=== PATIENT | male | born 1940 | race Caucasian/White ===

== ENCOUNTER 2024-07-07 23:46 | Observation (INO) ==
--- OUTSIDE RECORDS SUMMARY | 2024-07-07 23:51 | External Medical Summary | Summary of Care ---
Author Name Unknown Organization [facility] Address [address] [place] [address] Phone [phone] Care Team Providers Care Heavy Equipment Rental Manager Name Role Phone Chiki Syed MD Primary Care Provider + Reason for Visit * Reason Onset Date Comments Med Request 06/18/2024 Encounter Details Date Type Department Care Team (Late st Contact Info) Description 06/18/2024 Telephone Podiatry, [facility] [address] [place] [address] Fidelina Mckinley DPM [address] [place] [address] Med Request Allergies Active Allergy Reactions Criticality Noted Date Comments Atorvastatin 10/15/2013 Joint pain Fenofibrate 10/15/2013 Joint pain Gemfibrozil Diarrhea 10/15/2013 Lisinopril Cough 01/25/2017 Niacin Nausea/vomiting 10/15/2013 documented as of this encounter (statuses as of 06/18/2024) Medications Medication Sig Dispensed Refills Start Date End Date Status METAMUCIL 0.52 G PO CAPS one to two daily 10/15/2013 Active [facility] FISH OIL + D3 7024-9399 MG-UNIT PO CAPS Take by mouth once . Takes this once daily 10/15/2013 Active rosuvastatin (CRESTOR) 5 MG Tablet Take 2.5 Tablets by mouth every other day. Active CYANOCOBALAMIN (VITAMIN B-12) 100 MCG Tablet Take 5 Tablets by mouth in the morning. Active Tylenol PM Extra Strength 500-25 MG Oral Tablet (diphenhydrAMINE-AP AP (sleep)) Take 1 Tablet by mouth 3 times a day as needed for Itching. Active Pantoprazole Sodium 20 MG Oral Tablet Delayed Release (Protonix) TAKE 1 TABLET BY MOUTH IN THE MORNING 90 Tablet 09/06/2023 Active Ciclopirox 8 % External Solution Apply over nail and surrounding skin. Apply daily over previous coat. After seven (7) days, may remove with alcohol and continue cycle. 6.6 mL 3 09/26/2023 Active Additional Information Patient not taking.Reported on 01/20/2024 predniSONE 10 MG Oral Tablet (Deltasone)Indicati ons:Acute right-sided low back pain without sciatica 1 tab every morning for 5 days or up to 15 days 20 Tablet 01/01/2024 Active Warfarin Sodium 4 MG Oral Tablet (Coumadin)Indicatio ns:Chronic atrial fibrillation (HCC) TAKE 1 TO 2 TABLETS BY MOUTH DAILY PER ANTI-COAGULATION CLINIC 180 Tablet 3 01/11/2024 Active Lidocaine 5 % External Patch (Lidoderm)Indicatio ns:HZV (herpes zoster virus) post herpetic neuralgia Place 2 Patches topically on the skin in the morning. 60 Patch 5 01/20/2024 Active Furosemide 20 MG Oral Tablet (Lasix)Indications: Lower extremity edema,Chronic atrial fibrillation (HCC),HTN, goal below 130/80,Valvular heart disease Take 1 Tablet by mouth daily as needed (fluid accumulation or weight gain). 30 Tablet 11 03/02/2024 Active Gabapentin 100 MG Oral Capsule (Neurontin)Indicati ons:HZV (herpes zoster virus) post herpetic neuralgia Take 1 Capsule by mouth in the morning and 1 Capsule at noon and 1 Capsule before bedtime. 90 Capsule 5 03/23/2024 Active Losartan Potassium 100 MG Oral Tablet (Cozaar)Indications :HTN, goal below 140/90 TAKE 1 TABLET BY MOUTH IN THE MORNING 90 Tablet 04/04/2024 Active hydroCHLOROthiazide 12.5 MG Oral CapsuleIndications: HTN, goal below 140/90 TAKE 1 CAPSULE BY MOUTH IN THE MORNING 90 Capsule 04/04/2024 Active Metoprolol Succinate ER 50 MG Oral Tablet Extended Release 24 Hour (toPROL XL)Indications:Atri al fibrillation, chronic (HCC),HTN, goal below 130/80 TAKE 1 TABLET BY MOUTH IN THE MORNING 90 Tablet 1 05/28/2024 Active documented as of this encounter (statuses as of 06/18/2024) Active Problems Problem Noted Date Diagnosed Date Aneurysm of ascending aorta without rupture 03/05 Severe obesity with body mas s index (BMI) of 35.0 to 39.9 with serious comorbidity 01/10/2023 History of 2019 novel coronavirus disease (COVID -19) 03/09/2022 Overview: 03/26 Aortic ectasia, thoracic 07/28/2021 Overview: 07/26 4.3 cm Atrial fibrillation, chronic 10/19/2018 Complex tear of lateral meni scus of right knee as current injury 04/05/2017 History of renal cell cancer 01/25/2017 Overview: left kidney dx [facility] Prediabetes 10/05/2016 Prostate cancer 10/05/2016 Overview: S/p surgery, XRT. 07/[address] Holm 08/21 PSA 0.[address] [place] [address] Romero--s/p surg, XRT 5 years later. Well adult exam 10/05/2016 Overview: 08/26 EGD biopsy +Leiomyoma. Precious 1y 06/26 EGD--abnormal. F/u sched Aug. 07/26 lung nodules, ectasia, precious stable 05/27, precious 1 more time 1y ordered 04/[address] Holm, uro. Dr Mccloud-Cardiology in past now Dr Patten Goes yearly to [facility] 06/21 normal stress test w/Dr Mccloud 2009 colonoscopy WNL -consider in 2019. A-fib 01/09/2016 Overview: 06/21 Lexiscan Tc99 Stress echo WNL. Normal EF. Dr Mccloud, [place] in past now Dr Patten. HTN, goal below 130/80 GERD (gastroesophageal reflux disease) documented as of this encounter (statuses as of 06/18/2024) Resolved Problems Problem Noted Date Diagnosed Date Resolved Date Low vitamin D level 01/09/2016 04/05/20 17 Kidney disease, chronic, sta ge III (GFR 30-59 ml/min) 04/07/2015 10/19/2018 Overview: Per CKD protocol #1 Renal cancer 11/01/2014 01/25/2017 Rt groin pain 10/07/2014 11/01/2014 Hyperlipidemia with target LDL less than 100 01/09/2016 Overview: ICD-10 update of inactive term Prostate cancer 01/09/2016 Atrial fibrillation 05/02/20 15 Overview: Dr Gilliam HTN, goal below 140/90 05/02 Hyperlipidemia with target LDL less than 100 11/01/2014 Overview: ICD-10 update of inactive term documented as of this encounter (statuses as of 06/18/2024) Immunizations Name Administration Dates Next Due COVID-19 mRNA, LNP-s, No Pre serve, 2-Dose Series (Moderna) 10/13/2020,09/15/2020 COVID-19, mRNA, LNP-s, PF, B ooster, 100mcg/0.5mg (Moderna) 12/14/2021,07/01/2021 Covid-19, Mrna, Lnp-s, Pf, B ivalent, 30 Mcg, IM, 12 yrs and above (Pfizer) 01/13/2023,07/05/2022 Pneumococcal Conjugate Vacc, 13 Valent (Prevnar) 10/05/2016 Pneumococcal Polysaccharide PPV23 (Pneumovax) 06/05/2008 RSV Vac., Bivalent, Perfusio n F, Pf,0.5 Ml (Abrysvo) 01/20/2024 Season Influenza, Quad, PF, Adjuvanted, 65+ Yrs, IM (FLUAD) 05/14/2020 Seasonal Influenza Vac., MDV , IM, 0.5 mL (Fluzone) 06/11/2014,06/20/2013 Seasonal Influenza Virus Vac cine, Unspecified Formulation 06/14/2017,06/08/2016,06/05/2014,06/20,09/05/2011,06/05/2011,06/29/2010 ,07/06/2009,06/24/2008,06/28/2007,09/2005,07/13/2005,07/06/2004, 3,06/05/2002,07/06/2001 Seasonal Influenza, High Dos e, Trivalent, PF, IM (Fluzone HD) 06/16/2024 Seasonal Influenza, PF, 6 M & above, IM , (FluLaval or Fluzone) 05/15/2019,06/12/2018,06/14/2017 Seasonal Influenza, Quadriva lent Hd (Fluzone Hd) 06/11/2023,05/22/2022,05/23/2021 Seasonal Influenza, Quadriva lent, No Preserve, IM 06/08/2016,06/18/2015 TDAP (age 10 and older)(Boostrix) 01/31/2017 Varicella Zoster Vaccine (Adult) 04/05/2010 Zoster Vaccine Recombinant (Shingrix) 01/22/2020 ,10/24/2019 documented as of this encounter Social History Tobacco Use Types Packs/Day Years Used Date Smoking Tobacco: Former Cigarettes 1.5 20 0 10/15/1961 - 10/15/1981 Smokeless Tobacco: Former Quit: 10/19/1991 Comments:20 yrs 1- ppd Alcohol Use Standard Drinks/Week Comments Yes 0 (1 standard drink = 0.6 oz pur e alcohol) wine at holidays PHQ-2 Answer Date Recorded PHQ Adult Total Score 0 01/20/2024 Hunger Vital Sign Answer Date Recorded Within the past 12 months, y ou worried that your food would run out before you got the money to buy more. Never true 01/11/20 23 Within the past 12 months, t he food you bought just didn't last and you didn't have money to get more. Never true 01/10/2023 Utilities Answer Date Recorded Do you have trouble paying y our heating, water, or electric bill? (Adult - for ages 18 years and over) Not on file 02/21/2024 Is your family able to pay t he heat, water, or electric bill? (Household - for ages 0-17 years) Not on file 02/21/2024 Does your family have access to good internet? (Household - for ages 0-17 years) Not on file 02/21/2024 Social Connections Answer Date Recorded How often do you feel lonely or isolated from those around you? (Adult - for ages 18 years and over) Not on file 02/21/2024 Sex and Gender Information Value Date Recorded Sex Assigned at Male 09/30/2021 10:18 AM EST Gender Identity Male 09/30/2021 10:18 AM EST Sexual Orientation Straight 09/30/2021 10 :18 AM EST Job Start Date Occupation Industry Not on file Not on file Not on file documented as of this encounter Miscellaneous Notes * Addendum Note - Tonja Anthony PHARM Tech - 06/18/2024 10:19 AM EDT Addended by: TONJA ANTHONY on: 06/18/2024 10:19 AM Modules accepted: Orders * Telephone Encounter - Tonja Anthony tobacco roller - 06/18/2024 10:18 AM EDT Patient is up to date for office visits. Pending Prescriptions: Disp Refills Ciclopirox 8 % External Solution 6.6 mL 3 Sig: Apply over nail and surrounding skin. Apply daily over previous coat. After seven (7) days, may remove with alcohol and continue cycle. Last Visit: Visit date not found (in office), Visit date not found (telemedicine) Next Visit: Visit date not found If no future appointments scheduled, and last appointment is greater than a year ago, please schedule patient for a follow-up appointment Last date the medication was ordered: 09/26/23 Pharmacy: [facility] Is this request for a controlled substance?No it is not controlled. Urine Drug Screen:No results found for this or any previous visit. Patient Phone Numbers Labs: Lab Results Component Value Date/Time CREAT 1.2 02/07/2024 12:00 AM CREAT 1.3 (H) 10/17/2019 07:03 AM POTASSIUM 4.9 02/07/2024 12:00 AM POTASSIUM 4.9 10/17/2019 07:03 AM TSH 2.53 02/07/2024 12:00 AM TSH 3.66 11/01/2017 07:12 AM LDL 90 10/31/2020 11:26 AM LDL 63 04/16/2018 11:18 AM LDL NOT APPLICABLE 04/16/2018 11:18 AM LDLCALC 72 02/07/2024 12:00 AM ALT 25 11/01/2017 07:12 AM HGBA1C 6.5 (A) 02/07/2024 12:00 AM HGBA1C 6.2 (H) 10/17/2019 07:03 AM * Telephone Encounter - Karlee Singh PHARM Tech - 06/18/2024 10:14 AM EDT Pt calling for a refill on Ciclopirox. This was last prescribed by Podiatry. Transfer to specialty refill line. Thank you, Karlee Singh, Construction [employer] [facility] ([facility]) 06/18/2024,10:16 AM documented in this encounter Plan of Treatment Upcoming Encounters Date Type Department Care Team (Late st Contact Info) Description 06/22/2024 10:00 AM EDT 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 Pharmacy, [facility] [address] [address] [address] [facility] [address] [address] 09/26/2024 10:30 AM EST Office Visit Cardiology, [facility] [address] [address] Fredrick Jaime DO [address] [address] [address] 01/23/2025 9:20 AM EDT Office Visit Family Practice [facility] [address] [address] Chiki Syed MD [address] [place] [address] Scheduled Procedures Name Priority Associated Diagnoses Date/Ti me ESOPHAGOGASTRODUODENOSCOPY ( EGD), FLEXIBLE, TRANSORAL, ENDOSCOPIC ULTRASOUND Recall Esophageal polyp Gastric mass Health Maintenance Due Date Last Done Comments COVID-19 Vaccine ( season) 2024 01/13/2023, 07/05/2022, 12/14/2021, Additional history exists Adult Wellness Visit 07/26/2024 07/26/2023, 09/30/19 22 Depression Screening 01/19/2025 01/20/2024 GFR 02/06/2025 02/07/2024, 12/05, 07/13/2023, Additional history exists HbA1c 02/06/2025 02/07/2024, 04/2023, 02/08/2023, Additional history exists DTap/Tdap Vaccines (2 - Td or Tdap) 01/31/2027 01/31/2017 Albumin/Creatinine Ratio 02/06/2027 024, 01/10/2023, 04/05/2017 Pneumococcal Vaccine: 65+ Years Completed 10/05/2016, 06/05/2008 Zoster Vaccines Completed 01/22/2020, 10/06, 04/05/2010 Influenza Vaccine (FLU shot) Completed 08/2024, 06/11/2023, 05/22/2022, Additional history exists HPV (Gardasil) Vaccine Aged Out No lo nger eligible based on patient's age to complete this topic Hepatitis B Vaccine Aged Out No longe r eligible based on patient's age to complete this topic MENINGOCOCCAL (MENACTRA/MENVEO) Aged Out No longer eligible based on patient's age to complete this topic documented as of this encounter Medical Devices Implanted Type Area Yard Associate Device Identifier Shelf Expiration Date Model / Serial / Lot Lens Intraoc 21.5 - [id number] - [id number] Implanted:Qty: 1 on 06/20/2018 by Bogdan Lindsay MD at OR [facility] Left: Eye [employer]OM[employer] 01/02/2023 [id number] / [id number] / [id number] Lens Intraoc 21.5 - [id number] - [id number] Implanted:Qty: 1 on 06/29/2018 by Bogdan Lindsay MD at OR [facility] Right: Eye BAUSCH [employer] LOMB 02/02/2023 [id number] / [id number] / [id number] documented as of this encounter Advance Directives * Full Code (Latest Code Status on File) Date Activated Date Inactivated Comments 06/29/2018 8:41 AM 06/29/2018 3:29 PM This order reflects the patients wishes and were consensually agreed upon. * Full Code Date Activated Date Inactivated Comments 06/20/2018 9:51 AM 06/20/2018 3:45 PM This order reflects the patients wishes and were consensually agreed upon. Care Teams Heavy Equipment Rental Manager Relationship Specialty Start Date End Date Chiki Syed MD [address] [place] [id number] PCP - General Family Medicine 10/20/18 documented as of this encounter
--- OUTSIDE RECORDS SUMMARY | 2024-07-07 23:51 | External Medical Summary | Summary of Care ---
Author Name Unknown Organization [facility] Address [address] [place] [address] Phone [phone] Care Team Providers Care General Claims Agent Name Role Phone Chiki Syed MD Primary Care Provider + Reason for Visit * Reason Onset Date Comments Med Request 06/18/2024 Encounter Details Date Type Department Care Team (Late st Contact Info) Description 06/18/2024 Telephone Podiatry, [facility] [address] [place] [address] Fidelina Mckinley DPM [address] [place] [address] Med Request Allergies Active Allergy [...] 10/15/2013 Active [facility] FISH OIL + D3 6913-2985 MG-UNIT PO CAPS Take by mouth once [...] cell cancer 01/25/2017 Overview: left kidney dx [facility] Prediabetes 10/05/2016 Prostate cancer 10/05/2016 Overview: S/p surgery, XRT. 07/[address] Holm 08/21 PSA 0.[address] [place] [address] Romero--s/p surg, XRT 5 years later. Well adult exam 10/05/2016 Overview: 08/26 EGD biopsy +Leiomyoma. Precious 1y 06/26 EGD--abnormal. F/u sched Aug. 07/26 lung nodules, ectasia, precious stable 05/27, precious 1 more time 1y ordered 04/[address] Holm, uro. Dr Mccloud-Cardiology in past now Dr Patten Goes yearly to [facility]. 06/21 normal stress test w/Dr Mccloud 2009 colonoscopy WNL -consider in 2019. A-fib 01/09/2016 Overview: 06/21 Lexiscan Tc99 Stress echo WNL. Normal EF. Dr Mccloud, [place] in past now Dr Patten. HTN, goal [...] Orders * Telephone Encounter - Tonja Anthony concrete rubber - 06/18/2024 10:18 AM EDT Patient is [...] date the medication was ordered: 09/26/23 Pharmacy: [facility] Is this request for a controlled [...] specialty refill line. Thank you, Karlee Singh, Sensory Scientist Sensory Scientist [facility] 06/18/2024,10:16 AM documented in this encounter Plan of Treatment Upcoming Encounters Date Type Department Care Team (Late st Contact Info) Description 06/22/2024 10:00 AM EDT 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 Pharmacy, [facility] [address] [address] [facility] [address] [address] 09/26/2024 10:30 AM EST Office Visit Cardiology, [facility] [address] [address] Fredrick Jaime DO [address] [address] 01/23/2025 9:20 AM EDT Office Visit Family Practice [facility] [address] [address] Chiki Syed MD [address] [place] [id number] Scheduled Procedures Name Priority Associated Diagnoses Date/Ti [...] this encounter Medical Devices Implanted Type Area Scrap Stripper Hand Device Identifier Shelf Expiration Date Model / Serial / Lot Lens Intraoc 21.5 - [id number] - [id number] Implanted:Qty: 1 on 06/20/2018 by Bogdan Lindsay MD at OR [facility] Left: Eye BA[employer]CH [employer] LOMB 01/02/2023 [id number] / [id number] / [id number] Lens Intraoc 21.5 - [id number] - [id number] Implanted:Qty: 1 on 06/29/2018 by Bogdan Lindsay MD at OR [facility] Right: Eye BAUSCH & LOMB 02/02/2023 [id number] / [id number] / [id number] documented as of this encounter Advance Directives [...] and were consensually agreed upon. Care Teams General Claims Agent Relationship Specialty Start Date End Date Chiki Syed MD [address] [place] [id number] PCP - General Family Medicine 10/20/18 documented as of this encounter
--- OUTSIDE RECORDS SUMMARY | 2024-07-07 23:51 | External Medical Summary | Summary of Care ---
Author Name Unknown Organization [facility] Address [address] [facility] [address] Phone [phone] Care Team Providers Care Receiving Supervisor Name Role Phone Chiki Syed MD Primary Care Provider + Reason for Visit * Reason Comments Dosage Adjustment In Person (Anticoag Cl inic) Encounter Details Date Type Department Care Team (Latest Contact Info) Description 06/22/2024 10:00 AM EDT 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 Pharmacy, [facility] [address] [facility] [place] [address] [facility] [address] [facility] [place] [address] 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 management encounter*; Longstanding persistent atrial fibrillation (HCC); [facility] current use of anticoagulant therapy Allergies Active Allergy Reactions Criticality Noted Date Comments Atorvastatin 10/15/2013 Joint pain Fenofibrate 10/15/2013 Joint pain Gemfibrozil Diarrhea 10/15/2013 Lisinopril Cough 01/25/2017 Niacin Nausea/vomiting 10/15/2013 documented as of this encounter (statuses as of 06/22/2024) Medications Medication Sig Dispensed Refills Start Date End Date Status METAMUCIL 0.52 G PO CAPS one to two daily 10/15/2013 Active [facility]IL + D3 8685-8839 MG-UNIT PO CAPS Take by mouth once [...] IN THE MORNING 90 Tablet 09/06/2023 Active predniSONE 10 MG Oral Tablet (Deltasone)Indicati ons:Acute [...] and 1 Capsule before bedtime. 90 Capsule 03/23/2024 Active Losartan Potassium 100 MG Oral Tablet (Cozaar)Indications :HTN, goal below 140/90 TAKE 1 TABLET BY MOUTH IN THE MORNING 90 Tablet 1 04/04/2024 Active hydroCHLOROthiazide 12.5 MG Oral CapsuleIndications: HTN, goal below 140/90 TAKE 1 CAPSULE BY MOUTH IN THE MORNING 90 Capsule 04/04/2024 Active Metoprolol Succinate ER 50 MG Oral Tablet Extended Release 24 Hour (toPROL XL)Indications:Atri al fibrillation, chronic (HCC),HTN, goal below 130/80 TAKE 1 TABLET BY MOUTH IN THE MORNING 90 Tablet 1 05/28/2024 Active Ciclopirox 8 % External Solution Apply over nail and surrounding skin. Apply daily over previous coat. After seven (7) days, may remove with alcohol and continue cycle. 6.6 mL 3 06/19/2024 Active documented as of this encounter (statuses as of 06/22/2024) Active Problems Problem Noted Date Diagnosed Date [...] cell cancer 01/25/2017 Overview: left kidney dx [facility] Prediabetes 10/05/2016 Prostate cancer 10/05/2016 Overview: S/p surgery, XRT. 07/[address] Holm 08/21 PSA [address] [place] [address] Romero--s/p surg, XRT 5 years later. Well adult exam 10/05/2016 Overview: 08/26 EGD biopsy +Leiomyoma. Precious 1y 06/26 EGD--abnormal. F/u sched Aug. 07/26 lung nodules, ectasia, precious stable 05/27, precious 1 more time 1y ordered 04/[address] Holm, uro. Dr Mccloud-Cardiology in past now Dr Patten Goes yearly to [facility]. 06/21 normal stress test w/Dr Mccloud 2009 colonoscopy WNL -consider in 2019. A-fib 01/09/2016 Overview: 06/21 Lexiscan Tc99 Stress echo WNL. Normal EF. Dr Mccloud, [place] in past now Dr Patten. HTN, goal below 130/80 GERD (gastroesophageal reflux disease) documented as of this encounter (statuses as of 06/22/2024) Resolved Problems Problem Noted Date Diagnosed Date [...] as of this encounter (statuses as of 06/22/2024) Immunizations Name Administration Dates Next Due COVID-19 [...] on file documented as of this encounter Progress Notes * Socorro Pappas RPh - 06/22/2024 11:33 AM EDT Medication Therapy Disease Management - 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 Patient: Sushant La | : 1940 Subjective Contacts Contact Date/Time Type Contact Phone/Fax 06/15/2024 05:11 AM EDT Vendor (Outgoing) Sushant La [phone] 06/19/2024 05:14 AM EDT Vendor (Outgoing) Sushant La [phone] 06/21/2024 05:11 AM EDT Vendor (Outgoing) Sushant La [phone] Patient-Reported Symptoms: Patient Findings Negatives: Signs/symptoms of thrombosis, Signs/symptoms of bleeding, Change in health, Change in alcohol use, Change in activity, Upcoming invasive procedure, Missed doses, Extra doses, Change in medications, Change in diet/appetite, Bruising Objective Current Warfarin Dose As of 06/22/2024 Warfarin maintenance plan: 8 mg (4 mg x 2) every Tue, Sat; 4 mg (4 mg x 1) all other days INR Result As of 06/22/2024 INR goal: 2.0-3.0 INR used for dosing: Assessment & Plan Warfarin Plan As of 06/22/2024 Full warfarin instructions: 8 mg every Tue, Sat; 4 mg all other days No change documented: Socorro Pappas jenise Next INR check: 08/03/2024 Repeat PT/INR in 6 week(s) Weekly dose: not changed Additional Dosing Information: I spent a total of 10-19 minutes (exact time 10 mins) on the date of service in preparation, delivery, and documentation of the care provided to Sushant La excluding any time spent in the performance of separately billed services or time spent by another provider/QHP. Socorro Pappas [facility] Clinical Pharmacist 06/22/2024, 11:36 AM documented in this encounter Plan of Treatment Upcoming Encounters Date Type Department Care Team (Late st Contact Info) Description 08/03/2024 10:00 AM EST 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 Pharmacy, [facility] [address] [place] [address] [facility] [address] [place] [address] 09/26/2024 10:30 AM EST Office Visit Cardiology, [facility] [address] [place] [address] Fredrick Jaime DO [address] [place] [address] 01/23/2025 9:20 AM EDT Office Visit Family Practice [facility] [address] [place] [address] Chiki Syed MD [address] [place] [address] Scheduled Procedures Name Priority Associated Diagnoses Date/Ti [...] this encounter Medical Devices Implanted Type Area Copyright Clerk Device Identifier Shelf Expiration Date Model / Serial / Lot Lens Intraoc 21.5 - [id number] - [id number] Implanted:Qty: 1 on 06/20/2018 by Bogdan Lindsay MD at OR [facility] Left: Eye [employer] 01/02/2023 [id number] / [id number] / [id number] Lens Intraoc 21.5 - [id number] - [id number] Implanted:Qty: 1 on 06/29/2018 by Bogdan Lindsay MD at OR [facility] Right: Eye [employer]OM[employer] 02/02/2023 [id number] / [id number] / [id number] documented as of this encounter Procedures Procedure Name Priority Date/Time Associated Diagnosis Comments INR FINGERSTICK, POINT OF CARE STAT 06/22/2024 9:54 AM EDT Longstanding persistent atrial fibrillation (HCC) 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 management encounter [facility] current use of anticoagulant therapy documented in this encounter Results * INR FINGERSTICK, POINT OF CARE (06/22/2024 9:54 AM EDT) Fingerstick INR 2.3 INR 10:08 AM EDT [facility]10 Blood 06/22/2024 9:54 AM EDT 06/22/2024 10:08 AM EDT Narrative [facility]10 - 06/22/2024 10:08 AM EDT Therapeutic ranges for non-operative patients: Prophylaxsis/treatment of DVT: (Range:2.0-3.0) Treatment of pulmonary embolism:(Range:2.0-3.0) Prevention of systemic embolism from: -tissue heart valves -acute myocardial infarction -valvular heart disease -atrial fibrillation (Range: 2.0-3.0) Mechanical prosthetic valves: (Range: 2.5-3.5) Socorro Pappas [facility] LAB POINT OF C ARE TEST DOCKED DEVICE UNSOLICITED RESULTS [facility] [place] [address] documented in this encounter Visit Diagnoses Diagnosis 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 management encounter- Primary Encounter for therapeutic drug monitoring Longstanding persistent atrial fibrillation (HCC) [facility] current use of anticoagulant therapy documented in this encounter Advance Directives * Full Code (Latest Code Status on File) Date Activated Date Inactivated Comments 06/29/2018 8:41 AM 06/29/2018 3:29 PM This order reflects the patients wishes and were consensually agreed upon. * Full Code Date Activated Date Inactivated Comments 06/20/2018 9:51 AM 06/20/2018 3:45 PM This order reflects the patients wishes and were consensually agreed upon. Care Teams Receiving Supervisor Relationship Specialty Start Date End Date Chiki Syed MD [address] [place] [address] PCP - General Family Medicine 10/20/18 documented as of this encounter"
--- OUTSIDE RECORDS SUMMARY | 2024-07-07 23:51 | External Medical Summary | Summary of Care ---
Author Name Unknown Organization [facility] Address [address] [place] [address] Phone [phone] Care Team Providers Care Shipping Order Clerk Name Role Phone Chiki Syed MD Primary Care Provider + Reason for Visit * Reason Onset Date Comments Med Request 06/18/2024 Encounter Details Date Type Department Care Team (Late st Contact Info) Description 06/18/2024 Telephone Podiatry, [facility] [address] [place] [address] Dewey Pack DPM [address] [place] [address] Med Request Allergies Active Allergy Reactions Criticality Noted Date Comments Atorvastatin 10/15/2013 Joint pain Fenofibrate 10/15/2013 Joint pain Gemfibrozil Diarrhea 10/15/2013 Lisinopril Cough 01/25/2017 Niacin Nausea/vomiting 10/15/2013 documented as of this encounter (statuses as of 06/19/2024) Medications Medication Sig Dispensed Refills Start Date End Date Status METAMUCIL 0.52 G PO CAPS one to two daily 10/15/2013 Active [facility] OIL + D3 3192-4873 MG-UNIT PO CAPS Take by mouth once . Takes this once daily 10/15/2013 Active rosuvastatin (CRESTOR) 5 MG Tablet Take 2.5 Tablets by mouth every other day. Active CYANOCOBALAMIN (VITAMIN B-12) 100 MCG Tablet Take 5 Tablets by mouth in the morning. Active Tylenol PM Extra Strength 500-25 MG Oral Tablet (diphenhydrAMINE- APAP (sleep)) Take 1 Tablet by mouth 3 times a day as needed for Itching. Active Pantoprazole Sodium 20 MG Oral Tablet Delayed Release (Protonix) TAKE 1 TABLET BY MOUTH IN THE MORNING 90 Tablet 09/06/2023 Active predniSONE 10 MG Oral Tablet (Deltasone)Indica tions:Acute right-sided low back pain without sciatica 1 tab every morning for 5 days or up to 15 days 20 Tablet 01/01/2024 Active Warfarin Sodium 4 MG Oral Tablet (Coumadin)Indicat ions:Chronic atrial fibrillation (HCC) TAKE 1 TO 2 TABLETS BY MOUTH DAILY PER ANTI-COAGULATION CLINIC 180 Tablet 3 01/11/2024 Active Lidocaine 5 % External Patch (Lidoderm)Indicat ions:HZV (herpes zoster virus) post herpetic neuralgia Place 2 Patches topically on the skin in the morning. 60 Patch 5 01/20/2024 Active Furosemide 20 MG Oral Tablet (Lasix)Indication s:Lower extremity edema,Chronic atrial fibrillation (HCC),HTN, goal below 130/80,Valvular heart disease Take 1 Tablet by mouth daily as needed (fluid accumulation or weight gain). 30 Tablet 11 03/02/2024 Active Gabapentin 100 MG Oral Capsule (Neurontin)Indica tions:HZV (herpes zoster virus) post herpetic neuralgia Take 1 Capsule by mouth in the morning and 1 Capsule at noon and 1 Capsule before bedtime. 90 Capsule 5 03/23/2024 Active Losartan Potassium 100 MG Oral Tablet (Cozaar)Indicatio ns:HTN, goal below 140/90 TAKE 1 TABLET BY MOUTH IN THE MORNING 90 Tablet 1 04/04/2024 Active hydroCHLOROthiazi de 12.5 MG Oral CapsuleIndication s:HTN, goal below 140/90 TAKE 1 CAPSULE BY MOUTH IN THE MORNING 90 Capsule 1 04/04/2024 Active Metoprolol Succinate ER 50 MG Oral Tablet Extended Release 24 Hour (toPROL XL)Indications:At rial fibrillation, chronic (HCC),HTN, goal below 130/80 TAKE 1 TABLET BY MOUTH IN THE MORNING 90 Tablet 1 05/28/2024 Active Ciclopirox 8 % External Solution Apply over nail and surrounding skin. Apply daily over previous coat. After seven (7) days, may remove with alcohol and continue cycle. 6.6 mL 3 06/19/2024 Active Ciclopirox 8 % External Solution Apply over nail and surrounding skin. Apply daily over previous coat. After seven (7) days, may remove with alcohol and continue cycle. 6.6 mL 3 09/26/2023 4 Discontinue d(Refill) documented as of this encounter (statuses as of 06/19/2024) Active Problems Problem Noted Date Diagnosed Date [...] cell cancer 01/25/2017 Overview: left kidney dx [facility] Prediabetes 10/05/2016 Prostate cancer 10/05/2016 Overview: S/p surgery, XRT. 07/[address] Holm 08/21 PSA 0.[address] [place] [address] Romero--s/p surg, XRT 5 years later. Well adult exam 10/05/2016 Overview: 08/26 EGD biopsy +Leiomyoma. Precious 1y 06/26 EGD--abnormal. F/u sched Dec. 07/26 lung nodules, ectasia, precious stable 05/27, precious 1 more time 1y ordered 04/[address] Holm, uro. Dr Mccloud-Cardiology in past now Dr Patten Goes yearly to [facility]. 06/21 normal stress test w/Dr Mccloud 2009 colonoscopy WNL -consider in 2019. A-fib 01/09/2016 Overview: 06/21 Lexiscan Tc99 Stress echo WNL. Normal EF. See [place] in past now Dr Patten. HTN, goal below 130/80 GERD (gastroesophageal reflux disease) documented as of this encounter (statuses as of 06/19/2024) Resolved Problems Problem Noted Date Diagnosed Date [...] as of this encounter (statuses as of 06/19/2024) Immunizations Name Administration Dates Next Due COVID-19 [...] encounter Miscellaneous Notes * Addendum Note - Dewey Pack DPM - 06/19/2024 7:15 AM EDTAddended by: DEWEY PACK on: 06/19/2024 07:15 AM Modules accepted: Orders * Addendum Note - Tonja Anthony dining car waiter/waitress - 06/18/2024 10:19 AM EDT Addended by: TONJA ANTHONY on: 06/18/2024 10:19 AM Modules accepted: Orders * Telephone Encounter - Tonja Anthony dining car waiter/waitress - 06/18/2024 10:18 AM EDT Patient is [...] date the medication was ordered: 09/26/23 Pharmacy: [facility] Is this request for a controlled [...] specialty refill line. Thank you, Karlee Singh, Rag Washer Rag Washer [facility] 06/18/2024,10:16 AM documented in this encounter Plan of Treatment Upcoming Encounters Date Type Department Care Team (Late st Contact Info) Description 06/22/2024 10:00 AM EDT 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 Pharmacy, [facility] [address] [facility] [place] [address] [facility] 132 [facility] [place] [address] 09/26/2024 10:30 AM EST Office Visit Cardiology, [facility] [address] [place] [address] Fredrick Jaime DO [address] [place] [address] 01/23/2025 9:20 AM EDT Office Visit Family Practice [facility] [address] [place] [address] Chiki Syed MD [address] [place] [address] Scheduled Procedures Name Priority Associated Diagnoses Date/Ti me ESOPHAGOGASTRODUODENOSCOPY ( EGD), FLEXIBLE, TRANSORAL, ENDOSCOPIC ULTRASOUND Recall Esophageal polyp Gastric mass Health Maintenance Due Date Last Done Comments COVID-19 Vaccine ( season) 2024 01/13/2023, 07/05/2022, 12/14/2021, Additional history exists Adult Wellness Visit 07/26/2024 07/26/2023, 09/30/19 22 Depression Screening 01/19/2025 01/20/2024 GFR 02/06/2025 02/07/2024, 12/05, 07/13/2023, Additional history exists HbA1c 02/06/2025 02/07/2024, 11/0 04/2023, 02/08/2023, Additional history exists DTap/Tdap Vaccines [...] this encounter Medical Devices Implanted Type Area Golf Club Assembler Device Identifier Shelf Expiration Date Model / Serial / Lot Lens Intraoc 21.5 - [id number] - [id number] Implanted:Qty: 1 on 06/20/2018 by Bogdan Lindsay MD at OR [facility] Left: Eye [employer] 01/02/2023 [id number] / [id number] / [id number] Lens Intraoc 21.5 - [id number] - [id number] Implanted:Qty: 1 on 06/29/2018 by Bogdan Lindsay MD at OR [facility] Right: Eye [employer]OM[employer] 02/02/2023 [id number] / [id number] / [id number] documented as of this encounter Advance Directives [...] and were consensually agreed upon. Care Teams Shipping Order Clerk Relationship Specialty Start Date End Date Chiki Syed MD [address] [facility] [place] [address] PCP - General Family Medicine 10/20/18 documented as of this encounter
--- OUTSIDE RECORDS SUMMARY | 2024-07-07 23:51 | External Medical Summary ---
Author Name Unknown Address Unknown Organization K0G:[facility] [id number] [place] [address] Laboratory Report Ordering Provider Test Date Status AJIT VALDIVIA 06/22/2024 09:54:30 Final Therapeutic ranges for non-o perative patients:
Prophylaxsis/treatment of DVT: (Range:2.0-3.0)
Treatment of pulmonary embolism:(Range:2.0-3.0)
Prevention of systemic embolism from:
-tissue heart valves
-acute myocardial infarction
-valvular heart disease
-atrial fibrillation
(Range: 2.0-3.0)
Mechanical prosthetic valves: (Range: 2.5-3.5) Observation Date Value Abnormality Reference (Units ) Status INR in Capillary blood by Coagulation assay 06/22/2024 09:54:30 2.3 (INR) Final Performing Location [facility] [address] [place] [address]
--- OUTSIDE RECORDS SUMMARY | 2024-07-07 23:52 | External Medical Summary | Summary of Care ---
Author Name Unknown Organization [facility] Address [address] [place] [address] Phone [phone] Care Team Providers Care Sales Demonstrator Name Role Phone Chiki Syed MD Primary Care Provider + Reason for Visit * Reason Comments Outpatient Testing Encounter Details Date Type Department Care Team (Late st Contact Info) Description 04/23/2024 11:20 AM EDT Laboratory Laboratory, [facility] [address] [facility] [place] [phone] [facility] [id number] BPH with obstruction/lower urinary tract symptoms* Allergies Active Allergy Reactions Criticality Noted Date Comments Atorvastatin 10/15/2013 Joint pain Fenofibrate 10/15/2013 Joint pain Gemfibrozil Diarrhea 10/15/2013 Lisinopril Cough 01/25/2017 Niacin Nausea/vomiting 10/15/2013 documented as of this encounter (statuses as of 04/23/2024) Medications Medication Sig Dispensed Refills Start Date End Date Status METAMUCIL 0.52 G PO CAPS one to two daily 10/15/2013 Active [facility] OIL + D3 9369-0472 MG-UNIT PO CAPS Take by mouth once [...] a day as needed for Itching. Active Metoprolol Succinate ER 50 MG Oral Tablet Extended Release 24 Hour (toPROL XL)Indications:Atri al fibrillation, chronic (HCC),HTN, goal below 130/80 Take 1 Tablet by mouth in the morning. 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 07/[address] Holm 08/21 PSA [address] [place] [address] Romero--s/p surg, XRT 5 years later. Well adult exam 10/05/2016 Overview: 08/26 EGD biopsy +Leiomyoma. Precious 1y 06/26 EGD--abnormal. F/u sched Aug. 07/26 lung nodules, ectasia, precious stable 05/27, precious 1 more time 1y ordered 04/[address] Holm, uro. Dr Mccloud-Cardiology in past now Dr Patten Goes yearly to [facility]. 06/21 normal stress test w/Dr Mccloud 2009 colonoscopy WNL -consider in 2019. A-fib 01/09/2016 Overview: 06/21 Lexiscan Tc99 Stress echo WNL. Normal EF. Dr Mccloud, [place] in past now Dr Patten. HTN, goal below 130/80 GERD (gastroesophageal reflux disease) documented as of this encounter (statuses as of 04/23/2024) Resolved Problems Problem Noted Date Diagnosed Date [...] as of this encounter (statuses as of 04/23/2024) Immunizations Name Administration Dates Next Due COVID-19 [...] 65+ Yrs, IM (FLUAD) 05/14/2020 Seasonal Influenza Virus Vac cine, Unspecified Formulation 06/14/2017,06/08/2016,06/05/2014,06/20,09/05/2011,06/05/2011,06/29/2010 ,07/06/2009,06/24/2008,06/28/2007,100 09/2005,07/13/2005,07/06/2004, 3,06/05/2002,07/06/2001 Seasonal Influenza, PF, 6 M & above, IM , (FluLaval or Fluzone) 05/15/2019,06/12/2018,06/14/2017 Seasonal Influenza, Quadriva lent Hd (Fluzone Hd) 06/11/2023,05/22/2022,05/23/2021 Seasonal Influenza, Quadriva lent, No Preserve, IM 06/08/2016,06/18/2015 Seasonal Influenza, Split, I IV3, With Preserve, Inj 06/11/2014,06/20/2013 TDAP (age 10 and older)(Boostrix) 01/31/2017 Varicella [...] on file documented as of this encounter Plan of Treatment Upcoming Encounters Date Type Department Care Team (Late st Contact Info) Description 05/15/2024 11:10 AM EDT 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 Pharmacy, [facility] [address] [place] [address] [facility] [address] [place] [address] 09/26/2024 10:30 AM EST Office Visit Cardiology, [facility] [address] [place] [address] Fredrick Jaime DO [address] [place] [address] 01/23/2025 9:20 AM EDT Office Visit Family Practice [facility] [address] [place] [address] Chiki Syed MD [address] [place] [address] Pending Results Name Type Priority Associated Diagnoses Date /Time PSA Lab Routine BPH with obstruction/lower urinary tract symptoms 04/23/2024 11:13 AM EDT Scheduled Orders Name Type Priority Associated Diagnoses Orde r Schedule PSA Lab Routine BPH with obstruction/lower urinary tract symptoms Expected: 04/23/2024, Expires: 04/23/2025 Scheduled Procedures Name Priority Associated Diagnoses Date/Ti me ESOPHAGOGASTRODUODENOSCOPY ( EGD), FLEXIBLE, TRANSORAL, ENDOSCOPIC ULTRASOUND Recall Esophageal polyp Gastric mass Health Maintenance Due Date Last Done Comments COVID-19 Vaccine ( season) 2023 01/13/2023, 07/05/2022, 12/14/2021, Additional history exists Influenza Vaccine (FLU shot) (#1) 2024 06/11/2023, 05/22/2022, 05/23/2021, Additional history exists Adult Wellness Visit 07/26/2024 07/26/2023, 09/30/19 22 Depression Screening 01/19/2025 01/20/2024 GFR 02/06/2025 02/07/2024, 042 01/2024, 07/13/2023, Additional history exists HbA1c 02/06/2025 02/07/2024, 04/2023, 02/08/2023, Additional history exists DTaP,Tdap,and Td Vaccines (2 - Td or Tdap) 01/31/2027 01/31/2017 Albumin/Creatinine Ratio 02/06/2027 024, 01/10/2023, 04/05/2017 Pneumococcal Vaccine: 65+ Years Completed 10/05/2016, 06/05/2008 Zoster Vaccines Completed 01/22/2020, 10/06, 04/05/2010 HPV (Gardasil) Vaccine Aged Out No lo nger eligible based on patient's age to complete this topic Hepatitis B Vaccine Aged Out No longe r eligible based on patient's age to complete this topic MENINGOCOCCAL (MENACTRA/MENVEO) Aged Out No longer eligible based on patient's age to complete this topic documented as of this encounter Medical Devices Implanted Type Area Mushroom Laborer Device Identifier Shelf Expiration Date Model / Serial / Lot Lens Intraoc 21.5 - [id number] - [id number] Implanted:Qty: 1 on 06/20/2018 by Bogdan Lindsay MD at OR [facility] Left: Eye [employer]OM[employer] 01/02/2023 [id number] / [id number] / [id number] Lens Intraoc 21.5 - [id number] - [id number] Implanted:Qty: 1 on 06/29/2018 by Bogdan Lindsay MD at OR [facility] Right: Eye [employer] LOMB 02/02/2023 [id number] / [id number] / [id number] documented as of this encounter Visit Diagnoses Diagnosis BPH with obstruction/lower urinary tract symptoms- Primary Hypertrophy of prostate with urinary obstruction and other lower urinary tract symptoms (LUTS) documented in this encounter Advance Directives * Full Code (Latest Code Status on File) Date Activated Date Inactivated Comments 06/29/2018 8:41 AM 06/29/2018 3:29 PM This order reflects the patients wishes and were consensually agreed upon. * Full Code Date Activated Date Inactivated Comments 06/20/2018 9:51 AM 06/20/2018 3:45 PM This order reflects the patients wishes and were consensually agreed upon. Care Teams Sales Demonstrator Relationship Specialty Start Date End Date Chiki Syed MD [address] [facility] [place] [address] PCP - General Family Medicine 10/20/18 documented as of this encounter
--- OUTSIDE RECORDS SUMMARY | 2024-07-07 23:52 | External Medical Summary | Summary of Care ---
Author Name Unknown Organization [facility] Address [address] [place] [address] Phone [phone] Care Team Providers Care Torts Law Professor Name Role Phone Chiki Syed MD Primary Care Provider + Reason for Visit * Reason Onset Date Comments Health Maintenance 02/23/2024 Encounter Details Date Type Department Care Team (Late st Contact Info) Description 02/23/2024 Telephone Family Practice [facility] [address] [place] [address] Chiki Syed MD [address] [place] [phone] Health Maintenance Allergies Active Allergy Reactions Criticality Noted Date Comments Atorvastatin 10/15/2013 Joint pain Fenofibrate 10/15/2013 Joint pain Gemfibrozil Diarrhea 10/15/2013 Lisinopril Cough 01/25/2017 Niacin Nausea/vomiting 10/15/2013 documented as of this encounter (statuses as of 02/23/2024) Medications Medication Sig Dispensed Refills Start Date End Date Status METAMUCIL 0.52 G PO CAPS one to two daily 10/15/2013 Active [facility]IL + D3 8289-3810 MG-UNIT PO CAPS Take by mouth once . Takes this once daily 10/15/2013 Active rosuvastatin (CRESTOR) 5 MG Tablet Take 2.5 Tablets by mouth every other day. Active CYANOCOBALAMIN (VITAMIN B-12) 100 MCG Tablet Take 5 Tablets by mouth in the morning. Active Furosemide 20 MG Oral Tablet (Lasix)Indications: Lower extremity edema Take by mouth 1 Tablet daily as needed (lower extremity edema). for fluid accumulation or weight gain 30 Tablet 11 05/20/2022 Active Tylenol PM Extra Strength 500-25 MG [...] Additional Information Patient not taking.Reported on 01/20/2024 Losartan Potassium 100 MG Oral Tablet (Cozaar)Indications :HTN, goal below 140/90 TAKE 1 TABLET BY MOUTH IN THE MORNING 90 Tablet 1 11/09/2023 Active hydroCHLOROthiazide 12.5 MG Oral CapsuleIndications: HTN, goal below 140/90 TAKE 1 CAPSULE BY MOUTH IN THE MORNING 90 Capsule 1 11/09/2023 Active predniSONE 10 MG Oral Tablet (Deltasone)Indicati [...] the morning. 60 Patch 5 01/20/2024 Active Gabapentin 100 MG Oral Capsule (Neurontin)Indicati ons:HZV (herpes zoster virus) post herpetic neuralgia Take 1 Capsule by mouth in the morning and 1 Capsule at noon and 1 Capsule before bedtime. 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 07/[address] Holm 08/21 PSA 0.[address] [place] [address] Romero--s/p surg, XRT 5 years later. Well adult exam 10/05/2016 Overview: 08/26 EGD biopsy +Leiomyoma. Precious 1y 06/26 EGD--abnormal. F/u sched lung nodules, ectasia, precious stable 05/27, precious 1 more time 1y ordered 04/[address] Holm, uro. Dr Mccloud-Cardiology in past now Dr Patten Goes yearly to [facility]. 06/21 normal stress test w/Dr Mccloud 2009 colonoscopy WNL -consider in 2019. A-fib 01/09/2016 Overview: 06/21 Lexiscan Tc99 Stress echo WNL. Normal EF. Dr Mccloud [place] in past now Dr Patten. HTN, goal below 130/80 GERD (gastroesophageal reflux disease) documented as of this encounter (statuses as of 02/23/2024) Resolved Problems Problem Noted Date Diagnosed Date [...] as of this encounter (statuses as of 02/23/2024) Immunizations Name Administration Dates Next Due COVID-19 [...] Unspecified Formulation 06/14/2017,06/08/2016,06/05/2014,06/20,09/05/2011,06/05/2011,06/29/2010 ,07/06/2009,06/24/2008,06/28/2007,09/2005,07/13/2005,07/06/2004, 3,06/05/2002,07/06/2001 Seasonal Influenza, PF, 6 M & [...] as of this encounter Miscellaneous Notes * Telephone Encounter - Katelin Montano LPN - 02/23/2024 2:13 PM EDT Care Gaps Comprehensive Care Outreach Last Office/Telemedicine Visit: 01/20/2024 (in office), Visit date not found (telemedicine) Next Office Visit: 01/23/2025 Hemoglobin AIC Results: Lab Results Component Value Date/Time HEMOGLOBIN A1C - [facility] 6.3 (H) 07/13/2023 07:37 AM HEMOGLOBIN A1C - [facility] 6.2 (H) 05/14/2022 03:35 PM HEMOGLOBIN A1C - [facility] 6.2 (H) 10/31/2020 11:26 AM HEMOGLOBIN A1C - [facility] 6.2 (H) 10/17/2019 07:03 AM HEMOGLOBIN A1C - [facility] 6.1 (H) 10/20/2018 07:35 AM HEMOGLOBIN A1C - [facility] 5.9 11/01/2017 07:12 AM BP Readings from Last 1 Encounters: 01/20/24 120/80 Reviewed Health Maintenance below: Health Maintenance Topic Date Due COVID-19 Vaccine ( season) 2023 Depression Screening 01/19/2025 HbA1c 02/06/2025 GFR 02/06/2025 DTaP,Tdap,and Td Vaccines (2 - Td or Tdap) 01/31/2027 Ov scheduled Care Gap Outreach Action Taken: Spoke to patient documented in this encounter Plan of Treatment Upcoming Encounters Date Type Department Care Team (Late st Contact Info) Description 04/02/2024 10:10 AM EDT 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 Pharmacy, [facility] [address] [place] [address] [place] [address] [place] [address] 01/23/2025 9:20 AM EDT Office Visit [facility] [address] [place] [address] Chiki Syed MD [address] [place] [address] Scheduled Procedures Name Priority Associated Diagnoses Date/Ti me ESOPHAGOGASTRODUODENOSCOPY ( EGD), FLEXIBLE, TRANSORAL, ENDOSCOPIC ULTRASOUND Recall Esophageal polyp Gastric mass Health Maintenance Due Date Last Done Comments COVID-19 Vaccine ( season) 2023 01/13/2023, 07/05/2022, 12/14/2021, Additional history exists Depression Screening 01/19/2025 01/20/2024 GFR 02/06/2025 02/07/2024, 12/05, 07/13/2023, Additional history exists HbA1c 02/06/2025 02/07/2024, 04/2023, 02/08/2023, Additional history exists DTaP,Tdap,and Td Vaccines (2 - Td or Tdap) 01/31/2027 01/31/2017 Albumin/Creatinine Ratio 02/06/2027 024, 01/10/2023, 04/05/2017 Pneumococcal Vaccine: 65+ Years Completed 10/05/2016, 06/05/2008 Zoster Vaccines Completed 01/22/2020, 10/06, 04/05/2010 Influenza Vaccine (FLU shot) Completed 03/2023, 05/22/2022, 05/23/2021, Additional history exists GARDASIL-HPV IMMUNIZATION SERIES Aged Out No longer eligible based on patient's age to complete this topic Hepatitis B Aged Out No longer eligi ble based on patient's age to complete this topic MENINGOCOCCAL (MENACTRA/MENVEO) Aged Out No longer eligible based on patient's age to complete this topic documented as of this encounter Medical Devices Implanted Type Area Community Recreation Coordinator Device Identifier Shelf Expiration Date Model / Serial / Lot Lens Intraoc 21.5 - [id number] - [id number] Implanted:Qty: 1 on 06/20/2018 by Bogdan Lindsay MD at OR [facility] Left: Eye [employer]OM[employer] 01/02/2023 [id number] / [id number] / [id number] Lens Intraoc 21.5 - [id number] - [id number] Implanted:Qty: 1 on 06/29/2018 by Bogdan Lindsay MD at OR [facility] Right: Eye BA[employer] LOMB 02/02/2023 [id number] / [id number] / [id number] documented as of this encounter Advance Directives [...] and were consensually agreed upon. Care Teams Torts Law Professor Relationship Specialty Start Date End Date Chiki Syed MD [address] [address] PCP - General Family Medicine 10/20/18 documented as of this encounter
--- OUTSIDE RECORDS SUMMARY | 2024-07-07 23:52 | External Medical Summary | Summary of Care ---
Author Name Unknown Organization [facility] Address [address] [facility] [address] Phone [phone] Care Team Providers Care Doctor Of Dental Medicine Name Role Phone Chiki Syed MD Primary Care Provider + Reason for Visit * Reason Comments Dosage Adjustment In Person (Anticoag Cl inic) Encounter Details Date Type Department Care Team (Latest Contact Info) Description 03/29/2024 11:10 AM EDT 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 Pharmacy, [facility] [address] [facility] [place] [address] [facility] [address] [facility] [place] [address] 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 management encounter*; Longstanding persistent atrial fibrillation (HCC) Allergies Active Allergy Reactions Criticality Noted Date Comments Atorvastatin 10/15/2013 Joint pain Fenofibrate 10/15/2013 Joint pain Gemfibrozil Diarrhea 10/15/2013 Lisinopril Cough 01/25/2017 Niacin Nausea/vomiting 10/15/2013 documented as of this encounter (statuses as of 03/29/2024) Medications Medication Sig Dispensed Refills Start Date End Date Status METAMUCIL 0.52 G PO CAPS one to two daily 10/15/2013 Active [facility] OIL + D3 9083-7019 MG-UNIT PO CAPS Take by mouth once [...] before bedtime. 90 Capsule 5 03/23/2024 Active documented as of this encounter (statuses as of 03/29/2024) Active Problems Problem Noted Date Diagnosed Date [...] cell cancer 01/25/2017 Overview: left kidney dx [facility] Prediabetes 10/05/2016 Prostate cancer 10/05/2016 Overview: S/p surgery, XRT. 07/[address] Holm 08/21 PSA [address] [place] [address] Romero--s/p surg, XRT 5 years later. Well adult exam 10/05/2016 Overview: 08/26 EGD biopsy +Leiomyoma. Precious 1y 06/26 EGD--abnormal. F/u sched Aug. 07/26 lung nodules, ectasia, precious stable 05/27, precious 1 more time 1y ordered 04/[address] Holm, uro. Dr Mccloud-Cardiology in past now Dr Patten Goes yearly to [facility]. 06/21 normal stress test w/Dr Mccloud 2009 colonoscopy WNL -consider in 2019. A-fib 01/09/2016 Overview: 06/21 Lexiscan Tc99 Stress echo WNL. Normal EF. Dr Mccloud, [place] in past now Dr Patten. HTN, goal below 130/80 GERD (gastroesophageal reflux disease) documented as of this encounter (statuses as of 03/29/2024) Resolved Problems Problem Noted Date Diagnosed Date [...] as of this encounter (statuses as of 03/29/2024) Immunizations Name Administration Dates Next Due COVID-19 [...] as of this encounter Progress Notes * Asmita Way, Pharmacy Tool Room Machinist - 03/29/2024 11:00 AM EDT Medication Therapy Disease Management - 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 Patient: Sushant La | : 1940 Subjective Patient-Reported Symptoms: Patient Findings Negatives: Signs/symptoms of thrombosis, Signs/symptoms of bleeding, Change in health, Change in alcohol use, Change in activity, Upcoming invasive procedure, Missed doses, Extra doses, Change in medications, Change in diet/appetite, Bruising Objective Current Warfarin Dose As of 03/29/2024 Warfarin maintenance plan: 8 mg (4 mg x 2) every Tue, Sat; 4 mg (4 mg x 1) all other days INR Result As of 03/29/2024 INR goal: 2.0-3.0 INR used for dosin.8 (03/29/2024) Assessment & Plan Warfarin Plan As of 03/29/2024 Full warfarin instructions: 8 mg every Tue, Sat; 4 mg all other days Next INR check: 05/15/2024 Repeat PT/INR in 6 week(s) Weekly dose: not changed Additional Dosing Information: Asmita Way, Pharmacy Tool Room Machinist Clinical Pharmacist 03/29/2024, 11:00 AM documented in this encounter Plan of Treatment Upcoming Encounters Date Type Department Care Team (Late st Contact Info) Description 05/15/2024 11:10 AM EDT 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 Pharmacy, [facility] [address] [facility] [place] [address] [facility] [address] [facility] [place] [address] 09/26/2024 10:30 AM EST Office Visit Cardiology, [facility] [address] [facility] [place] [address] Fredrick Jaime DO [address] [place] [address] 01/23/2025 9:20 AM EDT Office Visit Family Practice [facility] [address] [place] [address] Chiki Syed MD [address] [place] [address] Scheduled Procedures Name Priority Associated Diagnoses Date/Ti me ESOPHAGOGASTRODUODENOSCOPY ( EGD), FLEXIBLE, TRANSORAL, ENDOSCOPIC ULTRASOUND Recall Esophageal polyp Gastric mass Health Maintenance Due Date Last Done Comments COVID-19 Vaccine ( season) 2023 01/13/2023, 07/05/2022, 12/14/2021, Additional history exists Influenza Vaccine (FLU shot) (#1) 2024 06/11/2023, 05/22/2022, 05/23/2021, Additional history exists Depression Screening 01/19/2025 01/20/2024 GFR 02/06/2025 02/07/2024, 042 01/2024, 07/13/2023, Additional history exists HbA1c 02/06/2025 02/07/2024, 11/0 04/2023, 02/08/2023, Additional history exists DTaP,Tdap,and Td [...] this encounter Medical Devices Implanted Type Area Oncologist Device Identifier Shelf Expiration Date Model / Serial / Lot Lens Intraoc 21.5 - [id number] - [id number] Implanted:Qty: 1 on 06/20/2018 by Bogdan Lindsay MD at OR [facility] Left: Eye [employer]OM[employer] 01/02/2023 [id number] / [id number] / [id number] Lens Intraoc 21.5 - [id number] - [id number] Implanted:Qty: 1 on 06/29/2018 by Bogdan Lindsay MD at OR [facility] Right: Eye BAUSCH [employer] LOMB 02/02/2023 [id number] / [id number] / [id number] documented as of this encounter Procedures Procedure Name Priority Date/Time Associated Diagnosis Comments INR FINGERSTICK, POINT OF CARE [place] 03/29/2024 10:59 AM EDT documented in this encounter Results * INR FINGERSTICK, POINT OF CARE (03/29/2024 10:59 AM EDT) Fingerstick INR 2.8 INR 11:01 AM EDT LAB[facility] 57-10 Blood 03/29/2024 10:5 9 AM EDT 03/29/2024 11:01 AM EDT Narrative [facility] 57-10 - 03/29/2024 11:01 AM EDT Therapeutic ranges for non-operative patients: Prophylaxsis/treatment of DVT: (Range:2.0-3.0) Treatment of pulmonary embolism:(Range:2.0-3.0) Prevention of systemic embolism from: -tissue heart valves -acute myocardial infarction -valvular heart disease -atrial fibrillation (Range: 2.0-3.0) Mechanical prosthetic valves: (Range: 2.5-3.5) [facility] [place] [facility] POINT OF CARE TEST DOCKED DEVICE UNSOLICITED RESULTS LABORATORY RE[facility] 57-10 [address] [place] [address] documented in this encounter Visit Diagnoses Diagnosis 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 management encounter- Primary Encounter for therapeutic drug monitoring Longstanding persistent atrial fibrillation (HCC) documented in this encounter Advance Directives * Full Code (Latest Code Status on File) Date Activated Date Inactivated Comments 06/29/2018 8:41 AM 06/29/2018 3:29 PM This order reflects the patients wishes and were consensually agreed upon. * Full Code Date Activated Date Inactivated Comments 06/20/2018 9:51 AM 06/20/2018 3:45 PM This order reflects the patients wishes and were consensually agreed upon. Care Teams Doctor Of Dental Medicine Relationship Specialty Start Date End Date Chiki Syed MD [address] [place] [address] PCP - General Family Medicine 10/20/18 documented as of this encounter"
--- OUTSIDE RECORDS SUMMARY | 2024-07-07 23:52 | External Medical Summary | Summary of Care ---
Author Name Unknown Organization [facility] Address [address] [facility] [address] Phone [phone] Care Team Providers Care Blackjack Supervisor Name Role Phone Chiki Syed MD Primary Care Provider + Reason for Visit * Reason Comments eRx-Medication Refill Encounter Details Date Type Department Care Team (Late st Contact Info) Description 05/24/2024 Refill Cardiology, [facility] [address] [place] [address] Magda Riley, CH[place] [address] [place] [address] Atrial fibrillation, chronic (HCC); HTN, goal below 130/80 Allergies Active Allergy Reactions Criticality Noted Date Comments Atorvastatin 10/15/2013 Joint pain Fenofibrate 10/15/2013 Joint pain Gemfibrozil Diarrhea 10/15/2013 Lisinopril Cough 01/25/2017 Niacin Nausea/vomiting 10/15/2013 documented as of this encounter (statuses as of 05/28/2024) Medications Medication Sig Dispensed Refills Start Date End Date Status METAMUCIL 0.52 G PO CAPS one to two daily 4 Active [facility] OIL + D3 0687-2078 MG-UNIT PO CAPS Take by mouth once . Takes this once daily 4 Active rosuvastatin (CRESTOR) 5 MG Tablet Take [...] BY MOUTH IN THE MORNING 90 Tablet 4 Active Ciclopirox 8 % External Solution Apply over nail and surrounding skin. Apply daily over previous coat. After seven (7) days, may remove with alcohol and continue cycle. 6.6 mL 3 4 Active Additional Information Patient not taking.Reported on 01/20/2024 predniSONE 10 MG Oral Tablet (Deltasone)Indica tions:Acute right-sided low back pain without sciatica 1 tab every morning for 5 days or up to 15 days 20 Tablet 4 Active Warfarin Sodium 4 MG Oral Tablet (Coumadin)Indicat ions:Chronic atrial fibrillation (HCC) TAKE 1 TO 2 TABLETS BY MOUTH DAILY PER ANTI-COAGULATION CLINIC 180 Tablet 3 4 Active Lidocaine 5 % External Patch (Lidoderm)Indicat ions:HZV (herpes zoster virus) post herpetic neuralgia Place 2 Patches topically on the skin in the morning. 60 Patch 5 4 Active Furosemide 20 MG Oral Tablet (Lasix)Indication s:Lower extremity edema,Chronic atrial fibrillation (HCC),HTN, goal below 130/80,Valvular heart disease Take 1 Tablet by mouth daily as needed (fluid accumulation or weight gain). 30 Tablet 11 4 Active Gabapentin 100 MG Oral Capsule (Neurontin)Indica tions:HZV (herpes zoster virus) post herpetic neuralgia Take 1 Capsule by mouth in the morning and 1 Capsule at noon and 1 Capsule before bedtime. 90 Capsule 5 4 Active Losartan Potassium 100 MG Oral Tablet (Cozaar)Indicatio ns:HTN, goal below 140/90 TAKE 1 TABLET BY MOUTH IN THE MORNING 90 Tablet 1 4 Active hydroCHLOROthiazi de 12.5 MG Oral CapsuleIndication s:HTN, goal below 140/90 TAKE 1 CAPSULE BY MOUTH IN THE MORNING 90 Capsule 1 4 Active Metoprolol Succinate ER 50 MG Oral Tablet Extended Release 24 Hour (toPROL XL)Indications:At rial fibrillation, chronic (HCC),HTN, goal below 130/80 TAKE 1 TABLET BY MOUTH IN THE MORNING 90 Tablet 1 4 Active Metoprolol Succinate ER 50 MG Oral Tablet Extended Release 24 Hour (toPROL XL)Indications:At rial fibrillation, chronic (HCC),HTN, goal below 130/80 Take 1 Tablet by mouth in the morning. 90 Tablet 3 3 05/28/20 24 Discontinued documented as of this encounter (statuses as of 05/28/2024) Active Problems Problem Noted Date Diagnosed Date [...] renal cell cancer 01/25/2017 Overview: left kidney [facility] Prediabetes 10/05/2016 Prostate cancer 10/05/2016 Overview: S/p surgery, XRT. 07/[address] Holm 08/21 PSA 0.[address] [place] [address] Romero--s/p surg, XRT 5 years later. Well adult exam 10/05/2016 Overview: 08/26 EGD biopsy +Leiomyoma. Precious 1y 06/26 EGD--abnormal. F/u sched Dec. 07/26 lung nodules, ectasia, precious stable 05/27, precious 1 more time 1y ordered 04/[address] Holm, uro. Dr Mccloud-Cardiology in past now Dr Patten Goes yearly to [facility]. 06/21 normal stress test w/Dr Mccloud 2009 colonoscopy WNL -consider in 2019. A-fib 01/09/2016 Overview: 06/21 Lexiscan Tc99 Stress echo WNL. Normal EF. See [place] in past now Dr Patten. HTN, goal below 130/80 GERD (gastroesophageal reflux disease) documented as of this encounter (statuses as of 05/28/2024) Resolved Problems Problem Noted Date Diagnosed Date [...] as of this encounter (statuses as of 05/28/2024) Immunizations Name Administration Dates Next Due COVID-19 [...] lent, No Preserve, IM 06/08/2016,06/18/2015 Seasonal Influenza, Trivalen t, (IIV3), with Preserv, (Fluzone) 06/11/2014,06/20/2013 TDAP (age 10 and older)(Boostrix) 01/31/2017 [...] encounter Miscellaneous Notes * Telephone Encounter - Nette Marie RPh - 05/28/2024 8:46 AM EDTSigned Prescriptions: Disp Refills Metoprolol Succinate ER 50 MG Oral Tablet *90 Tab*1 Sig: TAKE 1 TABLET BY MOUTH IN THE MORNINGAuthorizing Provider: MAGDA RILEY User: NETTE MARIE NN documented in this encounter Plan of Treatment Upcoming Encounters Date Type Department Care Team (Late st Contact Info) Description 06/22/2024 10:00 AM EDT 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 [address] [place] [address] [place] [facility] [place] [address] 09/26/2024 10:30 AM EST Office Visit [facility]iology, [facility] [place] [address] Fredrick Jaime DO [address] [place] [address] 01/23/2025 9:20 AM EDT Office Visit Family [facility] [address] [place] [address] Chiki Syed MD [address] [place] [address] Scheduled Procedures Name Priority Associated Diagnoses Date/Ti me ESOPHAGOGASTRODUODENOSCOPY ( EGD), FLEXIBLE, TRANSORAL, ENDOSCOPIC ULTRASOUND Recall Esophageal polyp Gastric mass Health Maintenance Due Date Last Done Comments COVID-19 Vaccine ( season) 2024 01/13/2023, 07/05/2022, 12/14/2021, Additional history exists Influenza [...] this encounter Medical Devices Implanted Type Area Route Sales Driver Device Identifier Shelf Expiration Date Model / Serial / Lot Lens Intraoc 21.5 - [id number] - [id number] Implanted:Qty: 1 on 06/20/2018 by Bogdan Lindsay MD at OR [facility] Left: Eye [employer]OM[employer] 01/02/2023 [id number] / [id number] / [id number] Lens Intraoc 21.5 - [id number] - [id number] Implanted:Qty: 1 on 06/29/2018 by Bogdan Lindsay MD at OR [facility] Right: Eye BA[employer]CH [employer] LOMB 02/02/2023 [id number] / [id number] / [id number] documented as of this encounter Visit Diagnoses Diagnosis Atrial fibrillation, chronic (HCC) Atrial fibrillation HTN, goal below 130/80 Unspecified essential hypertension documented in this encounter Advance Directives * Full Code (Latest Code Status on File) Date Activated Date Inactivated Comments 06/29/2018 8:41 AM 06/29/2018 3:29 PM This order reflects the patients wishes and were consensually agreed upon. * Full Code Date Activated Date Inactivated Comments 06/20/2018 9:51 AM 06/20/2018 3:45 PM This order reflects the patients wishes and were consensually agreed upon. Care Teams Blackjack Supervisor Relationship Specialty Start Date End Date Chiki Syed MD [address] [facility] [place] [address] PCP - General Family Medicine 10/20/18 documented as of this encounter
--- OUTSIDE RECORDS SUMMARY | 2024-07-07 23:52 | External Medical Summary | Summary of Care ---
Author Name Unknown Organization [facility] Address [address] [facility] [address] Phone [phone] Care Team Providers Care Piccolo Mechanic Name Role Phone Chiki Syed MD Primary Care Provider + Reason for Visit * Reason Onset Date Comments Medication Refill 03/02/2024 Encounter Details Date Type Department Care Team (Late st Contact Info) Description 03/02/2024 Refill Cardiology, [facility] [address] [place] [address] Lor Schmidt CRNP [address] [facility] [place] [address] Lower extremity edema*; Chronic atrial fibrillation (HCC); HTN, goal below 130/80; Valvular heart disease Allergies Active Allergy Reactions Criticality Noted Date Comments Atorvastatin 10/15/2013 Joint pain Fenofibrate 10/15/2013 Joint pain Gemfibrozil Diarrhea 10/15/2013 Lisinopril Cough 01/25/2017 Niacin Nausea/vomiting 10/15/2013 documented as of this encounter (statuses as of 03/02/2024) Medications Medication Sig Dispensed Refills Start Date End Date Status METAMUCIL 0.52 G PO CAPS one to two daily 10/15/2013 [facility] + D3 4016-9725 MG-UNIT PO CAPS Take by mouth once [...] 01/20/2024 Losartan Potassium 100 MG Oral Tablet (Cozaar)Indicatio ns:HTN, goal below 140/90 TAKE 1 TABLET BY MOUTH IN THE MORNING 90 Tablet 1 11/09/2023 Active hydroCHLOROthiazi de 12.5 MG Oral CapsuleIndication s:HTN, goal below 140/90 TAKE 1 CAPSULE BY MOUTH IN THE MORNING 90 Capsule 1 11/09/2023 Active predniSONE 10 MG Oral Tablet (Deltasone)Indica [...] 01/20/2024 Active Gabapentin 100 MG Oral Capsule (Neurontin)Indica tions:HZV (herpes zoster virus) post herpetic neuralgia Take 1 Capsule by mouth in the morning and 1 Capsule at noon and 1 Capsule before bedtime. 90 Capsule 1 01/20/2024 Active Furosemide 20 MG Oral Tablet (Lasix)Indication s:Lower extremity edema,Chronic atrial fibrillation (HCC),HTN, goal below 130/80,Valvular heart disease Take 1 Tablet by mouth daily as needed (fluid accumulation or weight gain). 30 Tablet 11 03/02/2024 Active Furosemide 20 MG Oral Tablet (Lasix)Indication s:Lower extremity edema Take by mouth 1 Tablet daily as needed (lower extremity edema). for fluid accumulation or weight gain 30 Tablet 11 05/20/2022 Discontinue d(Refill) documented as of this encounter (statuses as of 03/02/2024) Active Problems Problem Noted Date Diagnosed Date [...] renal cell cancer 01/25/2017 Overview: left kidney [facility] Prediabetes 10/05/2016 Prostate cancer 10/05/2016 Overview: S/p surgery, XRT. 07/[address] Holm 08/21 PSA 0.[address] [place] [address] Romero--s/p surg, XRT 5 years later. Well adult exam 10/05/2016 Overview: 08/26 EGD biopsy +Leiomyoma. Precious 1y 06/26 EGD--abnormal. F/u sched lung nodules, ectasia, precious stable 05/27, precious 1 more time 1y ordered 04/[address] Holm, uro. Dr Mccloud-Cardiology in past now Dr Patten Goes yearly to [facility]. 06/21 normal stress test w/Dr Mccloud 2009 colonoscopy WNL -consider in 2019. A-fib 01/09/2016 Overview: 06/21 Lexiscan Tc99 Stress echo WNL. Normal EF. See [place] in past now Dr Patten. HTN, goal below 130/80 GERD (gastroesophageal reflux disease) documented as of this encounter (statuses as of 03/02/2024) Resolved Problems Problem Noted Date Diagnosed Date [...] as of this encounter (statuses as of 03/02/2024) Immunizations Name Administration Dates Next Due COVID-19 [...] encounter Miscellaneous Notes * Telephone Encounter - Riley Griffin OSA - 03/02/2024 9:59 AM EDTSigned Prescriptions: Disp Refills Furosemide 20 MG Oral Tablet (Lasix) 30 Tab*11 Sig: Take 1 Tablet by mouth daily as needed (fluid accumulation or weight gain).Authorizing Provider: LOR SCHMIDT * Telephone Encounter - Gracy Parada CMA - 03/02/2024 9:50 AM EDTPending Prescriptions: Disp Refills Furosemide 20 MG Oral Tablet (Lasix) 30 Tab*11 Sig: Take 1 Tablet by mouth daily as needed (fluid accumulation or weight gain). * Telephone Encounter - Gracy Parada CMA - 03/02/2024 9:45 AM EDT Scheduling - please assist with overdue f/u. Former [place] patient last seen by Emelia Hager March 2023. Did you pend patient's preferred pharmacy and medication before forwarding?yes Pharmacy: [facility] [address] [place] [address] Pending Prescriptions: Disp Refills Furosemide 20 MG Oral Tablet (Lasix) 30 Tab*11 Sig: Take 1 Tablet by mouth daily as needed (fluid accumulation or weight gain). Last Visit: 03/22/2023 (in office), 12/21/2019 (telemedicine) Next Visit: Visit date not found If no future appointments scheduled, and last appointment is greater than a year ago, please schedule patient for a follow-up appointment Last date the medication was ordered: 05/20/22 Is this request for a controlled substance?No Urine Drug Screen:No results found for this or any previous visit. Patient Phone Numbers Labs: Lab Results Component Value Date/Time CREAT 1.2 02/07/2024 12:00 AM CREAT 1.3 (H) 10/17/2019 07:03 AM POTASSIUM 4.9 02/07/2024 12:00 AM POTASSIUM 4.9 10/17/2019 07:03 AM TSH 2.53 02/07/2024 12:00 AM TSH 3.66 11/01/2017 07:12 AM LDLCALC 72 02/07/2024 12:00 AM LDLCALC 63 04/16/2018 11:18 AM LDLDIRECT 90 10/31/2020 11:26 AM LDLDIRECT NOT APPLICABLE 04/16/2018 11:18 AM LDLDIRECT 93 11/01/2017 07:12 AM ALT 25 11/01/2017 07:12 AM HGBA1C 6.5 (A) 02/07/2024 12:00 AM HGBA1C 6.2 (H) 10/17/2019 07:03 AM documented in this encounter Plan of Treatment Upcoming Encounters Date Type Department Care Team (Late st Contact Info) Description 04/02/2024 10:10 AM EDT 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 Pharmacy, [facility] [address] [place] [address] [place] [facility] [address] [place] [address] 09/26/2024 10:30 AM EST Office Visit Cardiology, [facility] [address] [place] [address] Fredrick Jaime DO [address] [place] [address] 01/23/2025 9:20 AM EDT Office Visit Family Practice [facility] [address] [place] [address] Chiki Syed MD [address] [place] [address] Scheduled Procedures Name Priority Associated Diagnoses Date/Ti me ESOPHAGOGASTRODUODENOSCOPY ( EGD), FLEXIBLE, TRANSORAL, ENDOSCOPIC ULTRASOUND Recall Esophageal polyp Gastric mass Health Maintenance Due Date Last Done Comments COVID-19 Vaccine ( season) 2023 01/13/2023, 07/05/2022, 12/14/2021, Additional history exists Depression Screening 01/19/2025 01/20/2024 GFR 02/06/2025 02/07/2024, 12/05, 07/13/2023, Additional history exists HbA1c 02/06/2025 02/07/2024, 1104/2023, 02/08/2023, Additional history exists DTaP,Tdap,and Td Vaccines [...] this encounter Medical Devices Implanted Type Area Wet Wash Assembler Device Identifier Shelf Expiration Date Model / Serial / Lot Lens Intraoc 21.5 - [id number] - [id number] Implanted:Qty: 1 on 06/20/2018 by Bogdan Lindsay MD at OR [facility] Left: Eye [employer] 01/02/2023 [id number] / [id number] / [id number] Lens Intraoc 21.5 - [id number] - [id number] Implanted:Qty: 1 on 06/29/2018 by Bogdan Lindsay MD at OR [facility] Right: Eye [employer]CH [employer] LOMB 02/02/2023 [id number] / [id number] / [id number] documented as of this encounter Visit Diagnoses Diagnosis Lower extremity edema- Primary Edema Chronic atrial fibrillation (HCC) Atrial fibrillation HTN, goal below 130/80 Unspecified essential hypertension Valvular heart disease Endocarditis, valve unspecified, unspecified cause documented in this encounter Advance Directives * Full Code (Latest Code Status on File) Date Activated Date Inactivated Comments 06/29/2018 8:41 AM 06/29/2018 3:29 PM This order reflects the patients wishes and were consensually agreed upon. * Full Code Date Activated Date Inactivated Comments 06/20/2018 9:51 AM 06/20/2018 3:45 PM This order reflects the patients wishes and were consensually agreed upon. Care Teams Piccolo Mechanic Relationship Specialty Start Date End Date Chiki Syed MD [address] [place] [address] PCP - General Family Medicine 10/20/18 documented as of this encounter
--- OUTSIDE RECORDS SUMMARY | 2024-07-07 23:52 | External Medical Summary | Summary of Care ---
Author Name Unknown Organization [facility] Address [address] [place] [address] Phone [phone] Care Team Providers Care Sales Representative Church Furniture Name Role Phone Chiki Syed MD Primary Care Provider + Encounter Details Date Type Department Care Team (Late st Contact Info) Description 06/16/2024 9:15 AM EDT Immunization Ancillary [facility] [address] [facility] [place] [address] [facility] Flu Shot [facility] Prac [address] [facility] [place] [address] Arrived Allergies Active Allergy Reactions Criticality Noted Date Comments Atorvastatin 10/15/2013 Joint pain Fenofibrate 10/15/2013 Joint pain Gemfibrozil Diarrhea 10/15/2013 Lisinopril Cough 01/25/2017 Niacin Nausea/vomiting 10/15/2013 documented as of this encounter (statuses as of 06/16/2024) Medications Medication Sig Dispensed Refills Start Date End Date Status METAMUCIL 0.52 G PO CAPS one to two daily 10/15/2013 Active [facility]IL + D3 5355-9406 MG-UNIT PO CAPS Take by mouth once [...] as of this encounter (statuses as of 06/16/2024) Active Problems Problem Noted Date Diagnosed Date [...] Sees Dr Holm 08/21 PSA 0.[address] [place] [address] Romero--s/p surg, XRT 5 years later. [...] Stress echo WNL. Normal EF. Dr Mccloud [place] in past now Dr Patten. HTN, goal below 130/80 GERD (gastroesophageal reflux disease) documented as of this encounter (statuses as of 06/16/2024) Resolved Problems Problem Noted Date Diagnosed Date [...] as of this encounter (statuses as of 06/16/2024) Immunizations Name Administration Dates Next Due COVID-19 [...] Description 06/22/2024 10:00 AM EDT 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 Pharmacy, [facility] [address] [place] [address] [place] [facility] [address] [place] [address] 09/26/2024 10:30 AM EST Office Visit Cardiology, [facility] [address] [place] [address] Fredrick Jaime DO [address] [place] [address] 01/23/2025 9:20 AM EDT Office Visit Family Practice [facility] [address] [place] [address] Chiki Syed MD [address] [place] [address] Scheduled Procedures Name Priority Associated Diagnoses Date/Ti me ESOPHAGOGASTRODUODENOSCOPY ( EGD), FLEXIBLE, TRANSORAL, ENDOSCOPIC ULTRASOUND Recall Esophageal polyp Gastric mass Health Maintenance Due Date Last Done Comments COVID-19 Vaccine ( season) 2024 01/13/2023, 07/05/2022, 12/14/2021, Additional history exists Influenza Vaccine (FLU shot) (#1) 2024 06/16/2024, 06/11/2023, 05/22/2022, Additional history exists Adult Wellness Visit 07/26/2024 07/26/2023, 09/30/19 22 Depression Screening 01/19/2025 01/20/2024 GFR 02/06/2025 02/07/2024, 04/2 01/2024, 07/13/2023, Additional history exists HbA1c 02/06/2025 [...] this encounter Medical Devices Implanted Type Area Pouncer Device Identifier Shelf Expiration Date Model / Serial / Lot Lens Intraoc 21.5 - [id number] - [id number] Implanted:Qty: 1 on 06/20/2018 by Bogdan Lindsay MD at OR [facility] Left: Eye [employer] 01/02/2023 [id number] / [id number] / [id number] Lens Intraoc 21.5 - [id number] - [id number] Implanted:Qty: 1 on 06/29/2018 by Bogdan Lindsay MD at OR [facility] Right: Eye [employer]OM[employer] 02/02/2023 [id number] / [id number] / [id number] documented as of this encounter Advance Directives [...] were consensually agreed upon. Care Teams Sales Representative [employer] Furn[employer] Relationship Specialty Start Date End Date Chiki Syed MD [address] [place] [address] PCP - General Family Medicine 10/20/18 documented as of this encounter
--- OUTSIDE RECORDS SUMMARY | 2024-07-07 23:52 | External Medical Summary | Summary of Care ---
Author Name Unknown Organization [facility] Address [address] [place] [address] Phone [phone] Care Team Providers Care Farm Equipment Operator Name Role Phone Chiki Syed MD Primary Care Provider + Reason for Visit * Reason Comments Outpatient Testing Encounter Details Date Type Department Care Team (Late st Contact Info) Description 04/23/2024 11:20 AM EDT Laboratory Laboratory, [facility] 132 [facility] [place] [phone] [facility] [address] [facility] [phone] BPH with obstruction/lower urinary tract symptoms* Allergies [...] 10/15/2013 Active [facility] OIL + D3 1345-7173 MG-UNIT PO CAPS Take by mouth once [...] cell cancer 01/25/2017 Overview: left kidney dx [facility] Prediabetes 10/05/2016 Prostate cancer 10/05/2016 Overview: S/p surgery, XRT. 07/[address] Holm 08/21 PSA 0.[address] [place] [address] Romero--s/p surg, XRT 5 years later. Well adult exam 10/05/2016 Overview: 08/26 EGD biopsy +Leiomyoma. Precious 1y 06/26 EGD--abnormal. F/u sched Aug. 07/26 lung nodules, ectasia, precious stable 05/27, precious 1 more time 1y ordered 04/[address] Holm, uro. Dr Mccloud-Cardiology in past now Dr Patten Goes yearly to [facility]. 06/21 normal stress test w/Dr Mccloud 2009 colonoscopy WNL -consider in 2019. A-fib 01/09/2016 Overview: 06/21 Lexiscan Tc99 Stress echo WNL. Normal EF. Dr Mccloud, [place] in past now Dr Patten. HTN, goal [...] Description 05/15/2024 11:10 AM EDT 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 Pharmacy, [facility] [address] [place] [address] [facility] [address] [place] [address] 09/26/2024 10:30 AM EST Office Visit Cardiology, [facility] [address] [place] [address] Fredrick Jaime DO [address] [place] [address] 01/23/2025 9:20 AM EDT Office Visit Family Practice [facility] [address] [place] [address] Chiki Syed MD [address] [place] [address] Pending Results Name Type Priority Associated Diagnoses [...] this encounter Medical Devices Implanted Type Area Assembler Truck Trailer Device Identifier Shelf Expiration Date Model / Serial / Lot Lens Intraoc 21.5 - [id number] - [id number] Implanted:Qty: 1 on 06/20/2018 by Bogdan Lindsay MD at OR [facility] Left: Eye [employer]OM[employer] 01/02/2023 [id number] / [id number] / [id number] Lens Intraoc 21.5 - [id number] - [id number] Implanted:Qty: 1 on 06/29/2018 by Bogdan Lindsay MD at OR [facility] Right: Eye [employer]CH [employer] LOM[employer] 02/02/2023 [id number] / [id number] / [id number] documented as of this encounter Visit Diagnoses [...] and were consensually agreed upon. Care Teams Farm Equipment Operator Relationship Specialty Start Date End Date Chiki Syed MD 132 [facility] [place] [address] PCP - General Family Medicine 10/20/18 documented as of this encounter
--- OUTSIDE RECORDS SUMMARY | 2024-07-07 23:52 | External Medical Summary | Summary of Care ---
Author Name Unknown Organization [facility] Address [address] [place] [facility] [place] [address] Phone [phone] Care Team Providers Care Power Plant Supervisor Name Role Phone Chiki Blount MD Primary Care Provider + Reason for Visit * Reason Comments eRx-Medication Refill Encounter Details Date Type Department Care Team (Late st Contact Info) Description 04/04/2024 Refill Family Practice [facility] [address] [place] [address] Chiki Blount MD [address] [place] [phone] HTN, goal below 140/90 Allergies Active Allergy Reactions Criticality Noted Date Comments Atorvastatin 10/15/2013 Joint pain Fenofibrate 10/15/2013 Joint pain Gemfibrozil Diarrhea 10/15/2013 Lisinopril Cough 01/25/2017 Niacin Nausea/vomiting 10/15/2013 documented as of this encounter (statuses as of 04/04/2024) Medications Medication Sig Dispensed Refills Start Date End Date Status METAMUCIL 0.52 G PO CAPS one to two daily 4 Active [facility] OIL + D3 5062-7251 MG-UNIT PO CAPS Take by mouth once [...] in the morning. 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 07/[address] Holm 08/21 PSA [address] [place] [address] Romero--s/p surg, XRT 5 years later. Well adult exam 10/05/2016 Overview: 08/26 EGD biopsy +Leiomyoma. Precious 1y 06/26 EGD--abnormal. F/u sched Dec. 07/26 lung nodules, ectasia, precious stable 05/27, precious 1 more time 1y ordered 04/[address] Holm, uro. Dr Mccloud-Cardiology in past now Dr Patten Goes yearly to [facility]. 06/21 normal stress test w/Dr Mccloud 2009 colonoscopy WNL -consider in 2020. A-fib 01/09/2016 Overview: 06/21 Lexiscan Tc99 Stress echo WNL. Normal EF. Dr Mccloud, [place] in past now Dr Patten. HTN, goal below 130/80 GERD (gastroesophageal reflux disease) documented as of this encounter (statuses as of 04/04/2024) Resolved Problems Problem Noted Date Diagnosed Date [...] as of this encounter (statuses as of 04/04/2024) Immunizations Name Administration Dates Next Due COVID-19 [...] encounter Miscellaneous Notes * Telephone Encounter - Lorenza Pfeiffer RPh - 04/04/2024 2:03 PM EDTSigned Prescriptions: Disp Refills Losartan Potassium 100 MG Oral Tablet (Coz*90 Tab*1 Sig: TAKE 1 TABLET BY MOUTH IN THE MORNINGAuthorizing Provider: CHIKI BLOUNT User: LORENZA PFEIFFERhydroCHLOROthiazide 12.5 MG Oral Capsule 90 Cap*1 Sig: TAKE 1 CAPSULE BY MOUTH IN THE MORNINGAuthorizing Provider: CHIKI BLOUNT User: LORENZA PFEIFFER documented in this encounter Plan of Treatment Upcoming Encounters Date Type Department Care Team (Late st Contact Info) Description 05/15/2024 11:10 AM EDT 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 [address] [place] [address] [place], [facility] [address] [place] [address] 09/26/2024 10:30 AM EST Office Visit Cardiology, [facility] [address] [place] [address] Fredrick Jaime DO [address] [place] [address] 01/23/2025 9:20 AM EDT Office Visit Family Practice [facility] [address] [place] [address] Chiki Blount MD [address] [place] [address] Scheduled Procedures Name Priority Associated Diagnoses Date/Ti me ESOPHAGOGASTRODUODENOSCOPY ( EGD), FLEXIBLE, TRANSORAL, ENDOSCOPIC ULTRASOUND Recall Esophageal polyp Gastric mass Health Maintenance Due Date Last Done Comments COVID-19 Vaccine (2022- season) 2023 01/13/2023, 07/05/2022, 12/14/2021, Additional history [...] this encounter Medical Devices Implanted Type Area Service Assistant Device Identifier Shelf Expiration Date Model / Serial / Lot Lens Intraoc 21.5 - [id number] - [id number] Implanted:Qty: 1 on 06/20/2018 by Bogdan Lindsay MD at OR [facility] Left: Eye BAUSCH [employer] LOMB 01/02/2023 [id number] / [id number] / [id number] Lens Intraoc 21.5 - [id number] - [id number] Implanted:Qty: 1 on 06/29/2018 by Bogdan Lindsay MD at OR [facility] Right: Eye BAUSCH [employer] LOMB 02/02/2023 [id number] / [id number] / [id number] documented as of this encounter Visit Diagnoses Diagnosis HTN, goal below 140/90 Unspecified essential hypertension documented in this encounter [...] and were consensually agreed upon. Care Teams Power Plant Supervisor Relationship Specialty Start Date End Date Chiki Blount MD [address] [place] [address] PCP - General Family Medicine 10/20/18 documented as of this encounter
--- OUTSIDE RECORDS SUMMARY | 2024-07-07 23:52 | External Medical Summary ---
Author Name Unknown Address Unknown Organization K0G[facility] [address] [place] [address] Laboratory Report Ordering Provider Test Date Status AJIT VALDIVIA 05/15/2024 10:40:54 Final Therapeutic ranges for non-o perative patients:
Prophylaxsis/treatment of DVT: (Range:2.0-3.0)
Treatment of pulmonary embolism:(Range:2.0-3.0)
Prevention of systemic embolism from:
-tissue heart valves
-acute myocardial infarction
-valvular heart disease
-atrial fibrillation
(Range: 2.0-3.0)
Mechanical prosthetic valves: (Range: 2.5-3.5) Observation Date Value Abnormality Reference (Units ) Status INR in Capillary blood by Coagulation assay 05/15/2024 10:40:54 2.6 (INR) Final Performing Location [facility] [address] [place] [address]
--- OUTSIDE RECORDS SUMMARY | 2024-07-07 23:52 | External Medical Summary | Summary of Care ---
Author Name Unknown Organization [facility] [address] [address] Phone [phone] Care Team Providers Care Seasonal Customer Service Associate Name Role Phone Chiki Syed MD Primary Care Provider + Reason for Visit * Reason Comments Dosage Adjustment In Person (Anticoag Cl inic) Encounter Details Date Type Department Care Team (Latest Contact Info) Description 05/15/2024 11:10 AM EDT 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 Pharmacy, [facility] [address] [facility] [place] [address] [facility] [address] [facility] [address] [place] [address] 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 management encounter*; Longstanding persistent atrial fibrillation (HCC); skilled nursing current use of anticoagulant therapy Allergies Active Allergy Reactions Criticality Noted Date Comments Atorvastatin 10/15/2013 Joint pain Fenofibrate 10/15/2013 Joint pain Gemfibrozil Diarrhea 10/15/2013 Lisinopril Cough 01/25/2017 Niacin Nausea/vomiting 10/15/2013 documented as of this encounter (statuses as of 05/15/2024) Medications Medication Sig Dispensed Refills Start Date End Date Status METAMUCIL 0.52 G PO CAPS one to two daily 10/15/2013 Active [facility] + D3 7057-8299 MG-UNIT PO CAPS Take by mouth once [...] as of this encounter (statuses as of 05/15/2024) Active Problems Problem Noted Date Diagnosed Date [...] renal cell cancer 01/25/2017 Overview: left kidney [facility] Prediabetes 10/05/2016 Prostate cancer 10/05/2016 Overview: S/p surgery, XRT. 07/[address] Holm 08/21 PSA 0.[address] [place] [address] Romero--s/p surg, XRT 5 years later. Well adult exam 10/05/2016 Overview: 08/26 EGD biopsy +Leiomyoma. Precious 1y 06/26 EGD--abnormal. F/u sched lung nodules, ectasia, precious stable 05/27, precious 1 more time 1y ordered 04/[address] Holm, uro. Dr Mccloud-Cardiology in past now Dr Patten Goes yearly to [facility]. 06/21 normal stress test w/Dr Mccloud 2009 colonoscopy WNL -consider in 2019. A-fib 01/09/2016 Overview: 06/21 Lexiscan Tc99 Stress echo WNL. Normal EF. Dr Mccloud [place] in past now Dr Patten. HTN, goal below 130/80 GERD (gastroesophageal reflux disease) documented as of this encounter (statuses as of 05/15/2024) Resolved Problems Problem Noted Date Diagnosed Date [...] as of this encounter (statuses as of 05/15/2024) Immunizations Name Administration Dates Next Due COVID-19 [...] Progress Notes * Socorro Pappas RPh - 05/15/2024 10:37 AM EDT Medication Therapy Disease Management - 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 Patient: Sushant Vyas La | : 1940 Subjective Contacts Contact Date/Time Type Contact Phone/Fax 05/08/2024 05:14 AM EDT Vendor (Outgoing) Sushant La [phone] 05/12/2024 05:08 AM EDT Vendor (Outgoing) Sushant La [phone] 05/14/2024 05:14 AM EDT Vendor (Outgoing) Suhsant La [phone] Patient-Reported Symptoms: Patient Findings Negatives: Signs/symptoms of thrombosis, Signs/symptoms of bleeding, Change in health, Change in alcohol use, Change in activity, Upcoming invasive procedure, Missed doses, Extra doses, Change in medications, Change in diet/appetite, Bruising Objective Current Warfarin Dose As of 05/15/2024 Warfarin maintenance plan: 8 mg (4 mg x 2) every Tue, Sat; 4 mg (4 mg x 1) all other days INR Result As of 05/15/2024 INR goal: 2.0-3.0 INR used for dosin.6 (05/15/2024) Assessment & Plan Warfarin Plan As of 05/15/2024 Full warfarin instructions: 8 mg every Tue, Sat; 4 mg all other days No change documented: Socorro aPppas [facility] Next INR check: 06/22/2024 Repeat PT/INR in 6 week(s) Weekly dose: not changed Additional Dosing Information: I spent a total of 10-19 minutes (exact time 10 mins) on the date of service in preparation, delivery, and documentation of the care provided to Sushant La excluding any time spent in the performance of separately billed services or time spent by another provider/QHP. Socorro Pappas [facility] Clinical Pharmacist 05/15/2024, 10:55 AM documented in this encounter Plan of Treatment Upcoming Encounters Date Type Department Care Team (Late st Contact Info) Description 06/22/2024 10:00 AM EDT 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 Pharmacy, [facility] [address] [place] [address] [facility] [address] [place] [address] 09/26/2024 10:30 AM EST Office Visit Cardiology, [facility] [address] [place] [address] Fredrick Jaime DO [address] [place] [address] 01/23/2025 9:20 AM EDT Office Visit Family Practice [facility] [address] [place] [address] Chiki Syed MD [address] [place] [address] Scheduled Procedures Name Priority Associated Diagnoses Date/Ti me ESOPHAGOGASTRODUODENOSCOPY ( EGD), FLEXIBLE, TRANSORAL, ENDOSCOPIC ULTRASOUND Recall Esophageal polyp Gastric mass Health Maintenance Due Date Last Done Comments COVID-19 Vaccine (2022- season) 2024 01/13/2023, 07/05/2022, 12/14/2021, Additional history [...] this encounter Medical Devices Implanted Type Area Weight And Test Bar Clerk Device Identifier Shelf Expiration Date Model / Serial / Lot Lens Intraoc 21.5 - [id number] - [id number] Implanted:Qty: 1 on 06/20/2018 by Bogdan Lindsay MD at OR [facility] Left: Eye [employer] 01/02/2023 [id number] / [id number] / [id number] Lens Intraoc 21.5 - [id number] - [id number] Implanted:Qty: 1 on 06/29/2018 by Bogdan Lindsay MD at OR [facility] Right: Eye [employer] 02/02/2023 [id number] / [id number] / [id number] documented as of this encounter Procedures Procedure Name Priority Date/Time Associated Diagnosis Comments INR FINGERSTICK, POINT OF CARE STAT 05/15/2024 10:40 AM EDT Longstanding persistent atrial fibrillation (HCC) 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 management encounter skilled nursing current use of anticoagulant therapy documented in this encounter Results * INR FINGERSTICK, POINT OF CARE (05/15/2024 10:40 AM EDT) Fingerstick INR 2.6 INR 10:43 AM EDT [facility] Blood 05/15/2024 10:4 0 AM EDT 05/15/2024 10:43 AM EDT Narrative [facility] - 05/15/2024 10:43 AM EDT Therapeutic ranges for non-operative patients: Prophylaxsis/treatment of DVT: (Range:2.0-3.0) Treatment of pulmonary embolism:(Range:2.0-3.0) Prevention of systemic embolism from: -tissue heart valves -acute myocardial infarction -valvular heart disease -atrial fibrillation (Range: 2.0-3.0) Mechanical prosthetic valves: (Range: 2.5-3.5) Socorro Pappas [facility] LAB POINT OF C ARE TEST DOCKED DEVICE UNSOLICITED RESULTS [facility] [place] [address] documented in this encounter Visit Diagnoses Diagnosis 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 management encounter- Primary Encounter for therapeutic drug monitoring Longstanding persistent atrial fibrillation (HCC) skilled nursing current use of anticoagulant therapy documented in [...] and were consensually agreed upon. Care Teams Seasonal Customer Service Associate Relationship Specialty Start Date End Date Chiki Syed MD [address] [place] [address] PCP - General Family Medicine 10/20/18 documented as of this encounter"
--- OUTSIDE RECORDS SUMMARY | 2024-07-07 23:52 | External Medical Summary ---
Author Name Unknown Address Unknown Organization [id number]:[facility]ATORY [facility] [address] [place] [address] Laboratory Report Ordering Provider Test Date Status ILDA CASTILLO 03/29/2024 10:59:21 Final Therapeutic ranges for non-o perative patients:
Prophylaxsis/treatment of DVT: (Range:2.0-3.0)
Treatment of pulmonary embolism:(Range:2.0-3.0)
Prevention of systemic embolism from:
-tissue heart valves
-acute myocardial infarction
-valvular heart disease
-atrial fibrillation
(Range: 2.0-3.0)
Mechanical prosthetic valves: (Range: 2.5-3.5) Observation Date Value Abnormality Reference (Units ) Status INR in Capillary blood by Coagulation assay 03/29/2024 10:59:21 2.8 (INR) Final Performing Location [facility] 0 [address] [place] [address]
--- OUTSIDE RECORDS SUMMARY | 2024-07-07 23:52 | External Medical Summary | Summary of Care ---
Author Name Unknown Organization [facility] Address [address] [facility] [address] Phone [phone] Care Team Providers Care Resident Care Aide Name Role Phone Chiki Blount MD Primary Care Provider + Reason for Visit * Reason Onset Date Comments Medication Refill 03/21/2024 Encounter Details Date Type Department Care Team (Late st Contact Info) Description 03/21/2024 Refill Family [facility] [address] [place] [address] Chiki Blount MD [address] [place] [phone] HZV (herpes zoster virus) post herpetic neuralgia Allergies Active Allergy Reactions Criticality Noted Date Comments Atorvastatin 10/15/2013 Joint pain Fenofibrate 10/15/2013 Joint pain Gemfibrozil Diarrhea 10/15/2013 Lisinopril Cough 01/25/2017 Niacin Nausea/vomiting 10/15/2013 documented as of this encounter (statuses as of 03/23/2024) Medications Medication Sig Dispensed Refills Start Date End Date Status METAMUCIL 0.52 G PO CAPS one to two daily 10/15/2013 Active [facility]IL + D3 2116-6778 MG-UNIT PO CAPS Take by mouth once [...] before bedtime. 90 Capsule 5 03/23/2024 Active Gabapentin 100 MG Oral Capsule (Neurontin)Indica tions:HZV (herpes zoster virus) post herpetic neuralgia Take 1 Capsule by mouth in the morning and 1 Capsule at noon and 1 Capsule before bedtime. 90 Capsule 1 01/20/2024 4 Discontinue d(Refill) documented as of this encounter (statuses as of 03/23/2024) Active Problems Problem Noted Date Diagnosed Date [...] renal cell cancer 01/25/2017 Overview: left kidney [facility] Prediabetes 10/05/2016 Prostate cancer 10/05/2016 Overview: S/p surgery, XRT. 07/[address] Holm 08/21 PSA 0.[address] [place] [address] Romero--s/p surg, XRT 5 years later. [...] as of this encounter (statuses as of 03/23/2024) Resolved Problems Problem Noted Date Diagnosed Date [...] as of this encounter (statuses as of 03/23/2024) Immunizations Name Administration Dates Next Due COVID-19 [...] encounter Miscellaneous Notes * Telephone Encounter - Chiki Blount MD - 03/23/2024 11:34 AM EDT Signed Prescriptions: Disp Refills Gabapentin 100 MG Oral Capsule (Neurontin) 90 Cap*5 Sig: Take 1 Capsule by mouth in the morning and 1 Capsule at noon and 1 Capsule before bedtime. Authorizing Provider: CHIKI BLOUNT * Telephone Encounter - Yadira Valderrama [facility] - 03/22/2024 8:28 AM EDTPending Prescriptions: Disp Refills Gabapentin 100 MG Oral Capsule (Neurontin) 90 Cap*1 Sig: Take 1 Capsule by mouth in the morning and 1 Capsule at noon and 1 Capsule before bedtime. * Telephone Encounter - Yadira Valderrama RPh - 03/22/2024 8:28 AM EDT [facility] is currently not authorized to approve refills for the pended medication(s) per refill protocol. Please approve if appropriate. Did you pend patient's preferred pharmacy and medication before forwarding?yes Pharmacy: [facility] [address] [place] [address] Pending Prescriptions: Disp Refills Gabapentin 100 MG Oral Capsule (Neurontin) 90 Cap*1 Sig: Take 1 Capsule by mouth in the morning and 1 Capsule at noon and 1 Capsule before bedtime. Last Visit: 01/20/2024 (in office), Visit date not found (telemedicine) Next Visit: 01/23/2025 If no future appointments scheduled, and last appointment is greater than a year ago, please schedule patient for a follow-up appointment Last date the medication was ordered: 01/20/24 Is this request for a controlled substance?No [...] AM HGBA1C 6.2 (H) 10/17/2019 07:03 AM Thank You, Yadira Valderrama [facility] Pharmacist Telepharmacy [phone] 03/22/2024, 8:28 AM documented in this encounter Plan of Treatment Upcoming Encounters Date Type Department Care Team (Late st Contact Info) Description 03/29/2024 11:10 AM EDT 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 Pharmacy, [facility] [address] [place] [address] [facility] [address] [place] [address] 09/26/2024 10:30 AM EST Office Visit Cardiology, [facility] [address] [place] [address] Fredrick Jaime DO [address] [place] [address] 01/23/2025 9:20 AM EDT Office Visit Family Practice [facility] [address] [place] [address] Chiki Blount MD [address] [place] [address] Scheduled Procedures Name Priority Associated Diagnoses Date/Ti [...] this encounter Medical Devices Implanted Type Area Health Safety And Environment Manager Device Identifier Shelf Expiration Date Model / Serial / Lot Lens Intraoc 21.5 - [id number] - [id number] Implanted:Qty: 1 on 06/20/2018 by Bogdan Lindsay MD at OR [facility] Left: Eye [employer] 01/02/2023 [id number] / [id number] / [id number] Lens Intraoc 21.5 - [id number] - [id number] Implanted:Qty: 1 on 06/29/2018 by Bogdan Lindsay MD at OR [facility] Right: Eye [employer]OM[employer] 02/02/2023 [id number] / [id number] / [id number] documented as of this encounter Visit Diagnoses Diagnosis HZV (herpes zoster virus) post herpetic neuralgia documented in this encounter Advance Directives * Full Code (Latest Code Status on File) Date Activated Date Inactivated Comments 06/29/2018 8:41 AM 06/29/2018 3:29 PM This order reflects the patients wishes and were consensually agreed upon. * Full Code Date Activated Date Inactivated Comments 06/20/2018 9:51 AM 06/20/2018 3:45 PM This order reflects the patients wishes and were consensually agreed upon. Care Teams Resident Care Aide Relationship Specialty Start Date End Date Chiki Blount MD [address] [place] [address] PCP - General Family Medicine 10/20/18 documented as of this encounter
--- OUTSIDE RECORDS SUMMARY | 2024-07-07 23:52 | External Medical Summary ---
Author Name Unknown Address Unknown Organization K01:LABORATORY [facility] - [address] [place] [address] Laboratory Report Ordering Provider Test Date Status DEBBI BRADFORD 04/23/2024 11:13:57 Final Observation Date Value Abnormality Reference (Units ) Status PSA 04/23/2024 11:13:57 2.09 <4.10 (ng/ mL) Final Performing Location LAB[facility]ATORY [facility] - [address] [place] [address]
--- NOTE | 2024-07-08 00:11 | Emergency Department Note ---
Impression & Plan Acute appendicitis, Abdominal pain, Atrial fibrillation, On warfarin therapy ED Provider Note NAME: LAURA UMAÑA AGE: 83 SEX: M : 1940 ARRIVES VIA: Walk-In INFORMANT: Patient ED PROVIDER(S): Avinash Noriega MD CHIEF COMPLAINT: Abdominal pain PLAN: Disposition: Admit MEDICAL DECISION MAKING: The patient is a pleasant 83-year-old gentleman with a past medical history of hypertension, hyperlipidemia, atrial fibrillation on warfarin, prior prostate cancer who presents to Emergency Department via walk-in accompanied by family for right lower abdominal pain which she reports began tonight after eating dinner. He denies any change to bowel movements and had 2 normal bowel movements today. He has any blood in his urine or brings urination. Denies fevers, chest pain, shortness of breath. He denies nausea, vomiting. He feels his pain is tolerable at this time and and declines pain medication. On evaluation the patient is in no acute distress, afebrile with Blood pressure 160s/100s and otherwise stable vital signs. He has mild right lower abdominal discomfort without discrete tenderness. There is no rebound or guarding. EKG without overt acute ischemia. CXR negative for acute cardiopulmonary process per my personal preliminary review/interpretation. WBC, 12.2 K with neutrophilia no left shift, nonspecific. Hemoglobin and platelets within limits. Chemistry without metabolic acidosis. LFTs unremarkable. Lipase normal. INR is 1.9, mildly subtherapeutic. CT of the abdomen pelvis was performed and demonstrates enlarged retrocecal appendix with small calcific fecalith near its tip and associated smudging of the surrounding fat planes with mild fluid collection suggesting appendicitis. IV Zosyn initiated. Findings reviewed with the patient and family and agree with plan for admission for further management. CT was reviewed with general surgery, Dr. Fox who agrees with admission to medicine service for IV antibiotics and plan for the OR in the morning. Case was discussed with Dr. Easley, [facility] hospitalist who will evaluate the patient for admission. Further management per admitting team. Triage Nursing notes reviewed and agree them. Prior/external medical records reviewed Vital Signs: reviewed Differential diagnosis: Gastroenteritis, food borne illness, infections, appendicitis, diverticulitis, inflammatory bowel disease, obstruction, GI bleed, biliary pathology, volvulus, as well as other pathologies. ER treatment provided: See below. Diagnostics interpreted by me: ECG: Atrial fibrillation, 82 bpm, no ectopy, no overt ST elevation or depression, QTc 406, QRS 90. Cardiac Monitoring: An order for continuous cardiac monitoring was placed and demonstrated Atrial fibrillation, 82 bpm, no ectopy. Laboratory studies: See below Imaging studies: See below Consultation(s): Dr. Fox, general surgery Dr. Easley, [facility] hospitalist. HPI: The patient is a pleasant 83-year-old gentleman with a past medical history of hypertension, hyperlipidemia, atrial fibrillation on warfarin, prior prostate cancer who presents to Emergency Department via walk-in accompanied by family for right lower abdominal pain which she reports began tonight after eating dinner. He denies any change to bowel movements and had 2 normal bowel movements today. He has any blood in his urine or brings urination. Denies fevers, chest pain, shortness of breath. He denies nausea, vomiting. He feels his pain is tolerable at this time and and declines pain medication. ROS: See above HPI for pertinent positives & negatives. A total of 10 systems reviewed and were otherwise negative. VITALS:See Below PHYSICAL EXAMINATION: GENERAL: Awake, alert, well-appearing, in no distress HENT: Normocephalic, atraumatic. Oropharynx unremarkable. EYES: Normal conjunctiva. Sclera non-icteric. NECK: Supple. No nuchal rigidity. FROM. No JVD. RESPIRATORY: Clear to auscultation. CARDIAC: Regular rate, irregular rhythm. Extremities warm and well perfused. Pulses equal. ABDOMEN: Soft, non-distended. Mild right lower abdominal discomfort without discrete tenderness to palpation. No rebound or guarding. MUSCULOSKELETAL: Chest examination reveals no tenderness. The back is symmetrical on inspection without obvious abnormality. There is no CVA tenderness to palpation. No joint edema. LOWER EXTREMITIES: Calves are equal size bilaterally and non-tender. No edema. No discoloration. NEURO: Normal sensorium. No sensory or motor deficits noted. SKIN: No rash or jaundice noted. Avinash Noriega MD Past Med/Surg History Problem List (Updated 07/08/24 @ 20:53 by Avinash Noriega MD) On warfarin therapy (Acute) Atrial fibrillation (Acute) Asymptomatic hypertensive urgency Acute appendicitis (Acute) Abdominal pain (Acute) Heart trouble (Acute) Hemorrhoids (Acute) Hypercholesterolemia (Acute) Hypertension (Acute) Impotence, organic (Acute) Renal neoplasm (Acute) Prostate cancer Surgical History H/O radical prostatectomy History of kidney surgery H/O hernia repair History of cholecystectomy Family History Mother Cardiac disorder Diabetes Hypertension Father Cardiac disorder Hypertension Uncle Prostate cancer Social History Smoking Status: Former smoker Smoking End Date: 1989; Hx Alcohol Use: No Hx Substance Use: No Preferred Language: Danish Communication Ability: Effective Sales Account 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 Required: No Beliefs That Will Affect Care: None marital status: Current Living Situation: Spouse current occupational status: retired Other Information That Helps Us Care for You: No Feels Safe at Home: Yes Safety Concerns: Feels Safe At This Time Assistive Devices: Denture - Upper, Glasses and Hearing Aid - Bilateral Allergies Allergies Allergy/AdvReac Type Severity Reaction Status Date / Time atorvastatin [From Lipitor] Allergy Unknown Verified 07/08/24 04:04 fenofibrate [From Tricor] Allergy Unknown Verified 07/08/24 04:04 gemfibrozil [From Lopid] Allergy Unknown Verified 07/08/24 04:04 lisinopril Allergy Unknown Verified 07/08/24 04:04 niacin Allergy Unknown Verified 07/08/24 04:04 Home Meds Home Medications Medication Instructions Recorded Confirmed acetaminophen 500 mg tablet (Pain 500 mg PO PRN Pain 03/26/20 04/30/24 Relief (acetaminophen)) cholecalciferol (vitamin D3) 25 25 mcg PO DAILY 03/26/20 07/08/24 mcg (1,000 unit) tablet (Vitamin D3) cyanocobalamin (vitamin B-12) 500 500 mcg PO DAILY 03/26/20 07/08/24 mcg tablet (Vitamin B-12) hydrochlorothiazide 12.5 mg tablet 12.5 mg PO DAILY 03/26/20 07/08/24 losartan 100 mg tablet (Cozaar) 100 mg PO DAILY 03/26/20 07/08/24 omega-3 fatty acids [Fish Oil PO 03/26/20 04/30/24 Concentrate] psyllium [Metamucil] PO 03/26/20 04/30/24 rosuvastatin 5 mg tablet 5 mg PO Q OTHER DAY 03/26/20 07/08/24 warfarin 4 mg tablet 4 mg PO DAILY 03/26/20 07/08/24 furosemide 20 mg tablet 20 mg PO DAILY PRN edema 10/13/22 07/08/24 metoprolol succinate 50 mg 50 mg PO DAILY 07/08/24 07/08/24 tablet,extended release 24 hr Results & Data (ED) Vital Signs Vital Signs - 24 hr 07/07/24 23:53 07/08/24 00:09 07/08/24 00:09 Temperature 36.5 C Temperature Source Temporal Artery Scan Pulse Rate 73 78 Pulse Rate [Apical] 78 Pulse Rate from SpO2 Sensor Pulse Rhythm Regular Pulse Rhythm [Apical] Regular Pulse Strength [Apical] Normal Respiratory Rate 16 18 18 Respiratory Effort / Characteristics Non-Labored Spontaneous Non-Labored Spontaneous Respiratory Depth Normal Normal Respiratory Pattern Regular Regular Blood Pressure 185/90 H Blood Pressure [Right Arm] 172/99 H Blood Pressure Mean 121 Blood Pressure Mean [Right Arm] 123 Blood Pressure Position Sitting Pulse Oximetry 99 99 97 Oxygen Delivery Method Room Air Room Air Room Air Sepsis Recent Fever Within 48 Hours No Sepsis New/Unexplained Change in Mental Status N/A Sepsis Action Taken by Nursing No Action Required 07/08/24 00:14 07/08/24 00:30 07/08/24 01:00 EST Temperature Temperature Source Pulse Rate 71 82 75 Pulse Rate [Apical] Pulse Rate from SpO2 Sensor 83 77 Pulse Rhythm Pulse Rhythm [Apical] Pulse Strength [Apical] Respiratory Rate 19 Respiratory Effort / Characteristics Respiratory Depth Respiratory Pattern Blood Pressure 169/105 H Blood Pressure [Right Arm] Blood Pressure Mean 126 Blood Pressure Mean [Right Arm] Blood Pressure Position Pulse Oximetry 97 98 Oxygen Delivery Method Room Air Room Air Sepsis Recent Fever Within 48 Hours Sepsis New/Unexplained Change in Mental Status Sepsis Action Taken by Nursing 07/08/24 01:33 EST 07/08/24 03:06 07/08/24 04:00 Temperature Temperature Source Pulse Rate 81 82 81 Pulse Rate [Apical] Pulse Rate from SpO2 Sensor 76 82 81 Pulse Rhythm Pulse Rhythm [Apical] Pulse Strength [Apical] Respiratory Rate 17 20 Respiratory Effort / Characteristics Respiratory Depth Respiratory Pattern Blood Pressure 157/109 H 168/138 H 165/109 H Blood Pressure [Right Arm] Blood Pressure Mean 125 148 127 Blood Pressure Mean [Right Arm] Blood Pressure Position Pulse Oximetry 100 96 97 Oxygen Delivery Method Room Air Room Air Room Air Sepsis Recent Fever Within 48 Hours Sepsis New/Unexplained Change in Mental Status Sepsis Action Taken by Nursing Laboratory Data Attestation: I reviewed the patient's lab results. 07/08/24 00:06 07/08/24 00:06 Lab Results 07/08/24 07/08/24 Range/Units 00:06 03:10 WBC 12.22 H (4.8-10.8) K/ul RBC 4.45 L (4.70-6.10) M/uL Hgb 14.0 (14.0-18.0) g/dl Hct 41.8 L (42.0-52.0) % MCV 93.9 (80.0-100.0) fL MCH 31.5 (25.0-34.0) pg MCHC 33.5 (32.0-36.0) g/dL RDW Std Deviation 43.6 (36.4-46.3) fL RDW Coeff of Mary 12.6 (11.5-14.5) % Plt Count 169 (130-400) K/uL MPV 9.7 (9.4-12.4) fL Immature Gran % (Auto) 0.3 % Neut % (Auto) 85.4 % Lymph % (Auto) 3.8 % [place] % (Auto) 9.3 % Eos % (Auto) 0.8 % Baso % (Auto) 0.4 % Neut # (Auto) 10.43 H (1.40-6.50) K/uL Lymph # (Auto) 0.46 L (1.20-3.40) K/uL [place] # (Auto) 1.14 H (0.11-0.59) K/uL Eos # (Auto) 0.10 (0.00-0.50) K/uL Baso # (Auto) 0.05 (0.00-0.20) K/uL Immature Gran # (Auto) 0.04 (0.01-0.20) K/uL PT 19.4 H (9.0-12.0) Seconds INR 1.9 H (0.9-1.1) Sodium 134 L (136-145) mmol/L Potassium 4.4 (3.5-5.1) mmol/L Chloride 100 (98-107) mmol/L Carbon Dioxide 30 (21-32) mmol/L Anion Gap 4 (3-11) BUN 17 (6-23) mg/dl Creatinine 1.17 (0.6-1.4) mg/dl Est Cr Clr Drug Dosing 65.8 ml/min eGFR 61.85 BUN/Creatinine Ratio 14.5 (10-20) Glucose 125 H (70-99(Fasting)) mg/dl Calcium 9.2 (8.6-10.3) mg/dl Total Bilirubin 0.7 (0.2-1.0) mg/dl Direct Bilirubin 0.1 (0-0.2) mg/dl AST 16 (13-39) U/L ALT 14 (7-52) U/L Alkaline Phosphatase 73 (34-104) U/L Total Protein 7.1 (6.0-8.3) gm/dl Albumin 4.4 (3.4-5.0) gm/dl Globulin 2.7 (2.5-4.0) gm/dl Albumin/Globulin Ratio 1.6 (0.9-2) Lipase 27 (11-82) U/L Urine Color Yellow Urine Appearance Clear (Clear) Urine pH 5.5 (4.5-7.5) Ur Specific [place] > 1.045 H (1.000-1.030) Urine Protein Negative (Negative) Urine Glucose (UA) Negative (Negative) Urine Ketones Negative (Negative) Urine Blood Negative (Negative) Urine Nitrite Negative (Negative) Urine Bilirubin Negative (Negative) Urine Urobilinogen Negative (Negative) Ur Leukocyte Esterase Negative (Negative) Administered Medications Cyanocobalamin (Cyanocobalamin (B-12) 500 Mcg Tablet) 500 mcg PO DAILY [facility] Stop: 08/07/24 08:59 Last Admin: 07/08/24 08:29 Dose: 500 mcg Documented By: TOBY Piperacillin Sod/Tazobactam Sod (Zosyn) 4.5 gm in 100 mls @ 25 mls/hr IV Q8H RANDI; Protocol Stop: 07/12/24 10:59 Last Admin: 07/08/24 17:57 Dose: 25 mls/hr Documented By: Infusion: 07/08/24 15:23 Dose: Infused Documented By: Admin: 07/08/24 11:20 Dose: 25 mls/hr Documented By: TOBY Sodium Chloride (Nss) 1,000 mls @ 50 mls/hr IV .Q20H ONE Stop: 07/09/24 00:55 Last Infusion: 07/08/24 11:00 Dose: 50 mls/hr Documented By: Infusion: 07/08/24 10:00 Dose: 0 mls/hr Documented By: Admin: 07/08/24 05:21 Dose: 50 mls/hr Documented By: FLORA Losartan Potassium (Losartan Potassium 50 Mg Tab) 100 mg PO DAILY RANDI Stop: 08/07/24 08:59 Last Admin: 07/08/24 08:29 Dose: 100 mg Documented By: TOBY Metoprolol Succinate (Metoprolol Succ 50mg Ext Rel Tab) 50 mg PO QAM RANDI Stop: 08/07/24 07:19 Last Admin: 07/08/24 08:29 Dose: 50 mg Documented By: TOBY Polyethylene Glycol (Polyethylene (Miralax) 17 Gm Pack) 17 gm PO DAILY RANDI Stop: 08/07/24 17:29 Last Admin: 07/08/24 17:56 Dose: 17 gm Documented By: TOBY Discontinued Medications Bupivacaine HCl/Epinephrine Bitart (Bupivacaine/Epinephrine 0.5% Mpf 1:200,000 30 Ml Vial) Confirm Administered Dose 30 ml .ROUTE .STK-MED ONE Stop: 07/08/24 07:16 Last Admin: 07/08/24 10:03 Dose: 20 ml Documented By: SAM Sodium Chloride (Nss) 500 mls @ 999 mls/hr IV .Q31M ONE Stop: 07/08/24 00:37 Last Admin: 07/08/24 01:06 EDT Dose: Not Given Documented By: FLORA Sodium Chloride (Nss) 250 mls @ 999 mls/hr IV .Q16M ONE Stop: 07/08/24 01:01 EST Last Infusion: 07/08/24 01:22 EST Dose: Infused Documented By: Admin: 07/08/24 01:17 EDT Dose: 999 mls/hr Documented By: FLROA Piperacillin Sod/Tazobactam Sod (Zosyn) 4.5 gm in 100 mls @ 200 mls/hr IV NOW ONE; Protocol Stop: 07/08/24 04:19 Last Infusion: 07/08/24 06:33 Dose: Infused Documented By: Admin: 07/08/24 05:12 Dose: 200 mls/hr Documented By: FLORA Phytonadione 2.5 mg/ Dextrose 50.25 mls @ 100.5 mls/hr IV ONE ONE Stop: 07/08/24 04:29 Last Infusion: 07/08/24 05:17 Dose: Infused Documented By: Admin: 07/08/24 04:44 Dose: 100.5 mls/hr Documented By: FLORA Ioversol (Optiray 320 100ml) 94 ml IV ONCE ONE Stop: 07/08/24 01:13 EST Last Admin: 07/08/24 01:13 EDT Dose: 94 ml Documented By: DENTON Metoprolol Tartrate (Metoprolol Tartrate 1 Mg/Ml Vial) 2.5 mg IV NOW STA Stop: 07/08/24 04:02 Last Admin: 07/08/24 05:17 Dose: 2.5 mg Documented By: FLORA Imaging Data Radiologist's Impression: Abdomen/Pelvis CT 07/08/24 00:46 EXAM: CT abd pelvis IV con only CLINICAL HISTORY: rlq abd pain injected with 94 cc''s optiray 320 kf TECHNIQUE: CT of the abdomen and pelvis was performed, with the following protocol: axial images with, and reconstructed coronal and sagittal images. 94ml of opitray-320mg/ml Intravenous contrast was administered. One of the following dose reduction techniques was utilized for this exam: Automated exposure control, adjustment of the mA and/or kV according to patient size, and use of iterative reconstruction. COMPARISON: PET/CT dated 02/23/2024. FINDINGS: Scanned lung bases show few basal thick atelectatic bands and small hiatus hernia. Abdomen: Liver: Normal in size, shape, and density. No focal lesions, cysts, or masses were identified. Hepatic vasculature and biliary ducts are unremarkable. Gallbladder and Biliary System: Surgical clips of previous cholecystectomy. The common bile duct is normal in caliber without dilation. Pancreas: Pancreatic head, body, and tail are visualized and appear normal in size and density. No pancreatic masses or calcifications were noted. The pancreatic duct is not dilated. Spleen: Normal in size, shape, and density. No splenic lesions or masses were identified. Kidneys and Adrenal Glands: Both kidneys are normal in size, shape, and position. Left renal cortical small calcified focus, likely sequel of old inflammatory process, stable. No renal calculi or hydronephrosis. Adrenal glands are unremarkable with no evidence of masses or hyperplasia. Pelvis: Urinary Bladder: Normal in contour and wall thickness. No intraluminal lesions are identified. Prostate: Multiple surgical clips are seen at the prostatic bed. Seminal Vesicles: Normal in size and appearance. No abnormalities are noted. Rectum and Sigmoid Colon: Normal wall thickness and no evidence of mass. Peritoneal and Retroperitoneal Structures: No free fluid or abnormal fluid collections were identified within the abdomen or pelvis. No lymphadenopathy was noted. Bowel: Enlarged retro cecal appendix with small calcific fecalith near its tip, associated smudging of the surrounding fat planes with mild fluid collection is noted, suggesting appendicitis. Left-sided para-aortic small bowel loops fat-like density lipoma measuring 23 mm, stable since the last study. The visualized bowel loops are normal in caliber and appearance. No evidence of bowel obstruction or wall thickening. Mild ectatic dilation of the aorta measuring 44 mm, showing circumferential hypodense thrombus causing mild luminal narrowing. Stable Left sided lower anterior abdominal wall heterogenous fat-like density, likely sequel of old operative interference. Stable Bones and Soft Tissues: Pelvic bones and soft tissues are unremarkable. Lumbar spondylotic changes. IMPRESSION: Enlarged retro cecal appendix with small calcific fecalith near its tip, associated smudging of the surrounding fat planes with mild fluid collection is noted, suggesting appendicitis. 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 Electronically signed by Estella Serrano 07-08-2024 02:39 AM Discharge Plan Visit Data Chief Complaint: Abdominal Pain Stated Complaint: LOWER ABD PAIN, ED Provider: Avinash Noriega Discharge Problem: Acute appendicitis, Abdominal pain, Atrial fibrillation, On warfarin therapy Patient Disposition: Admitted As Inpatient Discharge Instructions Interventions: ED Discharge Assessment Last Done: 07/08/24 05:09 Discharge Problem: Acute appendicitis Qualifiers: Acute appendicitis type: unspecified acute appendicitis type Qualified Code(s): K35.80 - Unspecified acute appendicitis Abdominal pain Qualifiers: Abdominal location: right lower quadrant Qualified Code(s): R10.31 - Right lower quadrant pain Atrial fibrillation Qualifiers: Atrial fibrillation type: unspecified Qualified Code(s): I48.91 - Unspecified atrial fibrillation
[2024-07-08 00:29] LABS: Basophils # (auto) 0.05 K/uL (0.00-0.20); Basophils % (auto) 0.4 %; Eosinophils % (auto) 0.8 %; Hematocrit (blood only) 41.8 % (42.0-52.0); Immature Granulocytes # (auto) 0.04 K/uL (0.01-0.20); Immature Granulocytes % (auto) 0.3 %; Lymphocytes # (auto) 0.46 K/uL (1.20-3.40); Lymphocytes % (auto) 3.8 %; Mean Corpuscular Hemoglobin 31.5 pg (25.0-34.0); Mean Corpuscular Hgb Conc 33.5 g/dL (32.0-36.0); Mean Corpuscular Volume 93.9 fL (80.0-100.0); Mean Platelet Volume 9.7 fL (9.4-12.4); Monocytes # (auto) 1.14 K/uL (0.11-0.59); Monocytes % (auto) 9.3 %; Neutrophils # (auto) 10.43 K/uL (1.40-6.50); Neutrophils % (auto) 85.4 %; Platelet Count 169 K/uL (130-400); RDW Coefficient of Variation 12.6 % (11.5-14.5); RDW Standard Deviation 43.6 fL (36.4-46.3); Red Blood Count 4.45 M/uL (4.70-6.10); White Blood Count 12.22 K/ul (4.8-10.8)
[2024-07-08 00:39] LABS: Albumin Globulin Ratio 1.6 (0.9-2); Albumin Level 4.4 gm/dl (3.4-5.0); BUN Creatinine Ratio 14.5 (10-20); Bilirubin Direct 0.1 mg/dl (0-0.2); Bilirubin,Total 0.7 mg/dl (0.2-1.0); Calcium 9.2 mg/dl (8.6-10.3); Creatinine Clr Calc Pharmacy 65.8 ml/min; Globulin 2.7 gm/dl (2.5-4.0); Potassium 4.4 mmol/L (3.5-5.1); Total Protein 7.1 gm/dl (6.0-8.3)
[2024-07-08 00:57] LABS: INR 1.9 (0.9-1.1); Prothrombin Time 19.4 Seconds (9.0-12.0)
[2024-07-08] MEDS: SODIUM CHLORIDE 0.9% 500 ML IV ONE (01:06)
[2024-07-08] MEDS: OPTIRAY 320 100ml IV ONE (01:13)
[2024-07-08] MEDS: SODIUM CHLORIDE 0.9% 250 ML IV ONE (01:17)
--- NOTE | 2024-07-08 02:40 | CT Scan Report ---
EXAM: CT abd pelvis IV con only CLINICAL HISTORY: rlq abd pain injected with 94 cc''s optiray 320 kf TECHNIQUE: CT of the abdomen and pelvis was performed, with the following protocol: axial images with, and reconstructed coronal and sagittal images. 94ml of opitray-320mg/ml Intravenous contrast was administered. One of the following dose reduction techniques was utilized for this exam: Automated exposure control, adjustment of the mA and/or kV according to patient size, and use of iterative reconstruction. COMPARISON: PET/CT dated 02/23/2024. FINDINGS: Scanned lung bases show few basal thick atelectatic bands and small hiatus hernia. Abdomen: Liver: Normal in size, shape, and density. No focal lesions, cysts, or masses were identified. Hepatic vasculature and biliary ducts are unremarkable. Gallbladder and Biliary System: Surgical clips of previous cholecystectomy. The common bile duct is normal in caliber without dilation. Pancreas: Pancreatic head, body, and tail are visualized and appear normal in size and density. No pancreatic masses or calcifications were noted. The pancreatic duct is not dilated. Spleen: Normal in size, shape, and density. No splenic lesions or masses were identified. Kidneys and Adrenal Glands: Both kidneys are normal in size, shape, and position. Left renal cortical small calcified focus, likely sequel of old inflammatory process, stable. No renal calculi or hydronephrosis. Adrenal glands are unremarkable with no evidence of masses or hyperplasia. Pelvis: Urinary Bladder: Normal in contour and wall thickness. No intraluminal lesions are identified. Prostate: Multiple surgical clips are seen at the prostatic bed. Seminal Vesicles: Normal in size and appearance. No abnormalities are noted. Rectum and Sigmoid Colon: Normal wall thickness and no evidence of mass. Peritoneal and Retroperitoneal Structures: No free fluid or abnormal fluid collections were identified within the abdomen or pelvis. No lymphadenopathy was noted. Bowel: Enlarged retro cecal appendix with small calcific fecalith near its tip, associated smudging of the surrounding fat planes with mild fluid collection is noted, suggesting appendicitis. Left-sided para-aortic small bowel loops fat-like density lipoma measuring 23 mm, stable since the last study. The visualized bowel loops are normal in caliber and appearance. No evidence of bowel obstruction or wall thickening. Mild ectatic dilation of the aorta measuring 44 mm, showing circumferential hypodense thrombus causing mild luminal narrowing. Stable Left sided lower anterior abdominal wall heterogenous fat-like density, likely sequel of old operative interference. Stable Bones and Soft Tissues: Pelvic bones and soft tissues are unremarkable. Lumbar spondylotic changes. IMPRESSION: Enlarged retro cecal appendix with small calcific fecalith near its tip, associated smudging of the surrounding fat planes with mild fluid collection is noted, suggesting appendicitis. 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 Electronically signed by Estella Serrano 07-08-2024 02:39 AM
[2024-07-08 03:22] LABS: Appearance Urine Clear (Clear); Bilirubin Urine Negative (Negative); Blood Urine Negative (Negative); Color Urine Yellow; Glucose Urine UA Negative (Negative); Ketones Urine Negative (Negative); Leukocyte Esterase Urine Negative (Negative); Nitrite Urine Negative (Negative); Protein Urine Negative (Negative); Specific Gravity Urine > 1.045 (1.000-1.030); Urobilinogen Urine Negative (Negative); pH Urine 5.5 (4.5-7.5)
--- NOTE | 2024-07-08 04:09 | History & Physical Report ---
Date of Service July 08, 2024 Assessment & Plan (1) Asymptomatic hypertensive urgency: Plan: Secondary to appendicitis A-fib on Coumadin, rate controlled, INR slightly subtherapeutic hx PVD hyperlipidemia, on statin Rx prostate cancer status post surgery/radiation, patient follows with [facility] [place]rologist renal oncocytoma status post surgery prediabetes, hemoglobin A1c of 6.08 July 2023 OBS Medical telemetry given elevated BP IV Lopressor 1 dose now Titrate home BP meds Zosyn for appendicitis General Surgery consult Re: Appendicitis (ED provider already in touch with Dr. Fox who recommends possible surgery today.) Hold patient Coumadin in anticipation of procedure; Vitamin K to bring down INR in preparation of surgery, recheck INR 8 hours after administration DVT prophylaxis. SCDs re: possible surgery Full code Patient requesting updates providers. Mrs. Echo La, contact #[phone]. Text document was generated using [employer] voice recognition software. It may contain grammatical or spelling errors. Kindly contact undersigned for clarification of any documentation item in question. History of Present Illness Chief Complaint: RLQ pain Primary Care Provider: Chiki Syed MD History obtained from patient, family, and records. 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 Patient experienced achy RLQ pain yesterday afternoon. No fever, no chills, no chest pain, no SOB. No headache symptoms. 2 nonbloody bowel movements yesterday. SBP 180s upon arrival at the ER. IV Zosyn given at the ER for appendicitis. Medical History as above Surgical History : Cholecystectomy, prostate surgery, cataract surgeries, hernia repair, kidney surgery Family History : Prostate cancer, heart disease, breast cancer Personal/Social history : Past tobacco abuse, occasional EtOH intake, retired from [employer] employment Allergies Allergy/AdvReac Type Severity Reaction Status Date / Time atorvastatin [From Lipitor] Allergy Unknown Verified 07/08/24 04:04 fenofibrate [From Tricor] Allergy Unknown Verified 07/08/24 04:04 gemfibrozil [From Lopid] Allergy Unknown Verified 07/08/24 04:04 lisinopril Allergy Unknown Verified 07/08/24 04:04 niacin Allergy Unknown Verified 07/08/24 04:04 Home Medications Medication Instructions Recorded Confirmed Type acetaminophen 500 mg tablet (Pain 500 mg PO PRN Pain 03/26/20 04/30/24 History Relief (acetaminophen)) cholecalciferol (vitamin D3) 25 25 mcg PO DAILY 03/26/20 07/08/24 History mcg (1,000 unit) tablet (Vitamin D3) cyanocobalamin (vitamin B-12) 500 500 mcg PO DAILY 03/26/20 07/08/24 History mcg tablet (Vitamin B-12) hydrochlorothiazide 12.5 mg tablet 12.5 mg PO DAILY 03/26/20 07/08/24 History losartan 100 mg tablet (Cozaar) 100 mg PO DAILY 03/26/20 07/08/24 History omega-3 fatty acids [Fish Oil PO 03/26/20 04/30/24 History Concentrate] psyllium [Metamucil] PO 03/26/20 04/30/24 History rosuvastatin 5 mg tablet 5 mg PO Q OTHER DAY 03/26/20 07/08/24 History warfarin 4 mg tablet 4 mg PO DAILY 03/26/20 07/08/24 History furosemide 20 mg tablet 20 mg PO DAILY PRN edema 10/13/22 07/08/24 History metoprolol succinate 50 mg 50 mg PO DAILY 07/08/24 07/08/24 History tablet,extended release 24 hr Past Med/Surg History Problem List (Updated 07/08/24 @ 07:24 by Neo Easley MD) Asymptomatic hypertensive urgency Acute appendicitis (Acute) Abdominal pain (Acute) Heart trouble (Acute) Hemorrhoids (Acute) Hypercholesterolemia (Acute) Hypertension (Acute) Impotence, organic (Acute) Renal neoplasm (Acute) Prostate cancer Surgical History H/O radical prostatectomy History of kidney surgery H/O hernia repair History of cholecystectomy Family History Mother Cardiac disorder Diabetes Hypertension Father Cardiac disorder Hypertension Uncle Prostate cancer Social History Smoking Status: Never smoker Hx Alcohol Use: No Hx Substance Use: No Preferred Language: Chinese Communication Ability: Effective Packer And Carry Out Required: No Beliefs That Will Affect Care: None marital status: Current Living Situation: Spouse current occupational status: retired Other Information That Helps Us Care for You: No Feels Safe at Home: Yes Safety Concerns: Feels Safe At This Time Assistive Devices: Denture - Upper, Glasses and Hearing Aid - Bilateral Review of Systems Review of Systems: As per HPI, all other systems reviewed and negative Physical Exam Physical Exam: GENERAL: Comfortable, pleasant, obese, no respiratory distress SKIN: Normal color, warm HEENT: Alopecia, [place] palpebral conjunctivae, no ptosis, dry buccal mucosa NECK : Supple, short neck, no tenderness CHEST : CTA, no tenderness HEART : Irregular, systolic murmur ABDOMEN: Some distention, RLQ tenderness EXTREMITIES : Minimal LE swelling, no LE tenderness, no other conspicuous deformities noted NEUROLOGIC : Coherent, no facial asymmetry, intention tremors, gait and stance not assessed Results & Data Results & Data Vital Signs (Past 12 Hours) Vital Signs Temp Pulse Pulse Resp BP BP Pulse Ox 07/08/24 03:06 82 168/138 H 96 07/08/24 01:33 EST 81 17 157/109 H 100 07/08/24 01:00 EST 75 19 98 07/08/24 00:30 82 169/105 H 97 07/08/24 00:14 71 07/08/24 00:09 78 18 97 07/08/24 00:09 78 18 172/99 H 99 07/07/24 23:53 36.5 C 73 16 185/90 H 99 O2 Del Method 07/08/24 03:06 Room Air 07/08/24 01:33 EST Room Air 07/08/24 01:00 EST Room Air 07/08/24 00:30 Room Air 07/08/24 00:14 07/08/24 00:09 Room Air 07/08/24 00:09 Room Air 07/07/24 23:53 Room Air Laboratory Results Laboratory Results WBC 12.22 K/ul (4.8-10.8) H 07/08/24 00:06 RBC 4.45 M/uL (4.70-6.10) L 07/08/24 00:06 Hgb 14.0 g/dl (14.0-18.0) 07/08/24 00:06 Hct 41.8 % (42.0-52.0) L 07/08/24 00:06 MCV 93.9 fL (80.0-100.0) 07/08/24 00:06 MCH 31.5 pg (25.0-34.0) 07/08/24 00:06 MCHC 33.5 g/dL (32.0-36.0) 07/08/24 00:06 RDW Std Deviation 43.6 fL (36.4-46.3) 07/08/24 00:06 RDW Coeff of Mary 12.6 % (11.5-14.5) 07/08/24 00:06 Plt Count 169 K/uL (130-400) 07/08/24 00:06 MPV 9.7 fL (9.4-12.4) 07/08/24 00:06 Immature Gran % (Auto) 0.3 % 07/08/24 00:06 Neut % (Auto) 85.4 % 07/08/24 00:06 Lymph % (Auto) 3.8 % 07/08/24 00:06 [place] % (Auto) 9.3 % 07/08/24 00:06 Eos % (Auto) 0.8 % 07/08/24 00:06 Baso % (Auto) 0.4 % 07/08/24 00:06 Neut # (Auto) 10.43 K/uL (1.40-6.50) H 07/08/24 00:06 Lymph # (Auto) 0.46 K/uL (1.20-3.40) L 07/08/24 00:06 [place] # (Auto) 1.14 K/uL (0.11-0.59) H 07/08/24 00:06 Eos # (Auto) 0.10 K/uL (0.00-0.50) 07/08/24 00:06 Baso # (Auto) 0.05 K/uL (0.00-0.20) 07/08/24 00:06 Immature Gran # (Auto) 0.04 K/uL (0.01-0.20) 07/08/24 00:06 PT 19.4 Seconds (9.0-12.0) H 07/08/24 00:06 INR 1.9 (0.9-1.1) H 07/08/24 00:06 Sodium 134 mmol/L (136-145) L 07/08/24 00:06 Potassium 4.4 mmol/L (3.5-5.1) 07/08/24 00:06 Chloride 100 mmol/L (98-107) 07/08/24 00:06 Carbon Dioxide 30 mmol/L (21-32) 07/08/24 00:06 Anion Gap 4 (3-11) 07/08/24 00:06 BUN 17 mg/dl (6-23) 07/08/24 00:06 Creatinine 1.17 mg/dl (0.6-1.4) 07/08/24 00:06 Est Cr Clr Drug Dosing 65.8 ml/min 07/08/24 00:06 eGFR 61.85 07/08/24 00:06 BUN/Creatinine Ratio 14.5 (10-20) 07/08/24 00:06 Glucose 125 mg/dl (70-99(Fasting)) H 07/08/24 00:06 Calcium 9.2 mg/dl (8.6-10.3) 07/08/24 00:06 Total Bilirubin 0.7 mg/dl (0.2-1.0) 07/08/24 00:06 Direct Bilirubin 0.1 mg/dl (0-0.2) 07/08/24 00:06 AST 16 U/L (13-39) 07/08/24 00:06 ALT 14 U/L (7-52) 07/08/24 00:06 Alkaline Phosphatase 73 U/L (34-104) 07/08/24 00:06 Total Protein 7.1 gm/dl (6.0-8.3) 07/08/24 00:06 Albumin 4.4 gm/dl (3.4-5.0) 07/08/24 00:06 Globulin 2.7 gm/dl (2.5-4.0) 07/08/24 00:06 Albumin/Globulin Ratio 1.6 (0.9-2) 07/08/24 00:06 Lipase 27 U/L (11-82) 07/08/24 00:06 Urine Color Yellow 07/08/24 03:10 Urine Appearance Clear (Clear) 07/08/24 03:10 Urine pH 5.5 (4.5-7.5) 07/08/24 03:10 Ur Specific [place] > 1.045 (1.000-1.030) H 07/08/24 03:10 Urine Protein Negative (Negative) 07/08/24 03:10 Urine Glucose (UA) Negative (Negative) 07/08/24 03:10 Urine Ketones Negative (Negative) 07/08/24 03:10 Urine Blood Negative (Negative) 07/08/24 03:10 Urine Nitrite Negative (Negative) 07/08/24 03:10 Urine Bilirubin Negative (Negative) 07/08/24 03:10 Urine Urobilinogen Negative (Negative) 07/08/24 03:10 Ur Leukocyte Esterase Negative (Negative) 07/08/24 03:10 Impressions Abdomen/Pelvis CT 07/08/24 00:46 EXAM: CT abd pelvis IV con only CLINICAL HISTORY: rlq abd pain injected with 94 cc''s optiray 320 kf TECHNIQUE: CT of the abdomen and pelvis was performed, with the following protocol: axial images with, and reconstructed coronal and sagittal images. 94ml of opitray-320mg/ml Intravenous contrast was administered. One of the following dose reduction techniques was utilized for this exam: Automated exposure control, adjustment of the mA and/or kV according to patient size, and use of iterative reconstruction. COMPARISON: PET/CT dated 02/23/2024. FINDINGS: Scanned lung bases show few basal thick atelectatic bands and small hiatus hernia. Abdomen: Liver: Normal in size, shape, and density. No focal lesions, cysts, or masses were identified. Hepatic vasculature and biliary ducts are unremarkable. Gallbladder and Biliary System: Surgical clips of previous cholecystectomy. The common bile duct is normal in caliber without dilation. Pancreas: Pancreatic head, body, and tail are visualized and appear normal in size and density. No pancreatic masses or calcifications were noted. The pancreatic duct is not dilated. Spleen: Normal in size, shape, and density. No splenic lesions or masses were identified. Kidneys and Adrenal Glands: Both kidneys are normal in size, shape, and position. Left renal cortical small calcified focus, likely sequel of old inflammatory process, stable. No renal calculi or hydronephrosis. Adrenal glands are unremarkable with no evidence of masses or hyperplasia. Pelvis: Urinary Bladder: Normal in contour and wall thickness. No intraluminal lesions are identified. Prostate: Multiple surgical clips are seen at the prostatic bed. Seminal Vesicles: Normal in size and appearance. No abnormalities are noted. Rectum and Sigmoid Colon: Normal wall thickness and no evidence of mass. Peritoneal and Retroperitoneal Structures: No free fluid or abnormal fluid collections were identified within the abdomen or pelvis. No lymphadenopathy was noted. Bowel: Enlarged retro cecal appendix with small calcific fecalith near its tip, associated smudging of the surrounding fat planes with mild fluid collection is noted, suggesting appendicitis. Left-sided para-aortic small bowel loops fat-like density lipoma measuring 23 mm, stable since the last study. The visualized bowel loops are normal in caliber and appearance. No evidence of bowel obstruction or wall thickening. Mild ectatic dilation of the aorta measuring 44 mm, showing circumferential hypodense thrombus causing mild luminal narrowing. Stable Left sided lower anterior abdominal wall heterogenous fat-like density, likely sequel of old operative interference. Stable Bones and Soft Tissues: Pelvic bones and soft tissues are unremarkable. Lumbar spondylotic changes. IMPRESSION: Enlarged retro cecal appendix with small calcific fecalith near its tip, associated smudging of the surrounding fat planes with mild fluid collection is noted, suggesting appendicitis. [facility] was called at [phone] at 1:36AM CHIEF CONTRACT OFFICER on 07/08/2024 and results were verbally communicated to Avinash Hinkle. Electronically signed by Estella Serrano 07-08-2024 02:39 AM Diagnostic Findings Chest x-ray as per my interpretation cardiomegaly, atelectasis EKG as per my interpretation : Rate 80, NSR, normal axis, no ischemia
[2024-07-08] MEDS ORDERED: MoRPHine SULFATE 2 MG/ML CARP IV PRN ×2 (04:11→11:13)
[2024-07-08] MEDS ORDERED: oxyCODONE HCL IR 5 MG TAB (IMMEDIATE RELEASE) PO PRN (04:11)
[2024-07-08] MEDS ORDERED: ACETAMINOPHEN 325 MG TAB PO PRN (04:11)
[2024-07-08] MEDS ORDERED: PROMETHAZINE 6.25 MG/50.25 ML BAG IV PRN (04:11)
[2024-07-08] MEDS: PHYTONADIONE 2.5 MG in DEXTROSE 5% 50 ML IV ONE (04:44)
[2024-07-08] MEDS ORDERED: MELATONIN 3 MG TAB PO PRN (04:53)
[2024-07-08] MEDS: PIPERACILLIN/TAZOBACTAM 4.5 GM/100 ML BAG IV ONE (05:12)
[2024-07-08] MEDS: METOPROLOL TARTRATE 1 MG/ML VIAL IV STA (05:17)
[2024-07-08] MEDS: SODIUM CHLORIDE 0.9% 1,000 ML IV ONE (05:21)
--- NOTE | 2024-07-08 06:05 | XRay Report ---
EXAM: XR chest 1V portable CLINICAL HISTORY: PRE OP DENIES CHEST COMPLAINTS [facility] TECHNIQUE: X-ray images of the chest were obtained in the frontal projection. COMPARISON: No prior studies are available for comparison. FINDINGS: Pulmonary Parenchyma: Bilateral coarsening of the pulmonary interstitium; likely senile changes. Blunting of the right costophrenic angle possible mild pleural thickening Faint haziness was noted in the left lower lung lobe with a suspected left lower atelectatic band No evidence of consolidation, collapse, or focal opacities. No pulmonary nodules were identified. No evidence of left pleural effusion or pleural thickening. Heart and Mediastinum: Borderline cardiac size. Prominent bilateral hilar vascular markings. Bony Thorax: The bony thorax appears intact without fractures or deformities. IMPRESSION: 1. No acute cardiopulmonary abnormalities were identified. 2. Bilateral coarsening of the pulmonary interstitium; likely senile changes. 3. Suspected left lower atelectatic band. 4. Blunting of the right costophrenic angle possible mild pleural thickening. 5. Borderline cardiac size. Electronically signed by Estella Serrano 07-08-2024 06:05 AM
--- NOTE | 2024-07-08 08:19 | Anesthesiology Consultation ---
Date of Service July 08, 2024 Assessment & Plan Chart Review Chart Review: Acceptable Risk for Surgery and Patient NOT seen in Pre Admission Testing Consults Requested none ASA [id number] Proposed Anesthesia Anesthesia Type: General History Surgery Operation Date: 07/08/24 09:15 Proposed Procedures p Laparoscopic Appendectomy - Moshe Fox MD Height/Weight Height: 6 ft 1 in Weight: 121 kg Allergies Allergy/AdvReac Type Severity Reaction Status Date / Time atorvastatin [From Lipitor] Allergy Unknown Verified 07/08/24 04:04 fenofibrate [From Tricor] Allergy Unknown Verified 07/08/24 04:04 gemfibrozil [From Lopid] Allergy Unknown Verified 07/08/24 04:04 lisinopril Allergy Unknown Verified 07/08/24 04:04 niacin Allergy Unknown Verified 07/08/24 04:04 Medications Home Medications Medication Instructions Recorded Confirmed Last Taken acetaminophen 500 mg tablet (Pain 500 mg PO PRN Pain 03/26/20 04/30/24 Unknown Relief (acetaminophen)) cholecalciferol (vitamin D3) 25 25 mcg PO DAILY 03/26/20 07/08/24 07/07/24 mcg (1,000 unit) tablet (Vitamin D3) cyanocobalamin (vitamin B-12) 500 500 mcg PO DAILY 03/26/20 07/08/24 07/07/24 mcg tablet (Vitamin B-12) hydrochlorothiazide 12.5 mg tablet 12.5 mg PO DAILY 03/26/20 07/08/24 07/07/24 losartan 100 mg tablet (Cozaar) 100 mg PO DAILY 03/26/20 07/08/24 07/07/24 omega-3 fatty acids [Fish Oil PO 03/26/20 04/30/24 07/07/24 Concentrate] psyllium [Metamucil] PO 03/26/20 04/30/24 07/07/24 rosuvastatin 5 mg tablet 5 mg PO Q OTHER DAY 03/26/20 07/08/24 Unknown warfarin 4 mg tablet 4 mg PO DAILY 03/26/20 07/08/24 07/07/24 furosemide 20 mg tablet 20 mg PO DAILY PRN edema 10/13/22 07/08/24 07/07/24 metoprolol succinate 50 mg 50 mg PO DAILY 07/08/24 07/08/24 Unknown tablet,extended release 24 hr Active Medications Generic Name Dose Route Start Last Admin Trade Name Freq PRN Reason Stop Dose Admin Sodium Chloride 1,000 mls @ 50 mls/hr 07/08/24 04:56 07/08/24 05:21 Nss IV 07/09/24 00:55 50 mls/hr .Q20H ONE Administration Past Medical History HTN HLD ASCVD Ao PVD A Fib GERD Pre DM Hx/o prostate cancer s/p radical prostatectomy Exercise / Class Metabolic Activity II 4-5 Yardwork/Stairs/Walk up hill Past Family History Family History Mother Cardiac disorder Diabetes Hypertension Father Cardiac disorder Hypertension Uncle Prostate cancer Past Surgical History Surgical History H/O radical prostatectomy History of kidney surgery H/O hernia repair History of cholecystectomy Past Anesthesia History No Hx of Anesthesia Complications and No Family Hx of Anesthesia Complications History of PONV No Hx of PONV and No Hx of Motion Sickness Social History Smoking Status: Former smoker tobacco type: cigarettes Smoking End Date: 1989 Hx Alcohol Use: No Hx Substance Use: No Physical Exam Vital Signs Last Vital Signs Temp 36.5 C 07/08/24 06:16 Pulse 73 07/08/24 07:00 Resp 18 07/08/24 06:16 BP 169/98 H 07/08/24 06:33 Pulse Ox 99 07/08/24 06:16 O2 Del Method Room Air 07/08/24 06:16 Testing Laboratory Results 07/08/24 00:06 07/08/24 00:06 PT 19.4 Seconds (9.0-12.0) H 07/08/24 00:06 INR 1.9 (0.9-1.1) H 07/08/24 00:06 Urine Color Yellow 07/08/24 03:10 Urine Appearance Clear (Clear) 07/08/24 03:10 Urine pH 5.5 (4.5-7.5) 07/08/24 03:10 Ur Specific [place] > 1.045 (1.000-1.030) H 07/08/24 03:10 Urine Protein Negative (Negative) 07/08/24 03:10 Urine Glucose (UA) Negative (Negative) 07/08/24 03:10 Urine Ketones Negative (Negative) 07/08/24 03:10 Urine Nitrite Negative (Negative) 07/08/24 03:10 Ur Leukocyte Esterase Negative (Negative) 07/08/24 03:10 Electrocardiogram Date: 07/08/24 Findings: + AFIB @ (@ 82) Chest X-Ray Date: 07/08/24 Findings: + NAD
[2024-07-08] MEDS: CYANOCOBALAMIN (B-12) 500 MCG TABLET PO SCH (08:29)
[2024-07-08] MEDS: METOPROLOL SUCC 50MG EXT REL TAB PO SCH (08:29)
[2024-07-08] MEDS: LOSARTAN POTASSIUM 50 MG TAB PO SCH (08:29)
--- NOTE | 2024-07-08 09:04 | History & Physical Report ---
Date of Service July 08, 2024 Assessment & Plan (1) Acute appendicitis: Plan: IVF IV abx to OR for lap appy Acute appendicitis type: unspecified acute appendicitis type Qualified Code(s): K35.80 - Unspecified acute appendicitis Admission and Anticipated Discharge Date Admission Date: July 08, 2024 History of Present Illness Primary Care Provider: Chiki Syed MD This is a 83YO male with acute right lower abdominal pain beginning last night. He has had some nausea but no vomiting He denies fevers, chest pain, shortness of breath. A CT scan shows acute appendicitis with a fecalith. Allergies Allergy/AdvReac Type Severity Reaction Status Date / Time atorvastatin [From Lipitor] Allergy Unknown Verified 07/08/24 04:04 fenofibrate [From Tricor] Allergy Unknown Verified 07/08/24 04:04 gemfibrozil [From Lopid] Allergy Unknown Verified 07/08/24 04:04 lisinopril Allergy Unknown Verified 07/08/24 04:04 niacin Allergy Unknown Verified 07/08/24 04:04 Home Medications Medication Instructions Recorded Confirmed Type acetaminophen 500 mg tablet (Pain 500 mg PO PRN Pain 03/26/20 04/30/24 History Relief (acetaminophen)) cholecalciferol (vitamin D3) 25 25 mcg PO DAILY 03/26/20 07/08/24 History mcg (1,000 unit) tablet (Vitamin D3) cyanocobalamin (vitamin B-12) 500 500 mcg PO DAILY 03/26/20 07/08/24 History mcg tablet (Vitamin B-12) hydrochlorothiazide 12.5 mg tablet 12.5 mg PO DAILY 03/26/20 07/08/24 History losartan 100 mg tablet (Cozaar) 100 mg PO DAILY 03/26/20 07/08/24 History omega-3 fatty acids [Fish Oil PO 03/26/20 04/30/24 History Concentrate] psyllium [Metamucil] PO 03/26/20 04/30/24 History rosuvastatin 5 mg tablet 5 mg PO Q OTHER DAY 03/26/20 07/08/24 History warfarin 4 mg tablet 4 mg PO DAILY 03/26/20 07/08/24 History furosemide 20 mg tablet 20 mg PO DAILY PRN edema 10/13/22 07/08/24 History metoprolol succinate 50 mg 50 mg PO DAILY 07/08/24 07/08/24 History tablet,extended release 24 hr Past Med/Surg History Problem List Asymptomatic hypertensive urgency Acute appendicitis (Acute) Abdominal pain (Acute) Heart trouble (Acute) Hemorrhoids (Acute) Hypercholesterolemia (Acute) Hypertension (Acute) Impotence, organic (Acute) Renal neoplasm (Acute) Prostate cancer Surgical History H/O radical prostatectomy History of kidney surgery H/O hernia repair History of cholecystectomy Family History Mother Cardiac disorder Diabetes Hypertension Father Cardiac disorder Hypertension Uncle Prostate cancer Social History Smoking Status: Former smoker Smoking End Date: 1989; Hx Alcohol Use: No Hx Substance Use: No Preferred Language: Syriac Communication Ability: Effective System Support Administrator Required: No Beliefs That Will Affect Care: None marital status: Current Living Situation: Spouse current occupational status: retired Other Information That Helps Us Care for You: No Feels Safe at Home: Yes Safety Concerns: Feels Safe At This Time Assistive Devices: Denture - Upper, Glasses and Hearing Aid - Bilateral Review of Systems no fever and no chills no problem reported no problem reported no cough and no dyspnea no chest pain + abdominal pain; no nausea, no vomiting and no change in bowel habits + hematuria; no dysuria no problem reported no problem reported no localized weakness and no generalized weakness no behavioral changes no easy bleeding and no easy bruising Physical Exam Constitutional: WD/WN, vitals as above Eyes: PERRL, conjunctivae normal, anicteric sclerae Neck: trachea midline Respiratory: normal respiratory effort, lungs clear to auscultation Cardiovascular: RRR, no murmur, no edema Gastrointestinal (Abdomen): Inspection/Auscultation: abdomen normal to inspection, normal bowel sounds and + abdominal surgical scar; abdomen not distended Percussion/Palpation: + abdomen tender and abdomen soft; no guarding and abdomen not rigid Musculoskeletal: Head/Neck/Chest: normocephalic and head atraumatic Skin: no rashes, warm and dry Results & Data Vital Signs (Past 12 Hours) Vital Signs Temp Pulse Pulse Resp BP BP BP 07/08/24 08:00 36.5 C 82 16 179/112 H 07/08/24 07:00 73 07/08/24 06:33 90 169/98 H 07/08/24 06:16 07/08/24 06:16 36.5 C 90 18 169/98 H 07/08/24 05:17 83 171/120 H 07/08/24 05:09 36.6 C 07/08/24 04:22 74 07/08/24 04:00 81 20 165/109 H 07/08/24 03:06 82 168/138 H 07/08/24 01:33 EST 81 17 157/109 H 07/08/24 01:00 EST 75 19 07/08/24 00:30 82 169/105 H 07/08/24 00:14 71 07/08/24 00:09 78 18 07/08/24 00:09 78 18 172/99 H 07/07/24 23:53 36.5 C 73 16 185/90 H Pulse Ox O2 Del Method 07/08/24 08:00 98 Room Air 07/08/24 07:00 07/08/24 06:33 07/08/24 06:16 Room Air 07/08/24 06:16 99 Room Air 07/08/24 05:17 07/08/24 05:09 Room Air 07/08/24 04:22 07/08/24 04:00 97 Room Air 07/08/24 03:06 96 Room Air 07/08/24 01:33 EST 100 Room Air 07/08/24 01:00 EST 98 Room Air 07/08/24 00:30 97 Room Air 07/08/24 00:14 07/08/24 00:09 97 Room Air 07/08/24 00:09 99 Room Air 07/07/24 23:53 99 Room Air Diagnostic Findings CT abd pelvis IV con only CLINICAL HISTORY: rlq abd pain injected with 94 cc''s optiray 320 kf TECHNIQUE: CT of the abdomen and pelvis was performed, with the following protocol: axial images with, and reconstructed coronal and sagittal images. 94ml of opitray-320mg/ml Intravenous contrast was administered. One of the following dose reduction techniques was utilized for this exam: Automated exposure control, adjustment of the mA and/or kV according to patient size, and use of iterative reconstruction. COMPARISON: PET/CT dated 02/23/2024. FINDINGS: Scanned lung bases show few basal thick atelectatic bands and small hiatus hernia. Abdomen: Liver: Normal in size, shape, and density. No focal lesions, cysts, or masses were identified. Hepatic vasculature and biliary ducts are unremarkable. Gallbladder and Biliary System: Surgical clips of previous cholecystectomy. The common bile duct is normal in caliber without dilation. Pancreas: Pancreatic head, body, and tail are visualized and appear normal in size and density. No pancreatic masses or calcifications were noted. The pancreatic duct is not dilated. Spleen: Normal in size, shape, and density. No splenic lesions or masses were identified. Kidneys and Adrenal Glands: Both kidneys are normal in size, shape, and position. Left renal cortical small calcified focus, likely sequel of old inflammatory process, stable. No renal calculi or hydronephrosis. Adrenal glands are unremarkable with no evidence of masses or hyperplasia. Pelvis: Urinary Bladder: Normal in contour and wall thickness. No intraluminal lesions are identified. Prostate: Multiple surgical clips are seen at the prostatic bed. Seminal Vesicles: Normal in size and appearance. No abnormalities are noted. Rectum and Sigmoid Colon: Normal wall thickness and no evidence of mass. Peritoneal and Retroperitoneal Structures: No free fluid or abnormal fluid collections were identified within the abdomen or pelvis. No lymphadenopathy was noted. Bowel: Enlarged retro cecal appendix with small calcific fecalith near its tip, associated smudging of the surrounding fat planes with mild fluid collection is noted, suggesting appendicitis. Left-sided para-aortic small bowel loops fat-like density lipoma measuring 23 mm, stable since the last study. The visualized bowel loops are normal in caliber and appearance. No evidence of bowel obstruction or wall thickening. Mild ectatic dilation of the aorta measuring 44 mm, showing circumferential hypodense thrombus causing mild luminal narrowing. Stable Left sided lower anterior abdominal wall heterogenous fat-like density, likely sequel of old operative interference. Stable Bones and Soft Tissues: Pelvic bones and soft tissues are unremarkable. Lumbar spondylotic changes. IMPRESSION: Enlarged retro cecal appendix with small calcific fecalith near its tip, associated smudging of the surrounding fat planes with mild fluid collection is noted, suggesting appendicitis. Code Status & VTE Plan VTE Prophylaxis Plan VTE Prophylaxis will be ordered: Yes
[2024-07-08] MEDS ORDERED: fentaNYL citrate PF 100 MCG/2 ML VIAL ONE ×2 (09:08→09:38)
[2024-07-08] MEDS ORDERED: ONDANSETRON INJ 2 MG/ML 2 ML VIAL ONE (09:08)
[2024-07-08] MEDS ORDERED: MIDAZOLAM HCL 1 MG/ML 2ML VIAL ONE (09:08)
[2024-07-08] MEDS ORDERED: LIDOCAINE 2% 2 ML VIAL/AMP(20MG/ML) INFIL ONE (09:08)
[2024-07-08] MEDS ORDERED: PROPOFOL IV EMULSION 10 MG/ML 20 ML VIAL IV ONE (09:08)
[2024-07-08] MEDS ORDERED: DEXAMETHASONE SOD INJ 4 MG/ML VIAL ONE (09:08)
[2024-07-08] MEDS ORDERED: FLUMAZENIL 0.1 MG/1 ML 10 ML VIAL IV PRN (09:21)
[2024-07-08] MEDS ORDERED: ATROPINE SULFATE 0.1 MG/ML 10ML SYR IV PRN (09:21)
[2024-07-08] MEDS ORDERED: ePHEDrine sulfate 50 MG/ML AMP IV PRN (09:21)
[2024-07-08] MEDS ORDERED: LABETALOL HCL IV 5 MG/ML 20ML IV PRN (09:21)
[2024-07-08] MEDS ORDERED: PROMETHAZINE HCL 6.25 MG in SODIUM CHLORIDE 0.9% 50 ML IV PRN (09:21)
[2024-07-08] MEDS ORDERED: NALOXONE HCL 0.4 MG/1 ML VIAL/CARP IV PRN (09:21)
[2024-07-08] MEDS ORDERED: ONDANSETRON INJ 2 MG/ML 2 ML VIAL IV PRN ×2 (09:21→11:13)
[2024-07-08] MEDS ORDERED: fentaNYL citrate PF 100 MCG/2 ML VIAL IV PRN (09:21)
[2024-07-08] MEDS ORDERED: ESMOLOL HCL INJ 10 MG/ML 10ML VIAL IV ONE (09:31)
[2024-07-08] MEDS ORDERED: ROCURONIUM BROMIDE 10 MG/ML 5 ML VIAL IV ONE (09:58)
[2024-07-08] MEDS ORDERED: SUGAMMADEX SODIUM 200 MG/2 ML VIAL IV ONE ×2 (10:00→10:11)
[2024-07-08] MEDS: BUPIVACAINE/EPINEPHRINE 0.5% MPF 1:200,000 30 ML VIAL ONE (10:03)
--- NOTE | 2024-07-08 10:24 | Operative Report ---
Post Operative Report Pre & Post Diagnosis Operation Date: 07/08/24 09:15 Pre-Op Diagnosis: Acute appendicitis Post-Op Diagnosis: Acute appendicitis I identified the patient and participated in the time-out.: Yes Procedure Operation Date: 07/08/24 09:15 Actual Procedures p Laparoscopic Appendectomy(Not Applicable) - Moshe Fox MD Surgeon Moshe Fox MD Radio Division Captain None Estimated Blood Loss 12 Findings Consistent with Post-Op Diagnosis Specimens Appendix to pathology Drains None Anesthesia Type General Complications none Disposition Accompanied Patient To Recovery: No Disposition: Recovery Room Indications This is an 83-year-old male admitted to the ED last night with acute abdominal pain. CT scan showed acute appendicitis with fecalith. We discussed the situation in detail and recommended a laparoscopic appendectomy. All this and wished to proceed. Description of Procedure The patient was taken to the OR and underwent excellent general anesthesia. Their abdomen was prepped and draped in normal sterile fashion. A transverse supraumbilical incision was made, towel clamps were used to create tension on the abdominal wall as a Varess needle was inserted gently into the peritoneal cavity. Good pneumoperitoneum was achieved to about 15 mmHg pressure. Once this was done, a visualized 11 port was placed in the supraumbilical position. A 12 mm left lower quadrant port , a 5mm suprapubic port , and a 5mm right upper quadrant port were placed in normal fashion. Patient was then placed in head down and rolled to the left. A good diagnostic lap was performed. They had obvious acute appendicitis tethered to the right abdominal wall. The cecum was grasped with an atraumatic grasper. A grasper was then was then used to grasp the tip of the appendix. The mesoappendix was splayed open and a harmonic scalpel was used to take down the mesoappendix. The base of the appendix was identified and an Endo BUTCH stapler was used to transect the appendix at its base. A Endobag was then inserted through the left lower quadrant port and the appendix was placed into the bag, The bag was removed through the left lower quadrant port. The appendix was then sent for pathologic evaluation. Pneumoperitoneum was re-established and the 12 mm port was replaced. Saline was then used to irrigate the abdomen. There was a small mesentery bleeder controlled with another fire of the endo-BUTCH. There was no further active bleeding nor any other abnormalities noted in the abdomen. Patient was then placed back in neutral position, the ports were removed and the pneumoperitoneum decompressed. The 12mm port fascia was then closed using a 0 Vicryl. The skin was then anesthetized with 0.5% Marcaine with epinephrine local. Interrupted Vicryl is used to close the skin. Dermabond was used to reinforce the incisions. Sterile dressings were applied. The patient tolerated procedure without complications was sent to the postop recovery period of observation. They will be sent to the floor for the rest of their care. I attest to the content of the Intraoperative Record and any orders documented therein. Any exceptions are noted below.
--- NOTE | 2024-07-08 11:07 | Anesthesiology Progress Note ---
Date of Service July 08, 2024 Anesthesia Post Procedure Vital Signs Vital Signs: Temp Pulse Pulse Resp BP BP BP 07/08/24 10:45 36.5 C 81 15 141/93 H 07/08/24 10:35 89 17 149/90 H 07/08/24 10:25 90 18 141/88 H 07/08/24 10:17 36.9 C 74 15 149/90 H 07/08/24 08:00 36.5 C 82 16 179/112 H 07/08/24 07:00 73 07/08/24 06:33 90 169/98 H 07/08/24 06:16 07/08/24 06:16 36.5 C 90 18 169/98 H 07/08/24 05:17 83 171/120 H 07/08/24 05:09 36.6 C 07/08/24 04:22 74 07/08/24 04:00 81 20 165/109 H 07/08/24 03:06 82 168/138 H 07/08/24 01:33 EST 81 17 157/109 H 07/08/24 01:00 EST 75 19 07/08/24 00:30 82 169/105 H 07/08/24 00:14 71 07/08/24 00:09 78 18 07/08/24 00:09 78 18 172/99 H 07/07/24 23:53 36.5 C 73 16 185/90 H Pulse Ox O2 Del Method O2 Flow Rate 07/08/24 10:45 94 Room Air 07/08/24 10:35 96 Oxymask 4 07/08/24 10:25 96 Oxymask 4 07/08/24 10:17 96 Oxymask 4 07/08/24 08:00 98 Room Air 07/08/24 07:00 07/08/24 06:33 07/08/24 06:16 Room Air 07/08/24 06:16 99 Room Air 07/08/24 05:17 07/08/24 05:09 Room Air 07/08/24 04:22 07/08/24 04:00 97 Room Air 07/08/24 03:06 96 Room Air 07/08/24 01:33 EST 100 Room Air 07/08/24 01:00 EST 98 Room Air 07/08/24 00:30 97 Room Air 07/08/24 00:14 07/08/24 00:09 97 Room Air 07/08/24 00:09 99 Room Air 07/07/24 23:53 99 Room Air Pain Intensity Abdomen: Pain Intensity: 6 Transfer of Care Handoff Completed per policy Notes Mental Status: alert / awake / arousable Patient Amnestic to Procedure: Yes Nausea / Vomiting: adequately controlled Pain: adequately controlled Airway Patency, RR, SpO2: stable & adequate BP & HR: stable & adequate Hydration State: stable & adequate Anesthetic Complications: no major complications apparent
[2024-07-08] MEDS ORDERED: oxyCODONE/ACETAMINOPHEN 5mg/325mg TAB PO PRN ×2 (11:13)
[2024-07-08] MEDS ORDERED: MoRPHine SULFATE 4 MG/ML 1 ML CARP\\VIAL IV PRN (11:13)
[2024-07-08] MEDS ORDERED: PROMETHAZINE 25 MG/51 ML BAG IV PRN (11:13)
--- NOTE | 2024-07-08 11:15 | Hospitalist Progress Note ---
Date of Service July 08, 2024 Assessment & Plan (1) Asymptomatic hypertensive urgency: (2) Acute appendicitis: (3) Hypercholesterolemia: (4) Hypertension: (5) Prostate cancer: (6) H/O radical prostatectomy: (7) History of kidney surgery: (8) H/O hernia repair: Plan Assessment and plan: Patient presents to the ED on 07/08/2024 with complaints of right lower quadrant pain x 24 hours, found to have appendicitis Hypertensive urgency: Improving, continue home metoprolol/losartan Can add as needed hydralazine for SBP over 160 if needed Acute appendicitis s/p lap appendectomy 07/08 Monitor postoperatively, pain control, DVT prophylaxis Hx AF on Coumadin: Coumadin on hold with recent surgery, monitor INR and continue when okay with surg S/p vitamin K on 07/08/2024 in preparation for surgery Hx PVD/HLD: Continue statin Hx prostate Ca s/p surgery/radiation: Follows outpatient with urology Full code DVT prophylaxis: Coumadin on hold Patient requesting updates providers. Mrs. Echo La, contact #[phone]. A total of 45 minutes was spent on chart review/reviewing diagnostic data/discussion with consultants/facilitating plan of care Admission and Anticipated Discharge Date Admission Date: July 08, 2024 Supervising Physician Co-Signing Physician Notes 83-year-old male with PMH of A-fib on Coumadin, PVD, HTN, HLD, GERD, prostate cancer status post surgery/radiation, renal oncocytoma status post surgery, prediabetes, past tobacco abuse presented with right lower quadrant pain and noted to have appendicitis. Appendicitis: General Surgery on board, Status post lap appendectomy 07/08. Hypertensive urgency: Likely secondary to pain ISO acute appendicitis. Continue with home medications, as needed hydralazine for SBP greater than 160. A-fib on Coumadin: Resume home Coumadin as soon as bleeding risks deemed minimal per surgery team. On exam: RLQ tender, on room air, rest of the exam as above. Time spent: 20 minutes. I have seen and examined the patient and have discussed the case with the provider above. I agree with the assessment and plan as stated. Subjective Patient seen and examined. No apparent distress. Still reports some right lower quadrant abdominal pain. Denies any nausea/vomiting overnight. Denies any chest pain/shortness of breath. Review of Systems Review of Systems: All systems reviewed & are unremarkable except as noted in HPI & below Physical Exam Constitutional: WD/WN, vitals as above well developed and well nourished; no acute distress Eyes: PERRL, conjunctivae normal, anicteric sclerae ENMT: external ear and nose normal, oropharynx normal Neck: trachea midline, no thyromegaly Respiratory: normal respiratory effort, lungs clear to auscultation Cardiovascular: RRR, no murmur, no edema Gastrointestinal (Abdomen): normal bowel sounds, soft, nontender, no hepatosplenomegaly (Right lower quadrant tender with palpation, no guarding) Musculoskeletal: no cyanosis or clubbing, extremities motor strength 5/5 Skin: no rashes, warm and dry Neurologic: PERRL, EOMI, accommodation nl, no face palsy, no dysarthria Psychiatric: A+Ox3, euthymic affect Lymphatic: no cervical or axillary lymphadenopathy Results & Data Results & Data Vital Signs (Past 12 Hours) Vital Signs Temp Pulse Pulse Resp BP BP BP 07/08/24 10:45 36.5 C 81 15 141/93 H 07/08/24 10:35 89 17 149/90 H 07/08/24 10:25 90 18 141/88 H 07/08/24 10:17 36.9 C 74 15 149/90 H 07/08/24 08:00 36.5 C 82 16 179/112 H 07/08/24 07:00 73 07/08/24 06:33 90 169/98 H 07/08/24 06:16 07/08/24 06:16 36.5 C 90 18 169/98 H 07/08/24 05:17 83 171/120 H 07/08/24 05:09 36.6 C 07/08/24 04:22 74 07/08/24 04:00 81 20 165/109 H 07/08/24 03:06 82 168/138 H 07/08/24 01:33 EST 81 17 157/109 H 07/08/24 01:00 EST 75 19 07/08/24 00:30 82 169/105 H 07/08/24 00:14 71 07/08/24 00:09 78 18 07/08/24 00:09 78 18 172/99 H Pulse Ox O2 Del Method O2 Flow Rate 07/08/24 10:45 94 Room Air 07/08/24 10:35 96 Oxymask 4 07/08/24 10:25 96 Oxymask 4 07/08/24 10:17 96 Oxymask 4 07/08/24 08:00 98 Room Air 07/08/24 07:00 07/08/24 06:33 07/08/24 06:16 Room Air 07/08/24 06:16 99 Room Air 07/08/24 05:17 07/08/24 05:09 Room Air 07/08/24 04:22 07/08/24 04:00 97 Room Air 07/08/24 03:06 96 Room Air 07/08/24 01:33 EST 100 Room Air 07/08/24 01:00 EST 98 Room Air 07/08/24 00:30 97 Room Air 07/08/24 00:14 07/08/24 00:09 97 Room Air 07/08/24 00:09 99 Room Air Diagnostic Findings Laboratory Results WBC 12.22 K/ul (4.8-10.8) H 07/08/24 00:06 RBC 4.45 M/uL (4.70-6.10) L 07/08/24 00:06 Hgb 14.0 g/dl (14.0-18.0) 07/08/24 00:06 Hct 41.8 % (42.0-52.0) L 07/08/24 00:06 MCV 93.9 fL (80.0-100.0) 07/08/24 00:06 MCH 31.5 pg (25.0-34.0) 07/08/24 00:06 MCHC 33.5 g/dL (32.0-36.0) 07/08/24 00:06 RDW Std Deviation 43.6 fL (36.4-46.3) 07/08/24 00:06 RDW Coeff of Mary 12.6 % (11.5-14.5) 07/08/24 00:06 Plt Count 169 K/uL (130-400) 07/08/24 00:06 MPV 9.7 fL (9.4-12.4) 07/08/24 00:06 Immature Gran % (Auto) 0.3 % 07/08/24 00:06 Neut % (Auto) 85.4 % 07/08/24 00:06 Lymph % (Auto) 3.8 % 07/08/24 00:06 [place] % (Auto) 9.3 % 07/08/24 00:06 Eos % (Auto) 0.8 % 07/08/24 00:06 Baso % (Auto) 0.4 % 07/08/24 00:06 Neut # (Auto) 10.43 K/uL (1.40-6.50) H 07/08/24 00:06 Lymph # (Auto) 0.46 K/uL (1.20-3.40) L 07/08/24 00:06 [place] # (Auto) 1.14 K/uL (0.11-0.59) H 07/08/24 00:06 Eos # (Auto) 0.10 K/uL (0.00-0.50) 07/08/24 00:06 Baso # (Auto) 0.05 K/uL (0.00-0.20) 07/08/24 00:06 Immature Gran # (Auto) 0.04 K/uL (0.01-0.20) 07/08/24 00:06 PT 19.4 Seconds (9.0-12.0) H 07/08/24 00:06 INR 1.9 (0.9-1.1) H 07/08/24 00:06 Sodium 134 mmol/L (136-145) L 07/08/24 00:06 Potassium 4.4 mmol/L (3.5-5.1) 07/08/24 00:06 Chloride 100 mmol/L (98-107) 07/08/24 00:06 Carbon Dioxide 30 mmol/L (21-32) 07/08/24 00:06 Anion Gap 4 (3-11) 07/08/24 00:06 BUN 17 mg/dl (6-23) 07/08/24 00:06 Creatinine 1.17 mg/dl (0.6-1.4) 07/08/24 00:06 Est Cr Clr Drug Dosing 65.8 ml/min 07/08/24 00:06 eGFR 61.85 07/08/24 00:06 BUN/Creatinine Ratio 14.5 (10-20) 07/08/24 00:06 Glucose 125 mg/dl (70-99(Fasting)) H 07/08/24 00:06 Calcium 9.2 mg/dl (8.6-10.3) 07/08/24 00:06 Total Bilirubin 0.7 mg/dl (0.2-1.0) 07/08/24 00:06 Direct Bilirubin 0.1 mg/dl (0-0.2) 07/08/24 00:06 AST 16 U/L (13-39) 07/08/24 00:06 ALT 14 U/L (7-52) 07/08/24 00:06 Alkaline Phosphatase 73 U/L (34-104) 07/08/24 00:06 Total Protein 7.1 gm/dl (6.0-8.3) 07/08/24 00:06 Albumin 4.4 gm/dl (3.4-5.0) 07/08/24 00:06 Globulin 2.7 gm/dl (2.5-4.0) 07/08/24 00:06 Albumin/Globulin Ratio 1.6 (0.9-2) 07/08/24 00:06 Lipase 27 U/L (11-82) 07/08/24 00:06 Urine Color Yellow 07/08/24 03:10 Urine Appearance Clear (Clear) 07/08/24 03:10 Urine pH 5.5 (4.5-7.5) 07/08/24 03:10 Ur Specific [place] > 1.045 (1.000-1.030) H 07/08/24 03:10 Urine Protein Negative (Negative) 07/08/24 03:10 Urine Glucose (UA) Negative (Negative) 07/08/24 03:10 Urine Ketones Negative (Negative) 07/08/24 03:10 Urine Blood Negative (Negative) 07/08/24 03:10 Urine Nitrite Negative (Negative) 07/08/24 03:10 Urine Bilirubin Negative (Negative) 07/08/24 03:10 Urine Urobilinogen Negative (Negative) 07/08/24 03:10 Ur Leukocyte Esterase Negative (Negative) 07/08/24 03:10 Impressions Abdomen/Pelvis CT 07/08/24 00:46 EXAM: CT abd pelvis IV con only CLINICAL HISTORY: rlq abd pain injected with 94 cc''s optiray 320 kf TECHNIQUE: CT of the abdomen and pelvis was performed, with the following protocol: axial images with, and reconstructed coronal and sagittal images. 94ml of opitray-320mg/ml Intravenous contrast was administered. One of the following dose reduction techniques was utilized for this exam: Automated exposure control, adjustment of the mA and/or kV according to patient size, and use of iterative reconstruction. COMPARISON: PET/CT dated 02/23/2024. FINDINGS: Scanned lung bases show few basal thick atelectatic bands and small hiatus hernia. Abdomen: Liver: Normal in size, shape, and density. No focal lesions, cysts, or masses were identified. Hepatic vasculature and biliary ducts are unremarkable. Gallbladder and Biliary System: Surgical clips of previous cholecystectomy. The common bile duct is normal in caliber without dilation. Pancreas: Pancreatic head, body, and tail are visualized and appear normal in size and density. No pancreatic masses or calcifications were noted. The pancreatic duct is not dilated. Spleen: Normal in size, shape, and density. No splenic lesions or masses were identified. Kidneys and Adrenal Glands: Both kidneys are normal in size, shape, and position. Left renal cortical small calcified focus, likely sequel of old inflammatory process, stable. No renal calculi or hydronephrosis. Adrenal glands are unremarkable with no evidence of masses or hyperplasia. Pelvis: Urinary Bladder: Normal in contour and wall thickness. No intraluminal lesions are identified. Prostate: Multiple surgical clips are seen at the prostatic bed. Seminal Vesicles: Normal in size and appearance. No abnormalities are noted. Rectum and Sigmoid Colon: Normal wall thickness and no evidence of mass. Peritoneal and Retroperitoneal Structures: No free fluid or abnormal fluid collections were identified within the abdomen or pelvis. No lymphadenopathy was noted. Bowel: Enlarged retro cecal appendix with small calcific fecalith near its tip, associated smudging of the surrounding fat planes with mild fluid collection is noted, suggesting appendicitis. Left-sided para-aortic small bowel loops fat-like density lipoma measuring 23 mm, stable since the last study. The visualized bowel loops are normal in caliber and appearance. No evidence of bowel obstruction or wall thickening. Mild ectatic dilation of the aorta measuring 44 mm, showing circumferential hypodense thrombus causing mild luminal narrowing. Stable Left sided lower anterior abdominal wall heterogenous fat-like density, likely sequel of old operative interference. Stable Bones and Soft Tissues: Pelvic bones and soft tissues are unremarkable. Lumbar spondylotic changes. IMPRESSION: Enlarged retro cecal appendix with small calcific fecalith near its tip, associated smudging of the surrounding fat planes with mild fluid collection is noted, suggesting appendicitis. [facility] was called at [phone] at 1:36AM [employer] on 07/08/2024 and results were verbally communicated to Avinash Hinkle. Electronically signed by Estella Serrano 07-08-2024 02:39 AM Chest X-Ray 07/08/24 03:50 EXAM: XR chest 1V portable CLINICAL HISTORY: PRE OP DENIES CHEST COMPLAINTS [facility] TECHNIQUE: X-ray images of the chest were obtained in the frontal projection. COMPARISON: No prior studies are available for comparison. FINDINGS: Pulmonary Parenchyma: Bilateral coarsening of the pulmonary interstitium; likely senile changes. Blunting of the right costophrenic angle possible mild pleural thickening Faint haziness was noted in the left lower lung lobe with a suspected left lower atelectatic band No evidence of consolidation, collapse, or focal opacities. No pulmonary nodules were identified. No evidence of left pleural effusion or pleural thickening. Heart and Mediastinum: Borderline cardiac size. Prominent bilateral hilar vascular markings. Bony Thorax: The bony thorax appears intact without fractures or deformities. IMPRESSION: 1. No acute cardiopulmonary abnormalities were identified. 2. Bilateral coarsening of the pulmonary interstitium; likely senile changes. 3. Suspected left lower atelectatic band. 4. Blunting of the right costophrenic angle possible mild pleural thickening. 5. Borderline cardiac size. Electronically signed by Estella Serrano 07-08-2024 06:05 AM (2) Acute appendicitis Acute appendicitis type: unspecified acute appendicitis type Qualified Code(s): K35.80 - Unspecified acute appendicitis
[2024-07-08] MEDS: PIPERACILLIN/TAZOBACTAM 4.5 GM/100 ML BAG IV SCH (11:20)
[2024-07-08 12:57] LABS: INR 1.7 (0.9-1.1); Prothrombin Time 17.6 Seconds (9.0-12.0)
--- NOTE | 2024-07-08 17:36 | Electrocardiogram Report ---
Test Reason : Blood Pressure : */* mmHG Vent. Rate : 82 BPM Atrial Rate : * BPM P-R Int : * ms QRS Dur : 90 ms QT Int : 348 ms P-R-T Axes : * 8 21 degrees QTcB Int : 406 ms Atrial fibrillation Low voltage QRS Abnormal ECG No previous ECGs available Confirmed by Gabriela Grijalva (Patel) on 07/08/2024 5:36:24 PM Referred By: REFERRED SELF Confirmed By: Gabriela Grijalva
[2024-07-08] MEDS: POLYETHYLENE (MIRALAX) 17 GM PACK PO SCH (17:56)
[2024-07-09 06:28] LABS: Basophils # (auto) 0.01 K/uL (0.00-0.20); Basophils % (auto) 0.1 %; Eosinophils # (auto) 0.01 K/uL (0.00-0.50); Eosinophils % (auto) 0.1 %; Hematocrit (blood only) 34.7 % (42.0-52.0); Hemoglobin 11.6 g/dl (14.0-18.0); Immature Granulocytes # (auto) 0.05 K/uL (0.01-0.20); Immature Granulocytes % (auto) 0.4 %; Lymphocytes # (auto) 0.39 K/uL (1.20-3.40); Lymphocytes % (auto) 3.4 %; Mean Corpuscular Hemoglobin 31.1 pg (25.0-34.0); Mean Corpuscular Hgb Conc 33.4 g/dL (32.0-36.0); Mean Platelet Volume 9.9 fL (9.4-12.4); Monocytes # (auto) 0.86 K/uL (0.11-0.59); Monocytes % (auto) 7.5 %; Neutrophils # (auto) 10.18 K/uL (1.40-6.50); Neutrophils % (auto) 88.5 %; Platelet Count 131 K/uL (130-400); RDW Coefficient of Variation 12.7 % (11.5-14.5); RDW Standard Deviation 42.9 fL (36.4-46.3); Red Blood Count 3.73 M/uL (4.70-6.10)
[2024-07-09 06:54] LABS: INR 1.3 (0.9-1.1); Prothrombin Time 13.8 Seconds (9.0-12.0)
[2024-07-09 07:08] LABS: BUN Creatinine Ratio 15.2 (10-20); Calcium 8.4 mg/dl (8.6-10.3); Creatinine Clr Calc Pharmacy 72.6 ml/min; Phosphorus 3.1 mg/dl (2.5-4.9); Potassium 4.2 mmol/L (3.5-5.1)
[2024-07-09 07:57] VITALS: O2SAT 97
[2024-07-09] MEDS: ROSUVASTATIN CALCIUM 5 MG TAB PO SCH (08:13)
[2024-07-09] MEDS: FUROSEMIDE INJ 20 MG/2 ML VIAL IV ONE (12:13)
--- NOTE | 2024-07-09 13:43 | Surgery Progress Note ---
Date of Service July 09, 2024 Assessment & Plan (1) Acute appendicitis: Plan: POD # 1 s/p lap appy avss postop pain minimal, controlled tolerating diet Plan: Doing well from surgical standpoint for discharge today Discharge instructions reviewed okay to resume Coumadin F/u surgery office in 1-[address] Fox who agrees with above. Admission and Anticipated Discharge Date Admission Date: July 08, 2024 Subjective feeling good, minimal tenderness at incision sites preop pain resolved no n,v tolerating diet ambulating and urinating without difficulty no chest pain or shortness of breath no fevers, chills, sweats Physical Exam Constitutional: WD/WN, vitals as above + obese, cooperative and comfortable; no acute distress and not ill appearing Respiratory: normal respiratory effort, lungs clear to auscultation Cardiovascular: RRR, no murmur, no edema Gastrointestinal (Abdomen): Inspection/Auscultation: + abdominal surgical incision (c./d/i with dermabond) Percussion/Palpation: abdomen soft; abdomen nontender, no guarding and abdomen not rigid Skin: no rashes, warm and dry Psychiatric: A+Ox3, euthymic affect Results & Data Vital Signs (Past 12 Hours) Vital Signs Temp Pulse Pulse Resp BP Pulse Ox O2 Del Method 07/09/24 11:34 36.6 C 76 16 119/78 97 Room Air 07/09/24 09:39 Room Air 07/09/24 07:55 36.5 C 82 16 117/74 97 Room Air 07/09/24 07:48 66 07/09/24 03:26 36.6 C 82 16 126/74 98 Room Air Laboratory Results 07/09/24 Range/Units 05:49 WBC 11.50 H (4.8-10.8) K/ul RBC 3.73 L (4.70-6.10) M/uL Hgb 11.6 L (14.0-18.0) g/dl Hct 34.7 L (42.0-52.0) % MCV 93.0 (80.0-100.0) fL MCH 31.1 (25.0-34.0) pg MCHC 33.4 (32.0-36.0) g/dL RDW Std Deviation 42.9 (36.4-46.3) fL RDW Coeff of Mary 12.7 (11.5-14.5) % Plt Count 131 (130-400) K/uL MPV 9.9 (9.4-12.4) fL Immature Gran % (Auto) 0.4 % Neut % (Auto) 88.5 % Lymph % (Auto) 3.4 % [place] % (Auto) 7.5 % Eos % (Auto) 0.1 % Baso % (Auto) 0.1 % Neut # (Auto) 10.18 H (1.40-6.50) K/uL Lymph # (Auto) 0.39 L (1.20-3.40) K/uL [place] # (Auto) 0.86 H (0.11-0.59) K/uL Eos # (Auto) 0.01 (0.00-0.50) K/uL Baso # (Auto) 0.01 (0.00-0.20) K/uL Immature Gran # (Auto) 0.05 (0.01-0.20) K/uL PT 13.8 H (9.0-12.0) Seconds INR 1.3 H (0.9-1.1) Sodium 135 L (136-145) mmol/L Potassium 4.2 (3.5-5.1) mmol/L Chloride 104 (98-107) mmol/L Carbon Dioxide 26 (21-32) mmol/L Anion Gap 5 (3-11) BUN 16 (6-23) mg/dl Creatinine 1.05 (0.6-1.4) mg/dl Est Cr Clr Drug Dosing 72.6 ml/min eGFR 70.43 BUN/Creatinine Ratio 15.2 (10-20) Glucose 129 H (70-99(Fasting)) mg/dl Calcium 8.4 L (8.6-10.3) mg/dl Phosphorus 3.1 (2.5-4.9) mg/dl Magnesium 2.0 (1.7-2.4) mg/dl (1) Acute appendicitis Acute appendicitis type: unspecified acute appendicitis type Qualified Code(s): K35.80 - Unspecified acute appendicitis
--- NOTE | 2024-07-09 14:36 | Discharge Summary ---
Discharge Summary Date of Service July 09, 2024 The patient is a 83-year-old male with a past medical history of A-fibon Coumadin, valvular heart disease, PVD, HTN, HLD, GERD, prostate cancer s/p surgery/radiation, renal oncocytoma s/p surgery, prediabetes, past tobacco use who presented to the ED on 07/08/2024 with complaints of right lower quadrant pain x 1 day. Patient's SBP's were in the 180s on arrival to the ED and the patient was found to have appendicitis, the patient was given IV Zosyn and admitted to the floor for further management. The patient was taken to the OR on 07/08 for lap appendectomy which went well and the patient is doing well postoperatively. Please see below for management during hospitalization Hypertensive urgency: Improving, continue home metoprolol/losartan Can add as needed hydralazine for SBP over 160 if needed Acute appendicitis s/p lap appendectomy 07/08 Monitor postoperatively, pain control, DVT prophylaxis Hx AF on Coumadin: Coumadin on hold with recent surgery, monitor INR and continue when okay with surg S/p vitamin K on 07/08/2024 in preparation for surgery Hx PVD/HLD: Continue statin Hx prostate Ca s/p surgery/radiation: Follows outpatient with urology The patient received vitamin K on 07/08/2024 in preparation for surgery. His INR on discharge today is 1.3. He will be bridged on therapeutic Lovenox for 4 days after discharge. He will continue his home dose of Coumadin 4 mg daily. He was given a dose of 4 mg of Coumadin prior to discharge on 07/29. He was also given a dose of therapeutic Lovenox prior to discharge. He would need to follow with his PCP within 1 week of discharge. He will need to follow-up with surgery within 1 to 2 weeks of discharge. His labs/vitals are stable. He stable for discharge home today. Principal Dx & Hospital Course #1 = Principal Diagnosis (1) Asymptomatic hypertensive urgency: (2) Acute appendicitis: (3) Hypercholesterolemia: (4) Hypertension: (5) Prostate cancer: (6) H/O radical prostatectomy: (7) History of kidney surgery: (8) H/O hernia repair: Plan Assessment and plan: Patient presents to the ED on 07/08/2024 with complaints of right lower quadrant pain x 24 hours, found to have appendicitis Hypertensive urgency: Improving, continue home metoprolol/losartan Can add as needed hydralazine for SBP over 160 if needed Acute appendicitis s/p lap appendectomy 07/08 Monitor postoperatively, pain control, DVT prophylaxis Hx AF on Coumadin: Coumadin on hold with recent surgery, monitor INR and continue when okay with surg S/p vitamin K on 07/08/2024 in preparation for surgery Hx PVD/HLD: Continue statin Hx prostate Ca s/p surgery/radiation: Follows outpatient with urology Full code DVT prophylaxis: Coumadin on hold Patient requesting updates providers. Mrs. Echo La, contact #[phone]. A total of 45 minutes was spent on chart review/reviewing diagnostic data/discussion with consultants/facilitating plan of care Notes For Next Care Provider Medication Changes From Visit Lovenox bridge and Coumadin Admission HPI Per Admitting Provider This is a 83YO male with acute right lower abdominal pain beginning last night. He has had some nausea but no vomiting He denies fevers, chest pain, shortness of breath. A CT scan shows acute appendicitis with a fecalith. Updated Medication List Medication Instructions Recorded Confirmed Type acetaminophen 500 mg tablet (Pain 500 mg PO PRN Pain 03/26/20 04/30/24 History Relief (acetaminophen)) cholecalciferol (vitamin D3) 25 25 mcg PO DAILY 03/26/20 07/08/24 History mcg (1,000 unit) tablet (Vitamin D3) cyanocobalamin (vitamin B-12) 500 500 mcg PO DAILY 03/26/20 07/08/24 History mcg tablet (Vitamin B-12) hydrochlorothiazide 12.5 mg tablet 12.5 mg PO DAILY 03/26/20 07/08/24 History losartan 100 mg tablet (Cozaar) 100 mg PO DAILY 03/26/20 07/08/24 History omega-3 fatty acids [Fish Oil PO 03/26/20 04/30/24 History Concentrate] psyllium [Metamucil] PO 03/26/20 04/30/24 History rosuvastatin 5 mg tablet 5 mg PO Q OTHER DAY 03/26/20 07/08/24 History warfarin 4 mg tablet 4 mg PO DAILY 03/26/20 07/08/24 History furosemide 20 mg tablet 20 mg PO DAILY PRN edema 10/13/22 07/08/24 History metoprolol succinate 50 mg 50 mg PO DAILY 07/08/24 07/08/24 History tablet,extended release 24 hr enoxaparin 120 mg/0.8 mL 120 mg (0.8 mL) subcut Q12H 4 days 07/09/24 Rx subcutaneous syringe (Lovenox) #6.4 mL Hospital Stay Data Consultations 07/08/24 03:56 ED Decision to Admit Stat 07/08/24 04:54 Consult General Surgery Routine Procedures Performed Operation Date: 07/08/24 09:15 Actual Procedures p Laparoscopic Appendectomy(Not Applicable) - Moshe Fox MD Diagnostic Imagining Performed 07/08/24 00:46 CT abd pelvis IV con only Stat Pending Results Patient Have Any Pending Studies at Discharge: No (appendix pathology, will be reviewed at postop visit) Discharge Instructions Given to Patient (Per Discharging Provider) Please follow with the PCP within 1 week of discharge. Please follow-up with surgery within 1 to 2 weeks You may continue your Coumadin. You will be discharged on a Lovenox bridge for few days until your Coumadin is therapeutic. Report rec to the ED with worsening symptoms Total Time Total Time Spent Total Time Spent (In Minutes): 60 Total Time Includes: Examination of the Patient, Discharge Planning, Medication Reconciliation and Communication With Other Providers Supervising Physician Co-Signing Physician Notes 83-year-old male with PMH of A-fib on Coumadin, PVD, HTN, HLD, GERD, prostate cancer status post surgery/radiation, renal oncocytoma status post surgery, prediabetes, past tobacco abuse presented with right lower quadrant pain and noted to have appendicitis. Appendicitis: General Surgery on board, Status post lap appendectomy 07/08. Pt w/ no pain today. d/w gen sx, will dc antibiotic, ok to resume anticoagulation. Pt will be dc'd on lovenox bridge and pt has been advised to f/u w/ coumadin clinic in 2 days of discharge for pt/inr check to prevent over anticoagulation if pt/inr were to become therapeutic earlier. pt voiced understanding and understands the risk of overanticoagulation leading to increased bleeding risk given recent surgery. Hypertensive urgency: Likely secondary to pain ISO acute appendicitis. Continue with home medications, BP fairly better. A-fib on Coumadin: anticoagulation as per above. On exam: RLQ non tender, on room air, rest of the exam as above. Time spent: 20 minutes. I have seen and examined the patient and have discussed the case with the provider above. I agree with the assessment and plan as stated.
[2024-07-09 15:27] VITALS: RESP 20; TEMP 97.7
[2024-07-09] MEDS: ENOXAPARIN INJ 120 MG/0.8 ML SYR SQ ONE (16:26)
[2024-07-09] MEDS: WARFARIN SOD 4 MG TAB PO STA (16:27)
[2024-07-09 16:43] VITALS: BP 124/63; PULSE 73
== END 2024-07-09 17:09 | disposition home or self-care (01) ==
LOC: ED 23:46 → 2N 23:46 → SUATTDRO 07-08 04:10 → 2N 07-08 05:09
DX: Z88.8 Allergy status to other drugs, medicaments and biological substances; Z79.899 Other long term (current) drug therapy; I48.91 Unspecified atrial fibrillation; Z79.01 Long term (current) use of anticoagulants; K35.80 Unspecified acute appendicitis; Z87.891 Personal history of nicotine dependence

== ENCOUNTER 2024-11-11 10:26 | Inpatient (IN) ==
--- OUTSIDE RECORDS SUMMARY | 2024-11-11 10:33 | External Medical Summary | Summary of Care ---
Author Name Unknown Organization [facility] Address [address] [facility] [address] Phone [phone] Care Team Providers Care Apns Name Role Phone Chiki Syed MD Primary Care Provider + Reason for Visit * Reason Onset Date Comments Advice 10/29/2024 Encounter Details Date Type Department Care Team (Late st Contact Info) Description 10/29/2024 Telephone Gastroenterology, [facility] [address] [place] [address] Kerry Vaughan DO [address] [place] [address] Advice Allergies Active Allergy Reactions Criticality Noted Date Comments Atorvastatin 10/15/2013 Joint pain Fenofibrate 10/15/2013 Joint pain Gemfibrozil Diarrhea 10/15/2013 Lisinopril Cough 01/25/2017 Niacin Nausea/vomiting 10/15/2013 documented as of this encounter (statuses as of 10/29/2024) Medications [facility] + D3 4104-8019 MG-UNIT PO CAPS Take by mouth once . Takes this once daily 4 Active rosuvastatin (CRESTOR) 5 MG Tablet Take 1 Tablet by mouth every other day. Take 1/2 tab every other day Active Vitamin B-12 500 MCG Oral Lozenge Take 500 mcg by mouth in the morning. Active Tylenol PM Extra Strength 500-25 MG Oral Tablet (diphenhydrAMINE -APAP (sleep)) Take 1 Tablet by mouth 3 times a day as needed for Itching. Active Warfarin Sodium 4 MG Oral Tablet (Coumadin)Indica tions:Chronic atrial fibrillation (HCC) TAKE 1 TO 2 TABLETS BY MOUTH DAILY PER ANTI-COAGULATION CLINIC 180 Tablet 3 4 Active Furosemide 20 MG Oral Tablet (Lasix)Indicatio ns:Lower extremity edema,Chronic atrial fibrillation (HCC),HTN, goal below 130/80,Valvular heart disease Take 1 Tablet by mouth daily as needed (fluid accumulation or weight gain). 30 Tablet 11 4 Active Metoprolol Succinate ER 50 MG Oral Tablet Extended Release 24 Hour (toPROL XL)Indications:A trial fibrillation, chronic (HCC),HTN, goal below 130/80 TAKE 1 TABLET BY MOUTH IN THE MORNING 90 Tablet 1 4 Active Ciclopirox 8 % External Solution Apply over nail and surrounding skin. Apply daily over previous coat. After seven (7) days, may remove with alcohol and continue cycle. 6.6 mL 3 06/20/2024 10:57 AM EDT 4 Active Losartan Potassium 100 MG Oral Tablet (Cozaar)Indicati ons:HTN, goal below 140/90 TAKE 1 TABLET BY MOUTH IN THE MORNING 90 Tablet 1 4 Active hydroCHLOROthiaz beatrice 12.5 MG Oral CapsuleIndicatio ns:HTN, goal below 140/90 TAKE 1 CAPSULE BY MOUTH IN THE MORNING 90 Capsule 1 4 Active Pantoprazole Sodium 20 MG Oral Tablet Delayed Release (Protonix)Indica tions:Gastroesop hageal reflux disease, unspecified whether esophagitis present,Dysphagi a, unspecified type Take 1 Tablet by mouth in the morning. 30 Tablet 5 5 Active Polyethylene Glycol 1000 Powder DAILY 4 Active Ciprofloxacin HCl 500 MG Oral Tablet (Cipro) Take 1 Tablet by mouth in the morning and 1 Tablet before bedtime. 10 Tablet 10/25/2024 10:40 AM EST 5 Active Hospital, Clinic, or Other Facility Administered Medication Ordered Dose Route Frequency Start Date End Date Status Albuterol Sulfate (Proventil) (2.5 MG/3ML) 0.083% inhalation solution 2.[address] 2.5 mg NEBULIZER ONCE PRN 08/29/2024 08/29/2025 Active documented as of this encounter (statuses as of 10/29/2024) Active Problems Problem Noted Date Diagnosed Date CWP (coalworkers pneumoconiosis) 10/09/2024 Overview (10/09/2024): Simple coal worker's pneumoconiosis, scattered subcentimeter pulmonary nodules, stable on comparison between 2020 to 2023. Aneurysm of ascending aorta without rupture 03/05 Severe obesity with body mas s index (BMI) of 35.0 to 39.9 with serious comorbidity 01/10/2023 History of 2019 novel coronavirus disease (COVID -19) 03/09/2022 Overview (03/09/2022): 03/26 Aortic ectasia, thoracic 07/28/2021 Overview (09/29/2024): 08/28 CT 5.4 cm (Dr Bolton review 4.8cm). 09/[address] to [address] surg/ TTE 02/26 [facility] PET CT 4.5cm 07/26 4.3 cm Atrial fibrillation, chronic 10/19/2018 Complex tear of lateral meni scus of right knee as current injury 04/05/2017 History of renal cell cancer 01/25/2017 Overview (01/25/2017): left kidney [facility] Prediabetes 10/05/2016 Prostate cancer 10/05/2016 Overview (10/24/2019): S/p surgery, XRT. 07/[address] Holm 08/21 PSA 0.[address] [place] [address] Romero--s/p surg, XRT 5 years later. Well adult exam 10/05/2016 Overview (10/25/2024): 10/30 EGD/EUS--biopsies pancreas, lymph nodes, stomach mass. PATH PEND 09/29 PFT done WNL! 08/28 refer STAIR., + emphysema on CT, referred pulm, 09/[address] surg For aorta. 02/26 [facility] PET-10mm lymph inguinal node with mild inc uptake. Consider BX. No skeletal mets. Indeterm hilar tracer uptake. -Alta's plan to observe monitor PSA 08/26 EGD biopsy +Leiomyoma. Precious 1y 06/26 EGD--abnormal. F/u sched Dec. 07/26 lung nodules, ectasia, precious stable 05/27, precious 1 more time 1y ordered 04/[address] Holm, uro. Dr Mccloud-Cardiology in past now Dr Patten Goes yearly to [facility]. 06/21 normal stress test w/Dr Mccloud 2009 colonoscopy WNL -consider in 2019. A-fib 01/09/2016 Overview (07/16/2024): 06/21 Lexiscan Tc99 Stress echo WNL. Normal EF. Dr Mccloud [place] in past now Addison/Madan HTN, goal below 130/80 GERD (gastroesophageal reflux disease) documented as of this encounter (statuses as of 10/29/2024) Resolved Problems Problem Noted Date Diagnosed Date Resolved Date Low vitamin D level 01/09/2016 04/05/20 17 Kidney disease, chronic, sta ge III (GFR 30-59 ml/min) 04/07/2015 10/19/2018 Overview: Per CKD protocol #1 Renal cancer 11/01/2014 01/25/2017 Rt groin pain 10/07/2014 11/01/2014 Hyperlipidemia with target LDL less than 100 01/09/2016 Overview (01/05/2016): ICD-10 update of inactive term Prostate cancer 01/09/2016 Atrial fibrillation 05/02/20 15 Overview (10/15/2013): Dr Gilliam HTN, goal below 140/90 05/02 Hyperlipidemia with target LDL less than 100 11/01/2014 Overview (01/05/2016): ICD-10 update of inactive term documented as of this encounter (statuses as of 10/29/2024) Immunizations Name Administration Dates Next Due COVID-19 [...] Years Used Date Smoking Tobacco: Former Cigarettes 1 29.9 0 10/15/1961 - 1991 Smokeless Tobacco: Former Quit: 10/19/1991 Comments:30 yrs 1- ppd Alcohol Use Standard Drinks/Week [...] money to get more. 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 If the need discomfort persists can we help him make an appointment with his primary care provider to evaluate this new symptom. * Telephone Encounter - Sudha Winslow LPN - 10/29/2024 8:25 AM EST Pt reports that after 2 doses of Cipro, he was having trouble baring weight on his knees Tuesday andTuesday, but he continued taking his Cipro.This morning he read that you should not take Cipro if you have AAA, which he does. He has 2 doses left, that he is not going to take. documented in this encounter Plan of Treatment Upcoming Encounters Date Type Department Care Team (Late st Contact Info) Description 11/14/2024 11:10 AM EDT 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 Pharmacy, [facility] [address] [facility] [place] [address] [facility] 132 [facility] [place] [address] 01/02/2025 8:00 AM EDT Office Visit Cardiology, [facility] [address] [facility] [place] [address] Letty Romo CRNP [address] [facility] [place] [address] 01/23/2025 9:20 AM EDT Office Visit Family Practice [facility] [address] [facility] [place] [address] Chiki Syed MD 132 [facility] [place] [address] 01/24/2025 9:00 AM EDT Office Visit Gastroenterology, [facility] [address] [facility] [place] [address] Mariana Florez CRNP 132 [facility] [place] [address] 04/16/2025 11:00 AM EDT Appointment Radiology, [place] [address] [place] [address] 04/23/2025 10:45 AM EDT Office Visit Cardiothoracic Surg [facility], [place] [address] [place] [address] See Hirsch MD [facility] [address] [place], [place] [id number] Health Maintenance Due Date Last Done Comments COVID-19 Vaccine ( season) 2024 01/13/2023, 07/05/2022, 12/14/2021, Additional history exists Adult Wellness Visit 07/26/2024 07/26/2023, 09/30/19 22 Depression Screening 01/19/2025 01/20/2024 GFR 02/06/2025 02/07/2024, 12/05, 07/13/2023, Additional history exists HbA1c 02/06/2025 02/07/2024, 04/2023, 02/08/2023, Additional history exists DTap/Tdap Vaccines (2 - Td or Tdap) 01/31/2027 01/31/2017 Albumin/Creatinine Ratio 02/06/2027 024, 01/10/2023, 04/05/2017 Pneumococcal Vaccine: 50+ Years Completed 10/05/2016, 06/05/2008 Zoster Vaccines Completed [...] on patient's age to complete this topic Meningitis B Vaccine (Bexsero/Trumemba) Aged Out No longer eligible based on patient's age to complete this topic documented as of this encounter Medical Devices Implanted Type Area Pluck Separator Device Identifier Shelf Expiration Date Model / Serial / Lot Lens Intraoc 21.5 - [id number] - [id number] Implanted:Qty: 1 on 06/20/2018 by Bogdan Lindsay MD at [facility] Left: Eye [employer]OM[employer] 01/02/2023 [id number] / [id number] / [id number] Lens Intraoc 21.5 - [id number] - [id number] Implanted:Qty: 1 on 06/29/2018 by Bogdan Lindsay MD at OR [facility] Right: Eye BAUSCH [employer] LOMB 02/02/2023 [id number] / [id number] / [id number] documented as of this encounter Advance Directives [...] and were consensually agreed upon. Care Teams Apns Relationship Specialty Start Date End Date Chiki Syed MD [address] [place] [address] PCP - General Family Medicine 10/20/18 documented as of this encounter
--- OUTSIDE RECORDS SUMMARY | 2024-11-11 10:33 | External Medical Summary | Summary of Care ---
Author Name Unknown Organization [facility] Address [address] [place] [address] Phone [phone] Care Team Providers Care Floral Design Teacher Name Role Phone Chiki Syed MD Primary Care Provider + Reason for Visit * Reason Comments Outpatient Testing Encounter Details Date Type Department Care Team (Late st Contact Info) Description 11/05/2024 9:50 AM EST Laboratory Laboratory, [facility] 132 [facility] [place] [address] [facility] [address] BPH with obstruction/lower urinary tract symptoms* Allergies Active Allergy Reactions Criticality Noted Date Comments Atorvastatin 10/15/2013 Joint pain Fenofibrate 10/15/2013 Joint pain Gemfibrozil Diarrhea 10/15/2013 Lisinopril Cough 01/25/2017 Niacin Nausea/vomiting 10/15/2013 documented as of this encounter (statuses as of 11/05/2024) Medications [facility] FISH OIL + D3 5459-5805 MG-UNIT PO CAPS Take by mouth once [...] Tablet 10/25/2024 10:40 AM EST 5 Active predniSONE 10 MG Oral Tablet (Deltasone)Indic ations:Acute pain of left knee One tab a day, in the morning, with food x 7 days. 7 Tablet 5 Active Hospital, Clinic, or Other Facility Administered Medication Ordered Dose Route Frequency Start Date End Date Status Albuterol Sulfate (Proventil) (2.5 MG/3ML) 0.083% inhalation solution 2.[address] 2.5 mg NEBULIZER ONCE PRN 08/29/2024 08/29/2025 Active documented as of this encounter (statuses as of 11/05/2024) Active Problems Problem Noted Date Diagnosed Date [...] Jaime referred to CT surg/ TTE 02/26 [facility] PET CT 4.5cm 07/26 4.3 cm Atrial fibrillation, chronic 10/19/2018 Complex tear of lateral meni scus of right knee as current injury 04/05/2017 History of renal cell cancer 01/25/2017 Overview (01/25/2017): left kidney dx [facility] Prediabetes 10/05/2016 Prostate cancer 10/05/2016 Overview (10/24/2019): S/p surgery, XRT. 07/[address] Holm 08/21 PSA [address] [place] [address] Romero--s/p surg, XRT 5 years later. Well adult exam 10/05/2016 Overview (10/25/2024): 10/30 EGD/EUS--biopsies pancreas, lymph nodes, stomach mass. PATH PEND 09/29 PFT done WNL! 08/28 refer STAIR., + emphysema on CT, referred pulm, 09/[address] surg For aorta. 02/26 [facility] PET-10mm lymph inguinal node with mild inc uptake. Consider BX. No skeletal mets. Indeterm hilar tracer uptake. -Alta's plan to observe monitor PSA 08/26 EGD biopsy +Leiomyoma. Precious 1y 06/26 EGD--abnormal. F/u sched lung nodules, ectasia, precious stable 05/27, precious 1 more time 1y ordered 04/[address] Holm, uro. Dr Mccloud-Cardiology in past now Dr Patten Goes yearly to [facility]. 06/21 normal stress test w/Dr Mccloud 2009 colonoscopy WNL -consider in 2019. A-fib 01/09/2016 Overview (07/16/2024): 06/21 Lexiscan Tc99 Stress echo WNL. Normal EF. 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 [place] [address] [facility] [address] [place] [address] 01/02/2025 8:00 AM EDT Office Visit Cardiology, [facility] [address] [facility] [place] [address] Letty Romo CRNP [address] [place] [address] [place] [address] 01/23/2025 9:20 AM EDT Office Visit Family Practice [facility] 132 [facility] [place] [address] Chiki Syed MD 132 [place] [address] 01/24/2025 9:00 AM EDT Office Visit Gastroenterology, [facility] 132 [facility] [place] [address] Mariana Florez CRNP 132 [facility] [place] [address] 04/16/2025 11:00 AM EDT Appointment Radiology, [place] [address] [place] [id number] 04/23/2025 10:45 AM EDT Office Visit Cardiothoracic Surg [facility], [place] [address] [place] [address] See Hirsch MD [address] [place] [address] Pending Results Name Type Priority Associated Diagnoses Date /Time PSA Lab Routine BPH with obstruction/lower urinary tract symptoms 11/05/2024 9:34 AM EST Scheduled Orders Name Type Priority Associated Diagnoses Orde r Schedule PSA Lab Routine BPH with obstruction/lower urinary tract symptoms Expected: 11/05/2024, Expires: 11/05/2025 Health Maintenance Due Date Last Done Comments [...] this encounter Medical Devices Implanted Type Area Extrusion Press Adjuster Device Identifier Shelf Expiration Date Model / Serial / Lot Lens Intraoc 21.5 - [id number] - [id number] Implanted:Qty: 1 on 06/20/2018 by Bogdan Lindsay MD at [facility] Left: Eye [employer]OM[employer] 01/02/2023 [id number] / [id number] / [id number] Lens Intraoc 21.5 - [id number] - [id number] Implanted:Qty: 1 on 06/29/2018 by Bogdan Lindsay MD at [facility] Right: Eye BAUSCH & LOMB 02/02/2023 [id number] / [id number] / [id number] documented as of this encounter Visit Diagnoses [...] and were consensually agreed upon. Care Teams Floral Design Teacher Relationship Specialty Start Date End Date Chiki Syed MD 132 [facility] [place] [address] PCP - General Family Medicine 10/20/18 documented as of this encounter
--- OUTSIDE RECORDS SUMMARY | 2024-11-11 10:33 | External Medical Summary | Summary of Care ---
Author Name Unknown Organization [facility] Address [address] [facility] [address] Phone [phone] Care Team Providers Care Medical Laboratory Specialist Name Role Phone Chiki Syed MD Primary Care Provider + Reason for Visit * Reason Onset Date Comments Advice 07/23/2024 Encounter Details Date Type Department Care Team (Late st Contact Info) Description 07/23/2024 Telephone General Surgery, [facility] [address] [place] [address] Moshe Fox MD 132 [facility] [place] [address] Advice Allergies Active Allergy Reactions Criticality Noted Date Comments Atorvastatin 10/15/2013 Joint pain Fenofibrate 10/15/2013 Joint pain Gemfibrozil Diarrhea 10/15/2013 Lisinopril Cough 01/25/2017 Niacin Nausea/vomiting 10/15/2013 documented as of this encounter (statuses as of 10/23/2024) Medications [facility] FISH [facility]IL + D3 9662-3679 MG-UNIT PO CAPS Take by mouth once [...] 3 06/20/2024 10:57 AM EDT 4 Active documented as of this encounter (statuses as of 10/23/2024) Active Problems Problem Noted Date Diagnosed Date [...] Jaime referred to CT surg/ TTE 02/26 [facility] PET CT 4.5cm 07/26 4.3 cm Atrial fibrillation, chronic 10/19/2018 Complex tear of lateral meni scus of right knee as current injury 04/05/2017 History of renal cell cancer 01/25/2017 Overview (01/25/2017): left kidney dx [facility] Prediabetes 10/05/2016 Prostate cancer 10/05/2016 Overview (10/24/2019): S/p surgery, XRT. 07/[address] Holm 08/21 PSA [address] [place] [address] Romero--s/p surg, XRT 5 years later. Well adult exam 10/05/2016 Overview (10/06/2024): 09/29 PFT done WNL! 08/28 refer STAIR., + emphysema on CT, referred pulm, 09/[address] surg For aorta. 02/26 [facility] PET-10mm lymph inguinal node with [...] past now Dr Patten Goes yearly to [facility]. 06/21 normal stress test w/Dr Mccloud 2009 colonoscopy WNL -consider in 2019. A-fib 01/09/2016 Overview (07/16/2024): 06/21 Lexiscan Tc99 Stress echo WNL. Normal EF. See [place] in past now Addison/Madan HTN, goal below 130/80 GERD (gastroesophageal reflux disease) documented as of this encounter (statuses as of 10/23/2024) Resolved Problems Problem Noted Date Diagnosed Date [...] as of this encounter (statuses as of 10/23/2024) Immunizations Name Administration Dates Next Due COVID-19 [...] Influenza Virus Vac cine, Unspecified Formulation 06/14/2017,06/08/2016,06/05/2014,06/20,09/05/2011,06/05/2011,06/29/2010 ,07/06/2009,06/24/2008,06/28/2007,10/09/2005,07/13/2005,07/06/2004, 3,06/05/2002,07/06/2001 Seasonal Influenza, High Dos e, Trivalent, [...] encounter Miscellaneous Notes * Telephone Encounter - Homa Valenzuela OSA - 07/23/2024 9:56 AM EST Pt forgot to ask if he was allowed to eat nuts pior to surgery. Saw today. documented in this encounter Plan of Treatment Upcoming Encounters Date Type Department Care Team (Latest Contact Info) Description 5 11:30 AM EST Office Visit Cardiothoracic Surg [facility] [address] [place] [address] See Hirsch MD [address] [place] [address] 5 8:45 AM EST Hospital Encounter ENDO [facility], Endoscopy Room [facility] [address] [place] [phone] Kerry Vaughan, DO [address] [place] [address] 5 8:45 AM EST - 5 9:45 AM EST Surgery ENDO [facility], Endoscopy Room [facility] [address] [place] [address] Kerry Vaughan, DO [address] [place] [address] ESOPHAGOGASTRODUODENOSCOPY (EGD), FLEXIBLE, TRANSORAL, ENDOSCOPIC ULTRASOUND 5 11:10 AM EDT 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 Pharmacy, [facility] [address] [place] [address] [facility] [address] [place] [address] 5 8:00 AM EDT Office Visit Cardiology, [facility] [address] [place] [address] Letty Romo CRNP [address] [place] [address] 5 9:20 AM EDT Office Visit Family Practice [facility] 132 [facility] [place] [address] Chiki Syed MD [address] [place] [address] 5 9:00 AM EDT Office Visit Gastroenterolog y, [facility] [address] [place] [address] Mariana Florez CRNP [address] [place] [address] Scheduled Procedures Name Priority Associated Diagnoses Date/Ti me ESOPHAGOGASTRODUODENOSCOPY ( EGD), FLEXIBLE, TRANSORAL, ENDOSCOPIC ULTRASOUND Recall Esophageal polyp Gastric mass 10/25/2024 8:45 AM EST Health Maintenance Due Date Last Done Comments [...] this encounter Medical Devices Implanted Type Area Stove Tender Device Identifier Shelf Expiration Date Model / Serial / Lot Lens Intraoc 21.5 - [id number] - [id number] Implanted:Qty: 1 on 06/20/2018 by Bogdan Lindsay MD at OR [facility] Left: Eye [employer]CH [employer] LOMB 01/02/2023 [id number] / [id number] / [id number] Lens Intraoc 21.5 - [id number] - [id number] Implanted:Qty: 1 on 06/29/2018 by Bogdan Lindsay MD at OR [facility] Right: Eye BAUSCH & LOMB 02/02/2023 [id number] / [id number] / [id number] documented as of this encounter Advance Directives [...] and were consensually agreed upon. Care Teams Medical Laboratory Specialist Relationship Specialty Start Date End Date Chiki Syed MD [address] [place] [address] PCP - General Family Medicine 10/20/18 documented as of this encounter
--- OUTSIDE RECORDS SUMMARY | 2024-11-11 10:33 | External Medical Summary ---
Author Name Unknown Address Unknown Organization K01:[facility] - [address] [place] [address] Laboratory Report Ordering Provider Test Date Status DEBBI BRADFORD 11/05/2024 09:34:43 Final Observation Date Value Abnormality Reference (Units ) Status PSA 11/05/2024 09:34:43 2.47 <4.10 (ng/ mL) Final Performing Location [facility] - [address] [place] [address]
--- OUTSIDE RECORDS SUMMARY | 2024-11-11 10:33 | External Medical Summary | Summary of Care ---
Author Name Unknown Organization [facility] Address [address] [address] Phone [phone] Care Team Providers Care Registered Nurse Teacher Name Role Phone Chiki Syed MD Primary Care Provider + Reason for Visit * Auth/Cert Specialty Diagnoses / Procedures Referred By Contac t Referred To Contact Diagnoses Esophageal polyp Gastric mass Esophageal polyp [K22.81] Gastric mass [K31.89] Procedures EGD, W/ENDOSCOPIC US ESOPHAGOGASTRODUODENOSCOPY (EGD), FLEXIBLE, TRANSORAL, ENDOSCOPIC ULTRASOUND Kerry Vaughan DO [address] [place] [address] Phone: tel: fax: ENDO [facility], Endoscopy Room [facility] [address] [place] [address] Phone: tel: Referral ID Status Reason Start Date Expiration Date Visits Re quested Visits Authorized [id number] Encounter Details Date Type Department Care Team (Latest Contact Info) Description 10/25/2024 7:41 AM EST - 10/25/2024 10:48 AM EST Hospital Encounter ENDO [facility], Endoscopy Room [facility] [address] [place] [address] Kerry Vaughan DO [address] [place] [address] Various: UGI,UEUS Discharge Disposition: Home - Self Care Allergies Active Allergy Reactions Criticality Noted Date Comments Atorvastatin 10/15/2013 Joint pain Fenofibrate 10/15/2013 Joint pain Gemfibrozil Diarrhea 10/15/2013 Lisinopril Cough 01/25/2017 Niacin Nausea/vomiting 10/15/2013 documented as of this encounter (statuses as of 10/26/2024) Medications [facility] FISH OIL + D3 [id number] MG-UNIT PO CAPS Take by mouth once [...] the morning. 30 Tablet 5 5 Active Ciprofloxacin HCl 500 MG Oral Tablet (Cipro) Take 1 Tablet by mouth in the morning and 1 Tablet before bedtime. 10 Tablet 10/25/2024 10:40 AM EST 5 Active documented as of this encounter (statuses as of 10/26/2024) Active Problems Problem Noted Date Diagnosed Date [...] Jaime referred to CT surg/ TTE 02/[address] [facility] PET CT 4.5cm 07/26 4.3 cm Atrial fibrillation, chronic 10/19/2018 Complex tear of lateral meni scus of right knee as current injury 04/05/2017 History of renal cell cancer 01/25/2017 Overview (01/25/2017): left kidney dx [facility] Prediabetes 10/05/2016 Prostate cancer 10/05/2016 Overview (10/24/2019): S/p surgery, XRT. 07/[address] Holm 08/21 PSA 0.[address] [place] [address] Romero--s/p surg, XRT 5 years later. Well adult exam 10/05/2016 Overview (10/25/2024): 10/30 EGD/EUS--biopsies pancreas, lymph nodes, stomach mass. PATH PEND 09/29 PFT done WNL! 08/28 refer STAIR., + emphysema on CT, referred pulm, 09/[address] surg For aorta. 02/26 [facility] PET-10mm lymph inguinal node with mild [...] past now Dr Patten Goes yearly to [facility]. 06/21 normal stress test w/Dr Mccloud 2009 colonoscopy WNL -consider in 2019. A-fib 01/09/2016 Overview (07/16/2024): 06/21 Lexiscan Tc99 Stress echo WNL. Normal EF. 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 Not on file Not on file Not on file documented as of this encounter Last Filed Vital Signs Vital Sign Reading Time Taken Comments Blood Pressure 139/89 10/25/2024 10:35 AM EST Pulse 68 10/25/2024 10:35 AM EST Temperature 36.1 C (96.9 F) 10/25/2024 10:[address] Respiratory Rate 17 10/25/2024 10:35 AM EST Oxygen Saturation 100% 10/25/2024 10:35 AM EST Inhaled Oxygen Concentration - - Weight 119.3 kg (263 lb) 10/25/2024 8:12 AM EST Height 186.7 cm (6' 1.5") 10/25/2024 8:12 AM EST Body Mass Index 34.22 10/25/2024 8:12 AM EST documented in this encounter Progress Notes * Chiki Herrera [facility] - 10/25/2024 9:55 AM EST PHARMACY DISCHARGE MEDICATION RECONCILIATION REVIEW [facility] [address] [place] [address] Name: Sushant La Location: ENDO [facility]/Endo Date: 10/25/2024 Time: 9:55 AM This discharge medication reconciliation was reviewed by a pharmacist and no corrections or interventions were required. documented in this encounter H&P Notes * Kerry Vaughan DO - 10/25/2024 8:31 AM EST Endoscopy Pre-Procedure Assessment Name: Sushant La Date: 10/25/2024 Time: 8:31 AM Procedure(s): Upper GI Endoscopy; with Indication(s) of follow-up for a subepithelial gastric and esophageal mass Endoscopic Ultrasound; with Indication(s) of evaluation and management of pancreatic cysts and evaluation of abnormalities on radiologic study Endoscopy Pre-Procedure Assessment: Prior to the procedure, the patient is identified. The patient's history, medications and allergieshave been reviewed. The patient is competent. The risks and benefits of the proposed procedure andthe planned sedation have been discussed with the patient. All questions have been answered and informed consent for the procedure has been obtained. Prior to Admission medications Medication Sig Last Dose Discont. Pantoprazole Sodium 20 MG Oral Tablet Delayed Release (Protonix) Take 1 Tablet by mouth in the morning. 10/25/2024 Morning hydroCHLOROthiazide 12.5 MG Oral Capsule TAKE 1 CAPSULE BY MOUTH IN THE MORNING 10/24/2024 Losartan Potassium 100 MG Oral Tablet (Cozaar) TAKE 1 TABLET BY MOUTH IN THE MORNING 10/24/2024 Ciclopirox 8 % External Solution Apply over nail and surrounding skin. Apply daily over previous coat. After seven (7) days, may remove with alcohol and continue cycle. 10/21/2024 Metoprolol Succinate ER 50 MG Oral Tablet Extended Release 24 Hour (toPROL XL) TAKE 1 TABLET BY MOUTH IN THE MORNING 10/25/2024 Morning Furosemide 20 MG Oral Tablet (Lasix) Take 1 Tablet by mouth daily as needed (fluid accumulation or weight gain). 10/24/2024 Warfarin Sodium 4 MG Oral Tablet (Coumadin) TAKE 1 TO 2 TABLETS BY MOUTH DAILY PER ANTI-COAGULATION CLINIC 10/20/2024 Tylenol PM Extra Strength 500-25 MG Oral Tablet (diphenhydrAMINE-APAP (sleep)) Take 1 Tablet by mouth 3 times a day as needed for Itching. 10/24/2024 Vitamin B-12 500 MCG Oral Lozenge Take 500 mcg by mouth in the morning. 10/24/2024 rosuvastatin (CRESTOR) 5 MG Tablet Take 1 Tablet by mouth every other day. Take 1/2 tab every otherday 10/25/2024 Morning [facility] FISH OIL + D3 [id number] MG-UNIT PO CAPS Take by mouth once . Takes this once daily 10/21/2024 Polyethylene Glycol 1000 Powder DAILY Over 30 Days Review of patient's allergies indicates: Allergen Reactions Atorvastatin Joint pain Fenofibrate Joint pain Gemfibrozil Diarrhea Lisinopril Cough Niacin Nausea/vomiting BP 127/85 | Pulse 71 | Temp 35.9 C (96.6 F) (Tympanic) | Resp 18 | Ht 1.867 m (6' 1.5") | Wt 119.3 kg (263 lb) | SpO2 98% | BMI 34.22 kg/m | BSA 2.49 m Physical Exam: Mental Status Examination: alert and oriented. Airway Examination: normal oropharyngeal airway and neck mobility. Respiratory Examination: clear to auscultation. CV Examination: systolic murmur. ASA Grade: III - A patient with severe systemic disease. Abdomen: soft This patient has undergone a preprocedural evaluation. A determination has been made to proceed with the planned procedure under [facility] procedural guidelines and the [facility] Non-Emergent, Elective Medical Services and Treatment Recommendations (published on 12-11-19). The community and hospital prevalence of COVID-19 has been discussed as well as this patient's specific risks associated with SARS-CoV-19 infection. Based upon the clinical acuity and patient-specific care considerations, this procedure is deemed a Tier II - Intermediate acuity treatment or service with either progression or the threat of progressive disease related to the delay in treatment. Not providing the service has the potential for increasing morbidity or mortality. After reviewing the risks and benefits, the patient is deemed in satisfactory condition to undergo the procedure. The anesthesia plan is to use general anesthesia. We have discussed the risks and benefits of upper endoscopy to include bleeding, infection, perforation, discomfort, aspiration and need for follow-up studies. I have discussed the risks and benefits of EUS to include (not limited to) bleeding, infection, perforation, pain, aspiration, cardiac complications, pancreatitis and insufficient cellularity. 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 Estimated blood loss: Minimal. Procedure: Pre-Anesthesia Assessment: - Prior to the procedure, a History and Physical was performed, and patient medications, allergies and sensitivities were reviewed. The patient's tolerance of previous anesthesia was reviewed. - The risks and benefits of the procedure and the sedation options and risks were discussed with the patient. All questions were answered and informed consent was obtained. - Patient identification and proposed procedure were verified prior to the procedure by the physician, the nurse and the energy control officer. The procedure was verified in the procedure room. - Pre-procedure physical examination revealed no contraindications to sedation. - ASA Grade Assessment: III - A patient with severe systemic disease. - After reviewing the risks and benefits, the patient was deemed in satisfactory condition to undergo the procedure. - The anesthesia plan was to use general anesthesia. - Immediately prior to administration of medications, the patient was re- assessed for adequacy to receive sedatives. - The heart rate, respiratory rate, oxygen saturations, blood pressure, adequacy of pulmonary ventilation, and response to care were monitored throughout the procedure. - The physical status of the patient was re-assessed after the procedure. After obtaining informed consent, the endoscope was passed under direct vision. All instruments were visually inspected immediately before and after removal from the patient to ensure they are fully intact. Throughout the procedure, the patient's blood pressure, pulse, and oxygen saturations were monitored continuously. The upper GI endoscopy was accomplished without difficulty. The patient tolerated the procedure well. The [id number]-[id number] Endoscope ([id number]) was introduced through the mouth, and advanced to the third part of duodenum. Findings & Specimens: A single 10 mm submucosal nodule with a localized distribution was found in the upper third of the esophagus, 21 to 22 cm from the incisors (similar to a prior exam). The Z-line was regular and was found 41 cm from the incisors. A medium-sized, submucosal, non-circumferential mass with no bleeding and no stigmata of recent bleeding was found on the lesser curvature of the gastric antrum, this measured 12-14 mm (similar to prior exams). Biopsies were taken with a cold forceps for histology. The pathology specimen was placed into Bottle Number 1. Estimated blood loss was minimal. The cardia, gastric fundus, gastric body and incisura were normal. The examined duodenum was normal. Impression: - Submucosal nodule found in the esophagus. - Z-line regular, 41 cm from the incisors. 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 Biopsied. - Normal cardia, gastric fundus, gastric body and incisura. - Normal examined duodenum. Recommendation: - Perform an upper endoscopic ultrasound (UEUS) today. - Await pathology results. Kerry Vaughan DO 10/25/2024 9:02:49 AM This report has been signed electronically. * Chiki Syed MD - 10/25/2024 8:40 AM ESTAssociated Order(s): UPPER ENDOSCOPIC U/S [facility] Patient Name: Sushant La Procedure Date: 10/25/2024 8:40 AM Date of : 1940 Admit Type: Outpatient Note Status: Finalized Date of : 1940 Admit Type: Outpatient Age: 83 Room: Advanced Endo Gender: Male Note Status: Finalized Procedure: Upper EUS Indications: Intraductal papillary mucinous neoplasm (IPMN), Submucosal tumor versus extrinsic mass found on endoscopy Providers: Kerry Vaughan DO (Doctor) Referring MD: Chiki Syed MD (Referring MD), Mariana Florez (Referring MD) Medicines: General Anesthesia Complications: No immediate complications. Estimated blood loss: Minimal. Procedure: Pre-Anesthesia Assessment: - Prior to the procedure, a History and Physical was performed, and patient medications, allergies and sensitivities were reviewed. The patient's tolerance of previous anesthesia was reviewed. - The risks and benefits of the procedure and the sedation options and risks were discussed with the patient. All questions were answered and informed consent was obtained. - Patient identification and proposed procedure were verified prior to the procedure by the physician, the nurse and the energy control officer. The procedure was verified in the procedure room. - Pre-procedure physical examination revealed no contraindications to sedation. - ASA Grade Assessment: III - A patient with severe systemic disease. - After reviewing the risks and benefits, the patient was deemed in satisfactory condition to undergo the procedure. - The anesthesia plan was to use general anesthesia. - Immediately prior to administration of medications, the patient was re- assessed for adequacy to receive sedatives. - The heart rate, respiratory rate, oxygen saturations, blood pressure, adequacy of pulmonary ventilation, and response to care were monitored throughout the procedure. - The physical status of the patient was re-assessed after the procedure. After obtaining informed consent, the endoscope was passed under direct vision. All instruments were visually inspected immediately before and after removal from the patient to ensure they are fully intact. Throughout the procedure, the patient's blood pressure, pulse, and oxygen saturations were monitored continuously. The Endosonoscope was introduced through the mouth, and advanced to the second part of duodenum. The upper EUS was accomplished without difficulty. The patient tolerated the procedure well. The Endoscope was introduced through the mouth, and advanced to the second part of duodenum. Findings & Specimens: ENDOSONOGRAPHIC FINDING: : There was no sign of significant endosonographic abnormality in the ampulla. No masses were identified. There was dilation in the common bile duct which measured up to 7 mm. There was no sign of significant endosonographic abnormality in the visualized portion of the liver. Homogeneous parenchyma and no focal pathology were identified. There was no sign of significant endosonographic abnormality in the pancreatic head, pancreatic tail, pancreatic neck and main pancreatic duct. The pancreatic duct measured up to 2 mm in diameter. No masses, no cysts, no calcifications. A hypoechoic lesion suggestive of a cyst was identified in the pancreatic body. It is not in obvious communication with the pancreatic duct. The lesion measured 13 mm by 8 mm in maximal cross-sectional diameter. There were a few compartments thinly septated. The outer wall of the lesion was not seen. There was no associated mass. There was no internal debris within the fluid- filled cavity. Diagnostic needle aspiration for fluid was performed. Color Doppler imaging was utilized prior to needle puncture to confirm a lack of significant vascular structures within the needle path. One pass was made withthe 22 gauge needle using a transgastric approach. A stylet was used. The amount of fluid collected was1 mL. The fluid was clear, serous and slightly viscous. Sample(s) were sent for cytology. Estimated blood loss was minimal. No lymph nodes were seen during endosonographic examination in the gastrohepatic ligament (level 18), in the celiac region (level 20), in the perigastric region, in the peripancreatic region and in the sebastian hepatis region. An oval intramural (subepithelial) lesion was found in the antrum of the stomach. The lesion was hypoechoic. Sonographically, the lesion appeared to originate from the submucosa (Layer 3). The lesion measured 4 mm (in maximum thickness). The lesion also measured 10 mm in diameter. The outer endosonographic borders were smooth. An intact interface was seen between the mass and the adjacent structures suggesting a lack of invasion. An oval intramural (subepithelial) lesion was found in the upper third of the esophagus. It was encountered at 21 cm from the incisors. The lesion was hypoechoic. Sonographically, the origin appeared to be within the submucosa (Layer 3). The mass measured up to 6 mm in thickness. The endosonographic borders were smooth. Many enlarged lymph nodes were visualized in the subcarinal mediastinum (level 7). The largest measured 29 mm by 11 mm in maximal cross-sectional diameter. The nodes were oval, hypoechoic and had well defined margins. Fine needle aspiration for cytology was performed. Color Doppler imaging was utilized prior to needle puncture to confirm a lack of significant vascular structures within the needle path. Three passes were made with the 22 gauge needle using a transesophageal approach. A stylet was used. A preliminary cytologic examination was not performed. Final cytology results are pending. Estimated blood loss was minimal. Impression: - There was no sign of significant pathology in the ampulla. - There was dilation in the common bile duct which measured up to 7 mm. - There was no evidence of significant pathology in the visualized portion of the liver. - There was no sign of significant pathology in the pancreatic head, pancreatic tail, pancreatic neck and main pancreatic duct. - A cystic lesion was seen in the pancreatic body. Fine needle aspiration for fluid performed. - An intramural (subepithelial) lesion was found in the antrum of the stomach. The lesion appeared to originate from within the submucosa (Layer 3). Tissue has not been obtained. 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 - An intramural (subepithelial) lesion was found in the upper third of the esophagus. It appeared to originate from within the submucosa (Layer 3). Tissue has not been obtained. 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 - Many enlarged lymph nodes were visualized in the subcarinal mediastinum (level 7). Fine needle aspiration performed. Recommendation: - The patient will be observed post-procedure, until all discharge criteria are met. - Advance diet as tolerated today. - Await cytology results. - Cipro (ciprofloxacin) 500 mg PO BID for 5 days. - May resume coumadin in 3 days. Kerry Vaughan DO 10/25/2024 9:49:23 AM This report has been signed electronically. documented in this encounter Nursing Notes * Magi Mims RN - 10/25/2024 10:32 AM EST Patient is alert, pain free, passing flatus and tolerating po fluids prior to discharge. Patient has been visited by Dr. Kerry Vaughan. Patient has received and demonstrates understanding of discharge instructions. Patient is accompanied to private auto accompanied by endo staff. * Earl Meraz RN - 10/25/2024 9:33 AM EST FNA of pancreatic cyst and lymph node performed by Dr. Vaughan using [employer] Slimline 22 gauge needle. 1 pass made for aspiration of cyst with less than 1 ml thick clear fluid aspirated and placed in RPMI, 3 passes made for lymph node biopsy all placed in RPMI. Specimen(s) and location(s) verified with physician post procedure 9:36 AM Earl Meraz RN See anesthesia record for medication administered during procedure. Earl Meraz RN Pre cleaning of scope at the bedside started by sleep lab technologist. * Magi Mims RN - 10/25/2024 9:33 AM EST Patient transferred to post endo s/p EGD/EUS. Patient sedated and sleeping r/t anesthesia Respirations are even and unlabored on room air. Baseline rhythm on the monitor. Abdomen soft and non distended. Vital signs stable. * Nneka Harvey RN - 10/25/2024 8:14 AM EST The following pt discharge instructions reviewed with pt prior to prodedure: No driving today. No alcohol today. No signing of legal documents. Rest as much as possible today and can return to normal activities tomorrow. No operating any heavy equipment today. Diet as tolerated. Pt verbalized understanding. Patient prepped, call jessica within reach of patient. documented in this encounter Plan of Treatment Upcoming Encounters Date Type Department Care Team (Late st Contact Info) Description 11/14/2024 11:10 AM EDT 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 Pharmacy, [address] [place] [address] [facility] [address] [place] [address] 01/02/2025 8:00 AM EDT Office Visit Cardiology, [facility] [address] [place] [address] Letty Romo CRNP [address] [place] [address] 01/23/2025 9:20 AM EDT Office Visit Family Practice [facility] [address] [place] [address] Chiki Syed MD [address] [facility] [place] [address] 01/24/2025 9:00 AM EDT Office Visit Gastroenterology, [facility] [address] [place] [address] Mariana Florez CRNP [address] [place] [address] 04/16/2025 11:00 AM EDT Appointment Radiology, [address] [id number] 04/23/2025 10:45 AM EDT Office Visit Cardiothoracic Surg [facility], [address] [address] See Hirsch MD [address] [place] [address] Pending Results Name Type Priority Associated Diagnoses Date /Time CYTOLOGY Pathology Routine 10/25/2024 9:3 6 AM EST SURGICAL PATHOLOGY Pathology Routine Esophageal polyp Gastric mass 10/25/2024 9:33 AM EST MYGENVARCYTO PANCREATIC CYST AND BILE DUCT FLUID GENE PANEL, NEXT GENERATION SEQUENCING Lab STAT 10/25/2024 9:36 AM EST Scheduled Orders Name Type Priority Associated Diagnoses Orde r Schedule CYTOLOGY Pathology Routine One Time for 1 Occurrences starting 10/25/2024 until 10/25/2024, 1 completed SURGICAL PATHOLOGY Pathology Routine Esophageal polyp Gastric mass Release Upon Ordering for 1 Occurrences starting 10/25/2024, 1 completed MYGENVARCYTO PANCREATIC CYST AND BILE DUCT FLUID GENE PANEL, NEXT GENERATION SEQUENCING Lab STAT One Time f or 1 Occurrences starting 10/25/2024 until 10/25/2024, 1 completed Health Maintenance Due Date Last Done Comments [...] this encounter Medical Devices Implanted Type Area Search Advertising Strategist Device Identifier Shelf Expiration Date Model / Serial / Lot Lens Intraoc 21.5 - [id number] - [id number] Implanted:Qty: 1 on 06/20/2018 by Bogdan Lindsay MD at OR [facility] Left: Eye [employer] 01/02/2023 [id number] / [id number] / [id number] Lens Intraoc 21.5 - [id number] - [id number] Implanted:Qty: 1 on 06/29/2018 by Bogdan Lindsay MD at OR [facility] Right: Eye [employer] 02/02/2023 [id number] / [id number] / [id number] documented as of this encounter Procedures Procedure Name Priority Date/Time Associated Diagnosis Comments UPPER GI ENDOSCOPY 10/25/2024 8: 40 AM EST UPPER ENDOSCOPIC U/S 10/25/2024 8:40 AM EST documented in this encounter Results * UPPER GI ENDOSCOPY (10/25/2024 8:40 AM EST) 10/25/2024 8:40 AM EST Narrative Procedure Note Chiki Syed MD - 10/25/2024 8:40 AM EST [facility] Patient Name: Sushant La Procedure Date: 10/25/2024 8:40 AM Date of : 1940 Admit Type: Outpatient Note Status:Finalized Date of : 1940 Admit Type: Outpatient Age: 83 Room: [facility] Gender: Male Note Status: Finalized Procedure: Upper GI endoscopy Indications: 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 Estimated blood loss:Minimal. Procedure: Pre-Anesthesia Assessment: - Prior to the procedure, a History and Physicalwas performed, and patient medications, allergies and sensitivities werereviewed. The patient's tolerance of previous anesthesia was reviewed. - The risks and benefits of the procedure and thesedation options and risks were discussed with the patient. All questions wereanswered and informed consent was obtained. - Patient identification and proposed procedurewere verified prior to the procedure by the physician, the nurse and the energy control officer.The procedure was verified in the procedure room. - Pre-procedure physical examination revealed nocontraindications to sedation. - ASA Grade Assessment: III - A patient with severesystemic disease. - After reviewing the risks and benefits, thepatient was deemed in satisfactory condition to undergo the procedure. - The anesthesia plan was to use generalanesthesia. - Immediately prior to administration ofmedications, the patient was re-assessed for adequacy to receive sedatives. - The heart rate, respiratory rate, oxygensaturations, blood pressure, adequacy of pulmonary ventilation, and response to care weremonitored throughout the procedure. - The physical status of the patient wasre-assessed after the procedure. After obtaining informed consent, the endoscope waspassed under direct vision. All instruments were visually inspected immediatelybefore and after removal from the patient to ensure they are fully intact. Throughout the procedure, the patient's bloodpressure, pulse, and oxygen saturations were monitored continuously. The upper GI endoscopywas accomplished without difficulty. The patient tolerated the procedurewell. The GIF-H180 Endoscope ([id number]) was introduced through the mouth, andadvanced to the third part of duodenum. Findings & Specimens: A single 10 mm submucosal nodule with a localized distribution wasfound in the upper third of the esophagus, 21 to 22 cm from the incisors (similar to a prior exam). The Z-line was regular and was found 41 cm from the incisors. A medium-sized, submucosal, non-circumferential mass with no bleedingand no stigmata of recent bleeding was found on the lesser curvature of the gastric antrum,this measured 12-14 mm (similar to prior exams). Biopsies were taken with a cold forceps for histology.The pathology specimen was placed into Bottle Number 1. Estimated blood loss was minimal. The cardia, gastric fundus, gastric body and incisura were normal. The examined duodenum was normal. Impression: - Submucosal nodule found in the esophagus. - Z-line regular, 41 cm from the incisors. 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 Biopsied. - Normal cardia, gastric fundus, gastric body andincisura. - Normal examined duodenum. Recommendation: - Perform an upper endoscopic ultrasound (UEUS)today. - Await pathology results. Kerry Vaughan DO 10/25/2024 9:02:49 AM This report has been signed electronically. us Chiki Syed MD GASTRO UPPER Final Re sult * UPPER ENDOSCOPIC U/S (10/25/2024 8:40 AM EST) 10/25/2024 8:40 AM EST Narrative Procedure Note Chiki Syed MD - 10/25/2024 8:40 AM EST [facility] Patient Name: Sushant La Procedure Date: 10/25/2024 8:40 AM Date of : 1940 Admit Type: Outpatient Note Status:Finalized Date of : 1940 Admit Type: Outpatient Age: 83 Room: Advanced Endo Gender: Male Note Status: Finalized Procedure: Upper EUS Indications: Intraductal papillary mucinous neoplasm (IPMN),Submucosal tumor versus extrinsic mass found on endoscopy Providers: Kerry Vaughan DO (Doctor) Referring MD: Chiki Syed MD (Referring MD), Mariana Stevenson (Referring MD) Medicines: General Anesthesia Complications: No immediate complications. Estimated blood loss:Minimal. Procedure: Pre-Anesthesia Assessment: - Prior to the procedure, a History and Physicalwas performed, and patient medications, allergies and sensitivities werereviewed. The patient's tolerance of previous anesthesia was reviewed. - The risks and benefits of the procedure and thesedation options and risks were discussed with the patient. All questions wereanswered and informed consent was obtained. - Patient identification and proposed procedurewere verified prior to the procedure by the physician, the nurse and the energy control officer.The procedure was verified in the procedure room. - Pre-procedure physical examination revealed nocontraindications to sedation. - ASA Grade Assessment: III - A patient with severesystemic disease. - After reviewing the risks and benefits, thepatient was deemed in satisfactory condition to undergo the procedure. - The anesthesia plan was to use generalanesthesia. - Immediately prior to administration ofmedications, the patient was re-assessed for adequacy to receive sedatives. - The heart rate, respiratory rate, oxygensaturations, blood pressure, adequacy of pulmonary ventilation, and response to care weremonitored throughout the procedure. - The physical status of the patient wasre-assessed after the procedure. After obtaining informed consent, the endoscope waspassed under direct vision. All instruments were visually inspected immediatelybefore and after removal from the patient to ensure they are fully intact. Throughout the procedure, the patient's bloodpressure, pulse, and oxygen saturations were monitored continuously. The Endosonoscope wasintroduced through the mouth, and advanced to the second part of duodenum. The upperEUS was accomplished without difficulty. The patient tolerated the procedurewell. The Endoscope was introduced through the mouth, and advanced to the second partof duodenum. Findings & Specimens: ENDOSONOGRAPHIC FINDING: : There was no sign of significant endosonographic abnormality in theampulla. No masses were identified. There was dilation in the common bile duct which measured up to 7mm. There was no sign of significant endosonographic abnormality in thevisualized portion of the liver. Homogeneous parenchyma and no focal pathology were identified. There was no sign of significant endosonographic abnormality in thepancreatic head, pancreatic tail, pancreatic neck and main pancreatic duct. The pancreatic ductmeasured up to 2 mm in diameter. No masses, no cysts, no calcifications. A hypoechoic lesion suggestive of a cyst was identified in thepancreatic body. It is not in obvious communication with the pancreatic duct. The lesion measured 13 mm by8 mm in maximal cross-sectional diameter. There were a few compartments thinly septated. The outerwall of the lesion was not seen. There was no associated mass. There was no internal debris within thefluid- filled cavity. Diagnostic needle aspiration for fluid was performed. Color Doppler imaging wasutilized prior to needle puncture to confirm a lack of significant vascular structures within theneedle path. One pass was made with the 22 gauge needle using a transgastric approach. A stylet was used. Theamount of fluid collected was 1 mL. The fluid was clear, serous and slightly viscous. Sample(s) weresent for cytology. Estimated blood loss was minimal. No lymph nodes were seen during endosonographic examination in thegastrohepatic ligament (level 18), in the celiac region (level 20), in the perigastric region, in theperipancreatic region and in the sebastian hepatis region. An oval intramural (subepithelial) lesion was found in the antrum ofthe stomach. The lesion was hypoechoic. Sonographically, the lesion appeared to originate fromthe submucosa (Layer 3). The lesion measured 4 mm (in maximum thickness). The lesion also measured 10 mmin diameter. The outer endosonographic borders were smooth. An intact interface was seenbetween the mass and the adjacent structures suggesting a lack of invasion. An oval intramural (subepithelial) lesion was found in the upperthird of the esophagus. It was encountered at 21 cm from the incisors. The lesion was hypoechoic.Sonographically, the origin appeared to be within the submucosa (Layer 3). The mass measured up to 6 mm inthickness. The endosonographic borders were smooth. Many enlarged lymph nodes were visualized in the subcarinalmediastinum (level 7). The largest measured 29 mm by 11 mm in maximal cross-sectional diameter. The nodes wereoval, hypoechoic and had well defined margins. Fine needle aspiration for cytology was performed.Color Doppler imaging was utilized prior to needle puncture to confirm a lack of significant vascularstructures within the needle path. Three passes were made with the 22 gauge needle using atransesophageal approach. A stylet was used. A preliminary cytologic examination was not performed. Final cytologyresults are pending. Estimated blood loss was minimal. Impression: - There was no sign of significant pathology in theampulla. - There was dilation in the common bile duct whichmeasured up to 7 mm. - There was no evidence of significant pathology inthe visualized portion of the liver. - There was no sign of significant pathology in thepancreatic head, pancreatic tail, pancreatic neck and main pancreatic duct. - A cystic lesion was seen in the pancreatic body.Fine needle aspiration for fluid performed. - An intramural (subepithelial) lesion was found inthe antrum of the stomach. The lesion appeared to originate from within thesubmucosa (Layer 3). Tissue has not been obtained. 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 - An intramural (subepithelial) lesion was found inthe upper third of the esophagus. It appeared to originate from within the submucosa(Layer 3). Tissue has not been obtained. 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 - Many enlarged lymph nodes were visualized in thesubcarinal mediastinum (level 7). Fine needle aspiration performed. Recommendation: - The patient will be observed post-procedure,until all discharge criteria are met. - Advance diet as tolerated today. - Await cytology results. - Cipro (ciprofloxacin) 500 mg PO BID for 5 days. - May resume coumadin in 3 days. Kerry Vaughan DO 10/25/2024 9:49:23 AM This report has been signed electronically. Chiki Syed MD GASTRO UPPER Final Re sult documented in this encounter Visit Diagnoses Diagnosis Esophageal polyp Other specified disorder of the esophagus Gastric mass Unspecified disorder of stomach and duodenum documented in this encounter Administered Medications Inactive Administered Medications - up to 3 most recent administrations Medication Order MAR Action Action Date Dose Rate Site Acetaminophen (Tylenol) tab 650 mg 650 mg, Oral, PRN Pain, Mild, Starting on Nancy 10/25/24 at 0938, Until Nancy 10/25/24 at 1450, For 1 dose, Maximum of 4 grams (4000 mg) per day., Post-op Isolyte-S pH 7.4 infusion Intravenous, at 25 mL/hr, All Patients EXCEPT Dialysis patients Plasma-LYTE 148, isolyte-S, and isolyte-S pH 7.4 are considered equivalent - including for MAR barcode scanning., CONTINUOUS, Starting on Nancy 10/25/24 at 0830, Until Nancy 10/25/24 at 1450, Pre-Op Continue from Pre-Op 10/25/2024 8:48 AM EST 25 mL/hr New Bag 10/25/2024 8:13 AM EST 25 mL/hr 25 mL/hr documented in this encounter Active and Recently Administered Medications Times are shown in EST. Continuous Medication Order 10/23/2024 10/24/2024 10/25/2024 Isolyte-S pH 7.4 infusion Intravenous, at 25 mL/hr, All Patients EXCEPT Dialysis patients Plasma-LYTE 148, isolyte-S, and isolyte-S pH 7.4 are considered equivalent - including for MAR barcode scanning., CONTINUOUS, Starting on Nancy 10/25/24 at 0830, Until Nancy 10/25/24 at 1450, Pre-Op 0813 (New Bag - Prov ider: Nneka Harvey RN)0848 (Continue from Pre-Op - Provider: Li Baez CRNA)0929 (Anes Intra-Op Fluid - Provider: Cielo Scott CRNA) PRN Medication Order 10/23/2024 10/24/2024 10/25/2024 Acetaminophen (Tylenol) tab 650 mg 650 mg, Oral, PRN Pain, Mild, Starting on Nancy 10/25/24 at 0938, Until Nancy 10/25/24 at 1450, For 1 dose, Maximum of 4 grams (4000 mg) per day., Post-op documented in this encounter Advance Directives * Full Code (Latest Code Status on File) Date Activated Date Inactivated Comments 06/29/2018 8:41 AM 06/29/2018 3:29 PM This order reflects the patients wishes and were consensually agreed upon. * Full Code Date Activated Date Inactivated Comments 06/20/2018 9:51 AM 06/20/2018 3:45 PM This order reflects the patients wishes and were consensually agreed upon. Care Teams Registered Nurse Teacher Relationship Specialty Start Date End Date Chiki Syed MD [address] [place] [id number] PCP - General Family Medicine 10/20/18 documented as of this encounter
--- OUTSIDE RECORDS SUMMARY | 2024-11-11 10:33 | External Medical Summary | Summary of Care ---
Author Name Unknown Organization [facility] Address [address] [facility] [place] [address] Phone [phone] Care Team Providers Care Parts Counter Representative Name Role Phone Chiki Syed MD Primary Care Provider + Reason for Visit * Reason Comments Other Knee pain left post using cipro Encounter Details Date Type Department Care Team (Latest Contact Info) Description 10/30/2024 2:30 PM EST Convenient Care Visit [facility] [address] [place] [address] Eun Valle PA-C [address] [place] [address] Acute pain of left knee*; Acute pain of right knee Allergies Active Allergy Reactions Criticality Noted Date Comments Atorvastatin 10/15/2013 Joint pain Fenofibrate 10/15/2013 Joint pain Gemfibrozil Diarrhea 10/15/2013 Lisinopril Cough 01/25/2017 Niacin Nausea/vomiting 10/15/2013 documented as of this encounter (statuses as of 10/31/2024) Medications [facility] + D3 2331-9899 MG-UNIT PO CAPS Take by mouth once [...] with food x 7 days. 7 Tablet Active Hospital, Clinic, or Other Facility Administered Medication Ordered Dose Route Frequency Start Date End Date Status Albuterol Sulfate (Proventil) (2.5 MG/3ML) 0.083% inhalation solution 2.[address] 2.5 mg NEBULIZER ONCE PRN 08/29/2024 08/29/2025 Active documented as of this encounter (statuses as of 10/31/2024) Active Problems Problem Noted Date Diagnosed Date [...] Jaime referred to CT surg/ TTE 02/26 [facility] PET CT 4.5cm 07/26 4.3 cm Atrial fibrillation, chronic 10/19/2018 Complex tear of lateral meni scus of right knee as current injury 04/05/2017 History of renal cell cancer 01/25/2017 Overview (01/25/2017): left kidney dx [facility] Prediabetes 10/05/2016 Prostate cancer 10/05/2016 Overview (10/24/2019): S/p surgery, XRT. 07/[address] Holm 08/[address] Romero--s/p surg, XRT 5 years later. Well adult exam 10/05/2016 Overview (10/25/2024): 10/30 EGD/EUS--biopsies pancreas, lymph nodes, stomach mass. PATH PEND 09/29 PFT done WNL! 08/28 refer STAIR., + emphysema on CT, referred pulm, 09/[address] surg For aorta. 02/26 [facility] PET-10mm lymph inguinal node with mild [...] past now Dr Patten Goes yearly to [facility]. 06/21 normal stress test w/Dr Mccloud 2009 colonoscopy WNL -consider in 2019. A-fib 01/09/2016 Overview (07/16/2024): 06/21 Lexiscan Tc99 Stress echo WNL. Normal EF. 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 Not on file Not on file Not on file documented as of this encounter Last Filed Vital Signs Vital Sign Reading Time Taken Comments Blood Pressure 118/72 10/30/2024 2:34 PM EST Pulse 86 10/30/2024 2:34 PM EST Temperature 36.4 C (97.5 F) 10/30/2024 2:34 PM ES T Respiratory Rate 20 10/30/2024 2:34 PM EST Oxygen Saturation 96% 10/30/2024 2:34 PM EST Inhaled Oxygen Concentration - - Weight 120.7 kg (266 lb 3.2 oz) 10/30/2024 2:34 PM EST Height 186.7 cm (6' 1.5") 10/30/2024 2:34 PM EST Body Mass Index 34.64 10/30/2024 2:34 PM EST documented in this encounter Patient Instructions * Patient Instructions* Eun Valle PA-C - 10/30/2024 3:13 PM EST Prednisone as prescribed Acetaminophen (tylenol) pain Cold packs on the knees Walk in orthopedic clinic or severe go to ER documented in this encounter Progress Notes * Eun Valle PA-C - 10/30/2024 2:32 PM EST 3Subjective: Nursing Notes: Sepideh Escudero LPN 10/30/24 1436 Signed Pt presents to clinic with left knee pain after using cipro Sx are pain in left knee x 3 days, right one started today but not as bad as the left one. Started cipro 500 mg bid on 10/25/24 in the afternoon, then had ad 2 doses and the left knee had started to hurt. Was told to stop the cipro on 10/29 as he has no pain or other issues associated w the endoscopy no sick contacts at home. Sig med hx/risk factors: prediabetes, coalworkers' pneumoconiosis , GERD. BMI 34.22 had flu shot this year. Review of Systems Constitutional: Positive for activity change. Negative for fatigue and fever. Cardiovascular: Negative. Musculoskeletal: Positive for arthralgias (pain in both knees: L>R). Negative for joint swelling. Skin: Negative. Neurological: Positive for weakness (inc weakness due to pain in legs). Hematological: Negative for adenopathy. Messages w Dr. Vaughan: 10/29/24 We can have the patient has stopped the Cipro this point. If the need discomfort persists can we help him make an appointment with his primary care provider to evaluate this new symptom. PMH: Patient Active Problem List Diagnosis HTN, goal below 130/80 GERD (gastroesophageal reflux disease) A-fib (HCC) Prediabetes Prostate cancer (HCC) Well adult exam History of renal cell cancer Complex tear of lateral meniscus of right knee as current injury Atrial fibrillation, chronic (HCC) Aortic ectasia, thoracic (HCC) History of 2019 novel coronavirus disease (COVID-19) Severe obesity with body mass index (BMI) of 35.0 to 39.9 with serious comorbidity (HCC) Aneurysm of ascending aorta without rupture (HCC) CWP (coalworkers pneumoconiosis) (HCC) Current Outpatient Medications Medication Sig Dispense Refill [facility] FISH OIL + D3 8546-4517 MG-UNIT PO CAPS Take by mouth once . Takes this once daily rosuvastatin (CRESTOR) 5 MG Tablet Take 1 Tablet by mouth every other day. Take 1/2 tab every otherday Vitamin B-12 500 MCG Oral Lozenge Take 500 mcg by mouth in the morning. Warfarin Sodium 4 MG Oral Tablet (Coumadin) TAKE 1 TO 2 TABLETS BY MOUTH DAILY PER ANTI-COAGULATION CLINIC 180 Tablet 3 Furosemide 20 MG Oral Tablet (Lasix) Take 1 Tablet by mouth daily as needed (fluid accumulation or weight gain). 30 Tablet 11 Metoprolol Succinate ER 50 MG Oral Tablet Extended Release 24 Hour (toPROL XL) TAKE 1 TABLET BY MOUTH IN THE MORNING 90 Tablet 1 Losartan Potassium 100 MG Oral Tablet (Cozaar) TAKE 1 TABLET BY MOUTH IN THE MORNING 90 Tablet 1 hydroCHLOROthiazide 12.5 MG Oral Capsule TAKE 1 CAPSULE BY MOUTH IN THE MORNING 90 Capsule 1 Pantoprazole Sodium 20 MG Oral Tablet Delayed Release (Protonix) Take 1 Tablet by mouth in the morning. 30 Tablet 5 Polyethylene Glycol 1000 Powder DAILY Ciprofloxacin HCl 500 MG Oral Tablet (Cipro) Take 1 Tablet by mouth in the morning and 1 Tablet before bedtime. 10 Tablet 0 predniSONE 10 MG Oral Tablet (Deltasone) One tab a day, in the morning, with food x 7 days. 7 Tablet 0 Tylenol PM Extra Strength 500-25 MG Oral Tablet (diphenhydrAMINE-APAP (sleep)) Take 1 Tablet by mouth 3 times a day as needed for Itching. Ciclopirox 8 % External Solution Apply over nail and surrounding skin. Apply daily over previous coat. After seven (7) days, may remove with alcohol and continue cycle. 6.6 mL 3 Current Facility-Administered Medications Medication Dose Route Frequency Provider Last Rate Last Admin Albuterol Sulfate (Proventil) (2.5 MG/3ML) 0.083% inhalation solution 2.5 mg 2.5 mg Nebulizer Once PRN 2.5 mg at 09/12/24 1421 Past Medical History: Diagnosis Date A-fib (HCC) 01/09/201606/21 Lexiscan Tc99 Stress echo WNL. Normal EF. See Serna. Aortic ectasia, thoracic (HCC) 07/28/202107/26 4.3 cm Appendicitis 07/08/2024 [facility] Atrial fibrillation ([facility]) Dr Gilliam Colitis GERD (gastroesophageal reflux disease) History of 2019 novel coronavirus disease (COVID-19) 03/09/202203/26 HTN, goal below 140/90 Hyperlipidemia LDL goal < 100 Prediabetes 10/05/2016 Prostate cancer (HCC) 10/05/2016 S/p surgery, XRT. followed by urology [facility]. 08/21 PSA 0.5 slight up. Precious 6mo Prior in [place] Dr Romero--s/p surg, XRT 5 years later. Prostate cancer (HCC) Past Surgical History: Procedure Laterality Date EGD, FLEXIBLE, DIAGNOSTIC 06/22/2022 tortuous esophagus, submucosal lesion - non-diagnostic bx / ESOPHAGOGASTRODUODENOSCOPY (EGD), FLEXIBLE, TRANSORAL, DIAGNOSTIC performed by Chong Chin MD at ENDOSCOPY [facility] EGD, W/ENDOSCOPIC US 08/05/2022 stromal cell (smooth muscle) neoplasm, fatty liver, IPMN, esophageal polyp - leiomyoma, repeat EGD 1yr / ESOPHAGOGASTRODUODENOSCOPY (EGD), FLEXIBLE, TRANSORAL, ENDOSCOPIC ULTRASOUND performed by Kerry Vaughan DO at ENDOSCOPY [facility] EGD, W/ENDOSCOPIC US 10/25/2024 ESOPHAGOGASTRODUODENOSCOPY (EGD), FLEXIBLE, TRANSORAL, ENDOSCOPIC ULTRASOUND performed by Kerry Vaughan DO at ENDOSCOPY [facility] LAPAROSCOPY; CHOLECYSTECTOMY 09/05/2008 Cholecystectomy, Laproscopic LAPAROSCOPY;APPENDECTOMY 07/08/2024 Dr Moshe Fox [facility] MISCELLANEOUS ORDER ([facility] ONLY) 09/05/2001 prostate 2002 cancer MISCELLANEOUS ORDER ([facility] ONLY) 09/05/2005 left kidney cyst vs cancer REMOVAL OF PROSTATE, PERINEAL N/A 2000 REMOVE CATARACT, INSERT LENS PROSTH Left 06/20/2018 left EXTRACAPSULAR CATARACT REMOVAL WITH INTRAOCULAR LENS performed by Bogdan Lindsay MD at OR [facility] REMOVE CATARACT, INSERT LENS PROSTH Right 06/29/2018 right EXTRACAPSULAR CATARACT REMOVAL WITH INTRAOCULAR LENS performed by Bogdan Lindsay MD at OR [facility] UNLISTED LAPAROSCOPY;HERNIA 09/05/2008 Hernia Repair Laparoscopic- RIGHT UNLISTED LAPAROSCOPY;HERNIA 09/05/2010 Hernia Repair Laparoscopic- LEFT Review of patient's allergies indicates: Allergen Reactions Atorvastatin Joint pain Fenofibrate Joint pain Gemfibrozil Diarrhea Lisinopril Cough Niacin Nausea/vomiting Objective: BP 118/72 | Pulse 86 | Temp 36.4 C (97.5 F) (Tympanic) | Resp 20 | Ht 1.867 m (6' 1.5") | Wt 120.7 kg (266 lb 3.2 oz) | SpO2 96% | BMI 34.64 kg/m | BSA 2.5 m Physical Exam Constitutional: Appearance: He is obese. He is not ill-appearing (looks a little uncomfortable with he was walking). Cardiovascular: Rate and Rhythm: Normal rate and regular rhythm. Heart sounds: Normal heart sounds. Pulmonary: Effort: Pulmonary effort is normal. Breath sounds: Normal breath sounds. Musculoskeletal: General: Tenderness (mostly over the middle patella abd from the origin to the insert of the patellar ligament, bilaterally with more on palpation on the left, moderately tender) present. No swelling. Comments: Walking cautiously Negative draws, negative valgus and varus, neg Cyrus's Skin: Findings: No bruising, erythema, lesion or rash. Neurological: General: No focal deficit present. Mental Status: He is oriented to person, place, and time. Psychiatric: Mood and Affect: Mood normal. ASSESSMENT/PLAN: Acute pain of left knee (Primary) - predniSONE 10 MG Oral Tablet (Deltasone); One tab a day, in the morning, with food x 7 days. Acute pain of right knee Patient Instructions Prednisone as prescribed Acetaminophen (tylenol) pain Cold packs on the knees Walk in orthopedic clinic or severe go to ER Discussed that hard to tell when the pain will resolve, though sounds good that the left one is starting to improve. Return instruction reviewed with pt in detail. Reasons to report to the ED were also reviewed. Voiced understanding Advised to follow up if no improvement in 3-5days. Eun Valle PA-C documented in this encounter Nursing Notes * Sepideh Escudero LPN - 10/30/2024 2:34 PM EST Pt presents to clinic with left knee pain after using cipro documented in this encounter Plan of Treatment Upcoming Encounters Date Type Department Care Team (Late st Contact Info) Description 11/14/2024 11:10 AM EDT 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 Pharmacy, [facility] [address] [place] [address] [facility] [address] [facility] [place] [address] 01/02/2025 8:00 AM EDT Office Visit Cardiology, [facility] [address] [place] [address] Letty Romo CRNP [address] [place] [address] [place] [address] 01/23/2025 9:20 AM EDT Office Visit Family Practice [facility] [address] [place] [address] Chiki Syed MD [address] [place] [address] 01/24/2025 9:00 AM EDT Office Visit Gastroenterology, [facility] [address] [place] [address] Mariana Florez CRNP [address] [place] [address] 04/16/2025 11:00 AM EDT Appointment Radiology, [address] [address] 04/23/2025 10:45 AM EDT Office Visit Cardiothoracic Surg [facility], [place] [address] [place] [address] See Hirsch MD [address] [place] [address] Health Maintenance Due Date Last Done Comments [...] this encounter Medical Devices Implanted Type Area Project Coordinator Rn Device Identifier Shelf Expiration Date Model / Serial / Lot Lens Intraoc 21.5 - [id number] - [id number] Implanted:Qty: 1 on 06/20/2018 by Bogdan Lindsay MD at OR [facility] Left: Eye [employer] 01/02/2023 [id number] / [id number] / [id number] Lens Intraoc 21.5 - [id number] - [id number] Implanted:Qty: 1 on 06/29/2018 by Bogdan Lindsay MD at OR [facility] Right: Eye [employer] 02/02/2023 [id number] / [id number] / [id number] documented as of this encounter Visit Diagnoses Diagnosis Acute pain of left knee- Primary Acute pain of right knee documented in this encounter Advance Directives * Full Code (Latest Code Status on File) Date Activated Date Inactivated Comments 06/29/2018 8:41 AM 06/29/2018 3:29 PM This order reflects the patients wishes and were consensually agreed upon. * Full Code Date Activated Date Inactivated Comments 06/20/2018 9:51 AM 06/20/2018 3:45 PM This order reflects the patients wishes and were consensually agreed upon. Care Teams Parts Counter Representative Relationship Specialty Start Date End Date Chiki Syed MD [address] [address] PCP - General Family Medicine 10/20/18 documented as of this encounter
--- OUTSIDE RECORDS SUMMARY | 2024-11-11 10:33 | External Medical Summary | Summary of Care ---
Author Name Unknown Organization [facility] Address [address] [place] [address] Phone [phone] Care Team Providers Care Oncologist Name Role Phone Chiki Syed MD Primary Care Provider + Reason for Referral * Precert (Within 10 days (routine)) - Authorized Specialty Diagnoses / Procedures Referred By Contac t Referred To Contact Radiology Diagnoses Ascending aortic aneurysm, unspecified whether ruptured (HCC) Procedures CTA CHEST NON-CORONARY W CONTRAST Marco A Mclaughlin PA-C [address] [place] [address] Phone: tel: fax: Referral ID Status Reason Start Date Expiration Date V isits Requested Visits Authorized [id number] Authorized 04/22/2025 [id number] Reason for Visit * Reason Comments NEW PATIENT * Evaluate & Treat - Unlimited Visits (Within 10 days (routine)) - Authorized Specialty Diagnoses / Procedures Referred By Contact Referred To Contact Cardiovascular Surgery / Cardiothoracic Surgery Diagnoses Aneurysm of ascending aorta without rupture (HCC) Fredrick Jaime O, DO [address] [place] [address] Phone: tel: fax: Referral ID Status Reason Start Date Expiration Date Visits Requested Visits Authorized [id number] Authorized Specialty Services Required 09/26/2024 [id number] Encounter Details Date Type Department Care Team (Late st Contact Info) Description 10/23/2024 11:30 AM EST Office Visit Cardiothoracic Surg [facility], [place] [address] [place] [address] See Hirsch MD [address] [place] [address] Ascending aortic aneurysm, unspecified whether ruptured (HCC)* Allergies Active Allergy Reactions Criticality Noted Date Comments Atorvastatin 10/15/2013 Joint pain Fenofibrate 10/15/2013 Joint pain Gemfibrozil Diarrhea 10/15/2013 Lisinopril Cough 01/25/2017 Niacin Nausea/vomiting 10/15/2013 documented as of this encounter (statuses as of 10/24/2024) Medications [facility] FISH OIL + D3 8525-1612 MG-UNIT PO CAPS Take by mouth once [...] Polyethylene Glycol 1000 Powder DAILY 4 Active Hospital, Clinic, or Other Facility Administered Medication Ordered Dose Route Frequency Start Date End Date Status Albuterol Sulfate (Proventil) (2.5 MG/3ML) 0.083% inhalation solution 2.[address] 2.5 mg NEBULIZER ONCE PRN 08/29/2024 08/29/2025 Active documented as of this encounter (statuses as of 10/24/2024) Active Problems Problem Noted Date Diagnosed Date [...] Jaime referred to CT surg/ TTE 02/26 [facility] PET CT 4.5cm 07/26 4.3 cm Atrial fibrillation, chronic 10/19/2018 Complex tear of lateral meni scus of right knee as current injury 04/05/2017 History of renal cell cancer 01/25/2017 Overview (01/25/2017): left kidney dx [facility] Prediabetes 10/05/2016 Prostate cancer 10/05/2016 Overview (10/24/2019): S/p surgery, XRT. 07/[address] Holm 08/21 PSA [address] [place] [address] Romero--s/p surg, XRT 5 years later. Well adult exam 10/05/2016 Overview (10/06/2024): 09/29 PFT done WNL! 08/28 refer STAIR., + emphysema on CT, referred pulm, 09/[address] surg For aorta. 02/26 [facility] PET-10mm lymph inguinal node with mild [...] colonoscopy WNL -consider in 2020. A-fib 01/09/2016 Overview (07/16/2024): 06/21 Lexiscan Tc99 Stress echo WNL. Normal EF. See Serna in past now Addison/Madan HTN, goal below 130/80 GERD (gastroesophageal reflux disease) documented as of this encounter (statuses as of 10/24/2024) Resolved Problems Problem Noted Date Diagnosed Date [...] as of this encounter (statuses as of 10/24/2024) Immunizations Name Administration Dates Next Due COVID-19 mRNA, LNP-s, No Pre serve, 2-Dose Series (Moderna) 10/13/2020,09/15/2020 COVID-19, mRNA, LNP-s, PF, B ooster, 100mcg/0.5mg (Moderna) 12/14/2021,07/01/2021 Covid-19, Mrna, Lnp-s, Pf, B ivalent, 30 Mcg, IM, 12 yrs and above (Contract Cloud) 01/13/2023,07/05/2022 Pneumococcal Conjugate Vacc, 13 Valent (Prevnar) [...] Not on file Not on file 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, 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 Not on file Not on file Not on file documented as of this encounter Last Filed Vital Signs Vital Sign Reading Time Taken Comments Blood Pressure 102/78 10/23/2024 11:26 AM EST Pulse 78 10/23/2024 11:20 AM EST Temperature - - Respiratory Rate - - Oxygen Saturation 96% 10/23/2024 11: 20 AM EST Inhaled Oxygen Concentration - - Weight 120.3 kg (265 lb 4.8 oz) 025 11:20 AM EST Height 184.2 cm (6' 0.5") 10/23/2024 11 :20 AM EST Body Mass Index 35.49 10/23/2024 11:20 AM EST documented in this encounter Plan of Treatment Upcoming Encounters Date Type Department Care Team (Latest Contact Info) Description 5 8:45 AM EST Hospital Encounter ENDO [facility], Endoscopy Room [facility] [address] [place] [address] Kerry Vaughan, DO [address] [place] [address] 5 8:45 AM EST - 5 9:45 AM EST Surgery ENDO [facility], Endoscopy Room [facility] [address] [place] [address] Kerry Vaughan, DO [address] [place] [address] ESOPHAGOGASTRODUODENOSCOPY (EGD), FLEXIBLE, TRANSORAL, ENDOSCOPIC ULTRASOUND 5 11:10 AM EDT 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 Pharmacy, [facility] [address] [place] [address] [facility] [address] [place] [address] 5 8:00 AM EDT Office Visit Cardiology, [facility] [address] [place] [address] Letty Romo CRNP [address] [facility] [place] [address] 5 9:20 AM EDT Office Visit Family Practice [facility] [address] [place] [address] Chiki Syed MD [address] [place] [address] 5 9:00 AM EDT Office Visit Gastroenterolog y, [facility] [address] [place] [address] Mariana Florez CRNP [address] [facility] [place] [address] 5 11:00 AM EDT Appointment Radiology, [place] [address] [place] [phone] 5 10:45 AM EDT Office Visit Cardiothoracic Surg [facility], [address] [address] See Hirsch MD [address] [place] [address] Scheduled Orders Name Type Priority Associated Diagnoses Orde r Schedule CTA CHEST NON-CORONARY W CONTRAST Medical Imaging Routine Ascending aortic aneurysm, unspecified whether ruptured (HCC) Expected: 04/22/2025, Expires: 11/20/2025 [facility] Lab Routine Ascending aortic aneurysm, unspecified whether ruptured (HCC) Expected: 04/22/2025, Expires: 10/23/2025 Scheduled Procedures Name Priority Associated Diagnoses Date/Ti [...] this encounter Medical Devices Implanted Type Area Shop And Alteration Tailor Device Identifier Shelf Expiration Date Model / Serial / Lot Lens Intraoc 21.5 - [id number] - [id number] Implanted:Qty: 1 on 06/20/2018 by Bogdan Lindsay MD at OR [facility] Left: Eye [employer] 01/02/2023 [id number] / [id number] / [id number] Lens Intraoc 21.5 - [id number] - [id number] Implanted:Qty: 1 on 06/29/2018 by Bogdan Lindsay MD at OR [facility] Right: Eye [employer] 02/02/2023 [id number] / [id number] / [id number] documented as of this encounter Visit Diagnoses Diagnosis Ascending aortic aneurysm, unspecified whether ruptured (HCC)- Primary Esophageal polyp Other specified disorder of the esophagus Gastric mass Unspecified disorder of stomach and duodenum documented in this encounter Advance Directives * Full Code (Latest Code Status on File) Date Activated Date Inactivated Comments 06/29/2018 8:41 AM 06/29/2018 3:29 PM This order reflects the patients wishes and were consensually agreed upon. * Full Code Date Activated Date Inactivated Comments 06/20/2018 9:51 AM 06/20/2018 3:45 PM This order reflects the patients wishes and were consensually agreed upon. Care Teams Oncologist Relationship Specialty Start Date End Date Chiki Syed MD [address] [place] [address] PCP - General Family Medicine 10/20/18 documented as of this encounter
--- OUTSIDE RECORDS SUMMARY | 2024-11-11 10:33 | External Medical Summary | Summary of Care ---
Author Name Unknown Organization [facility] Address [address] [place] [address] Phone [phone] Care Team Providers Care Cullet Crusher And Washer Name Role Phone Chiki Syed MD Primary Care Provider + Reason for Visit * Reason Comments Outpatient Testing Encounter Details Date Type Department Care Team (Late st Contact Info) Description 11/05/2024 9:50 AM EST Laboratory Laboratory, [facility] 132 [facility] [place] [address] [facility] [address] BPH with obstruction/lower urinary tract symptoms* Allergies Active Allergy Reactions Criticality Noted Date Comments Atorvastatin 10/15/2013 Joint pain Fenofibrate 10/15/2013 Joint pain Gemfibrozil Diarrhea 10/15/2013 Lisinopril Cough 01/25/2017 Niacin Nausea/vomiting 10/15/2013 documented as of this encounter (statuses as of 11/05/2024) Medications [facility] FISH OIL + D3 9553-9756 MG-UNIT PO CAPS Take by mouth once [...] Jaime referred to CT surg/ TTE 02/26 [facility] PET CT 4.5cm 07/26 4.3 cm Atrial fibrillation, chronic 10/19/2018 Complex tear of lateral meni scus of right knee as current injury 04/05/2017 History of renal cell cancer 01/25/2017 Overview (01/25/2017): left kidney dx [facility] Prediabetes 10/05/2016 Prostate cancer 10/05/2016 Overview (10/24/2019): S/p surgery, XRT. 07/[address] Holm 08/21 PSA 0.[address] [place] [address] Romero--s/p surg, XRT 5 years later. Well adult exam 10/05/2016 Overview (10/25/2024): 10/30 EGD/EUS--biopsies pancreas, lymph nodes, stomach mass. PATH PEND 09/29 PFT done WNL! 08/28 refer STAIR., + emphysema on CT, referred pulm, 09/[address] surg For aorta. 02/26 [facility] PET-10mm lymph inguinal node with mild inc uptake. Consider BX. No skeletal mets. Indeterm hilar tracer uptake. -Alta's plan to observe monitor PSA 08/26 EGD biopsy +Leiomyoma. Precious 1y 06/26 EGD--abnormal. F/u sched lung nodules, ectasia, precious stable 05/27, precious 1 more time 1y ordered 04/[address] Holm, uro. Dr Mccloud-Cardiology in past now Dr Patten Goes yearly to [facility]. 06/21 normal stress test w/Dr Mccloud 2009 colonoscopy WNL -consider in 2019. A-fib 01/09/2016 Overview (07/16/2024): 06/21 Lexiscan Tc99 Stress echo WNL. Normal EF. 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 Not on file Not on file Not on file documented as of this encounter Plan of Treatment Upcoming Encounters Date Type Department Care Team (Late st Contact Info) Description 11/14/2024 11:10 AM EDT 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 Pharmacy, [facility] 132 [facility] [place] [address] [facility] 132 [place] [address] 01/02/2025 8:00 AM EDT Office Visit Cardiology, [facility] 132 [facility] [place] [address] Letty Romo CRNP [address] [place] [address] [place] [address] 01/23/2025 9:20 AM EDT Office Visit Family Practice [facility] 132 [facility] [place] [address] Chiki Syed MD 132 [place] [address] 01/24/2025 9:00 AM EDT Office Visit Gastroenterology, [facility] 132 [facility] [place] [address] Mariana Florez CRNP 132 [facility] [place] [address] 04/16/2025 11:00 AM EDT Appointment Radiology, [place] [address] [place] [phone] 04/23/2025 10:45 AM EDT Office Visit Cardiothoracic Surg [facility], [place] [address] [place] [address] See Hirsch MD [address] [place] [address] Pending Results Name Type Priority Associated Diagnoses [...] this encounter Medical Devices Implanted Type Area Windshield Technician Device Identifier Shelf Expiration Date Model / Serial / Lot Lens Intraoc 21.5 - [id number] - [id number] Implanted:Qty: 1 on 06/20/2018 by Bogdan Lindsay MD at OR [facility] Left: Eye [employer] 01/02/2023 [id number] / [id number] / [id number] Lens Intraoc 21.5 - [id number] - [id number] Implanted:Qty: 1 on 06/29/2018 by Bogdan Lindsay MD at OR [facility] Right: Eye [employer]OMB 02/02/2023 [id number] / [id number] / [id number] documented as of this encounter Visit Diagnoses [...] and were consensually agreed upon. Care Teams Cullet Crusher And Washer Relationship Specialty Start Date End Date Chiki Syed MD 132 [facility] [place] [address] PCP - General Family Medicine 10/20/18 documented as of this encounter
--- OUTSIDE RECORDS SUMMARY | 2024-11-11 10:33 | External Medical Summary | Summary of Care ---
Author Name Unknown Organization [facility] Address [address] [facility] [address] Phone [phone] Care Team Providers Care Radio Mechanic Helper Name Role Phone Chiki Syed MD Primary Care Provider + Reason for Visit * Reason Onset Date Comments Test Results 10/23/2024 6 MWT results Encounter Details Date Type Department Care Team (Late st Contact Info) Description 10/23/2024 Telephone Pulmonary Medicine, [facility] 132 [facility] [place] [address] Jem Hilliard MD [address] [facility] [address] Test Results (6 MWT results) Allergies Active Allergy Reactions Criticality Noted Date Comments Atorvastatin 10/15/2013 Joint pain Fenofibrate 10/15/2013 Joint pain Gemfibrozil Diarrhea 10/15/2013 Lisinopril Cough 01/25/2017 Niacin Nausea/vomiting 10/15/2013 documented as of this encounter (statuses as of 10/23/2024) Medications [facility] FISH OIL + D3 0032-8221 MG-UNIT PO CAPS Take by mouth once [...] the morning. 30 Tablet 5 5 Active Hospital, Clinic, or Other Facility [...] Jaime referred to CT surg/ TTE 02/26 [facility] PET CT 4.5cm 07/26 4.3 cm Atrial fibrillation, chronic 10/19/2018 Complex tear of lateral meni scus of right knee as current injury 04/05/2017 History of renal cell cancer 01/25/2017 Overview (01/25/2017): left kidney dx [facility] Prediabetes 10/05/2016 Prostate cancer 10/05/2016 Overview (10/24/2019): S/p surgery, XRT. 07/[address] Holm 08/21 PSA 0.[address] [place] [address] Romero--s/p surg, XRT 5 years later. Well adult exam 10/05/2016 Overview (10/06/2024): 09/29 PFT done WNL! 08/28 refer STAIR., + emphysema on CT, referred pulm, 09/[address] surg For aorta. 02/26 [facility] PET-10mm lymph inguinal node with mild [...] past now Dr Patten Goes yearly to [facility]. 06/21 normal stress test w/Dr Mccloud 2009 colonoscopy WNL -consider in 2019. A-fib 01/09/2016 Overview (07/16/2024): 06/21 Lexiscan Tc99 Stress echo WNL. Normal EF. 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 No oxygen therapy ordered. Chart Note documented in this encounter Plan of Treatment Upcoming Encounters Date Type Department Care Team (Latest Contact Info) Description 5 11:30 AM EST Office Visit Cardiothoracic Surg [facility], [place] [address] [facility] [place] [address] See Hirsch MD [address] [place] [address] 5 8:45 AM EST Hospital Encounter ENDO [facility], Endoscopy Room [address] [place] [address] Kerry Vaughan, DO [address] [place] [address] 5 8:45 AM EST - 5 9:45 AM EST Surgery ENDO [facility], Endoscopy Room [facility] [address] [place] [phone] Kerry Vaughan, DO [address] [place] [address] ESOPHAGOGASTRODUODENOSCOPY (EGD), FLEXIBLE, TRANSORAL, ENDOSCOPIC ULTRASOUND 5 11:10 AM EDT 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 Pharmacy, [facility] [place] [address] [facility] [place] [address] 5 8:00 AM EDT Office Visit Cardiology, [facility] 132 [facility] [place] [address] Letty Romo CRNP [address] [place] [address] [place] [address] 5 9:20 AM EDT Office Visit Family Practice [facility] 132 [facility] [place] [address] Chiki Syed MD [address] [place] [address] 5 9:00 AM EDT Office Visit Gastroenterolog y, [facility] [place] [address] Mariana Florez CRNP [address] [place] [address] Scheduled Procedures Name Priority Associated Diagnoses Date/Ti [...] this encounter Medical Devices Implanted Type Area Belting Inspector Device Identifier Shelf Expiration Date Model / Serial / Lot Lens Intraoc 21.5 - [id number] - [id number] Implanted:Qty: 1 on 06/20/2018 by Bogdan Lindsay MD at OR [facility] Left: Eye [employer]CH [employer] LOMB 01/02/2023 [id number] / [id number] / [id number] Lens Intraoc 21.5 - [id number] - [id number] Implanted:Qty: 1 on 06/29/2018 by Bogdan Lindsay MD at OR [facility] Right: Eye [employer] LOMB 02/02/2023 [id number] / [id number] / [id number] documented as of this encounter Advance Directives [...] and were consensually agreed upon. Care Teams Radio Mechanic Helper Relationship Specialty Start Date End Date Chiki Syed MD [address] [place] [address] PCP - General Family Medicine 10/20/18 documented as of this encounter
--- OUTSIDE RECORDS SUMMARY | 2024-11-11 10:33 | External Medical Summary | Summary of Care ---
Author Name Unknown Organization [facility] Address [address] [facility] [address] Phone [phone] Care Team Providers Care Market Research Worker Name Role Phone Chiki Syed MD Primary Care Provider + Reason for Visit * Reason Onset Date Comments Advice 10/29/2024 Encounter Details Date Type Department Care Team (Late st Contact Info) Description 10/29/2024 Telephone Gastroenterology, [facility] [address] [place] [address] Kerry Vaughan DO [address] [place] [address] Advice Allergies Active Allergy Reactions Criticality Noted Date Comments Atorvastatin 10/15/2013 Joint pain Fenofibrate 10/15/2013 Joint pain Gemfibrozil Diarrhea 10/15/2013 Lisinopril Cough 01/25/2017 Niacin Nausea/vomiting 10/15/2013 documented as of this encounter (statuses as of 10/29/2024) Medications [facility] FISH OIL + D3 8019-0735 MG-UNIT PO CAPS Take by mouth once [...] Jaime referred to CT surg/ TTE 02/26 [facility] PET CT 4.5cm 07/26 4.3 cm Atrial fibrillation, chronic 10/19/2018 Complex tear of lateral meni scus of right knee as current injury 04/05/2017 History of renal cell cancer 01/25/2017 Overview (01/25/2017): left kidney [facility] Prediabetes 10/05/2016 Prostate cancer 10/05/2016 Overview (10/24/2019): S/p surgery, XRT. 07/[address] Holm 08/21 PSA 0.[address] [place] [address] Romero--s/p surg, XRT 5 years later. Well adult exam 10/05/2016 Overview (10/25/2024): 10/30 EGD/EUS--biopsies pancreas, lymph nodes, stomach mass. PATH PEND 09/29 PFT done WNL! 08/28 refer STAIR., + emphysema on CT, referred pulm, 09/[address] surg For aorta. 02/26 [facility] PET-10mm lymph inguinal node with mild [...] past now Dr Patten Goes yearly to [facility]. 06/21 normal stress test w/Dr Mccloud 2009 colonoscopy WNL -consider in 2019. A-fib 01/09/2016 Overview (07/16/2024): 06/21 Lexiscan Tc99 Stress echo WNL. Normal EF. 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 Not on file Not on file Not [...] Description 11/14/2024 11:10 AM EDT 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 Pharmacy, [facility] 132 [facility] [place] [address] [facility] 132 [facility] [place] [address] 01/02/2025 8:00 AM EDT Office Visit Cardiology, [facility] 132 [facility] [place] [address] Letty Romo CRNP 400 [facility] [place] [address] 01/23/2025 9:20 AM EDT Office Visit Family Practice [facility] 132 [facility] [place] [address] Chiki Syed MD 132 [facility] [place] [address] 01/24/2025 9:00 AM EDT Office Visit Gastroenterology, [facility] 132 [facility] [place] [address] Mariana Florez CRNP 132 [facility] [place] [address] 04/16/2025 11:00 AM EDT Appointment Radiology, [place] [address] [place] [address] 04/23/2025 10:45 AM EDT Office Visit Cardiothoracic Surg [facility], [place] [address] [place] [address] See Hirsch MD [facility] [place] [address] [place], [place] [id number] Health Maintenance Due Date Last Done Comments [...] this encounter Medical Devices Implanted Type Area Children'S Attendant Device Identifier Shelf Expiration Date Model / Serial / Lot Lens Intraoc 21.5 - [id number] - [id number] Implanted:Qty: 1 on 06/20/2018 by Bogdan Lindsay MD at [facility] Left: Eye [employer]OMB 01/02/2023 [id number] / [id number] / [id number] Lens Intraoc 21.5 - [id number] - [id number] Implanted:Qty: 1 on 06/29/2018 by Bogdan Lindsay MD at OR [facility] Right: Eye BAUSCH [employer] LOMB 02/02/2023 [id number] / [id number] / [id number] documented as of this encounter Advance Directives [...] and were consensually agreed upon. Care Teams Market Research Worker Relationship Specialty Start Date End Date Chiki Syed MD [address] [place] [address] PCP - General Family Medicine 10/20/18 documented as of this encounter
--- OUTSIDE RECORDS SUMMARY | 2024-11-11 10:33 | External Medical Summary | Summary of Care ---
Author Name Unknown Organization [facility] Address [address] [facility] [address] Phone [phone] Care Team Providers Care Aging Room Hand Name Role Phone Chiki ySed MD Primary Care Provider + Reason for Visit * Reason Onset Date Comments Advice 10/29/2024 Encounter Details Date Type Department Care Team (Late st Contact Info) Description 10/29/2024 Telephone Gastroenterology, [facility] [address] [place] [address] Kerry Vaughan DO [address] [place] [address] Advice Allergies Active Allergy Reactions Criticality Noted Date Comments Atorvastatin 10/15/2013 Joint pain Fenofibrate 10/15/2013 Joint pain Gemfibrozil Diarrhea 10/15/2013 Lisinopril Cough 01/25/2017 Niacin Nausea/vomiting 10/15/2013 documented as of this encounter (statuses as of 10/29/2024) Medications [facility] FISH OIL + D3 5421-7238 MG-UNIT PO CAPS Take by mouth once [...] Jaime referred to CT surg/ TTE 02/26 [facility] PET CT 4.5cm 07/26 4.3 cm Atrial fibrillation, chronic 10/19/2018 Complex tear of lateral meni scus of right knee as current injury 04/05/2017 History of renal cell cancer 01/25/2017 Overview (01/25/2017): left kidney [facility] Prediabetes 10/05/2016 Prostate cancer 10/05/2016 Overview (10/24/2019): S/p surgery, XRT. 07/[address] Holm 08/21 PSA [address] [place] [address] Romero--s/p surg, XRT 5 years later. Well adult exam 10/05/2016 Overview (10/25/2024): 10/30 EGD/EUS--biopsies pancreas, lymph nodes, stomach mass. PATH PEND 09/29 PFT done WNL! 08/28 refer STAIR., + emphysema on CT, referred pulm, 09/[address] surg For aorta. 02/26 [facility] PET-10mm lymph inguinal node with mild [...] Stress echo WNL. Normal EF. 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 Phone went . Thank you, Sarah Tolbert CPhT Developer Evangelist II [facility] 10/29/2024,8:15 AM documented in this encounter Plan of Treatment Upcoming Encounters Date Type Department Care Team (Late st Contact Info) Description 11/14/2024 11:10 AM EDT 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 Pharmacy, [facility] 132 [facility] [place] [address] [facility] [address] [place] [address] 01/02/2025 8:00 AM EDT Office Visit Cardiology, [facility] 132 [facility] [place] [address] Letty Romo CRNP [address] [place] [address] 01/23/2025 9:20 AM EDT Office Visit Family Practice [facility] 132 [facility] [place] [address] Chiki Syed MD 132 [facility] [address] 01/24/2025 9:00 AM EDT Office Visit Gastroenterology, [facility] 132 [facility] [place] [address] Mariana Florez CRNP 132 [facility] [place] [address] 04/16/2025 11:00 AM EDT Appointment Radiology, [place] [address] [place] [address] 04/23/2025 10:45 AM EDT Office Visit Cardiothoracic Surg [facility], [place] [address] [place] [address] See Hirsch MD [address] [place] [address] Health Maintenance Due Date Last Done Comments [...] this encounter Medical Devices Implanted Type Area Sap Business Intelligence Consultant Device Identifier Shelf Expiration Date Model / Serial / Lot Lens Intraoc 21.5 - [id number] - [id number] Implanted:Qty: 1 on 06/20/2018 by Bogdan Lindsay MD at OR [facility] Left: Eye [employer]USCH [employer] LOMB 01/02/2023 [id number] / [id number] / [id number] Lens Intraoc 21.5 - [id number] - [id number] Implanted:Qty: 1 on 06/29/2018 by Bogdan Lindsay MD at OR [facility] Right: Eye BAUSCH [employer] LOMB 02/02/2023 [id number] / [id number] / [id number] documented as of this encounter Advance Directives [...] and were consensually agreed upon. Care Teams Aging Room Hand Relationship Specialty Start Date End Date Chiki Syed MD 132 [place] [address] PCP - General Family Medicine 10/20/18 documented as of this encounter
--- OUTSIDE RECORDS SUMMARY | 2024-11-11 10:34 | External Medical Summary | Summary of Care ---
Author Name Unknown Organization [facility] Address [address] [address] Phone [phone] Care Team Providers Care Presentation Team Member Name Role Phone Chiki Syed MD Primary Care Provider + Reason for Visit * Reason Comments dysphagia * Evaluate & Treat - Unlimited Visits (Within 10 days (routine)) - Authorized Specialty Diagnoses / Procedures Referred By Lisandro grande Referred To Contact Gastroenterology Diagnoses Dysphagia, unspecified type Fredrick Jaime, DO [address] [place] [address] Phone: tel: fax: Referral ID Status Reason Start Date Expiration Date Visits Requested Visits Authorized [id number] Authorized Specialty Services Required 09/26/2024 [id number] Encounter Details Date Type Department Care Team (Late st Contact Info) Description 10/08/2024 9:30 AM EST Office Visit Gastroenterology, [facility] [address] [address] Mariana Florez CRNP [address] [place] [address] Dysphagia, unspecified type*; Gastroesophageal reflux disease, unspecified whether esophagitis present Allergies Active Allergy Reactions Criticality Noted Date Comments Atorvastatin 10/15/2013 Joint pain Fenofibrate 10/15/2013 Joint pain Gemfibrozil Diarrhea 10/15/2013 Lisinopril Cough 01/25/2017 Niacin Nausea/vomiting 10/15/2013 documented as of this encounter (statuses as of 10/08/2024) Medications [facility] FISH OIL + D3 0650-8701 MG-UNIT PO CAPS Take by mouth once . Takes this once daily 10/15/19 14 Active rosuvastatin (CRESTOR) 5 MG Tablet Take 2.5 Tablets by mouth every other day. Active Vitamin B-12 500 MCG Oral Lozenge Take 500 mcg by mouth in the morning. Active Tylenol PM Extra Strength 500-25 MG Oral Tablet (diphenhydrAMIN E-APAP (sleep)) Take 1 Tablet by mouth 3 times a day as needed for Itching. Active Warfarin Sodium 4 MG Oral Tablet (Coumadin)Indic ations:Chronic atrial fibrillation (HCC) TAKE 1 TO 2 TABLETS BY MOUTH DAILY PER ANTI-COAGULATIO N CLINIC 180 Tablet 3 01/11/20 24 Active Furosemide 20 MG Oral Tablet (Lasix)Indicati ons:Lower extremity edema,Chronic atrial fibrillation (HCC),HTN, goal below 130/80,Valvular heart disease Take 1 Tablet by mouth daily as needed (fluid accumulation or weight gain). 30 Tablet 11 03/02/20 24 Active Metoprolol Succinate ER 50 MG Oral Tablet Extended Release 24 Hour (toPROL XL)Indications: Atrial fibrillation, chronic (HCC),HTN, goal below 130/80 TAKE 1 TABLET BY MOUTH IN THE MORNING 90 Tablet 1 05/28/20 24 Active Ciclopirox 8 % External Solution Apply over nail and surrounding skin. Apply daily over previous coat. After seven (7) days, may remove with alcohol and continue cycle. 6.6 mL 3 4 10:57 AM EDT 06/19/20 24 Active Losartan Potassium 100 MG Oral Tablet (Cozaar)Indicat ions:HTN, goal below 140/90 TAKE 1 TABLET BY MOUTH IN THE MORNING 90 Tablet 1 08/31/20 24 Active hydroCHLOROthia zide 12.5 MG Oral CapsuleIndicati ons:HTN, goal below 140/90 TAKE 1 CAPSULE BY MOUTH IN THE MORNING 90 Capsule 1 08/31/20 24 Active Pantoprazole Sodium 20 MG Oral Tablet Delayed Release (Protonix)Indic ations:Gastroes ophageal reflux disease, unspecified whether esophagitis present,Dysphag ia, unspecified type Take 1 Tablet by mouth in the morning. 30 Tablet 5 10/08/19 25 Active Pantoprazole Sodium 20 MG Oral Tablet Delayed Release (Protonix)Indic ations:Gastroes ophageal reflux disease, unspecified whether esophagitis present,Dysphag ia, unspecified type Take 1 Tablet by mouth in the morning. 60 Tablet 5 10/08/19 25 2024 Discontinued Hospital, Clinic, or Other Facility Administered Medication Ordered Dose Route Frequency Start Date End Date Status Albuterol Sulfate (Proventil) (2.5 MG/3ML) 0.083% inhalation solution 2.[address] 2.5 mg NEBULIZER ONCE PRN 08/29/2024 08/29/2025 Active documented as of this encounter (statuses as of 10/08/2024) Active Problems Problem Noted Date Diagnosed Date [...] Jaime referred to CT surg/ TTE 02/26 [facility] PET CT 4.5cm 07/26 4.3 cm Atrial fibrillation, chronic 10/19/2018 Complex tear of lateral meni scus of right knee as current injury 04/05/2017 History of renal cell cancer 01/25/2017 Overview (01/25/2017): left kidney [facility] Prediabetes 10/05/2016 Prostate cancer 10/05/2016 Overview (10/24/2019): S/p surgery, XRT. 07/[address] Holm 08/[address] [place] [address] Romero--s/p surg, XRT 5 years later. Well adult exam 10/05/2016 Overview (10/06/2024): 09/29 PFT done WNL! 08/28 refer STAIR., + emphysema on CT, referred pulm, 09/[address] surg For aorta. 02/26 [facility] PET-10mm lymph inguinal node with mild inc uptake. Consider BX. No skeletal mets. Indeterm hilar tracer uptake. -Alta's plan to observe monitor PSA 08/26 EGD biopsy +Leiomyoma. Precious 1y 06/26 EGD--abnormal. F/u sched Dec07/26 lung nodules, ectasia, precious stable 05/27, precious 1 more time 1y ordered 04/[address] Holm, uro. Dr Mccloud-Cardiology in past now Dr Patten Goes yearly to [facility]. 06/21 normal stress test w/Dr Mccloud 2009 colonoscopy WNL -consider in 2019. A-fib 01/09/2016 Overview (07/16/2024): 06/21 Lexiscan Tc99 Stress echo WNL. Normal EF. 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 Not on file Not on file Not on file documented as of this encounter Last Filed Vital Signs Vital Sign Reading Time Taken Comments Blood Pressure 141/99 10/08/2024 8:56 AM EST Pulse 107 10/08/2024 8:56 AM EST Temperature 36.5 C (97.7 F) 10/08/2024 8:56 AM ES T Respiratory Rate - - Oxygen Saturation - - Inhaled Oxygen Concentration - - Weight 119.6 kg (263 lb 11.2 oz) 10/08/2024 8:56 AM EST Height - - Body Mass Index 37.2 09/12/2024 2:34 PM EST documented in this encounter Progress Notes * Mariana Florez CRNP - 10/08/2024 9:30 AM EST Gastroenterology Outpatient Visit 10/08/2024 Referring physician:Fredrick Jaime DO PCP: Chiki Syed MD Past medical history: GERD History of cholecystectomy S/p Appendectomy ([facility]), 07/2024 Fatty liver 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 Jaime. Notes intermittent dysphagia with solid foods. Previously had an EGD/EUS performed 08/2022--showing an inlet esophageal patch with a mucosal nodule in the esophagus. It was recommended that he have a repeat EGD/EUS in 1 year but this was never completed. 10/08/2024: Notes worsening dysphagia symptoms over the last 3-4 weeks. Symptoms occur with dry foods like bagels and toast. Has started drinking more water with meals which seems to be helping. Denies any regurgitation/vomiting but feels as though he is close at times. No painful swallowing. About 3 weeks ago he was waking up coughing feeling as though he was suffocating-- this resolved spontaneously. Has not been taking his pantoprazole. Currently denies abdominal discomfort/pain, nausea or vomiting. No change in bowel habits. No history of jaundice. No fever, chills, cough, hematochezia, melena, or hemoptysis. No symptoms of chest pain or shortness of breath. No lower extremity edema or new skin changes/rashes. Denies lightheadedne ss/dizziness. Previous GI workup: Colonoscopy: n/a EGD: 08/2022--inlet esophageal patch, 5-6 mucosal nodules found in the esophagus biopsied. Z-line regular. 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 Normal duodenum. EUS 08/2022--status post cholecystectomy no evidence of bile duct abnormality. Fatty liver infiltration. 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 No specimens were collected. Social history: Tobacco use: Former, quit 30 years ago ETOH use: None Drug use: None NSAID use: None Caffeine use: None (decaf coffee) Artificial sweetener use: None Family Hx: No known family history of inflammatory bowel disease or GI malignancy. Daughter--celiac disease Current Outpatient Medications Medication Sig Dispense Refill [facility] FISH OIL + D3 8225-4641 MG-UNIT PO CAPS Take by mouth once . Takes this once daily rosuvastatin (CRESTOR) 5 MG Tablet Take 2.5 Tablets by mouth every other day. Vitamin B-12 500 MCG Oral Lozenge Take 500 mcg by mouth in the morning. Tylenol PM Extra Strength 500-25 MG Oral Tablet (diphenhydrAMINE-APAP (sleep)) Take 1 Tablet by mouth 3 times a day as needed for Itching. Warfarin Sodium 4 MG Oral Tablet (Coumadin) [...] MOUTH IN THE MORNING 90 Tablet 1 Ciclopirox 8 % External Solution Apply over nail and surrounding skin. Apply daily over previous coat. After seven (7) days, may remove with alcohol and continue cycle. 6.6 mL 3 Losartan Potassium 100 MG Oral Tablet (Cozaar) TAKE 1 TABLET BY MOUTH IN THE MORNING 90 Tablet 1 hydroCHLOROthiazide 12.5 MG Oral Capsule TAKE 1 CAPSULE BY MOUTH IN THE MORNING 90 Capsule 1 Pantoprazole Sodium 20 MG Oral Tablet Delayed Release (Protonix) Take 1 Tablet by mouth in the morning. 30 Tablet 5 Current Facility-Administered Medications Medication Dose Route Frequency Provider Last Rate Last Admin Albuterol Sulfate (Proventil) (2.5 MG/3ML) 0.083% inhalation solution 2.5 mg 2.5 mg Nebulizer Once PRN 2.5 mg at 09/12/24 1421 Past Medical History: Diagnosis Date A-fib ([facility]) 01/09/201606/21 Lexiscan Tc99 Stress echo WNL. Normal EF. Dr Mccloud Lawrence. Aortic ectasia, thoracic ([facility]) 07/28/202107/26 4.3 cm Appendicitis 07/08/2024 [facility] Atrial fibrillation ([facility]) Dr Gilliam Colitis GERD (gastroesophageal reflux disease) History of 2019 novel coronavirus disease (COVID-19) 03/09/202203/26 HTN, goal below 140/90 Hyperlipidemia LDL goal < 100 Prediabetes 10/05/2016 Prostate cancer (HCC) 10/05/2016 S/p surgery, XRT. followed by urology [facility]. 08/21 PSA 0.5 slight up. Precious 6mo Prior in [place] Dr Romero--s/p surg, XRT 5 years later. Prostate cancer (HCC) Past Surgical History: Procedure Laterality Date EGD, FLEXIBLE, DIAGNOSTIC 06/22/2022 tortuous esophagus, submucosal lesion - non-diagnostic bx / ESOPHAGOGASTRODUODENOSCOPY (EGD), FLEXIBLE, TRANSORAL, DIAGNOSTIC performed by Chong Chin MD at [facility] EGD, W/ENDOSCOPIC US 08/05/2022 stromal cell (smooth muscle) neoplasm, fatty liver, IPMN, esophageal polyp - leiomyoma, repeat EGD 1yr / ESOPHAGOGASTRODUODENOSCOPY (EGD), FLEXIBLE, TRANSORAL, ENDOSCOPIC ULTRASOUND performed by Kerry Vaughan DO at [facility]COPY [facility] LAPAROSCOPY; CHOLECYSTECTOMY 09/05/2008 Cholecystectomy, Laproscopic LAPAROSCOPY;APPENDECTOMY 07/08/2024 Dr Moshe Fox [facility] MISCELLANEOUS ORDER ([facility] ONLY) 09/05/2001 prostate 2002 cancer MISCELLANEOUS ORDER ([facility] ONLY) 09/05/2005 left kidney cyst vs cancer REMOVAL OF PROSTATE, PERINEAL N/A 2000 REMOVE CATARACT, INSERT LENS PROSTH Left 06/20/2018 left EXTRACAPSULAR CATARACT REMOVAL WITH INTRAOCULAR LENS performed by Bogdan Lindsay MD at [facility] REMOVE CATARACT, INSERT LENS PROSTH Right 06/29/2018 right EXTRACAPSULAR CATARACT REMOVAL WITH INTRAOCULAR LENS performed by Bogdan Lindsay MD at [facility] UNLISTED LAPAROSCOPY;HERNIA 09/05/2008 Hernia Repair Laparoscopic- RIGHT UNLISTED LAPAROSCOPY;HERNIA 09/05/2010 Hernia Repair Laparoscopic- LEFT Social History Tobacco Use Smoking status: Former Current packs/day: 0.00 Average packs/day: 1 pack/day for 29.9 years (29.9 ttl pk-yrs) Types: Cigarettes Start date: 10/15/1961 Quit date: 1991 Years since quittin.1 Smokeless tobacco: Former Quit date: 10/19/1991 Tobacco comments: 30 yrs 1- ppd Vaping Use Vaping status: Never Used Substance Use Topics Alcohol use: Yes Comment: wine at holidays Drug use: No Review of patient's allergies indicates: Allergen Reactions Atorvastatin Joint pain Fenofibrate Joint pain Gemfibrozil Diarrhea Lisinopril Cough Niacin Nausea/vomiting Review of Systems: See HPI for pertinent positives. All others negative, other than those noted in HPI. Physical Exam: BP 141/99 | Pulse 107 | Temp 36.5 C (97.7 F) | Wt 119.6 kg (263 lb 11.2 oz) | BMI 37.20 kg/m | BSA 2.44 m GENERAL: Well developed and well nourished in no acute distress. SKIN: No rashes, ulcers, jaundice or spider angiomata. HEENT: Normocephalic, sclera clear, pharynx normal. NECK: Supple, no lymphadenopathy, no masses or thyroid enlargement. LUNGS: Clear to auscultation bilaterally, no respiratory distress or accessory muscles used. HEART: Regular rate & rhythm, no murmurs and no gallops. ABDOMEN: Normal bowel sounds, soft and nontender, no masses or hepatosplenomegaly. EXTREMITIES: No palmar erythema, no ankle edema, no skin discoloration, no clubbing, no cyanosis. NEURO: No lateralizing findings. Sensory/Motor grossly normal. Lab data/imaging study review: Reviewed via chart . Impression/Plan: This is a(n) 83 year old male who is being evaluated in the office for ongoing care/risk managementfor the below diagnoses. 1. Gastroesophageal reflux disease, unspecified whether esophagitis present 2. Dysphagia, unspecified type (Primary) Patient with reflux symptoms and dysphagia with swallowing. Restart pantoprazole 20 mg daily. May need to increase to 40 mg daily pending patient response. Will follow-up in 2 weeks. EGD ordered for further evaluation,? Dilation. He is on Coumadin for AFib. Will cc cardiology in note regarding holding of anticoagulation. Will also have an EUS performed at this time for surveillance of Esophageal mucosal mass/polyp found on endoscopy, Gastric mucosal mass/polyp found on endoscopy, panc cyst IPMN. The patient agrees to the above plan and will call with additional questions or concerns. ER with all emergencies advised. Follow-up: Return in about 3 months (around 01/05/2025). | Check-out note: - EGD/EUS- Vaughan - Follow up after scopes I spent a total of 40-54 minutes (exact time 40 mins) on the date of service in preparation, delivery, and documentation of the care provided to Sushant La excluding any time spent in the performance of separately billed services or time spent by another provider/QHP. MELODY [facility] Gastroenterology, [facility] This chart was completed in part utilizing [employer] Speech Voice Recognition Software. Grammatical errors, random word insertions, prounoun errors, and incomplete sentences are an occasional consequence of this system due to software limitations, ambient noise, and hardware issues. Any formal questions or concerns about the content, text, or information contained within the body of this dictation should be directly addressed to the provider for clarification. documented in this encounter Nursing Notes * Natasha Grigsby RN - 10/08/2024 8:58 AM EST Pt here for dysphagia. Having trouble with certain foods like breads. Says "it almost seems like there is a dry spot and it gets stuck a minute, but then it goes down." Says symptoms are worse in themorning; doesn't seems as bad if he drinks water. EGD 06/22/22: The distal esophagus was mildly tortuous. documented in this encounter Plan of Treatment Upcoming Encounters Date Type Department Care Team (Latest Contact Info) Description 5 9:00 AM EST Telemedicine Pulmonary Medicine, [facility] [address] [facility] [place] [address] Jem Hilliard MD [address] [address] 5 3:30 PM EST Cardiac Studies Cardiac Studies, [facility] [address] [facility] [place] [address] 5 10:10 AM EST 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 Pharmacy, [facility] [address] [place] [address] [facility] [address] [place] [address] 5 11:30 AM EST Office Visit Cardiothoracic Surg [facility] [address] [place] [address] See Hirsch MD [address] [place] [address] 5 8:45 AM EST Hospital Encounter ENDO [facility], Endoscopy Room [facility] [address] [place] [id number] Kerry Vaughan, DO [address] [place] [address] 5 8:45 AM EST - 5 9:45 AM EST Surgery ENDO [facility], Endoscopy Room [facility] [address] [place] [phone] Kerry Vaughan, DO [address] [place] [address] ESOPHAGOGASTRODUODENOSCOPY (EGD), FLEXIBLE, TRANSORAL, ENDOSCOPIC ULTRASOUND 5 8:00 AM EDT Office Visit Cardiology, [facility] [address] [place] [address] Letty Romo CRNP [address] [place] [address] [place] [address] 5 9:20 AM EDT Office Visit Family Practice [facility] [address] [place] [address] Chiki Syed MD [address] [place] [address] 9:00 AM EDT Office Visit Gastroenterolog y, [facility] [address] [place] [address] Mariana Florez CRNP [address] [place] [address] Scheduled Orders Name Type Priority Associated Diagnoses Orde r Schedule EGD, FLEXIBLE, DIAGNOSTIC Procedures Routine Gastroesophageal reflux disease, unspecified whether esophagitis present Dysphagia, unspecified type Ordered: 10/08/2024 ENDOSCOPIC Medical Imaging Routine Gastroesophageal reflux disease, unspecified whether esophagitis present Dysphagia, unspecified type Expected: 10/08/2024, Expires: 11/05/2025 Scheduled Procedures Name Priority Associated Diagnoses Date/Ti [...] 02/06/2025 02/07/2024, 1104/2023, 02/08/2023, Additional history exists DTap/Tdap Vaccines (2 [...] this encounter Medical Devices Implanted Type Area Charge Entry Specialist Device Identifier Shelf Expiration Date Model / Serial / Lot Lens Intraoc 21.5 - [id number] - [id number] Implanted:Qty: 1 on 06/20/2018 by Bogdan Lindsay MD at [facility] Left: Eye [employer] 01/02/2023 [id number] / [id number] / [id number] Lens Intraoc 21.5 - [id number] - [id number] Implanted:Qty: 1 on 06/29/2018 by Bogdan Lindsay MD at [facility] Right: Eye [employer] 02/02/2023 [id number] / [id number] / [id number] documented as of this encounter Visit Diagnoses Diagnosis Dysphagia, unspecified type- Primary Gastroesophageal reflux disease, unspecified whether esophagitis present Esophageal polyp Other specified disorder of the [...] and were consensually agreed upon. Care Teams Presentation Team Member Relationship Specialty Start Date End Date Chiki Syed MD [address] [place] [address] PCP - General Family Medicine 10/20/18 documented as of this encounter
--- OUTSIDE RECORDS SUMMARY | 2024-11-11 10:34 | External Medical Summary | Summary of Care ---
Author Name Unknown Organization [facility] Address [address] [facility] [address] Phone [phone] Care Team Providers Care Wheelchair Van Operator First Responder Name Role Phone Chiki Syed MD Primary Care Provider + Reason for Visit * Reason Comments Dosage Adjustment In Person (Anticoag Cl inic) Encounter Details Date Type Department Care Team (Latest Contact Info) Description 10/16/2024 10:10 AM EST 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 [address] [place] [address] [facility] [address] [facility] [place] [address] 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 management encounter*; Chronic atrial fibrillation (HCC); Longstanding persistent atrial fibrillation (HCC); 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 Allergies Active Allergy Reactions Criticality Noted Date Comments Atorvastatin 10/15/2013 Joint pain Fenofibrate 10/15/2013 Joint pain Gemfibrozil Diarrhea 10/15/2013 Lisinopril Cough 01/25/2017 Niacin Nausea/vomiting 10/15/2013 documented as of this encounter (statuses as of 10/16/2024) Medications [facility] FISH OIL + D3 2807-7348 MG-UNIT PO CAPS Take by mouth once [...] as of this encounter (statuses as of 10/16/2024) Active Problems Problem Noted Date Diagnosed Date [...] cancer 01/25/2017 Overview (01/25/2017): left kidney dx [facility] Prediabetes 10/05/2016 Prostate cancer 10/05/2016 Overview (10/24/2019): S/p surgery, XRT. 07/[address] Holm 08/21 PSA 0.[address] [place] [address] Romero--s/p surg, XRT 5 years later. [...] past now Dr Patten Goes yearly to [facility]. 06/21 normal stress test w/Dr Mccloud 2009 colonoscopy WNL -consider in 2019. A-fib 01/09/2016 Overview (07/16/2024): 06/21 Lexiscan Tc99 Stress echo WNL. Normal EF. 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 Not on file Not on file Not on file documented as of this encounter Progress Notes * Socorro Pappas, [facility] - 10/16/2024 10:14 AM EST Medication Therapy Disease Management - 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 Patient: Sushant La | : 1940 Subjective Patient-Reported Symptoms: Patient Findings Positives: Upcoming invasive procedure (EGD on 10/25) Negatives: Signs/symptoms of thrombosis, Signs/symptoms of bleeding, Change in health, Change in alcohol use, Change in activity, Missed doses, Extra doses, Change in medications, Change in diet/appetite, Bruising Objective Current Warfarin Dose As of 10/16/2024 Warfarin maintenance plan: 8 mg (4 mg x 2) every Tue, Sat; 4 mg (4 mg x 1) all other days INR Result As of 10/16/2024 INR goal: 2.0-3.0 INR used for dosin.3 (10/16/2024) Assessment & Plan Warfarin Plan As of 10/16/2024 Full warfarin instructions: 10/20: Hold; 10/21: Hold; 10/22: Hold; 10/23: Hold; 10/24: Hold; 10/26: 10 mg; 10/27: 10 mg; Otherwise 8 mg every Tue, Sat; 4 mg all other days Next INR check: 11/14/2024 Patient is having a EDG on 10/25. Diagosis for coumadin therapy is atrial fib. No hx of recent DVT, PE, MVR, AL or CVA. CHADS2 score of 2. Patient will take their last dose of coumadin 10/19, then restart coumadin the evening of the procedure with 10 mg for 2 days, then resume previous dose. Repeat pt/inr 2 weeks after procedure. Repeat PT/INR in 4 week(s) Weekly dose: not changed Additional Dosing Information: I spent a total of 10-19 minutes (exact time 19 mins) on the date of service in preparation, delivery, and documentation of the care provided to Sushant La excluding any time spent in the performance of separately billed services or time spent by another provider/QHP. Socorro Pappas [facility] Clinical Pharmacist 10/16/2024, 10:38 AM documented in this encounter Plan of Treatment Upcoming Encounters Date Type Department Care Team (Latest Contact Info) Description 11:30 AM EST Office Visit Cardiothoracic Surg [facility] [address] [place] [address] See Hirsch MD [address] [place] [address] 5 8:45 AM EST Hospital Encounter ENDO OSSC, Endoscopy Room [facility] [address] [place] [address] Kerry Vaughan, [address] [place] [address] 5 8:45 AM EST - 5 9:45 AM EST Surgery ENDO OSSC, Endoscopy Room [facility] [address] [place] [address] Kerry Vaughan, [address] [place] [address] ESOPHAGOGASTRODUODENOSCOPY (EGD), FLEXIBLE, TRANSORAL, ENDOSCOPIC ULTRASOUND 5 11:10 AM EDT 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 Pharm[facility], [facility] [address] [facility] [place] [address] [facility] 132 [facility] [place] [address] 5 8:00 AM EDT Office Visit Cardiology, [facility] [address] [facility] [place] [address] Letty Room CRNP [address] [place] [address] [place] [address] 5 9:20 AM EDT Office Visit [facility] [address] [facility] [place] [address] Chiki Syed MD 132 [facility] [place] [address] 5 9:00 AM EDT Office Visit Gastroenterolog y, [facility] [address] [facility] [place] [address] Mariana Florez CRNP 132 [facility] [place] [address] Scheduled Procedures Name Priority Associated Diagnoses Date/Ti [...] 07/13/2023, Additional history exists HbA1c 02/06/2025 02/07/2024, 110 04/2023, 02/08/2023, Additional history exists DTap/Tdap Vaccines [...] this encounter Medical Devices Implanted Type Area Shell Molder Device Identifier Shelf Expiration Date Model / Serial / Lot Lens Intraoc 21.5 - [id number] - [id number] Implanted:Qty: 1 on 06/20/2018 by Bogdan Lindsay MD at OR [facility] Left: Eye BAUSCH & LOMB 01/02/2023 [id number] / [id number] / [id number] Lens Intraoc 21.5 - [id number] - [id number] Implanted:Qty: 1 on 06/29/2018 by Bogdan Lindsay MD at OR [facility] Right: Eye BAUSCH & LOMB 02/02/2023 [id number] / [id number] / [id number] documented as of this encounter Procedures Procedure Name Priority Date/Time Associated Diagnosis Comments INR FINGERSTICK, POINT OF CARE STAT 10/16/2024 10:00 AM EST Longstanding persistent atrial fibrillation (HCC) 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 documented in this encounter Results * INR FINGERSTICK, POINT OF CARE (10/16/2024 10:00 AM EST) Fingerstick INR 2.3 INR 10:22 AM EST LAB[facility]ORY [facility] 57-10 Blood 10/16/2024 10:0 0 AM EST 10/16/2024 10:22 AM EST Narrative LABORATORY [place] 57-10 - 10/16/2024 10:22 AM EST Therapeutic ranges for non-operative patients: Prophylaxsis/treatment of DVT: (Range:2.0-3.0) Treatment of pulmonary embolism:(Range:2.0-3.0) Prevention of systemic embolism from: -tissue heart valves -acute myocardial infarction -valvular heart disease -atrial fibrillation (Range: 2.0-3.0) Mechanical prosthetic valves: (Range: 2.5-3.5) Socorro Pappas [facility] LAB POINT OF C ARE TEST DOCKED DEVICE UNSOLICITED RESULTS Final Result LAB[facility]ATORY [place] 57-10 [facility] [place] [address] documented in this encounter Visit Diagnoses Diagnosis 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 management encounter- Primary Encounter for therapeutic drug monitoring Chronic atrial fibrillation (HCC) Atrial fibrillation Longstanding persistent atrial fibrillation (HCC) nursing home current use of anticoagulant therapy Esophageal polyp Other specified disorder of the [...] and were consensually agreed upon. Care Teams Wheelchair Van Operator First Responder Relationship Specialty Start Date End Date Chiki Syed MD [address] [place] [address] PCP - General Family Medicine 10/20/18 documented as of this encounter"
--- OUTSIDE RECORDS SUMMARY | 2024-11-11 10:34 | External Medical Summary | Summary of Care ---
Author Name Unknown Organization [facility] Address [address] [facility] [address] Phone [phone] Care Team Providers Care Allergist Immunologist Name Role Phone Chiki Syed MD Primary Care Provider + Reason for Visit * Reason Comments eRx-Medication Refill Encounter Details Date Type Department Care Team (Late st Contact Info) Description 10/15/2024 Refill Cardiology, [facility] [address] [place] [address] Emelia Hager, [place] [address] [place] [address] Atrial fibrillation, chronic (HCC); HTN, goal below 130/80 Allergies Active Allergy Reactions Criticality Noted Date Comments Atorvastatin 10/15/2013 Joint pain Fenofibrate 10/15/2013 Joint pain Gemfibrozil Diarrhea 10/15/2013 Lisinopril Cough 01/25/2017 Niacin Nausea/vomiting 10/15/2013 documented as of this encounter (statuses as of 10/16/2024) Medications [facility] FISH OIL + D3 8549-8623 MG-UNIT PO CAPS Take by mouth once [...] Jaime referred to CT surg/ TTE 02/[address] [facility] [address] 4.5cm 07/26 4.3 cm Atrial fibrillation, chronic 10/19/2018 Complex tear of lateral meni scus of right knee as current injury 04/05/2017 History of renal cell cancer 01/25/2017 Overview (01/25/2017): left kidney [facility] Prediabetes 10/05/2016 Prostate cancer 10/05/2016 Overview (10/24/2019): S/p surgery, XRT. 07/[address] Holm 08/21 PSA [address] [place] [address] Romero--s/p surg, XRT 5 years later. Well adult exam 10/05/2016 Overview (10/06/2024): 09/29 PFT done WNL! 08/28 refer STAIR., + emphysema on CT, referred pulm, 09/[address] surg For aorta. 02/26 [facility] PET-10mm lymph inguinal node with mild inc uptake. Consider BX. No skeletal mets. Indeterm hilar tracer uptake. -Alta's plan to observe monitor PSA 08/26 EGD biopsy +Leiomyoma. Precious 1y 10/22 EGD--abnormal. F/u sched Dec. 07/26 lung nodules, [...] Stress echo WNL. Normal EF. 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 Not on file Not on file Not on file documented as of this encounter Miscellaneous Notes * Telephone Encounter - Lurdes Taylor - 10/16/2024 7:55 AM ESTRefused Prescriptions: Disp Refills Metoprolol Succinate ER 50 MG Oral Tablet *90 Tab*3 Sig: TAKE 1 TABLET BY MOUTH IN THE MORNINGRefused By: LURDES TAYLORReason for Refusal: Too soon documented in this encounter Plan of Treatment Upcoming Encounters Date Type Department Care Team (Latest Contact Info) Description 10:10 AM EST 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 Pharmacy, [facility] [address] [place] [address] [facility] [address] [facility] [address] [place] [address] 5 11:30 AM EST Office Visit Cardiothoracic Surg [facility] [place] [address] [place] [facility] [place] [address] See Hirsch MD [address] [place] [facility] [place] [address] 5 8:45 AM EST Hospital Encounter ENDO OSSC, Endoscopy Room [facility] [address] [place] [address] Kerry Vaughan, DO [address] [place] [address] 5 8:45 AM EST - 5 9:45 AM EST Surgery ENDO OSS, Endoscopy Room [facility] [address] [place] [phone] Kerry Vaughan, DO [address] [place] [address] ESOPHAGOGASTRODUODENOSCOPY (EGD), FLEXIBLE, TRANSORAL, ENDOSCOPIC ULTRASOUND 5 8:00 AM EDT Office Visit Cardiology, [facility] [address] [place] [address] Letty Romo CRNP [address] [facility] [place] [address] 5 9:20 AM EDT Office Visit Family Practice [facility] [address] [place] [address] Chiki Syed MD [address] [place] [address] 5 9:00 AM EDT Office Visit Gastroenterolog y, [facility] [address] [place] [address] Mariana Florez CRNP [address] [place] [address] Scheduled Procedures Name Priority Associated Diagnoses Date/Ti [...] this encounter Medical Devices Implanted Type Area Vocational Auto Body Instructor Device Identifier Shelf Expiration Date Model / Serial / Lot Lens Intraoc 21.5 - [id number] - [id number] Implanted:Qty: 1 on 06/20/2018 by Bogdan Lindsay MD at OR [facility] Left: Eye BAUSCH & LOMB 01/02/2023 [id number] / [id number] / [id number] Lens Intraoc 21.5 - [id number] - [id number] Implanted:Qty: 1 on 06/29/2018 by Bogdan Lindsay MD at OR [facility] Right: Eye BAUSCH & LOMB 02/02/2023 [id number] / [id number] / [id number] documented as of this encounter Visit Diagnoses Diagnosis Atrial fibrillation, chronic (HCC) Atrial fibrillation HTN, goal below 130/80 Unspecified essential hypertension Esophageal polyp Other specified disorder of the [...] and were consensually agreed upon. Care Teams Allergist Immunologist Relationship Specialty Start Date End Date Chiki Syed MD [address] [place] [address] PCP - General Family Medicine 10/20/18 documented as of this encounter
--- OUTSIDE RECORDS SUMMARY | 2024-11-11 10:34 | External Medical Summary | Summary of Care ---
Author Name Unknown Organization [facility] Address [address] [place] [address] Phone [phone] Care Team Providers Care Director Enterprise Systems Name Role Phone Chiki Syed MD Primary Care Provider + Reason for Visit * Reason Onset Date Comments Advice 10/08/2024 Encounter Details Date Type Department Care Team (Late st Contact Info) Description 10/08/2024 Telephone Family Practice [facility] [address] [place] [address] Chiki Syed MD 132 [facility] [place] [id number] Advice Allergies Active Allergy Reactions Criticality Noted Date Comments Atorvastatin 10/15/2013 Joint pain Fenofibrate 10/15/2013 Joint pain Gemfibrozil Diarrhea 10/15/2013 Lisinopril Cough 01/25/2017 Niacin Nausea/vomiting 10/15/2013 documented as of this encounter (statuses as of 10/08/2024) Medications [facility] FISH OIL + D3 5759-2045 MG-UNIT PO CAPS Take by mouth once [...] cancer 01/25/2017 Overview (01/25/2017): left kidney dx [facility] Prediabetes 10/05/2016 Prostate cancer 10/05/2016 Overview (10/24/2019): S/p surgery, XRT. 07/[address] Holm 08/21 PSA [address] [place] [address] Romero--s/p surg, XRT 5 years later. [...] past now Dr Patten Goes yearly to [facility]. 06/21 normal stress test w/Dr Mccloud 2009 colonoscopy WNL -consider in 2020. A-fib 01/09/2016 Overview (07/16/2024): 06/21 Lexiscan Tc99 Stress echo WNL. Normal EF. 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 Thank you, Socorro Pappas Pharm D, [facility] 10/08/2024, 10:16 AM * Telephone Encounter - Kerry Vaughan DO - 10/08/2024 10:08 AM EST The patient will need to be off his Coumadin for 5 days prior to endoscopic ultrasound. * Telephone Encounter - Socorro Pappas RPh - 10/08/2024 9:57 AM EST Await response from providers. Socorro Pappas Pharm Michi, [facility] Clinical Pharmacist 10/08/2024, 9:57 AM * Telephone Encounter - Chiki Syed MD - 10/08/2024 9:[address] Vaughan / Ms. Crabtree, Do you want the warfarin held for possible biopsy? Cc: MTM coumadin / Enid Pappas * Telephone Encounter - My Chavez OSA - 10/08/2024 9:42 AM EST Pt was just in Gastro for an appt with Mariana Florez and she ordered and egd with eus for the pt with Dr. Vaughan. The pt is on coumadin and pt is needing to know how to hold the coumadin for the procedure on 10/25/2024. Can you please call the pt to let him know documented in this encounter Plan of Treatment Upcoming Encounters Date Type Department Care Team (Latest Contact Info) Description 5 9:00 AM EST Telemedicine Pulmonary Medicine, [facility] [address] [facility] [place] [address] Jem Hilliard MD [address] [facility] [address] 5 3:30 PM EST Cardiac Studies Cardiac Studies, [facility] [address] [facility] [place] [address] 5 10:10 AM EST 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 Pharmacy, [address] [place] [address] [facility] [address] [facility] [place] [address] 5 11:30 AM EST Office Visit Cardiothoracic Surg [facility], [place] [address] [facility] [place] [address] See Hirsch MD [address] [facility] [place] [address] 5 8:45 AM EST Hospital Encounter ENDO OSSC, Endoscopy Room [facility] [address] [place] [phone] Vaughan, Marten B, DO [address] [place] [address] 5 8:45 AM EST - 5 9:45 AM EST Surgery ENDO OSSC, Endoscopy Room [facility] [address] [place] [phone] Kerry Vaughan, DO [address] [place] [address] ESOPHAGOGASTRODUODENOSCOPY (EGD), FLEXIBLE, TRANSORAL, ENDOSCOPIC ULTRASOUND 5 8:00 AM EDT Office Visit Cardiology, [facility] [place] [address] Letty Romo CRNP [address] [place] [address] [place] [address] 5 9:20 AM EDT Office Visit Family Practice [facility] [address] [facility] [place] [address] Chiki Syed MD [address] [place] [address] 5 9:00 AM EDT Office Visit Gastroenterolog y, [facility] [address] [facility] [place] [address] Mariana Florez CRNP [address] [place] [address] Scheduled Procedures Name Priority Associated Diagnoses Date/Ti [...] 07/13/2023, Additional history exists HbA1c 02/06/2025 02/07/2024, 11/04/2023, 02/08/2023, Additional history exists DTap/Tdap Vaccines (2 [...] this encounter Medical Devices Implanted Type Area Garment Presser Device Identifier Shelf Expiration Date Model / Serial / Lot Lens Intraoc 21.5 - [id number] - [id number] Implanted:Qty: 1 on 06/20/2018 by Bogdan Lindsay MD at OR [facility] Left: Eye BAUSCH & LOMB 01/02/2023 [id number] / [id number] / [id number] Lens Intraoc 21.5 - [id number] - [id number] Implanted:Qty: 1 on 06/29/2018 by Bogdan Lindsay MD at OR [facility] Right: Eye BAUSCH & LOMB 02/02/2023 [id number] / [id number] / [id number] documented as of this encounter Advance Directives [...] and were consensually agreed upon. Care Teams Director Enterprise Systems Relationship Specialty Start Date End Date Chiki Syed MD [address] [place] [address] PCP - General Family Medicine 10/20/18 documented as of this encounter
--- OUTSIDE RECORDS SUMMARY | 2024-11-11 10:34 | External Medical Summary | Summary of Care ---
Author Name Unknown Organization [facility] Address [address] [place] [address] Phone [phone] Care Team Providers Care Trade Sales Assistant Name Role Phone Chiki Syed MD Primary Care Provider + Reason for Visit * Reason Onset Date Comments Patient Instructions 10/08/2024 Eus Encounter Details Date Type Department Care Team (Late st Contact Info) Description 10/08/2024 Telephone Gastroenterology, [facility] 132 [place] [id number] Specified, Zz No Resource [address] [place] [address] Patient Instructions (Eus ) Allergies Active Allergy Reactions Criticality Noted Date Comments Atorvastatin 10/15/2013 Joint pain Fenofibrate 10/15/2013 Joint pain Gemfibrozil Diarrhea 10/15/2013 Lisinopril Cough 01/25/2017 Niacin Nausea/vomiting 10/15/2013 documented as of this encounter (statuses as of 10/08/2024) Medications [facility] FISH OIL + D3 0528-7809 MG-UNIT PO CAPS Take by mouth once [...] referred to CT surg/ TTE 02/[address] [facility] PET [address] 4.5cm 07/26 4.3 cm Atrial fibrillation, chronic 10/19/2018 Complex tear of lateral meni scus of right knee as current injury 04/05/2017 History of renal cell cancer 01/25/2017 Overview (01/25/2017): left kidney dx [facility] Prediabetes 10/05/2016 Prostate cancer 10/05/2016 Overview (10/24/2019): S/p surgery, XRT. 07/[address] Holm 08/21 PSA 0.[address] [place] [address] Romero--s/p surg, XRT 5 years later. Well adult exam 10/05/2016 Overview (10/06/2024): 09/29 PFT done WNL! 08/28 refer STAIR., + emphysema on CT, referred pulm, 09/[address] surg For aorta. 02/26 [facility] PET-10mm lymph inguinal node with mild inc [...] past now Dr Patten Goes yearly to [facility]. 06/21 normal stress test w/Dr Mccloud 2009 colonoscopy WNL -consider in 2020. A-fib 01/09/2016 Overview (07/16/2024): 06/21 Lexiscan Tc99 Stress echo WNL. Normal EF. 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 file Not on file Not on file documented as of this encounter Plan of Treatment Upcoming Encounters Date Type Department Care Team (Latest Contact Info) Description 5 9:00 AM EST Telemedicine Pulmonary Medicine, [facility] 132 [facility] [place] [address] Jem Hilliard MD [address] [facility] [address] 5 3:30 PM EST Cardiac Studies Cardiac Studies, [address] [place] [address] 5 10:10 AM EST 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 Pharmacy, [address] [place] [address] [facility] [address] [place] [address] 5 11:30 AM EST Office Visit Cardiothoracic Surg [facility], [place] [address] [facility] [place] [address] See Hirsch MD [address] [facility] [place] [address] 5 8:45 AM EST Hospital Encounter ENDO OSSC, Endoscopy Room [facility] [address] [place] [phone] Kerry Vaughan, DO [address] [place] [address] 5 8:45 AM EST - 5 9:45 AM EST Surgery ENDO O[facility], Endoscopy Room [facility] [address] [place] [address] Kerry Vaughan, DO [address] [place] [address] ESOPHAGOGASTRODUODENOSCOPY (EGD), FLEXIBLE, TRANSORAL, ENDOSCOPIC ULTRASOUND 5 8:00 AM EDT Office Visit Cardiology, [facility] [address] [place] [address] Letty Romo CRNP [address] [place] [address] [place] [address] 5 9:20 AM EDT Office Visit Family Practice [facility] [address] [place] [address] Chiki Syed MD [address] [place] [address] 5 9:00 AM EDT Office Visit Gastroenterolog y, [facility] [place] [address] Mariana Florez CRNP [address] [place] [address] Scheduled Procedures Name Priority Associated Diagnoses Date/Ti [...] this encounter Medical Devices Implanted Type Area Tank Pumper Panelboard Device Identifier Shelf Expiration Date Model / Serial / Lot Lens Intraoc 21.5 - [id number] - [id number] Implanted:Qty: 1 on 06/20/2018 by Bogdan Lindsay MD at OR [facility] Left: Eye BAUSCH & LOMB 01/02/2023 [id number] / [id number] / [id number] Lens Intraoc 21.5 - [id number] - [id number] Implanted:Qty: 1 on 06/29/2018 by Bogdan Lindsay MD at OR [facility] Right: Eye BAUSCH & LOMB 02/02/2023 [id number] / [id number] / [id number] documented as of this encounter Advance Directives [...] and were consensually agreed upon. Care Teams Trade Sales Assistant Relationship Specialty Start Date End Date Chiki Syed MD [address] [place] [address] PCP - General Family Medicine 10/20/18 documented as of this encounter
--- OUTSIDE RECORDS SUMMARY | 2024-11-11 10:34 | External Medical Summary | Summary of Care ---
Author Name Unknown Organization [facility] Address [address] [place] [address] Phone [phone] Care Team Providers Care Pouch Making Machine Operator Name Role Phone Chiki Syed MD Primary Care Provider + Reason for Visit * Reason Onset Date Comments Advice 10/08/2024 Encounter Details Date Type Department Care Team (Late st Contact Info) Description 10/08/2024 Telephone Family Practice [facility] [address] [place] [address] Chiki Syed MD 132 [facility] [place] [phone] Advice Allergies Active Allergy Reactions Criticality Noted Date Comments Atorvastatin 10/15/2013 Joint pain Fenofibrate 10/15/2013 Joint pain Gemfibrozil Diarrhea 10/15/2013 Lisinopril Cough 01/25/2017 Niacin Nausea/vomiting 10/15/2013 documented as of this encounter (statuses as of 10/08/2024) Medications [facility] FISH OIL + D3 3709-4362 MG-UNIT PO CAPS Take by mouth once [...] Jaime referred to CT surg/ TTE 02/26 [facility] PET CT 4.5cm 07/26 4.3 cm Atrial fibrillation, chronic 10/19/2018 Complex tear of lateral meni scus of right knee as current injury 04/05/2017 History of renal cell cancer 01/25/2017 Overview (01/25/2017): left kidney dx [facility] Prediabetes 10/05/2016 Prostate cancer 10/05/2016 Overview (10/24/2019): S/p surgery, XRT. 07/[address] Holm 08/21 PSA [address] [place] [address] Romero--s/p surg, XRT 5 years later. Well adult exam 10/05/2016 Overview (10/06/2024): 09/29 PFT done WNL! 08/28 refer STAIR., + emphysema on CT, referred pulm, 09/[address] surg For aorta. 02/26 [facility] PET-10mm lymph inguinal node with [...] Stress echo WNL. Normal EF. 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 Thank you, Socorro Pappas Pharm D, [facility] Clinical Pharmacist 10/08/2024, 10:16 AM * Telephone [...] 5 9:00 AM EST Telemedicine Pulmonary Medicine, [facility] 132 [facility] [place] [address] Jem Hilliard MD [address] [facility] [address] 5 3:30 PM EST Cardiac Studies Cardiac Studies, [facility] 132 [facility] [place] [address] 5 10:10 AM EST 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 Pharmacy, [address] [place] [address] [facility] 132 [facility] [place] [address] 5 11:30 AM EST Office Visit Cardiothoracic Surg [facility], [place] [address] [facility] [place] [address] See Hirsch MD [address] [facility] [place] [address] 5 8:45 AM EST Hospital Encounter ENDO [facility], Endoscopy Room [facility] 132 [place] [phone] Vaughan, Marten B, DO [address] [place] [address] 5 8:45 AM EST - 5 9:45 AM EST Surgery ENDO [facility], Endoscopy Room O[facility] [address] [place] [phone] Kerry Vaughan, DO [address] [place] [address] ESOPHAGOGASTRODUODENOSCOPY (EGD), FLEXIBLE, TRANSORAL, ENDOSCOPIC ULTRASOUND 5 8:00 AM EDT Office Visit Cardiology, [facility] [place] [address] Letty Romo CRNP [address] [place] [address] [place] [address] 5 9:20 AM EDT Office Visit Family Practice [facility] 132 [facility] [place] [address] Chiki Syed MD [address] [place] [address] 5 9:00 AM EDT Office Visit Gastroenterolog y, [facility] 132 [facility] [place] [address] Mariana Florez CRNP [address] [place] [address] Scheduled Procedures Name Priority Associated Diagnoses Date/Ti [...] this encounter Medical Devices Implanted Type Area Tetryl Blender Operator Device Identifier Shelf Expiration Date Model / Serial / Lot Lens Intraoc 21.5 - [id number] - [id number] Implanted:Qty: 1 on 06/20/2018 by Bogdan Lindsay MD at OR [facility] Left: Eye BAUSCH & LOMB 01/02/2023 [id number] / [id number] / [id number] Lens Intraoc 21.5 - [id number] - [id number] Implanted:Qty: 1 on 06/29/2018 by Bogdan Lindsay MD at OR [facility] Right: Eye BAUSCH & LOMB 02/02/2023 [id number] / [id number] / [id number] documented as of this encounter Advance Directives [...] and were consensually agreed upon. Care Teams Pouch Making Machine Operator Relationship Specialty Start Date End Date Chiki Syed MD [address] [place] [address] PCP - General Family Medicine 10/20/18 documented as of this encounter
--- OUTSIDE RECORDS SUMMARY | 2024-11-11 10:34 | External Medical Summary | Summary of Care ---
Author Name Unknown Organization [facility] Address [address] [place] [address] Phone [phone] Care Team Providers Care Kiln Firer Name Role Phone Chiki Syed MD Primary Care Provider + Reason for Visit * Reason Onset Date Comments Advice 10/08/2024 Encounter Details Date Type Department Care Team (Late st Contact Info) Description 10/08/2024 Telephone Family Practice [facility] [address] [place] [address] Chiki Syed MD 132 [facility] [place] [phone] Advice Allergies Active Allergy Reactions Criticality Noted Date Comments Atorvastatin 10/15/2013 Joint pain Fenofibrate 10/15/2013 Joint pain Gemfibrozil Diarrhea 10/15/2013 Lisinopril Cough 01/25/2017 Niacin Nausea/vomiting 10/15/2013 documented as of this encounter (statuses as of 10/08/2024) Medications [facility] FISH OIL + D3 8750-1402 MG-UNIT PO CAPS Take by mouth once [...] Jaime referred to CT surg/ TTE 02/26 [facility] PET CT 4.5cm 07/26 4.3 cm Atrial fibrillation, chronic 10/19/2018 Complex tear of lateral meni scus of right knee as current injury 04/05/2017 History of renal cell cancer 01/25/2017 Overview (01/25/2017): left kidney dx [facility] Prediabetes 10/05/2016 Prostate cancer 10/05/2016 Overview (10/24/2019): S/p surgery, XRT. 07/[address] Holm 08/21 PSA [address] [place] [address] Romero--s/p surg, XRT 5 years later. Well adult exam 10/05/2016 Overview (10/06/2024): 09/29 PFT done WNL! 08/28 refer STAIR., + emphysema on CT, referred pulm, 09/[address] surg For aorta. 02/26 [facility] PET-10mm lymph inguinal node with mild inc [...] past now Dr Patten Goes yearly to [facility]. 06/21 normal stress test w/Dr Mcclodu 2009 colonoscopy WNL -consider in 2020. A-fib 01/09/2016 Overview (07/16/2024): 06/21 Lexiscan Tc99 Stress echo WNL. Normal EF. 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 Not on file Not on file Not [...] 5 9:00 AM EST Telemedicine Pulmonary Medicine, [facility] 132 [facility] [place] [address] Jem Hilliard MD [address] [facility] [address] 5 3:30 PM EST Cardiac Studies Cardiac Studies, [facility] 132 [facility] [place] [address] 5 10:10 AM EST 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 Pharmacy, [address] [place] [address] [facility] 132 [facility] [place] [address] 5 11:30 AM EST Office Visit Cardiothoracic Surg [facility] [place] [address] [facility] [place] [address] See Hirsch MD [address] [facility] [place] [address] 5 8:45 AM EST Hospital Encounter ENDO [facility], Endoscopy Room [facility] 132 [place] [phone] Vaughan, Marten B, DO [address] [place] [address] 5 8:45 AM EST - 5 9:45 AM EST Surgery ENDO [facility], Endoscopy Room [facility] [address] [place] [phone] Kerry Vaughan, DO [address] [place] [address] ESOPHAGOGASTRODUODENOSCOPY (EGD), FLEXIBLE, TRANSORAL, ENDOSCOPIC ULTRASOUND 5 8:00 AM EDT Office Visit Cardiology, [facility] [place] [address] Letty Romo CRNP [address] [place] [address] [place] [address] 5 9:20 AM EDT Office Visit Family Practice [facility] 132 [facility] [place] [address] Chiki Syed MD [address] [place] [address] 5 9:00 AM EDT Office Visit Gastroenterolog y, [facility] 132 [facility] [place] [address] Mariana Florez CRNP [address] [place] [address] Scheduled Procedures Name Priority Associated Diagnoses Date/Ti [...] this encounter Medical Devices Implanted Type Area Roller Stainer Device Identifier Shelf Expiration Date Model / Serial / Lot Lens Intraoc 21.5 - [id number] - [id number] Implanted:Qty: 1 on 06/20/2018 by Bogdan Lindsay MD at OR [facility] Left: Eye BAUSCH & LOMB 01/02/2023 [id number] / [id number] / [id number] Lens Intraoc 21.5 - [id number] - [id number] Implanted:Qty: 1 on 06/29/2018 by Bogdan Lindsay MD at OR [facility] Right: Eye BAUSCH & LOMB 02/02/2023 [id number] / [id number] / [id number] documented as of this encounter Advance Directives [...] and were consensually agreed upon. Care Teams Kiln Firer Relationship Specialty Start Date End Date Chiki Syed MD [address] [place] [address] PCP - General Family Medicine 10/20/18 documented as of this encounter
--- OUTSIDE RECORDS SUMMARY | 2024-11-11 10:34 | External Medical Summary | Summary of Care ---
Author Name Unknown Organization [facility] Address [address] [facility] [place] [address] Phone [phone] Care Team Providers Care Sales Audit Clerk Name Role Phone Chiki Syed MD Primary Care Provider + Reason for Visit * Reason Onset Date Comments Preop Pt Assessment 10/18/2024 Encounter Details Date Type Department Care Team (Late st Contact Info) Description 10/18/2024 Telephone Pre Surgery Center, [facility] [address] [place] [address] Kerry Vaughan, [address] [place] [address] Preop Pt Assessment Allergies Active Allergy Reactions Criticality Noted Date Comments Atorvastatin 10/15/2013 Joint pain Fenofibrate 10/15/2013 Joint pain Gemfibrozil Diarrhea 10/15/2013 Lisinopril Cough 01/25/2017 Niacin Nausea/vomiting 10/15/2013 documented as of this encounter (statuses as of 10/22/2024) Medications [facility] FISH OIL + D3 7075-6988 MG-UNIT PO CAPS Take by mouth once [...] as of this encounter (statuses as of 10/22/2024) Active Problems Problem Noted Date Diagnosed Date [...] Jaime referred to CT surg/ TTE 02/26 [facility] PET CT 4.5cm 07/26 4.3 cm Atrial fibrillation, chronic 10/19/2018 Complex tear of lateral meni scus of right knee as current injury 04/05/2017 History of renal cell cancer 01/25/2017 Overview (01/25/2017): left kidney [facility] Prediabetes 10/05/2016 Prostate cancer 10/05/2016 Overview (10/24/2019): S/p surgery, XRT. 07/[address] Holm 08/21 PSA [address] [place] [address] Romero--s/p surg, XRT 5 years later. Well adult exam 10/05/2016 Overview (10/06/2024): 09/29 PFT done WNL! 08/28 refer STAIR., + emphysema on CT, referred pulm, 09/[address] surg For aorta. 02/26 [facility] PET-10mm lymph inguinal node [...] Stress echo WNL. Normal EF. 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 file Not on file Not on file documented as of this encounter Plan of Treatment Upcoming Encounters Date Type Department Care Team (Latest Contact Info) Description 5 11:30 AM EST Office Visit Cardiothoracic Surg [facility] [place] [address] [place] [address] See Hirsch MD [address] [place] [address] 5 8:45 AM EST Hospital Encounter ENDO [facility], Endoscopy Room OSS [address] [place] [phone] Kerry Vaughan, DO [address] [place] [address] 5 8:45 AM EST - 5 9:45 AM EST Surgery ENDO [facility], Endoscopy Room [facility] [address] [place] [phone] Kerry Vaughan, DO [address] [place] [address] ESOPHAGOGASTRODUODENOSCOPY (EGD), FLEXIBLE, TRANSORAL, ENDOSCOPIC ULTRASOUND 5 11:10 AM EDT 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 Pharmacy, [facility] 132 [facility] [place] [address] [facility] 132 [facility] [place] [address] 5 8:00 AM EDT Office Visit Cardiology, [facility] 132 [facility] [place] [address] Letty Romo CRNP [address] [place] [address] [place] [address] 5 9:20 AM EDT Office Visit Family Practice [facility] 132 [facility] [place] [address] Chiki Syed MD 132 [facility] [place] [address] 5 9:00 AM EDT Office Visit Gastroenterolog y, [facility] 132 [facility] [place] [address] Mariana Florez CRNP [facility] [place] [address] Scheduled Procedures Name Priority Associated Diagnoses Date/Ti [...] this encounter Medical Devices Implanted Type Area Ict Account Manager Device Identifier Shelf Expiration Date Model / Serial / Lot Lens Intraoc 21.5 - [id number] - [id number] Implanted:Qty: 1 on 06/20/2018 by Bogdan Lindsay MD at OR [facility] Left: Eye BAUSCH & LOMB 01/02/2023 [id number] / [id number] / [id number] Lens Intraoc 21.5 - [id number] - [id number] Implanted:Qty: 1 on 06/29/2018 by Bogdan Lindsay MD at OR [facility] Right: Eye BAUSCH & LOMB 02/02/2023 [id number] / [id number] / [id number] documented as of this encounter Advance Directives [...] were consensually agreed upon. Care Teams Sales Audit Clerk Relationship Specialty Start Date End Date Chiki Syed MD [address] [place] [address] PCP - General Family Medicine 10/20/18 documented as of this encounter
--- OUTSIDE RECORDS SUMMARY | 2024-11-11 10:34 | External Medical Summary ---
Author Name Unknown Address Unknown Organization K0G:[facility] [address] [place] [address] Laboratory Report Ordering Provider Test Date Status AJIT VALDIVIA 10/16/2024 10:00:26 Final Therapeutic ranges for non-o perative patients:
Prophylaxsis/treatment of DVT: (Range:2.0-3.0)
Treatment of pulmonary embolism:(Range:2.0-3.0)
Prevention of systemic embolism from:
-tissue heart valves
-acute myocardial infarction
-valvular heart disease
-atrial fibrillation
(Range: 2.0-3.0)
Mechanical prosthetic valves: (Range: 2.5-3.5) Observation Date Value Abnormality Reference (Units ) Status INR in Capillary blood by Coagulation assay 10/16/2024 10:00:26 2.3 (INR) Final Performing Location [facility]-1 0 [address] [place] [address]
--- OUTSIDE RECORDS SUMMARY | 2024-11-11 10:34 | External Medical Summary | Summary of Care ---
Author Name Unknown Organization [facility] Address [address] [facility] [place] [address] Phone [phone] Care Team Providers Care Coal Yard Supervisor Name Role Phone Chiki Syed MD Primary Care Provider + Reason for Visit * Reason Comments Pulmonary Function Test Encounter Details Date Type Department Care Team (Late st Contact Info) Description 10/15/2024 2:30 PM EST PulmDiagnostic Pulmonary Function Lab, [facility] [address] [place] [address] [facility] Function Tech [address] [place] [address] Chronic respiratory failure with hypoxia (HCC)* Allergies Active Allergy Reactions Criticality Noted Date Comments Atorvastatin 10/15/2013 Joint pain Fenofibrate 10/15/2013 Joint pain Gemfibrozil Diarrhea 10/15/2013 Lisinopril Cough 01/25/2017 Niacin Nausea/vomiting 10/15/2013 documented as of this encounter (statuses as of 10/15/2024) Medications [facility] FISH OIL + D3 7716-4250 MG-UNIT PO CAPS Take by mouth once [...] as of this encounter (statuses as of 10/15/2024) Active Problems Problem Noted Date Diagnosed Date [...] 01/25/2017 Overview (01/25/2017): left kidney dx [facility] Prediabetes 10/05/2016 Prostate cancer 10/05/2016 Overview (10/24/2019): S/p surgery, XRT. 07/[address] Holm 08/21 PSA [address] [place] [address] Romero--s/p surg, XRT 5 years later. [...] past now Dr Patten Goes yearly to [facility]. 06/21 normal stress test w/Dr Mccloud 2009 colonoscopy WNL -consider in 2019. A-fib 01/09/2016 Overview (07/16/2024): 06/21 Lexiscan Tc99 Stress echo WNL. Normal EF. Dr Mccloud [place] in past now [place]/Madan HTN, goal below 130/80 GERD (gastroesophageal reflux disease) documented as of this encounter (statuses as of 10/15/2024) Resolved Problems Problem Noted Date Diagnosed Date [...] as of this encounter (statuses as of 10/15/2024) Immunizations Name Administration Dates Next Due COVID-19 [...] money to buy more. 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 documented in this encounter Plan of Treatment Upcoming Encounters Date Type Department Care Team (Latest Contact Info) Description 5 10:10 AM EST 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 Pharmacy, [facility] 132 [place] [address] [facility] 132 [place] [address] 5 11:30 AM EST Office Visit [facility]oracic [facility]urg [facility] [place] [address] [facility] [place] [address] See Hirsch MD [address] [facility] [place] [address] 5 8:45 AM EST Hospital Encounter ENDO [facility], Endoscopy Room [facility] 132 [place] [phone] Kerry Vaughan, DO [address] [place] [address] 5 8:45 AM EST - 5 9:45 AM EST Surgery ENDO [facility], Endoscopy Room O[facility] [address] [place] [phone] Kerry Vaughan, DO [address] [place] [address] ESOPHAGOGASTRODUODENOSCOPY (EGD), FLEXIBLE, TRANSORAL, ENDOSCOPIC ULTRASOUND 5 8:00 AM EDT Office Visit Cardiology, [facility] [address] [place] [address] Letty Romo CRNP [address] [place] [address] [place] [address] 5 9:20 AM EDT Office Visit Family Practice [facility] [address] [place] [address] Chiki Syed MD [address] [place] [address] 5 9:00 AM EDT Office Visit Gastroenterolog y, [facility] [address] [place] [address] Mariana Florez CRNP [address] [place] [address] Scheduled Procedures Name Priority Associated Diagnoses Date/Ti [...] this encounter Medical Devices Implanted Type Area Director Of Sales Device Identifier Shelf Expiration Date Model / Serial / Lot Lens Intraoc 21.5 - [id number] - [id number] Implanted:Qty: 1 on 06/20/2018 by Bogdan Lindsay MD at OR [facility] Left: Eye BAUSCH & LOMB 01/02/2023 [id number] / [id number] / [id number] Lens Intraoc 21.5 - [id number] - [id number] Implanted:Qty: 1 on 06/29/2018 by Bogdan Lindsay MD at OR [facility] Right: Eye BAUSCH & LOMB 02/02/2023 [id number] / [id number] / [id number] documented as of this encounter Visit Diagnoses Diagnosis Chronic respiratory failure with hypoxia (HCC)- Primary Chronic respiratory failure Esophageal polyp Other specified disorder of the [...] and were consensually agreed upon. Care Teams Coal Yard Supervisor Relationship Specialty Start Date End Date Chiki Syed MD 132 [place] [address] PCP - General Family Medicine 10/20/18 documented as of this encounter
--- OUTSIDE RECORDS SUMMARY | 2024-11-11 10:34 | External Medical Summary | Summary of Care ---
Author Name Unknown Organization [facility] Address [address] [place] [address] Phone [phone] Care Team Providers Care Wax Ball Knock Out Worker Name Role Phone Chiki Syed MD Primary Care Provider + Reason for Visit * Reason Onset Date Comments Advice 10/08/2024 Encounter Details Date Type Department Care Team (Late st Contact Info) Description 10/08/2024 Telephone Family Practice [facility] [address] [place] [address] Chiki Syed MD 132 [facility] [place] [phone] Advice Allergies Active Allergy Reactions Criticality Noted Date Comments Atorvastatin 10/15/2013 Joint pain Fenofibrate 10/15/2013 Joint pain Gemfibrozil Diarrhea 10/15/2013 Lisinopril Cough 01/25/2017 Niacin Nausea/vomiting 10/15/2013 documented as of this encounter (statuses as of 10/08/2024) Medications [facility] OIL + D3 [id number] MG-UNIT PO CAPS Take by mouth once [...] Jaime referred to CT surg/ TTE 02/26 [facility] PET CT 4.5cm 07/26 4.3 cm Atrial fibrillation, chronic 10/19/2018 Complex tear of lateral meni scus of right knee as current injury 04/05/2017 History of renal cell cancer 01/25/2017 Overview (01/25/2017): left kidney dx [facility] Prediabetes 10/05/2016 Prostate cancer 10/05/2016 Overview (10/24/2019): S/p surgery, XRT. 07/[address] Holm 08/21 PSA 0.[address] [place] [address] Romero--s/p surg, XRT 5 years later. Well adult exam 10/05/2016 Overview (10/06/2024): 09/29 PFT done WNL! 08/28 refer STAIR., + emphysema on CT, referred pulm, 09/[address] surg For aorta. 02/26 [facility] PET-10mm lymph inguinal node with mild inc [...] past now Dr Patten Goes yearly to [facility]. 06/21 normal stress test w/Dr Mccloud 2009 colonoscopy WNL -consider in 2020. A-fib 01/09/2016 Overview (07/16/2024): 06/21 Lexiscan Tc99 Stress echo WNL. Normal EF. 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 Thank you, Socorro Pappas Pharm D, [facility] Clinical Pharmacist 10/08/2024, 10:16 AM * Telephone Encounter - Kerry Vaughan DO - 10/08/2024 10:08 AM EST The patient will need to be off his Coumadin for 5 days prior to endoscopic ultrasound. * Telephone Encounter - Socroro Pappas RPh - 10/08/2024 9:57 AM EST [...] 5 9:00 AM EST Telemedicine Pulmonary Medicine, [facility] 132 [facility] [place] [address] Jem [facility]illiard MD [address] [facility] [address] 5 3:30 PM EST Cardiac Studies Cardiac Studies, [facility] 132 [facility] [place] [address] 5 10:10 AM EST 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 Pharmacy, [address] [place] [address] [facility] 132 [facility] [place] [address] 5 11:30 AM EST Office Visit Cardiothoracic Surg [facility] [place] [address] [facility] [place] [address] See Hirsch MD [address] [facility] [place] [address] 5 8:45 AM EST Hospital Encounter ENDO [facility], Endoscopy Room [facility] [address] [place] [phone] Vaughan, Marten B, DO [address] [place] [address] 5 8:45 AM EST - 5 9:45 AM EST Surgery ENDO [facility], Endoscopy Room [facility] [address] [place] [phone] Kerry Vaughan, DO [address] [place] [address] ESOPHAGOGASTRODUODENOSCOPY (EGD), FLEXIBLE, TRANSORAL, ENDOSCOPIC ULTRASOUND 5 8:00 AM EDT Office Visit [facility]iology, [facility] [place] [address] Letty Romo CRNP [address] [place] [address] [place] [address] 5 9:20 AM EDT Office Visit Family Practice [facility] 132 [facility] [place] [address] Chiki Syed MD [address] [place] [address] 5 9:00 AM EDT Office Visit Gastroenterolog y, [facility] 132 [facility] [place] [address] Mariana Florez CRNP [address] [place] [address] Scheduled Procedures Name Priority Associated Diagnoses Date/Ti [...] this encounter Medical Devices Implanted Type Area Net Repairer Device Identifier Shelf Expiration Date Model / Serial / Lot Lens Intraoc 21.5 - [id number] - [id number] Implanted:Qty: 1 on 06/20/2018 by Bogdan Lindsay MD at [facility] Left: Eye [employer] LOMB 01/02/2023 [id number] / [id number] / [id number] Lens Intraoc 21.5 - [id number] - [id number] Implanted:Qty: 1 on 06/29/2018 by Bogdan Lindsay MD at [facility] Right: Eye [employer]CH [employer] LOMB 02/02/2023 [id number] / [id number] / [id number] documented as of this encounter Advance Directives [...] and were consensually agreed upon. Care Teams Wax Ball Knock Out Worker Relationship Specialty Start Date End Date Chiki Syed MD [address] [place] [address] PCP - General Family Medicine 10/20/18 documented as of this encounter
--- OUTSIDE RECORDS SUMMARY | 2024-11-11 10:34 | External Medical Summary | Summary of Care ---
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 Name Role Phone Chiki Syed MD Primary Care Provider + Reason for Visit * Reason Onset Date Comments Advice 10/08/2024 Encounter Details Date Type Department Care Team (Late st Contact Info) Description 10/08/2024 Telephone Family Practice [facility] [address] [place] [address] Chiki Syed MD 132 [facility] [place] [phone] Advice Allergies Active Allergy Reactions Criticality Noted Date Comments Atorvastatin 10/15/2013 Joint pain Fenofibrate 10/15/2013 Joint pain Gemfibrozil Diarrhea 10/15/2013 Lisinopril Cough 01/25/2017 Niacin Nausea/vomiting 10/15/2013 documented as of this encounter (statuses as of 10/08/2024) Medications [facility] FISH OIL + D3 [id number] MG-UNIT PO CAPS Take by mouth once [...] Jaime referred to CT surg/ TTE 02/26 [facility] PET CT 4.5cm 07/26 4.3 cm Atrial fibrillation, chronic 10/19/2018 Complex tear of lateral meni scus of right knee as current injury 04/05/2017 History of renal cell cancer 01/25/2017 Overview (01/25/2017): left kidney dx [facility] Prediabetes 10/05/2016 Prostate cancer 10/05/2016 Overview (10/24/2019): S/p surgery, XRT. 07/[address] Holm 08/21 PSA [address] [place] [address] Romero--s/p surg, XRT 5 years later. Well adult exam 10/05/2016 Overview (10/06/2024): 09/29 PFT done WNL! 08/28 refer STAIR., + emphysema on CT, referred pulm, 09/[address] surg For aorta. 02/26 [facility] PET-10mm lymph inguinal node with mild inc [...] echo WNL. Normal EF. 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 Thank you, Socorro Pappas Pharm D, [facility] Clinical Pharmacist 10/08/2024, 10:16 AM * Telephone [...] 5 9:00 AM EST Telemedicine Pulmonary Medicine, [facility] 132 [facility] [place] [address] Jem Hilliard MD [address] [facility] [place] [address] 5 3:30 PM EST Cardiac Studies Cardiac Studies, [facility] 132 [facility] [place] [address] 5 10:10 AM EST 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 Pharmacy, [address] [place] [address] [facility] 132 [facility] [place] [address] 5 11:30 AM EST Office Visit Cardiothoracic Surg [facility] [place] [address] [facility] [place] [address] See Hirsch MD [address] [facility] [place] [address] 5 8:45 AM EST Hospital Encounter ENDO [facility], Endoscopy Room [facility] [address] [place] [phone] Vaughan, Marten B, DO [address] [place] [address] 5 8:45 AM EST - 5 9:45 AM EST Surgery ENDO [facility], Endoscopy Room [facility] [address] [place] [phone] Kerry Vaughan, DO [address] [place] [address] ESOPHAGOGASTRODUODENOSCOPY (EGD), FLEXIBLE, TRANSORAL, ENDOSCOPIC ULTRASOUND 5 8:00 AM EDT Office Visit [facility]iology, [facility] [place] [address] Letty Romo CRNP [address] [place] [address] [place] [address] 5 9:20 AM EDT Office Visit Family Practice [facility] 132 [facility] [place] [address] Chiki Syed MD [address] [place] [address] 5 9:00 AM EDT Office Visit Gastroenterolog y, [facility] 132 [facility] [place] [address] Mariana Florez CRNP [address] [place] [address] Scheduled Procedures Name Priority Associated Diagnoses Date/Ti [...] this encounter Medical Devices Implanted Type Area Metal Alloy Scientist Device Identifier Shelf Expiration Date Model / Serial / Lot Lens Intraoc 21.5 - [id number] - [id number] Implanted:Qty: 1 on 06/20/2018 by Bogdan Lindsay MD at OR [facility] Left: Eye [employer]OM[employer] 01/02/2023 [id number] / [id number] / [id number] Lens Intraoc 21.5 - [id number] - [id number] Implanted:Qty: 1 on 06/29/2018 by Bogdan Lindsay MD at OR [facility] Right: Eye [employer] LOMB 02/02/2023 [id number] / [id number] / [id number] documented as of this encounter Advance Directives [...] and were consensually agreed upon. Care Teams Wire Mill Operator Relationship Specialty Start Date End Date Chiki Syed MD [address] [place] [address] PCP - General Family Medicine 10/20/18 documented as of this encounter
--- OUTSIDE RECORDS SUMMARY | 2024-11-11 10:34 | External Medical Summary | Summary of Care ---
Author Name Unknown Organization [facility] Address [address] [address] Phone [phone] Care Team Providers Care Force Dispatcher Name Role Phone Chiki Syed MD Primary Care Provider + Reason for Visit * Reason Comments NEW PATIENT * Evaluate & Treat - Unlimited Visits (Within 10 days (routine)) - Authorized Specialty Diagnoses / Procedures Referred By Lisandro t Referred To Contact Pulmonary Diseases / Pulmonary Diagnoses Abnormal chest CT Chiki Syed MD [address] [place] [address] Phone: tel: fax: Referral ID Status Reason Start Date Expiration Date Visits Requested Visits Authorized [id number] Authorized Specialty Services Required [id number] [phone] Encounter Details Date Type Department Care Team (Late st Contact Info) Description 10/09/2024 9:00 AM EST Telemedicine Pulmonary Medicine, [facility] [address] [place] [address] Jem Cardoso MD [address] [place] [address] Chronic respiratory failure with hypoxia (HCC)*; Hypoxia, sleep related Allergies Active Allergy Reactions Criticality Noted Date Comments Atorvastatin 10/15/2013 Joint pain Fenofibrate 10/15/2013 Joint pain Gemfibrozil Diarrhea 10/15/2013 Lisinopril Cough 01/25/2017 Niacin Nausea/vomiting 10/15/2013 documented as of this encounter (statuses as of 10/09/2024) Medications [facility] FISH OIL + D3 1652-0222 MG-UNIT PO CAPS Take by mouth once [...] as of this encounter (statuses as of 10/09/2024) Active Problems Problem Noted Date Diagnosed Date [...] referred to CT surg/ TTE 02/[address] [facility] PET CT 4.5cm 07/26 4.3 cm Atrial fibrillation, chronic 10/19/2018 Complex tear of lateral meni scus of right knee as current injury 04/05/2017 History of renal cell cancer 01/25/2017 Overview (01/25/2017): left kidney [facility] Prediabetes 10/05/2016 Prostate cancer 10/05/2016 Overview (10/24/2019): S/p surgery, XRT. 07/[address] Holm 08/21 PSA 0.[address] [place] [address] Romero--s/p surg, XRT 5 years later. Well adult exam 10/05/2016 Overview (10/06/2024): 09/29 PFT done WNL! 08/28 refer STAIR., + emphysema on CT, referred pulm, 09/[address] surg For aorta. 02/26 [facility] PET-10mm lymph inguinal node with mild [...] Stress echo WNL. Normal EF. 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 I was in a hospital or clinic location. After connecting through televideo,patient was verified with two unique identifiers. Patient (or authorized legal national account representative) was then informed that this was a Telemedicine visit and being conducted confidentially over secure lines. Methods to assure confidentiality were taken. Patient acknowledged consent and understanding of pr ivacy and security of the Telemedicine visit. The patient agreed to participate. 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 Perioperative course was uneventful CT scan chest 08/2024 shows mild emphysematous changes. Also noted are stable scattered subcentimeter pulmonary nodules, unchanged compared to 2020 CT scan chest. 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 Simple coal worker's pneumoconiosis Stable functional status Normal PFTs 09/2024 We recommend: 6 MWT NPOX on RA Avoid sick contacts Maintain Physical Activity Status Call with Change in resp symptom status No bronchodilator therapy recommended at present F/u 6 weeks I spent a total of 30-39 minutes (exact time 35 mins) on the date of service in preparation, delivery, and documentation of the care provided to Sushant La excluding any time spent in the performance of separately billed services or time spent by another provider/QHP. Jem Cardoso MD Data review: Following reports, and data as outlined below was personally reviewed and interpreted by myself. PFT 09/24/2024: 83-year-old male, BMI 37, 30 pack-year smoking history quit 33 years ago. 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 Pulmonary function testing shows normal ventilatory pattern. FEV1 is 2.45 L, 88% of predicted. No bronchodilator response is noted. Flow volume loop shows normal ventilatory pattern. Overall impression: Normal ventilatory pattern.This interpretation has been electronically signed: JEM CARDOSO DR. 09/24/2024 08:30:[address] Chest Without Contrast; Diagnostic Exam date and time: 08/09/2024 10:10 AM Age: 83 years old Clinical indication: Other nonspecific abnormal finding of lung field; Additional info: Lung nodule f/u, HX smoking TECHNIQUE: Imaging protocol: Diagnostic computed tomography of the chest without contrast. Radiation optimization: All CT scans at this facility use at least one of these dose optimization techniques: automated exposure control; mA and/or kV adjustment per patient size (includes targeted exams where dose is matched to clinical indication); or iterative reconstruction. COMPARISON: 1. CT CHEST WO(Adult) 05/24/2023 1:[address] chest 07/21/2021 FINDINGS: Limitations: No IV contrast. Limited patient history. Lungs: There are mild emphysematous changes. There is stable appearing subpleural interstitial thickening primarily involving the lung bases. There is progressive subpleural honeycombing within both lower lobes. There is mild bronchiectasis to the medial right lower lobe. There is no pulmonary infiltrate or consolidation. There are calcified pulmonary nodules consistent with antecedent granulomatous disease. There continue to be numerous bilateral pulmonary nodules. The largest pulmonary nodule is seen within the left lower lobe, measuring 8 mm on image 56 of series 2. There is a 3.6 mm pulmonary nodule in the left upper lobe, image 17 series 2. There is a 6.3 mm pulmonary nodule in the right upper lobe, image 32 of series 2. There is a 6 mm pulmonary nodule in the left upper lobe, image 32 series 2. There is a 6.3 mm pulmonary nodule in the right upper lobe, image 45 series 2. There is a 1 cm pulmonary nodule in the right lower lobe, image 78 of series 2. Pleural spaces: No pleural effusion or pneumothorax. Heart: There is a trace amount of fluid within the pericardial recess, unchanged. Cardiomegaly.There is coronary artery calcification. Esophagus: There is nonspecific esophageal wall thickening. This is similar in appearance to the prior studies. Lymph nodes: Evaluation for adenopathy is limited without IV contrast. Evaluation for adenopathy is limited without IV contrast. There is stable appearing shotty mediastinal adenopathy. Vasculature: Evaluation of the vascular structures is limited without IV contrast. There is calcification of the aorta and the aortic branches. There is aneurysmal dilatation of the ascending thoracic aorta with a maximum transverse diameter of 5.4 cm. The right carotid artery arises directly from the aortic arch. Diaphragm: There is a small hiatal hernia. Gallbladder and biliary ducts: Cholecystectomy. Intraperitoneal space: The study is not tailored for subdiaphragmatic evaluation. Bones/joints: There is spondylosis of the spine. Soft tissues: The soft tissues are unremarkable as visualized. IMPRESSION IMPRESSION: 1. Mild emphysematous changes.In the absence of a history or active diagnosis of lung cancer it is recommended that this patient with emphysema be evaluated enrollment in a low-dose CT lung cancer screening program. Thre presence of pulmonary emphysema on CT is an independent risk factor for lung cancer. The presence of pulmonary emphysema on CT is an independent risk factor for lung cancer. 2. Stable appearing subpleural interstitial thickening. 3. Progressive subpleural honeycombing within both lower lobes. 4. Stable pulmonary nodules for which no further follow-up is recommended. (Reference: August) 5. There is atherosclerotic disease of the ascending thoracic aorta. There is aneurysmal dilatation of the ascending thoracic aorta with a maximum transverse diameter 5.4 cm. The aneurysm continues to show mild interval increase in size. Continued surveillance is suggested. Consultation with vascular surgery may be beneficial for elective repair. Subjective CC: Chief Complaint Patient presents with NEW PATIENT HPI: Nursing Notes: Coni Forrest LPN 10/08/24 1306 Signed New pt video visit for evaluation of abnormal CT Chest. MMRC Dyspnea Scale = 1 (I get short of breath when hurrying on level ground or walking up a slight hill) Interm History/Respiratory Symptoms Cough: occasional, dry Hemoptysis: no Sinus Symptoms: not currently Hospitalizations: [facility] 07/07-07/09/24 acute appendicitis/appendectomy ED Trips: 07/07/24 Triggers: none Nocturnal: occasional cough, sleeps with head slightly elevated CPAP/BiPAP/O2: no DME Supplier: n/a Flu Vaccine: 2023 Pneumovax: 2008 Prevnar: 2017 COVID 19: x 6 Objective Filed Vitals: 10/08/24 1300 Height: 1.867 m (6' 1.5") Exam: Const: No signs of acute distress present. Head/Face: Normal on inspection. Eyes: Conjunctivae clear. Pupils equal round and reactive to light. ENMT: Oropharynx: No erythema, exudate or masses. Posterior pharynx is normal. Neck: Supple and symmetric. Resp: Respiratory examination as outlined above CV: Rate is regular. Rhythm is regular. No heart murmur appreciated. Extremities: No edema of the lower limbs bilaterally. Skin: Skin is warm and dry. Neuro: Coordination normal. No involuntary movement. Psych: Patient's attitude is cooperative. Mood is normal. Affect is normal. Tests reviewed with the patient: CT CHEST WO CONTRAST Result Date: 08/14/2024 IMPRESSION: 1. Mild emphysematous changes.In the absence of a history or active diagnosis of lung cancer it is recommended that this patient with emphysema be evaluated enrollment in a low-dose CT lung cancer screening program. Thre presence of pulmonary emphysema on CT is an independent risk factor for lung cancer. The presence of pulmonary emphysema on CT is an independent risk factor for lung cancer. 2. Stable appearing subpleural interstitial thickening. 3. Progressive subpleural honeycombing within both lower lobes. 4. Stable pulmonary nodules for which no further follow-up is recommended. (Reference: [employer]) 5. There is atherosclerotic disease of the ascending thoracic aorta. There is aneurysmal dilatation of the ascending thoracic aorta with a maximum transverse diameter 5.4 cm. The aneurysm continues to show mild interval increase in size. Continued surveillance is suggested. Consultation with vascular surgery may be beneficial for elective repair. THIS DOCUMENT HAS BEEN ELECTRONICALLY SIGNED BY EZEKIEL BURNETT MD Available Radiologic data was reviewed by me in PACS. The images were shown to the patient and findings were discussed with the patient. HOME MEDICATIONS: Pantoprazole Sodium 20 MG Oral Tablet Delayed Release (Protonix) hydroCHLOROthiazide 12.5 MG Oral Capsule Losartan Potassium 100 MG Oral Tablet (Cozaar) Ciclopirox 8 % External Solution Metoprolol Succinate ER 50 MG Oral Tablet Extended Release 24 Hour (toPROL XL) Furosemide 20 MG Oral Tablet (Lasix) Warfarin Sodium 4 MG Oral Tablet (Coumadin) Tylenol PM Extra Strength 500-25 MG Oral Tablet (diphenhydrAMINE-APAP (sleep)) Vitamin B-12 500 MCG Oral Lozenge rosuvastatin (CRESTOR) 5 MG Tablet [facility] FISH OIL + D3 8071-4028 MG-UNIT PO CAPS Albuterol Sulfate (Proventil) (2.5 MG/3ML) 0.083% inhalation solution 2.5 mg ROS: No reported history of Hemoptysis, Hematemesis, Melena No reported history of Dysuria, Hematuria, Flank Pain No reported history of chronic headache, seizures No reported history of Fall or trauma . No reported history of recent change in weight or appetite. Past Medical History: Diagnosis Date A-fib (HCC) 01/09/201606/21 Lexiscan Tc99 Stress echo WNL. Normal EF. See Serna. Aortic ectasia, thoracic (HCC) 07/28/202107/26 4.3 cm Appendicitis 07/08/2024 [facility] Atrial fibrillation ([facility]) Dr Gilliam Colitis GERD (gastroesophageal reflux disease) History of 2019 novel coronavirus disease (COVID-19) 03/09/202203/26 HTN, goal below 140/90 Hyperlipidemia LDL goal < 100 Prediabetes 10/05/2016 Prostate cancer (HCC) 10/05/2016 S/p surgery, XRT. followed by urology [facility]. 08/21 PSA 0.5 slight up. Precious 6mo Prior in [place] Dr Romero--s/p surg, XRT 5 years later. Prostate cancer (HCC) Past Surgical History: Procedure Laterality Date EGD, FLEXIBLE, DIAGNOSTIC 06/22/2022 tortuous esophagus, submucosal lesion - non-diagnostic bx / ESOPHAGOGASTRODUODENOSCOPY (EGD), FLEXIBLE, TRANSORAL, DIAGNOSTIC performed by Chong Chin MD at ENDOSCOPY [facility] EGD, W/ENDOSCOPIC US 08/05/2022 stromal cell (smooth muscle) neoplasm, fatty liver, IPMN, esophageal polyp - leiomyoma, repeat EGD 1yr / ESOPHAGOGASTRODUODENOSCOPY (EGD), FLEXIBLE, TRANSORAL, ENDOSCOPIC ULTRASOUND performed by Kerry Vaughan DO at ENDOSCOPY [facility] LAPAROSCOPY; CHOLECYSTECTOMY 09/05/2008 Cholecystectomy, Laproscopic LAPAROSCOPY;APPENDECTOMY 07/08/2024 Dr Moshe Fox [facility] MISCELLANEOUS ORDER ([facility] ONLY) 09/05/2001 prostate 2002 cancer MISCELLANEOUS ORDER ([facility] ONLY) 09/05/2005 left kidney cyst vs cancer REMOVAL OF PROSTATE, PERINEAL N/A 2000 REMOVE CATARACT, INSERT LENS PROSTH Left 06/20/2018 left EXTRACAPSULAR CATARACT REMOVAL WITH INTRAOCULAR LENS performed by Bogdan Lindsay MD at OR [facility] REMOVE CATARACT, INSERT LENS PROSTH Right 06/29/2018 right EXTRACAPSULAR CATARACT REMOVAL WITH INTRAOCULAR LENS performed by Bogdan Lindsay MD at OR [facility] UNLISTED LAPAROSCOPY;HERNIA 09/05/2008 Hernia Repair Laparoscopic- RIGHT UNLISTED LAPAROSCOPY;HERNIA 09/05/2010 Hernia Repair Laparoscopic- LEFT Social History Socioeconomic History Marital status: Occupational History Comment: 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 No mold. Likes walking in mall in Winter. Social Needs Food Insecurity: No Food Insecurity (01/10/2023) Hunger Vital Sign Worried About Running Out of Food in the Last Year: Never true Ran Out of Food in the Last Year: Never true Family History Problem Relation Name Age of Onset Heart Disorder Mother age 95 Heart Disorder Father age age 76 [place] Endocrine Disorder Sister high lipids Breast Cancer Sister 69 treatment 2020 Other (colostomy-reversed unsure cause.) Sister [place], [place] Other (prostate cancer) Brother XRt. younger. Other (back surgery) Brother outside [place]. Celiac disease Daughter shanita Celiac disease Daughter demetrius Prostate cancer Uncle (Unspecified) Prostate cancer Uncle (Unspecified) Review of patient's allergies indicates: Allergen Reactions Atorvastatin Joint pain Fenofibrate Joint pain Gemfibrozil Diarrhea Lisinopril Cough Niacin Nausea/vomiting documented in this encounter Nursing Notes * Coni Forrest LPN - 10/08/2024 1:02 PM EST New pt video visit for evaluation of abnormal CT Chest. MMRC Dyspnea Scale = 1 (I get short of breath when hurrying on level ground or walking up a slight hill) Interm History/Respiratory Symptoms Cough: occasional, dry Hemoptysis: no Sinus Symptoms: not currently Hospitalizations: [facility] 07/07-07/09/24 acute appendicitis/appendectomy ED Trips: 07/07/24 Triggers: none Nocturnal: occasional cough, sleeps with head slightly elevated CPAP/BiPAP/O2: no DME Supplier: n/a Flu Vaccine: 2023 Pneumovax: 2007 Prevnar: 2017 COVID 19: x 6 documented in this encounter Plan of Treatment Upcoming Encounters Date Type Department Care Team (Latest Contact Info) Description 5 3:30 PM EST Cardiac Studies Cardiac Studies, [facility] [address] [place] [address] 5 10:10 AM EST 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 Pharmacy, [facility] [address] [place] [address] [facility] [address] [facility] [place] [address] 5 11:30 AM EST Office Visit Cardiothoracic Surg [facility] [address] [place] [address] See Hirsch MD [address] [place] [address] 5 8:45 AM EST Hospital Encounter ENDO [facility], Endoscopy Room [facility] [address] [place] [phone] Kerry Vaughan DO [address] [place] [address] 5 8:45 AM EST - 5 9:45 AM EST Surgery ENDO [facility], Endoscopy Room [facility] [address] [place] [phone] Kerry Vaughan DO [address] [facility] [place] [address] ESOPHAGOGASTRODUODENOSCOPY (EGD), FLEXIBLE, TRANSORAL, ENDOSCOPIC ULTRASOUND 5 8:00 AM EDT Office Visit Cardiology, [facility] [address] [facility] [place] [address] Letty Romo CRNP [address] [facility] [place] [address] 5 9:20 AM EDT Office Visit Family Practice [facility] [address] [facility] [place] [address] Chiki Syed MD [address] [facility] [place] [address] 5 9:00 AM EDT Office Visit Gastroenterolog y, [facility] [address] [facility] [place] [address] Mariana Florez CRNP [address] [facility] [place] [address] Scheduled Orders Name Type Priority Associated Diagnoses Orde r Schedule PULMONARY STRESS TESTING Procedures Routine Chronic respiratory failure with hypoxia (HCC) Expected: 10/10/2024, Expires: 11/06/2025 NOCTURNAL HOME OXIMETRY (OP) Procedures Routine Chronic respiratory failure with hypoxia (HCC) Hypoxia, sleep related Ordered: 10/09/2024 Scheduled Procedures Name Priority Associated Diagnoses Date/Ti [...] this encounter Medical Devices Implanted Type Area Hot Wort Settler Device Identifier Shelf Expiration Date Model / Serial / Lot Lens Intraoc 21.5 - [id number] - [id number] Implanted:Qty: 1 on 06/20/2018 by Bogdan Lindsay MD at OR [facility] Left: Eye [employer] 01/02/2023 [id number] / [id number] / [id number] Lens Intraoc 21.5 - [id number] - [id number] Implanted:Qty: 1 on 06/29/2018 by Bogdan Lindsay MD at OR [facility] Right: Eye [employer] 02/02/2023 [id number] / [id number] / [id number] documented as of this encounter Visit Diagnoses Diagnosis Chronic respiratory failure with hypoxia (HCC)- Primary Chronic respiratory failure Hypoxia, sleep related Idiopathic sleep related nonobstructive alveolar hypoventilation Esophageal polyp Other specified disorder of the [...] and were consensually agreed upon. Care Teams Force Dispatcher Relationship Specialty Start Date End Date Chiki Syed MD [address] [place] [address] PCP - General Family Medicine 10/20/18 documented as of this encounter
--- OUTSIDE RECORDS SUMMARY | 2024-11-11 10:35 | External Medical Summary | Summary of Care ---
Author Name Unknown Organization [facility] [address] [facility] [address] Phone [phone] Care Team Providers Care Operations Research Analyst Name Role Phone Chiki Syed MD Primary Care Provider + Encounter Details Date Type Department Care Team (Late st Contact Info) Description 09/27/2024 Population Health External Data Unspecified Department Allergies Active Allergy Reactions Criticality Noted Date Comments Atorvastatin 10/15/2013 Joint pain Fenofibrate 10/15/2013 Joint pain Gemfibrozil Diarrhea 10/15/2013 Lisinopril Cough 01/25/2017 Niacin Nausea/vomiting 10/15/2013 documented as of this encounter (statuses as of 09/27/2024) Medications [facility] FISH OIL + D3 9392-2437 MG-UNIT PO CAPS Take by mouth once [...] THE MORNING 90 Capsule 1 4 Active Hospital, Clinic, or Other Facility Administered Medication Ordered Dose Route Frequency Start Date End Date Status Albuterol Sulfate (Proventil) (2.5 MG/3ML) 0.083% inhalation solution 2.[address] 2.5 mg NEBULIZER ONCE PRN 08/29/2024 08/29/2025 Active documented as of this encounter (statuses as of 09/27/2024) Active Problems Problem Noted Date Diagnosed Date Aneurysm of ascending aorta without rupture 03/05 Severe obesity with body mas s index (BMI) of 35.0 to 39.9 with serious comorbidity 01/10/2023 History of 2019 novel coronavirus disease (COVID -19) 03/09/2022 Overview (03/09/2022): 03/26 Aortic ectasia, thoracic 07/28/2021 Overview (08/29/2024): 08/28 5.4 cm 07/26 4.3 cm Atrial fibrillation, chronic 10/19/2018 Complex tear of lateral meni scus of right knee as current injury 04/05/2017 History of renal cell cancer 01/25/2017 Overview (01/25/2017): left kidney dx [facility] Prediabetes 10/05/2016 Prostate cancer 10/05/2016 Overview (10/24/2019): S/p surgery, XRT. 07/[address] Holm 08/21 PSA 0.[address] [place] [address] Romero--s/p surg, XRT 5 years later. Well adult exam 10/05/2016 Overview (09/23/2024): 09/29 PFT done PEND report. 08/28 refer STAIR., + emphysema on CT, referred pulm, ?need CT surg?? For aorta. 08/26 EGD biopsy +Leiomyoma. Precious 1y 06/26 [...] Stress echo WNL. Normal EF. Dr Mccloud, [place] in past now Addison/Madan HTN, goal below 130/80 GERD (gastroesophageal reflux disease) documented as of this encounter (statuses as of 09/27/2024) Resolved Problems Problem Noted Date Diagnosed Date [...] as of this encounter (statuses as of 09/27/2024) Immunizations Name Administration Dates Next Due COVID-19 [...] 10/09/2024 9:00 AM EST Telemedicine Pulmonary Medicine, [address] [place] [address] Jem Hilliard MD [address] [facility] [place] [address] 10/10/2024 1:30 PM EST Office Visit Gastroenterology, [facility] [address] [facility] [place] [address] Mariana Florez CRNP [address] [facility] [place] [address] 10/10/2024 3:30 PM EST Cardiac Studies Cardiac Studies, [facility] [address] [facility] [place] [address] 10/16/2024 10:10 AM EST 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 Pharmacy, [facility] [address] [facility] [place] [address] [email or web address] [address] [place] [address] 01/02/2025 8:00 AM EDT Office Visit Cardiology, [facility] [address] [facility] [place] [address] Letty Romo CRNP [address] [place] [address] [place] [address] 01/23/2025 9:20 AM EDT Office Visit Family Practice [facility] [address] [facility] [place] [address] Chiki Syed MD 132 [facility] [place] [address] Scheduled Procedures Name Priority Associated Diagnoses Date/Ti me ESOPHAGOGASTRODUODENOSCOPY ( EGD), FLEXIBLE, TRANSORAL, ENDOSCOPIC ULTRASOUND Recall Esophageal polyp Gastric mass Health Maintenance Due Date Last Done Comments COVID-19 Vaccine ( season) 2024 01/13/2023, 07/05/2022, 12/14/2021, Additional history exists Adult Wellness Visit 07/26/2024 07/26/2023, 09/30/19 22 Depression Screening 01/19/2025 01/20/2024 GFR 02/06/2025 02/07/2024, 0401/2024, 07/13/2023, Additional history exists HbA1c 02/06/2025 02/07/2024, [...] this encounter Medical Devices Implanted Type Area Senior Developer Device Identifier Shelf Expiration Date Model / Serial / Lot Lens Intraoc 21.5 - [id number] - [id number] Implanted:Qty: 1 on 06/20/2018 by Bogdan Lindsay MD at OR [facility] Left: Eye [employer] 01/02/2023 [id number] / [id number] / [id number] Lens Intraoc 21.5 - [id number] - [id number] Implanted:Qty: 1 on 06/29/2018 by Bogdan Lindsay MD at OR [facility] Right: Eye [employer]OM[employer] 02/02/2023 [id number] / [id number] / [id number] documented as of this encounter Advance Directives [...] and were consensually agreed upon. Care Teams Operations Research Analyst Relationship Specialty Start Date End Date Chiki Syed MD [address] [place] [address] PCP - General Family Medicine 10/20/18 documented as of this encounter
--- OUTSIDE RECORDS SUMMARY | 2024-11-11 10:35 | External Medical Summary ---
Author Name Unknown Address Unknown Organization K0G:LAB[facility]ATORY [facility] 57-[address] - [address] [place] [address] Laboratory Report Ordering Provider Test Date Status AJIT VALDIVIA 09/04/2024 09:23:24 Final Therapeutic ranges for non-o perative patients:
Prophylaxsis/treatment of DVT: (Range:2.0-3.0)
Treatment of pulmonary embolism:(Range:2.0-3.0)
Prevention of systemic embolism from:
-tissue heart valves
-acute myocardial infarction
-valvular heart disease
-atrial fibrillation
(Range: 2.0-3.0)
Mechanical prosthetic valves: (Range: 2.5-3.5) Observation Date Value Abnormality Reference (Units ) Status INR in Capillary blood by Coagulation assay 09/04/2024 09:23:24 2.5 (INR) Final Performing Location LABORATORY [facility] 57-1 0 - [address] [place] [address]
--- OUTSIDE RECORDS SUMMARY | 2024-11-11 10:35 | External Medical Summary | Summary of Care ---
Author Name Unknown Organization [facility] Address [address] [place] [address] Phone [phone] Care Team Providers Care Mushroom Picker Name Role Phone Chiki Syed MD Primary Care Provider + Encounter Details Date Type Department Care Team (Latest Contact Info) Description 02/23/2024 10:55 AM EDT - 02/23/2024 11:59 PM EDT Hospital Encounter Radiology Film File [address], [place] [id number] Discharge Disposition: Home - Self Care Allergies Active Allergy Reactions Criticality Noted Date Comments Atorvastatin 10/15/2013 Joint pain Fenofibrate 10/15/2013 Joint pain Gemfibrozil Diarrhea 10/15/2013 Lisinopril Cough 01/25/2017 Niacin Nausea/vomiting 10/15/2013 documented as of this encounter (statuses as of 09/05/2024) Medications METAMUCIL 0.52 G PO CAPS one to two daily 4 Active [facility] FISH OIL + D3 6073-7498 MG-UNIT PO CAPS Take by mouth once [...] IN THE MORNING 90 Tablet 4 Active Warfarin Sodium 4 MG Oral Tablet (Coumadin)Indicat ions:Chronic atrial fibrillation (HCC) TAKE 1 TO 2 TABLETS BY MOUTH DAILY PER ANTI-COAGULATI ON CLINIC 180 Tablet 3 4 Active Lidocaine 5 % External Patch (Lidoderm)Indicat ions:HZV (herpes zoster virus) post herpetic neuralgia Place 2 Patches topically on the skin in the morning. 60 Patch 5 4 Active documented as of this encounter (statuses as of 09/05/2024) Active Problems Problem Noted Date Diagnosed Date [...] cell cancer 01/25/2017 Overview (01/25/2017): left kidney [facility] Prediabetes 10/05/2016 Prostate cancer 10/05/2016 Overview (10/24/2019): S/p surgery, XRT. 07/[address] Holm 08/21 PSA 0.[address] [place] [address] Romero--s/p surg, XRT 5 years later. Well adult exam 10/05/2016 Overview (08/29/2024): 08/28 refer STAIR., + emphysema on CT, referred pulm, ?need CT surg?? For aorta. 08/26 EGD biopsy +Leiomyoma. Precious 1y 06/26 EGD--abnormal. F/u sched Dec. 07/26 lung nodules, ectasia, precious stable 05/27, precious 1 more time 1y ordered 04/[address] Holm, uro. Dr Mccloud-Cardiology in past now Dr Patten Goes yearly to [facility]. 06/21 normal stress test w/Dr Mccloud 2009 colonoscopy WNL -consider in 2019. A-fib 01/09/2016 Overview (07/16/2024): 06/21 Lexiscan Tc99 Stress echo WNL. Normal EF. Dr Mccloud [place] in past now Addison/Madan HTN, goal below 130/80 GERD (gastroesophageal reflux disease) documented as of this encounter (statuses as of 09/05/2024) Resolved Problems Problem Noted Date Diagnosed Date [...] as of this encounter (statuses as of 09/05/2024) Immunizations Name Administration Dates Next Due COVID-19 [...] Care Team (Late st Contact Info) Description 09/12/2024 2:30 PM EST PulmDiagnostic Pulmonary Function Lab, [facility] [address] [facility] [place] [address] [place], [address] [address] [facility] [place] [address] 09/26/2024 10:30 AM EST Office Visit Cardiology, [facility] [address] [facility] [place] [address] Fredrick Jaime O, DO [address] [place] [address] 10/09/2024 9:00 AM EST Telemedicine Pulmonary Medicine, [facility] [address] [facility] [place] [address] Jem Hilliard MD [address] [place] [address] 10/16/2024 10:10 AM EST 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 Pharmacy, [facility] [place] [address] [facility] Yong [address] [place] [address] 01/23/2025 9:20 AM EDT Office Visit Family [facility] [address] [place] [address] Chiki Syed MD [address] [place] [address] Scheduled Procedures Name Priority Associated Diagnoses Date/Ti [...] this encounter Medical Devices Implanted Type Area Paint Dipper Device Identifier Shelf Expiration Date Model / Serial / Lot Lens Intraoc 21.5 - [id number] - [id number] Implanted:Qty: 1 on 06/20/2018 by Bogdan Lindsay MD at OR [facility] Left: Eye [employer] 01/02/2023 [id number] / [id number] / [id number] Lens Intraoc 21.5 - [id number] - [id number] Implanted:Qty: 1 on 06/29/2018 by Bogdan Lindsay MD at OR [facility] Right: Eye [employer]OM[employer] 02/02/2023 [id number] / [id number] / [id number] documented as of this encounter Procedures Procedure Name Priority Date/Time Associated Diagnosis Comments RADIOLOGY EXAM - PET (IMAGES ONLY, NO REPORT) Routine 02/23/2024 10:55 AM EDT documented in this encounter Results * RADIOLOGY EXAM - PET (IMAGES ONLY, NO REPORT) (02/23/2024 10:55 AM EDT) 02/23/2024 10:5 1 AM EDT Narrative Scheduling, Silent - 09/04/2024 10:15 AM EST This is an imaging study not interpreted or resulted by a [facility] or [facility] contracted radiologist. Jem Hilliard MD [facility] Final Result documented in this encounter Advance Directives * Full Code (Latest Code Status on File) Date Activated Date Inactivated Comments 06/29/2018 8:41 AM 06/29/2018 3:29 PM This order reflects the patients wishes and were consensually agreed upon. * Full Code Date Activated Date Inactivated Comments 06/20/2018 9:51 AM 06/20/2018 3:45 PM This order reflects the patients wishes and were consensually agreed upon. Care Teams Mushroom Picker Relationship Specialty Start Date End Date Chiki Syed MD [address] [facility] [place] [address] PCP - General Family Medicine 10/20/18 documented as of this encounter
--- OUTSIDE RECORDS SUMMARY | 2024-11-11 10:35 | External Medical Summary ---
Author Name Unknown Address Unknown Organization [facility] [address] [place] [address] Laboratory Report Ordering Provider Test Date Status AJIT VALDIVIA 07/26/2024 13:10:25 Final Therapeutic ranges for non-o perative patients:
Prophylaxsis/treatment of DVT: (Range:2.0-3.0)
Treatment of pulmonary embolism:(Range:2.0-3.0)
Prevention of systemic embolism from:
-tissue heart valves
-acute myocardial infarction
-valvular heart disease
-atrial fibrillation
(Range: 2.0-3.0)
Mechanical prosthetic valves: (Range: 2.5-3.5) Observation Date Value Abnormality Reference (Units ) Status INR in Capillary blood by Coagulation assay 07/26/2024 13:10:25 2.3 (INR) Final Performing Location [facility] 0 - [address] [place] [address]
--- OUTSIDE RECORDS SUMMARY | 2024-11-11 10:35 | External Medical Summary | Summary of Care ---
Author Name Unknown Organization [facility] Address [address] [facility] [address] Phone [phone] Care Team Providers Care Chemical Engineering Technologist Name Role Phone Chiki Syed MD Primary Care Provider + Reason for Visit * Reason Comments Dosage Adjustment In Person (Anticoag Cl inic) Encounter Details Date Type Department Care Team (Latest Contact Info) Description 07/26/2024 1:00 PM EST 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 Pharmacy, [facility] [address] [place] [address] [facility] 132 [facility] [place] [address] 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 management encounter*; Chronic atrial fibrillation (HCC); Longstanding persistent atrial fibrillation (HCC); half-way current use of anticoagulant therapy Allergies Active Allergy Reactions Criticality Noted Date Comments Atorvastatin 10/15/2013 Joint pain Fenofibrate 10/15/2013 Joint pain Gemfibrozil Diarrhea 10/15/2013 Lisinopril Cough 01/25/2017 Niacin Nausea/vomiting 10/15/2013 documented as of this encounter (statuses as of 07/26/2024) Medications METAMUCIL 0.52 G PO CAPS one to two daily 4 Active [facility] FISH OIL + D3 0341-3832 MG-UNIT PO CAPS Take by mouth once [...] 4 Active Lidocaine 5 % External Patch (Lidoderm)Indica tions:HZV (herpes zoster virus) post herpetic neuralgia Place 2 Patches topically on the skin in the morning. 60 Patch 5 4 Active Furosemide 20 MG Oral Tablet (Lasix)Indicatio ns:Lower extremity edema,Chronic atrial fibrillation (HCC),HTN, goal below 130/80,Valvular heart disease Take 1 Tablet by mouth daily as needed (fluid accumulation or weight gain). 30 Tablet 11 4 Active Gabapentin 100 MG Oral Capsule (Neurontin)Indic ations:HZV (herpes zoster virus) post herpetic neuralgia Take [...] as of this encounter (statuses as of 07/26/2024) Active Problems Problem Noted Date Diagnosed Date Aneurysm of ascending aorta without rupture 03/05 Severe obesity with body mas s index (BMI) of 35.0 to 39.9 with serious comorbidity 01/10/2023 History of 2019 novel coronavirus disease (COVID -19) 03/09/2022 Overview (03/09/2022): 03/26 Aortic ectasia, thoracic 07/28/2021 Overview (07/28/2021): 07/26 4.3 cm Atrial fibrillation, chronic 10/19/2018 Complex tear of lateral meni scus of right knee as current injury 04/05/2017 History of renal cell cancer 01/25/2017 Overview (01/25/2017): left kidney dx [facility] Prediabetes 10/05/2016 Prostate cancer 10/05/2016 Overview (10/24/2019): S/p surgery, XRT. 07/[address] Holm 08/21 PSA 0.[address] [place] [address] Romero--s/p surg, XRT 5 years later. Well adult exam 10/05/2016 Overview (08/12/2022): 08/26 EGD biopsy +Leiomyoma. Precious 1y 06/26 EGD--abnormal. F/u sched Aug. 07/26 lung nodules, ectasia, precious stable 05/27, precious 1 more time 1y ordered 04/[address] Holm, uro. Dr Mccloud-Cardiology in past now Dr Patten Goes yearly to [facility]. 06/21 normal stress test w/Dr Mccloud 2009 colonoscopy WNL -consider in 2019. A-fib 01/09/2016 Overview (07/16/2024): 06/21 Lexiscan Tc99 Stress echo WNL. Normal EF. Dr Mccloud [place] in past now [place] HTN, goal below 130/80 GERD (gastroesophageal reflux disease) documented as of this encounter (statuses as of 07/26/2024) Resolved Problems Problem Noted Date Diagnosed Date [...] as of this encounter (statuses as of 07/26/2024) Immunizations Name Administration Dates Next Due COVID-19 [...] as of this encounter Progress Notes * Kenny Wray RPh - 07/26/2024 1:20 PM EST Medication Therapy Disease Management - 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 Patient: Sushant La | : 1940 Subjective Patient-Reported Symptoms: Patient Findings Negatives: Signs/symptoms of thrombosis, Signs/symptoms of bleeding, Change in health, Change in alcohol use, Change in activity, Upcoming invasive procedure, Missed doses, Extra doses, Change in medications, Change in diet/appetite, Bruising Objective Current Warfarin Dose As of 07/26/2024 Warfarin maintenance plan: 8 mg (4 mg x 2) every Tue, Sat; 4 mg (4 mg x 1) all other days INR Result As of 07/26/2024 INR goal: 2.0-3.0 INR used for dosin.3 (07/26/2024) Assessment & Plan Warfarin Plan As of 07/26/2024 Full warfarin instructions: 8 mg every Tue, Sat; 4 mg all other days No change documented: Kenny Wray RPh Next INR check: 08/03/2024 Repeat PT/INR in 1 week(s) Weekly dose: not changed Additional Dosing Information: I spent a total of 10-19 minutes (exact time 15 mins) on the date of service in preparation, delivery, and documentation of the care provided to Sushant La excluding any time spent in the performance of separately billed services or time spent by another provider/QHP. Kenny Wray RPh Clinical Pharmacist 07/26/2024, 1:22 PM documented in this encounter Plan of Treatment Upcoming Encounters Date Type Department Care Team (Late st Contact Info) Description 08/03/2024 10:00 AM EST 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 Pharmacy, [address] [place] [address] [place], [facility] [address] [place] [address] 08/09/2024 10:30 AM EST Imaging Radiology [facility] [address] [place] [address] 09/26/2024 10:30 AM EST Office Visit Cardiology, [facility] [address] [place] [address] Fredrick Jaime DO [address] [place] [address] 01/23/2025 9:20 AM EDT Office Visit Family Practice [facility] [address] [place] [address] Chiki Syed MD [address] [place] [address] Scheduled Procedures Name Priority Associated Diagnoses Date/Ti [...] this encounter Medical Devices Implanted Type Area Pipe Covering Molder Device Identifier Shelf Expiration Date Model / Serial / Lot Lens Intraoc 21.5 - [id number] - [id number] Implanted:Qty: 1 on 06/20/2018 by Bogdan Lindsay MD at OR [facility] Left: Eye [employer] 01/02/2023 [id number] / [id number] / [id number] Lens Intraoc 21.5 - [id number] - [id number] Implanted:Qty: 1 on 06/29/2018 by Bogdan Lindsay MD at OR [facility] Right: Eye [employer]OM[employer] 02/02/2023 [id number] / [id number] / [id number] documented as of this encounter Procedures Procedure Name Priority Date/Time Associated Diagnosis Comments INR FINGERSTICK, POINT OF CARE STAT 07/26/2024 1:10 PM EST Longstanding persistent atrial fibrillation (HCC) 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 management encounter termite helper current use of anticoagulant therapy documented in this encounter Results * INR FINGERSTICK, POINT OF CARE (07/26/2024 1:10 PM EST) Fingerstick INR 2.3 INR 1:17 PM EST LAB[facility]ORY [facility]-10 Blood 07/26/2024 1:10 PM EST 07/26/2024 1:17 PM EST Narrative LAB[facility]ATORY [facility] 57-10 - 07/26/2024 1:17 PM EST Therapeutic ranges for non-operative patients: Prophylaxsis/treatment of DVT: (Range:2.0-3.0) Treatment of pulmonary embolism:(Range:2.0-3.0) Prevention of systemic embolism from: -tissue heart valves -acute myocardial infarction -valvular heart disease -atrial fibrillation (Range: 2.0-3.0) Mechanical prosthetic valves: (Range: 2.5-3.5) Socorro Pappas [facility] POINT OF C ARE TEST DOCKED DEVICE UNSOLICITED RESULTS Final Result LAB[facility]ATORY [facility] [address] [place] [address] documented in this encounter Visit Diagnoses Diagnosis 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 management encounter- Primary Encounter for therapeutic drug monitoring Chronic atrial fibrillation (HCC) Atrial fibrillation Longstanding persistent atrial fibrillation (HCC) half-way current use of anticoagulant therapy documented in [...] and were consensually agreed upon. Care Teams Chemical Engineering Technologist Relationship Specialty Start Date End Date Chiki Syed MD [address] [place] [address] PCP - General Family Medicine 10/20/18 documented as of this encounter"
--- OUTSIDE RECORDS SUMMARY | 2024-11-11 10:35 | External Medical Summary ---
Author Name Unknown Address Unknown Organization [facility] - [address] [place] [address] Laboratory Report Ordering Provider Test Date Status AJIT VALDIVIA 08/03/2024 10:10:33 Final Therapeutic ranges for non-o perative patients:
Prophylaxsis/treatment of DVT: (Range:2.0-3.0)
Treatment of pulmonary embolism:(Range:2.0-3.0)
Prevention of systemic embolism from:
-tissue heart valves
-acute myocardial infarction
-valvular heart disease
-atrial fibrillation
(Range: 2.0-3.0)
Mechanical prosthetic valves: (Range: 2.5-3.5) Observation Date Value Abnormality Reference (Units ) Status INR in Capillary blood by Coagulation assay 08/03/2024 10:10:33 2.5 (INR) Final Performing Location LAB[facility]ATORY [facility] BOB 57-1 0 - [address] [place] [address]
--- OUTSIDE RECORDS SUMMARY | 2024-11-11 10:35 | External Medical Summary | Summary of Care ---
Author Name Unknown Organization [facility] Address [address] [address] Phone [phone] Care Team Providers Care Glue Bone Drier Name Role Phone Chiki Syed MD Primary Care Provider + Reason for Visit * Reason Comments Dosage Adjustment In Person (Anticoag Cl inic) Encounter Details Date Type Department Care Team (Latest Contact Info) Description 09/04/2024 9:40 AM EST 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 Pharmacy, [facility] [address] [place] [address] [facility] [address] [facility] [place] [address] 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 management encounter*; Chronic atrial fibrillation (HCC); Longstanding persistent atrial fibrillation (HCC); skilled nursing current use of anticoagulant therapy Allergies Active Allergy Reactions Criticality Noted Date Comments Atorvastatin 10/15/2013 Joint pain Fenofibrate 10/15/2013 Joint pain Gemfibrozil Diarrhea 10/15/2013 Lisinopril Cough 01/25/2017 Niacin Nausea/vomiting 10/15/2013 documented as of this encounter (statuses as of 09/04/2024) Medications METAMUCIL 0.52 G PO CAPS one to two daily 4 Active [facility] OIL + D3 3408-7678 MG-UNIT PO CAPS Take by mouth once [...] before bedtime. 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 07/[address] Holm 08/21 PSA [address] [place] [address] Romero--s/p surg, XRT 5 years later. [...] Stress echo WNL. Normal EF. Dr Mccloud Lodi in past now Addison/Madan HTN, goal below 130/80 GERD (gastroesophageal reflux disease) documented as of this encounter (statuses as of 09/04/2024) Resolved Problems Problem Noted Date Diagnosed Date [...] as of this encounter (statuses as of 09/04/2024) Immunizations Name Administration Dates Next Due COVID-19 [...] Used Date Smoking Tobacco: Former Cigarettes 1.5 29.9 0 10/15/1961 - 1991 Smokeless Tobacco: [...] this encounter Progress Notes * Socorro Pappas [facility] - 09/04/2024 9:50 AM EST Medication Therapy Disease Management - 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 Patient: Sushant Asael DejesusLa | : 1940 Subjective Patient-Reported Symptoms: Patient Findings Negatives: Signs/symptoms of thrombosis, Signs/symptoms of bleeding, Change in health, Change in alcohol use, Change in activity, Upcoming invasive procedure, Missed doses, Extra doses, Change in medications, Change in diet/appetite, Bruising Objective Current Warfarin Dose As of 09/04/2024 Warfarin maintenance plan: 8 mg (4 mg x 2) every Tue, Sat; 4 mg (4 mg x 1) all other days INR Result As of 09/04/2024 INR goal: 2.0-3.0 INR used for dosin.5 (09/04/2024) Assessment & Plan Warfarin Plan As of 09/04/2024 Full warfarin instructions: 8 mg every Tue, Sat; 4 mg all other days Next INR check: 10/16/2024 Repeat PT/INR in 6 week(s) Weekly dose: not changed Additional Dosing Information: I spent a total of 10-19 minutes (exact time 10 mins) on the date of service in preparation, delivery, and documentation of the care provided to Sushant La excluding any time spent in the performance of separately billed services or time spent by another provider/QHP. Socorro Pappas [facility] Clinical Pharmacist 09/04/2024, 9:50 AM documented in this encounter Plan of Treatment Upcoming Encounters Date Type Department Care Team (Late st Contact Info) Description 09/12/2024 2:30 PM EST PulmDiagnostic Pulmonary Function Lab, [facility] [address] [facility] [place] [address] [place] [facility] [place] [address] 09/26/2024 10:30 AM EST Office Visit Cardiology, [facility] [address] [facility] [place] [address] Fredrick Jaime DO [address] [place] [address] 10/09/2024 9:00 AM EST Telemedicine Pulmonary Medicine, [facility] [address] [facility] [place] [address] Jem Hilliard MD [address] [place] [address] 10/16/2024 10:10 AM EST 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 Pharmacy, [facility] [address] [facility] [place] [address] [facility] [address] [facility] [place] [address] 01/23/2025 9:20 AM EDT Office Visit Family Practice [facility] [address] [facility] [place] [address] Chiki Syed MD [address] [place] [address] Scheduled Procedures Name Priority Associated Diagnoses Date/Ti [...] this encounter Medical Devices Implanted Type Area Lead Software Development Engineer Device Identifier Shelf Expiration Date Model / Serial / Lot Lens Intraoc 21.5 - [id number] - [id number] Implanted:Qty: 1 on 06/20/2018 by Bogdan Lindsay MD at OR [facility] Left: Eye [employer] 01/02/2023 [id number] / [id number] / [id number] Lens Intraoc 21.5 - [id number] - [id number] Implanted:Qty: 1 on 06/29/2018 by Bogdan Lindsay MD at OR [facility] Right: Eye [employer] 02/02/2023 [id number] / [id number] / [id number] documented as of this encounter Procedures Procedure Name Priority Date/Time Associated Diagnosis Comments INR FINGERSTICK, POINT OF CARE STAT 09/04/2024 9:23 AM EST Longstanding persistent atrial fibrillation (HCC) 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 management encounter 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 current use of anticoagulant therapy documented in this encounter Results * INR FINGERSTICK, POINT OF CARE (09/04/2024 9:23 AM EST) Fingerstick INR 2.5 INR 9:33 AM EST [facility]-10 Blood 09/04/2024 9:23 AM EST 09/04/2024 9:32 AM EST Narrative [facility] 57-10 - 09/04/2024 9:33 AM EST Therapeutic ranges for non-operative patients: Prophylaxsis/treatment of DVT: (Range:2.0-3.0) Treatment of pulmonary embolism:(Range:2.0-3.0) Prevention of systemic embolism from: -tissue heart valves -acute myocardial infarction -valvular heart disease -atrial fibrillation (Range: 2.0-3.0) Mechanical prosthetic valves: (Range: 2.5-3.5) Socorro Pappas [facility] LAB POINT OF C ARE TEST DOCKED DEVICE UNSOLICITED RESULTS Final Result LABORATORY [facility] BOB 57-10 [address] [facility] [place] [address] documented in this encounter Visit Diagnoses Diagnosis 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 management encounter- Primary Encounter for therapeutic drug monitoring Chronic atrial fibrillation (HCC) Atrial fibrillation Longstanding persistent atrial fibrillation (HCC) skilled nursing [...] and were consensually agreed upon. Care Teams Glue Bone Drier Relationship Specialty Start Date End Date Chiki Syed MD [address] [place] [address] PCP - General Family Medicine 10/20/18 documented as of this encounter"
--- OUTSIDE RECORDS SUMMARY | 2024-11-11 10:35 | External Medical Summary | Continuity of Care Document ---
Author Name Unknown Organization [facility] [address] [facility] Address [address] [facility] [address] [phone] Care Team Providers Care Chha Name Role Phone Chiki Syed Primary Care Physician [phone] [facility]counter [facility] [id number] Date(s): 08/14/24 - 08/14/24 [facility] [address] [facility] [address] [phone] Encounter Diagnosis Inflamed seborrheic keratosis(Discharge Diagnosis) - 08/14/24 AK (actinic keratosis)(Discharge Diagnosis) - 08/14/24 Discharge Disposition: Home or Self Care Attending Physician: MD Marie Thomas A Allergies, Adverse Reactions, Alerts Substance Criticality Severity Reaction Reaction Severity Status niacin Unknown reaction Act girma lisinopril Unknown reaction Ac tive Lipitor Unknown reaction Act girma TriCor Unknown reaction Act girma Allergy Not found in Search 1 "Loped" Active 1unknown reaction Assessment and Plan Extracted from: Title:Clinical Document Author:MD Cynthia, Nithin Rivas Date:08/14/24 OUTPATIENT NOTE Name: LAURA UMAÑA Patient Number:1 [id number] : 1940 Date of Service: 08/14/2024 _ Laura Umaña returns for reevaluation. Is a prior history of actinic damage. He notes a keratotic papule present on the antihelix of the left ear which was treated with cryotherapy with patient consent as an actinic keratosis. Side effects were discussed. He notes a keratotic papule present on the right forehead that he tends to pick at and would like to have this treated. It was treated with cryotherapy as an inflamed seborrheic keratosis. Review of systems medications allergies as noted on the chart. The patient is in stable health. He underwent a laparoscopic appendectomy last month with good result after an acute attack. He is doing well. Examination reveals pleasant well-nourished white male type II skin alert and oriented x 3 with normal mood and affect. Examination of the scalp, head, neck, back, chest, arms, hands, fingers, abdominal area, legs, feet, and toes reveals the findings as noted above, lentigines in sun exposed areas on the arms, few scattered seborrheic keratoses on the back which require no further treatment and about which the patient was reassured as to their benign nature and is otherwise unremarkable. The patient will return in 1 year for reevaluation. Medications Crestor 5 mg oral tablet Start: 06/26/13 11:40:00 AM EDT, 1 tab, PO, Every other day Start Date: 06/26/13 Status: Ordered Fish Oil 1200 mg oral capsule Start: 06/26/13 11:41:00 AM EDT, 1 cap, PO, bid Start Date: 06/26/13 Status: Ordered hydrochlorothiazide 25 mg oral tablet Start: 06/26/13 11:39:00 AM EDT, 0.5 tab, PO, Every other day Start Date: 06/26/13 Status: Ordered losartan 100 mg oral tablet Start: 06/26/13 11:39:00 AM EDT, 1 tab, PO, Daily Start Date: 06/26/13 Status: Ordered Metoprolol Tartrate 25 mg oral tablet Start: 06/26/13 11:39:00 AM EDT, 1 tab, PO, bid Start Date: 06/26/13 Status: Ordered pantoprazole 20 mg oral delayed release tablet TAKE 1 TABLET BY MOUTH IN THE MORNING Start Date: 07/21/22 Status: Ordered Tylenol Extra Strength PM 500 mg-25 mg oral tablet Start: 06/26/13 11:43:00 AM EDT, 1 tab, PO, qhs, PRN: as needed for sleep Start Date: 06/26/13 Status: Ordered Vitamin B12 Start: 06/24/16 12:55:00 PM EDT, 500 mcg =, PO, Daily Start Date: 06/24/16 Status: Ordered warfarin 4 mg oral tablet Start: 06/26/13 11:39:00 AM EDT, See Instructions, 4 mg po Tuesday, and Tuesday, All other days 8 mg Start Date: 06/26/13 Status: Ordered Mental Status 08/14/24 Barriers to Learning one year None evide nt Mandatory Health Literacy Documentation Yes Health Literacy Communication Barriers N ever Primary Language Wolof Problem List Condition Confirmation Course Effective Dates Status Health Status Informant Atrial fibrillation Confirmed Active Essential hypertension Confirmed Active Gastroesophageal reflux disease Confirmed Active History of dysplastic nevus Confirmed Active History of malignant neoplasm of prostate Confirmed Active Mixed hypercholesterolemia and hypertriglyceridemia Confirmed Active Diagnosis Diagnosis Type Effective Dates Health Status Clinical Service Informant Inflamed seborrheic keratosis Discharge Diagnosis 08/14/24 AK (actinic keratosis) Discharge Diagnosis 08/14/24 Procedures Procedure Date Related Diagnosis Body Site Status Appendectomy 08/07/24 Completed Shave biopsy of skin 07/09/20 Comp leted Shave biopsy and cauterisati on of skin 1 07/05/19 Completed Bilateral extraction of cataracts 06/2018 Completed Cholecystectomy 06/2009 Completed Herniorrhaphy 2 12/2008 Completed Kidney cysts 3 11/2005 Completed 1right clavicular area 2x2 2010 3surgical removal Social History Social History Type Response Smoking Status Never smoked cigaret yaron Sex Male Sex Representation Male (finding) Outpatient Note * MD Cynthia, Fredrick Rivas: PERFORM Event Display: .Outpt Note Authored Date: [id number] OUTPATIENT NOTE Name: LAURA UMAÑA Patient Number:1 [id number] : 1940 Date of Service: 08/14/2024 _ Laura Umaña returns for reevaluation. Is a prior history of actinic damage. He notes a keratotic papule present on the antihelix of the left ear which was treated with cryotherapy with patient consent as an actinic keratosis. Side effects were discussed. He notes a keratotic papule present on the right forehead that he tends to pick at and would like to have this treated. It was treated with cryotherapy as an inflamed seborrheic keratosis. Review of systems medications allergies as noted on the chart. The patient is in stable health. He underwent a laparoscopic appendectomy last month with good result after an acute attack. He is doingwell. Examination reveals pleasant well-nourished white male type II skin alert and oriented x 3 with normal mood and affect. Examination of the scalp, head, neck, back, chest, arms, hands, fingers, abdominal area, legs, feet, and toes reveals the findings as noted above, lentigines in sun exposed areas on the arms, few scattered seborrheic keratoses on the back which require no further treatment and about which the patient was reassured as to their benign nature and is otherwise unremarkable. The patient will return in 1 year for reevaluation. Electronic Signature on File Electronically Reviewed/Signed by: Fredrick Marie MD Author Signature Dt/Tm:08/14/2024 08:56 AM Department of Dermatology [facility] Patient Care team information Care Team Personnel Name: MD Kunal, Chiki Camacho Position: Referring DIRECT Member Role: Primary Care Provider Address: [address] [place] [address] [place] Care Team Related Persons Name: PATRICIA UMAÑA
--- OUTSIDE RECORDS SUMMARY | 2024-11-11 10:35 | External Medical Summary | Summary of Care ---
Author Name Unknown Organization [facility] Address [address] [place] [address] Phone [phone] Care Team Providers Care Ultrasonic Hand Solderer Name Role Phone Chiki Syed MD Primary Care Provider + Reason for Visit * Reason Onset Date Comments STAIR Lung Nodule 08/30/2024 Encounter Details Date Type Department Care Team (Late st Contact Info) Description 08/30/2024 Telephone STAIR LUNG NODULE [address] [place] [address] Program, Stair [address] [place] [address] STAIR Lung Nodule Allergies Active Allergy Reactions Criticality Noted Date Comments Atorvastatin 10/15/2013 Joint pain Fenofibrate 10/15/2013 Joint pain Gemfibrozil Diarrhea 10/15/2013 Lisinopril Cough 01/25/2017 Niacin Nausea/vomiting 10/15/2013 documented as of this encounter (statuses as of 08/30/2024) Medications METAMUCIL 0.52 G PO CAPS one to two daily 4 Active [facility] + D3 6164-5956 MG-UNIT PO CAPS Take by mouth once [...] 3 06/20/2024 10:57 AM EDT 4 Active Hospital, Clinic, or Other Facility Administered Medication Ordered Dose Route Frequency Start Date End Date Status Albuterol Sulfate (Proventil) (2.5 MG/3ML) 0.083% inhalation solution 2.[address] 2.5 mg NEBULIZER ONCE PRN 08/29/2024 08/29/2025 Active documented as of this encounter (statuses as of 08/30/2024) Active Problems Problem Noted Date Diagnosed Date [...] cancer 01/25/2017 Overview (01/25/2017): left kidney dx [facility] Prediabetes 10/05/2016 Prostate cancer 10/05/2016 Overview (10/24/2019): S/p surgery, XRT. 07/[address] Holm 08/21 PSA [address] [place] [address] Romero--s/p surg, XRT 5 years later. [...] as of this encounter (statuses as of 08/30/2024) Resolved Problems Problem Noted Date Diagnosed Date [...] as of this encounter (statuses as of 08/30/2024) Immunizations Name Administration Dates Next Due COVID-19 [...] encounter Miscellaneous Notes * Telephone Encounter - Brittanie Medrano LPN - 08/30/2024 8:54 AM EST Patient managed in STAIR Program for Pulmonary Nodule - banner added documented in this encounter Plan of Treatment Upcoming Encounters Date Type Department Care Team (Late st Contact Info) Description 09/04/2024 9:40 AM EST 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 Pharmacy, [facility] [address] [facility] [place] [address] [facility] [address] [facility] [place] [address] 09/12/2024 2:30 PM EST PulmDiagnostic Pulmonary Function Lab, [facility] [address] [facility] [place] [address] [address], [address] [facility] [place] [address] 09/26/2024 10:30 AM EST Office Visit Cardiology, [facility] [address] [facility] [place] [address] Fredrick Jaime DO [address] [place] [address] 10/09/2024 9:00 AM EST Telemedicine Pulmonary Medicine, [facility] [address] [place] [address] Jem Hilliard MD [address] [place] [address] 01/23/2025 9:20 AM EDT Office Visit Family Practice [facility] [address] [place] [address] Chiki Syed MD [address] [place] [address] Scheduled Procedures Name Priority Associated Diagnoses Date/Ti [...] this encounter Medical Devices Implanted Type Area Zoology Professor Device Identifier Shelf Expiration Date Model / Serial / Lot Lens Intraoc 21.5 - [id number] - [id number] Implanted:Qty: 1 on 06/20/2018 by Bogdan Lindsay MD at OR [facility] [address] Left: Eye [employer] 01/02/2023 [id number] / [id number] / [id number] Lens Intraoc 21.5 - [id number] - [id number] Implanted:Qty: 1 on 06/29/2018 by Bogdan Lindsay MD at OR [facility] [address] [address] Right: Eye [employer] 02/02/2023 [id number] / [id number] / [id number] documented as of this encounter Advance Directives [...] and were consensually agreed upon. Care Teams Ultrasonic Hand Solderer Relationship Specialty Start Date End Date Chiki Syed MD [address] [place] [address] PCP - General Family Medicine 10/20/18 documented as of this encounter
--- OUTSIDE RECORDS SUMMARY | 2024-11-11 10:35 | External Medical Summary | Summary of Care ---
Author Name Unknown Organization [facility] Address [address] [address] Phone [phone] Care Team Providers Care Shipwright Supervisor Name Role Phone Chiki Syed MD Primary Care Provider + Reason for Visit * Reason Comments Dosage Adjustment In Person (Anticoag Cl inic) Encounter Details Date Type Department Care Team (Latest Contact Info) Description 08/03/2024 10:00 AM EST 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 Pharmacy, [facility] [address] [place] [address] [facility] [address] [facility] [place] [address] 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 management encounter*; Chronic atrial fibrillation (HCC); Longstanding persistent atrial fibrillation (HCC); 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 Prediabetes 10/05/2016 Prostate cancer 10/05/2016 Overview (10/24/2019): S/p surgery, XRT. 07/[address] Holm 08/21 PSA 0.[address] [place] [address] Romero--s/p surg, XRT 5 years later. Well adult exam 10/05/2016 Overview (08/12/2022): 08/26 EGD biopsy +Leiomyoma. Precious 1y 06/26 EGD--abnormal. F/u sched lung nodules, ectasia, precious stable 05/27, precious 1 more time 1y ordered 04/[address] Holm, uro. Dr Mccloud-Cardiology in past now Dr Patten Goes yearly to [facility]. 06/21 normal stress test w/Dr Mccloud 2009 colonoscopy WNL -consider in 2019. A-fib 01/09/2016 Overview (07/16/2024): 06/21 Lexiscan Tc99 Stress echo WNL. Normal EF. Dr Mccloud [place] in past now [place] HTN, goal below 130/80 GERD (gastroesophageal reflux disease) documented as of this encounter (statuses as of 08/03/2024) Resolved Problems Problem Noted Date Diagnosed Date [...] as of this encounter (statuses as of 08/03/2024) Immunizations Name Administration Dates Next Due COVID-19 [...] as of this encounter Progress Notes * Genna Ferrer RPh - 08/03/2024 12:03 PM EST Medication Therapy Disease Management - 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 Patient: Sushant La | : 1940 Subjective Patient-Reported Symptoms: Patient Findings Negatives: Signs/symptoms of thrombosis, Signs/symptoms of bleeding, Change in health, Change in alcohol use, Change in activity, Upcoming invasive procedure, Missed doses, Extra doses, Change in medications, Change in diet/appetite, Bruising Objective Current Warfarin Dose As of 08/03/2024 Warfarin maintenance plan: 8 mg (4 mg x 2) every Tue, Sat; 4 mg (4 mg x 1) all other days INR Result As of 08/03/2024 INR goal: 2.0-3.0 INR used for dosin.5 (08/03/2024) Assessment & Plan Warfarin Plan As of 08/03/2024 Full warfarin instructions: 8 mg every Tue, Sat; 4 mg all other days No change documented: Genna Ferrer RPh Next INR check: 09/04/2024 Repeat PT/INR in 4 week(s) Weekly dose: not changed Additional Dosing Information: I spent a total of 10-19 minutes (exact time 10 mins) on the date of service in preparation, delivery, and documentation of the care provided to Sushant La excluding any time spent in the performance of separately billed services or time spent by another provider/QHP. Genna Ferrer PharmD, BCPS Clinical Pharmacist 08/03/2024, 12:03 PM documented in this encounter Plan of Treatment Upcoming Encounters Date Type Department Care Team (Late st Contact Info) Description 08/09/2024 10:30 AM EST Imaging Radiology [address] [place] [address] 09/04/2024 9:40 AM EST 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 Pharmacy, [facility] [address] [place] [address] [facility] [address] [place] [address] 09/26/2024 10:30 AM EST Office Visit Cardiology, [facility] [address] [place] [address] Fredrick Jaime DO [address] [place] [address] 01/23/2025 9:20 AM EDT Office Visit Family Practice [facility] [address] [place] [address] Chiki Syed MD [address] [place] [address] Scheduled Procedures Name Priority Associated Diagnoses Date/Ti [...] this encounter Medical Devices Implanted Type Area Filter Plant Supervisor Device Identifier Shelf Expiration Date Model / Serial / Lot Lens Intraoc 21.5 - [id number] - [id number] Implanted:Qty: 1 on 06/20/2018 by Bogdan Lindsay MD at OR [facility] Left: Eye [employer]OM[employer] 01/02/2023 [id number] / [id number] / [id number] Lens Intraoc 21.5 - [id number] - [id number] Implanted:Qty: 1 on 06/29/2018 by Bogdan Lindsay MD at OR [facility] Right: Eye [employer] LOMB 02/02/2023 [id number] / [id number] / [id number] documented as of this encounter Procedures Procedure Name Priority Date/Time Associated Diagnosis Comments INR FINGERSTICK, POINT OF CARE STAT 08/03/2024 10:10 AM EST Longstanding persistent atrial fibrillation (HCC) 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 management encounter half-way current use of anticoagulant therapy documented in this encounter Results * INR FINGERSTICK, POINT OF CARE (08/03/2024 10:10 AM EST) Fingerstick INR 2.5 INR 12:01 PM EST [facility] 57-10 Blood 08/03/2024 10:1 0 AM EST 08/03/2024 12:01 PM EST Narrative [facility] 57-10 - 08/03/2024 12:01 PM EST Therapeutic ranges for non-operative patients: Prophylaxsis/treatment of DVT: (Range:2.0-3.0) Treatment of pulmonary embolism:(Range:2.0-3.0) Prevention of systemic embolism from: -tissue heart valves -acute myocardial infarction -valvular heart disease -atrial fibrillation (Range: 2.0-3.0) Mechanical prosthetic valves: (Range: 2.5-3.5) Socorro Elzbieta Mian [facility] LAB POINT OF C ARE TEST DOCKED DEVICE UNSOLICITED RESULTS Final Result [facility] RE[facility]CA COWANILDA 57-10 [address] [place] [address] documented in this encounter Visit Diagnoses Diagnosis [...] and were consensually agreed upon. Care Teams Shipwright Supervisor Relationship Specialty Start Date End Date Chiki Syed MD [address] [place] [address] PCP - General Family Medicine 10/20/18 documented as of this encounter"
--- OUTSIDE RECORDS SUMMARY | 2024-11-11 10:35 | External Medical Summary | Summary of Care ---
Author Name Unknown Organization [facility] Address [address] [place] [place] [place] [address] Phone [phone] Care Team Providers Care Glass Frame Fitter Name Role Phone Chiki Blount MD Primary Care Provider + Reason for Visit * Reason Comments eRx-Medication Refill Encounter Details Date Type Department Care Team (Late st Contact Info) Description 08/29/2024 Refill Family Practice [facility] [address] [place] [address] Chiki Blount MD [address] [place] [id number] HTN, goal below 140/90 Allergies Active Allergy Reactions Criticality Noted Date Comments Atorvastatin 10/15/2013 Joint pain Fenofibrate 10/15/2013 Joint pain Gemfibrozil Diarrhea 10/15/2013 Lisinopril Cough 01/25/2017 Niacin Nausea/vomiting 10/15/2013 documented as of this encounter (statuses as of 08/31/2024) Medications METAMUCIL 0.52 G PO CAPS one to two daily 10/15/19 14 Active [facility] FISH OIL + D3 2975-9287 MG-UNIT PO CAPS Take by mouth once [...] BY MOUTH IN THE MORNING 90 Tablet 09/06/19 24 Active Warfarin Sodium 4 MG Oral Tablet (Coumadin)Indic ations:Chronic atrial fibrillation (HCC) TAKE 1 TO 2 TABLETS BY MOUTH DAILY PER ANTI-COAGULATIO N CLINIC 180 Tablet 3 01/11/20 24 Active Lidocaine 5 % External Patch (Lidoderm)Indic ations:HZV (herpes zoster virus) post herpetic neuralgia Place 2 Patches topically on the skin in the morning. 60 Patch 5 01/20/20 24 Active Furosemide 20 MG Oral Tablet (Lasix)Indicati ons:Lower extremity edema,Chronic atrial fibrillation (HCC),HTN, goal below 130/80,Valvular heart disease Take 1 Tablet by mouth daily as needed (fluid accumulation or weight gain). 30 Tablet 11 03/02/20 24 Active Gabapentin 100 MG Oral Capsule (Neurontin)Sharmaine cations:HZV (herpes zoster virus) post herpetic neuralgia Take 1 Capsule by mouth in the morning and 1 Capsule at noon and 1 Capsule before bedtime. 90 Capsule 5 03/23/20 24 Active Metoprolol Succinate ER 50 MG [...] MORNING 90 Capsule 1 08/31/20 24 Active Losartan Potassium 100 MG Oral Tablet (Cozaar)Indicat ions:HTN, goal below 140/90 TAKE 1 TABLET BY MOUTH IN THE MORNING 90 Tablet 1 04/04/20 24 2023 Discontinued hydroCHLOROthia zide 12.5 MG Oral CapsuleIndicati ons:HTN, goal below 140/90 TAKE 1 CAPSULE BY MOUTH IN THE MORNING 90 Capsule 1 04/04/20 24 2023 Discontinued Hospital, Clinic, or Other Facility Administered Medication Ordered Dose Route Frequency Start Date End Date Status Albuterol Sulfate (Proventil) (2.5 MG/3ML) 0.083% inhalation solution 2.[address] 2.5 mg NEBULIZER ONCE PRN 08/29/2024 08/29/2025 Active documented as of this encounter (statuses as of 08/31/2024) Active Problems Problem Noted Date Diagnosed Date [...] cancer 01/25/2017 Overview (01/25/2017): left kidney dx [facility] Prediabetes 10/05/2016 Prostate cancer 10/05/2016 Overview (10/24/2019): S/p surgery, XRT. 07/[address] Holm 08/21 PSA 0.[address] [place] [address] Romero--s/p surg, XRT 5 years later. [...] Stress echo WNL. Normal EF. Dr Mccloud [place] in past now [place] HTN, goal below 130/80 GERD (gastroesophageal reflux disease) documented as of this encounter (statuses as of 08/31/2024) Resolved Problems Problem Noted Date Diagnosed Date [...] as of this encounter (statuses as of 08/31/2024) Immunizations Name Administration Dates Next Due COVID-19 [...] encounter Miscellaneous Notes * Telephone Encounter - Юлия Erickson RPh - 08/31/2024 11:12 AM ESTSigned Prescriptions: Disp Refills Losartan Potassium 100 MG Oral Tablet (Coz*90 Tab*1 Sig: TAKE 1 TABLET BY MOUTH IN THE MORNINGAuthorizing Provider: CHIKI BLOUNT User: [email or web address] ERICKSON hydroCHLOROthiazide 12.5 MG Oral Capsule 90 Cap*1 Sig: TAKE 1 CAPSULE BY MOUTH IN THE MORNINGAuthorizing Provider: CHIKI BLOUNT User: [email or web address] ERICKSON documented in this encounter Plan of Treatment Upcoming Encounters Date Type Department Care Team (Late st Contact Info) Description 09/04/2024 9:40 AM EST 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 Pharmacy, [facility] [address] [facility] [place] [address] [facility] [address] [facility] [place] [address] 09/12/2024 2:30 PM EST PulmDiagnostic Pulmonary Function Lab, [facility] 132 [facility] [place] [address] [place] [facility] [place] [address] 09/26/2024 10:30 AM EST Office Visit Cardiology, [facility] [address] [facility] [place] [address] Fredrick Jaime O, DO [address] [facility] [place] [address] 10/09/2024 9:00 AM EST Telemedicine Pulmonary Medicine, [facility] [address] [facility] [place] [address] Jem Hilliard MD [address] [place] [address] 01/23/2025 9:20 AM EDT Office Visit Family Practice [facility] [address] [facility] [place] [address] Chiki Blount MD 132 [facility] [place] [address] Scheduled Procedures Name Priority Associated Diagnoses Date/Ti [...] this encounter Medical Devices Implanted Type Area Railroad Dining Car Steward/Stewardess Device Identifier Shelf Expiration Date Model / Serial / Lot Lens Intraoc 21.5 - [id number] - [id number] Implanted:Qty: 1 on 06/20/2018 by Bogdan Lindsay MD at OR [facility] Left: Eye [employer] LOMB 01/02/2023 [id number] / [id number] / [id number] Lens Intraoc 21.5 - [id number] - [id number] Implanted:Qty: 1 on 06/29/2018 by Bogdan Lindsay MD at OR [facility] Right: Eye BAUSCH [employer] LOMB 02/02/2023 [id number] / [id number] / [id number] documented as of this encounter Visit Diagnoses [...] and were consensually agreed upon. Care Teams Glass Frame Fitter Relationship Specialty Start Date End Date Chiki Blount MD [address] [facility] [place] [address] PCP - General Family Medicine 10/20/18 documented as of this encounter
--- OUTSIDE RECORDS SUMMARY | 2024-11-11 10:35 | External Medical Summary | Summary of Care ---
Author Name Unknown Organization [facility] Address [address] [place] [address] Phone [phone] Care Team Providers Care Line Cleaner Name Role Phone Chiki Syed MD Primary Care Provider + Reason for Referral * Evaluate & Treat - Unlimited Visits (Within 10 days (routine)) - Authorized Specialty Diagnoses / Procedures Referred By Contac t Referred To Contact Gastroenterology Diagnoses Dysphagia, unspecified type Fredrick Jaime DO [address] [place] [address] Phone: tel: fax: Referral ID Status Reason Start Date Expiration Date Visits Requested Visits Authorized [id number] Authorized Specialty Services Required 09/26/2024 999 [id number] Question Answer Referral Priority Within 10 days (routine) Where should this appointment be scheduled? [facility] For what condition is the patient being referred? All Gastro Conditions Comments Difficulty swallowing, solid food stuck, no trouble with liquids. Consider EGD * Evaluate & Treat - Unlimited Visits (Within 10 days (routine)) - Authorized Specialty Diagnoses / Procedures Referred By Contact Referred To Contact Cardiovascular Surgery / Cardiothoracic Surgery Diagnoses Aneurysm of ascending aorta without rupture (HCC) Fredrick Jaime DO [address] [place] [address] Phone: tel: fax: Referral ID Status Reason Start Date Expiration Date Visits Requested Visits Authorized [id number] Authorized Specialty Services Required 09/26/2024 999 999 Question Answer Referral Priority Within 10 days (routine) Where should this appointment be scheduled? [facility] Does your patient require surgical evaluation and/or treatment for known heart disease? Yes Comments 5.4 cm ascending aortic aneurysm * Precert (Diagnostic Medical) (Within 10 days (routine)) - Authorized Specialty Diagnoses / Procedures Referred By Contac t Referred To Contact Cardiac Studies Diagnoses HTN, goal below 130/80 Aneurysm of ascending aorta without rupture (HCC) Chronic atrial fibrillation (HCC) Procedures ECHO, COMPLETE (2D), TRANS-THORACIC Fredrick Jaime DO [address] [place] [address] Phone: tel: fax: Referral ID Status Reason Start Date Expiration Date V isits Requested Visits Authorized [id number] Authorized Precert 09/26/2024 999 999 Reason for Visit * Reason Comments Follow Up Encounter Details Date Type Department Care Team (Late st Contact Info) Description 09/26/2024 10:30 AM EST Office Visit Cardiology, [facility] [address] [place] [address] Fredrick Jaime DO [address] [place] [address] Aneurysm of ascending aorta without rupture (HCC)*; HTN, goal below 130/80; Chronic atrial fibrillation (HCC); Dysphagia, unspecified type Allergies Active Allergy Reactions Criticality Noted Date Comments Atorvastatin 10/15/2013 Joint pain Fenofibrate 10/15/2013 Joint pain Gemfibrozil Diarrhea 10/15/2013 Lisinopril Cough 01/25/2017 Niacin Nausea/vomiting 10/15/2013 documented as of this encounter (statuses as of 09/26/2024) Medications [facility] FISH OIL + D3 9530-5677 MG-UNIT PO CAPS Take by mouth once [...] MORNING 90 Capsule 1 08/31/20 24 Active METAMUCIL 0.52 G PO CAPS one to two daily 10/15/19 14 2024 Discontinued Pantoprazole Sodium 20 MG Oral Tablet Delayed Release (Protonix) TAKE 1 TABLET BY MOUTH IN THE MORNING 90 Tablet 09/06/19 24 2024 Discontinued Lidocaine 5 % External Patch (Lidoderm)Indic ations:HZV (herpes zoster virus) post herpetic neuralgia Place 2 Patches topically on the skin in the morning. 60 Patch 5 01/20/20 24 2024 Discontinued Gabapentin 100 MG Oral Capsule (Neurontin)Sharmaine cations:HZV (herpes zoster virus) post herpetic neuralgia Take 1 Capsule by mouth in the morning and 1 Capsule at noon and 1 Capsule before bedtime. 90 Capsule 5 03/23/20 24 2024 Discontinued Hospital, Clinic, or Other Facility Administered Medication Ordered Dose Route Frequency Start Date End Date Status Albuterol Sulfate (Proventil) (2.5 MG/3ML) 0.083% inhalation solution 2.[address] 2.5 mg NEBULIZER ONCE PRN 08/29/2024 08/29/2025 Active documented as of this encounter (statuses as of 09/26/2024) Active Problems Problem Noted Date Diagnosed Date [...] cell cancer 01/25/2017 Overview (01/25/2017): left kidney [facility] Prediabetes 10/05/2016 Prostate cancer 10/05/2016 Overview (10/24/2019): S/p surgery, XRT. 07/[address] Holm 08/21 PSA 0.[address] [place] [address] Romero--s/p surg, XRT 5 years later. [...] now Dr Patten Goes yearly to [facility]. 06/21 normal stress test w/Dr Mccloud 2009 colonoscopy WNL -consider in 2019. A-fib 01/09/2016 Overview (07/16/2024): 06/21 Lexiscan Tc99 Stress echo WNL. Normal EF. Dr Mccloud [place]go in past now Addison/Madan HTN, goal below 130/80 GERD (gastroesophageal reflux disease) documented as of this encounter (statuses as of 09/26/2024) Resolved Problems Problem Noted Date Diagnosed Date [...] as of this encounter (statuses as of 09/26/2024) Immunizations Name Administration Dates Next Due COVID-19 [...] Sign Reading Time Taken Comments Blood Pressure 120/72 09/26/2024 10:42 AM EST Pulse 74 09/26/2024 10:42 AM EST Temperature - - Respiratory Rate - - Oxygen Saturation - - Inhaled Oxygen Concentration - - Weight 119.3 kg (263 lb) 09/26/2024 10:42 AM EST Height - - Body Mass Index 37.1 09/12/2024 2:34 PM EST documented in this encounter Progress Notes * Fredrick Jaime DO - 09/26/2024 10:55 AM EST SUBJECTIVE: Patient returns today for follow up of aortic root and ascending aortic aneurysm, mixedvalvular heart disease, permanent atrial fibrillation, and hypertension. Patient's 1st evaluation with the undersigned. Recent Ask-a-doc" encounter due to ascending aortic diameter 5.[address] surgery consultation recommended with repeat echocardiogram. Patient feeling well from a cardiovascular perspective. Denies chest pain or unusual shortness of breath. Admits to sedentary lifestyle and lack of regular exercise. Notes stable functional capacity.No palpitations, lightheadedness, dizziness, syncope, or near syncope. Denies orthopnea, PND, weight gain, lower extremity edema. Tolerating medications listed below. present for today's office visit. Offers no additional concerns/complaints. Reports intermittent difficulty swallowing solid food. At times toast and meet gets stuck. No problem swallowing liquid. ECG: Atrial fibrillation with controlled ventricular response, poor R-wave progression, can not exclude age indeterminate anterior infarct. ROS: All others negative other than those noted in the HPI. CT chest without contrast report August 09, 2024: There is atherosclerotic disease of the ascending thoracic aorta. There is aneurysmal dilatation of the ascending thoracic aorta with a maximum transverse diameter 5.4 cm. The aneurysm continues to show mild interval increase in size. Continued surveillance is suggested. Consultation with vascular surgery may be beneficial for elective repair. CT chest without contrast report May 24, 2023: The ascending aorta measures 4.8 cm. The descending aorta measures 3.6 cm. Atheromatous change is seen. 2D echocardiogram report May 26, 2022: The left ventricular cavity size is normal. The LV wall thickness is moderately increased (concentric). The left ventricular wall motion is normal. The qualitative LV ejection fraction is 55-59% (normal). There is biatrial enlargement The aortic valve is mildly calcified. Aortic stenosis is absent. There is trace aortic insufficiency Mild mitral and tricuspid regurgitation is present. The proximal ascending thoracic aorta is moderately enlarged. (4.1/4.6 cm)- unchanged from prior study Patient Active Problem List Diagnosis HTN, goal [...] Aneurysm of ascending aorta without rupture (HCC) Social History Tobacco Use Smoking status: Former Current packs/day: 0.00 Average packs/day: 1 pack/day for 29.9 years (29.9 ttl pk-yrs) Types: Cigarettes Start date: 10/15/1961 Quit date: 1991 Years since quittin.0 Smokeless tobacco: Former Quit date: 10/19/1991 Tobacco comments: 30 yrs 1- ppd Vaping Use Vaping status: Never Used Substance Use Topics Alcohol use: Yes Comment: wine at holidays Drug use: No Review of patient's allergies indicates: Allergen Reactions Atorvastatin Joint pain Fenofibrate Joint pain Gemfibrozil Diarrhea Lisinopril Cough Niacin Nausea/vomiting Current Outpatient Medications Medication Sig Dispense Refill [facility] FISH OIL + D3 5728-7384 MG-UNIT PO CAPS Take by mouth once . Takes this once daily Vitamin B-12 500 MCG Oral Lozenge Take [...] MOUTH IN THE MORNING 90 Capsule 1 rosuvastatin (CRESTOR) 5 MG Tablet Take 2.5 Tablets by mouth every other day. Current Facility-Administered Medications Medication Dose Route Frequency Provider Last Rate Last Admin Albuterol Sulfate (Proventil) (2.5 MG/3ML) 0.083% inhalation solution 2.5 mg 2.5 mg Nebulizer Once PRN 2.5 mg at 09/12/24 1421 Lipid Panel Results: Results for orders placed or performed in visit on 11/01/17 LIPID PANEL Result Value Ref Range HOURS FASTING 12 hours Triglycerides 272 (H) <200 mg/dL Cholesterol 164 <200 mg/dL HDL Cholesterol 31 (L) >39 mg/dL Cholesterol-HDL Ratio 5.3 LDL Cholesterol 79 0 - 129 mg/dL Results for orders placed or performed in visit on 10/31/20 LIPID PANEL WITH DIRECT LDL IF TG IS HIGH Result Value Ref Range Triglycerides 220 (H) <=174 mg/dL Cholesterol 155 <200 mg/dL HDL Cholesterol 32 (L) >39 mg/dL Non-HDL Cholesterol 123 <=159 mg/dL Lab Results Component Value Date/Time TSH - [facility] 3.66 11/01/2017 07:12 AM TSH - [facility] 3.26 04/17/2017 08:11 AM TSH - [facility] 3.57 10/04/2016 07:18 AM TSH - [facility] 2.53 02/07/2024 12:00 AM TSH - [facility] 3.37 02/08/2023 12:00 AM CBC Results: Results for orders placed or performed in visit on 10/17/19 CBC Result Value Ref Range WBC 5.41 4.00 - 10.80 K/uL RBC 4.87 4.50 - 5.25 M/uL HGB 15.2 14.0 - 16.8 g/dL HCT 45.2 40.0 - 48.4 % MCV 92.8 82.0 - 99.5 fL MCH 31.2 27.0 - 34.0 pg MCHC 33.6 32.0 - 36.0 g/dL RDW 12.5 11.5 - 15.5 % PLT 149 140 - 400 K/uL MPV 10.2 6.6 - 11.1 fL OBJECTIVE/PHYSICAL EXAMINATION: BP 120/72 | Pulse 74 | Wt 119.3 kg (263 lb) | BMI 37.10 kg/m | BSA 2.44 m General: NAD, AAO x3, well nourished. HEENT: Normocephalic. Atraumatic. Conjunctiva pink, no scleral icterus. No carotid bruits, the carotid upstrokes are brisk. No JVD. No HJR Heart: Irregular rhythm, normal S-1 and S-2. No murmurs or rubs appreciated. PMI is not displaced. No RV heave. Lungs: Clear bilateral without rales , rhonchi, or wheeze. Abdomen: Normal bowel sounds. Soft. Nontender. No masses or organomegaly. No abdominal bruits. Extremities: Trace to mild bilateral ankle edema. Pulses: radial=2/4. Neuro: No focal deficits. ASSESSMENT: 1. 5.4 cm ascending aortic aneurysm -diameter increased from 4.[address] 05/2023 2. Permanent atrial fibrillation with controlled ventricular response -appropriately anticoagulated with warfarin 3. Mitral regurgitation and tricuspid regurgitation -mild per most recent echocardiogram 05/2022, however, reported as [id number] on previous studies. 4. HTN - controlled 5. 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 Dyslipidemia - tolerating rosuvastatin 7. Dysphagia PLAN: Cardiovascular surgery referral op Adult gastroenterology referral op Echo, complete (2d), trans-thoracic Ekg I had a long discussion with the patient regarding the natural history, pathophysiology of ascending aortic aneurysm as well as potential surgical treatment options. Patient unsure whether he would like to proceed with surgical intervention at this time, however, agreeable to Cardiothoracic surgeryreferral for further discussion. Gastroenterology referral placed to consider EGD for further assessment of dysphagia. Blood pressure and heart rate well controlled. Continue current medications including losartan, hydrochlorothiazide, metoprolol succinate, furosemide, rosuvastatin, and warfarin. Follow Up: Return in about 3 months (around 2024). I spent a total of 40-54 minutes (exact time 40 mins) on the date of service in preparation, delivery, and documentation of the care provided to Sushant La excluding any time spent in the performance of separately billed services or time spent by another provider/QHP. Fredrick Jaime DO, [facility] Associate Cardiology - [facility] documented in this encounter Nursing Notes * Rhonda Holley CMA - 09/26/2024 10:41 AM EST Examination Room: 13 Name: Sushant La Date of : (1940) Reason for Visit: 1 year Interim Hospitalization(s): 07/07- appendectomy Problems/Concerns: denied Chest Pain/SOB: denied My [facility] is a way you can talk to your provider online through e-mail. Would you like to sign up? I can activate it for you? ALREADY ACTIVE Patient was instructed to not get up on the exam table until directed and assisted by their provider; patient is to remain seated in the chair/ wheelchair/ exam table for fall prevention and safety reasons. Patient is aware to have assistance to step down off exam table with personnel. Patient voiced full comprehension of instructions. documented in this encounter Plan of Treatment Upcoming Encounters Date Type Department Care Team (Late st Contact Info) Description 10/09/2024 9:00 AM EST Telemedicine Pulmonary Medicine, [facility] [address] [facility] [place] [address] Jem Hilliard MD [address] [place] [address] 10/10/2024 1:30 PM EST Office Visit Gastroenterology, [facility] [address] [facility] [place] [address] Mariana Florez CRNP [address] [facility] [place] [address] 10/10/2024 3:30 PM EST Cardiac Studies Cardiac Studies, [facility] [address] [facility] [place] [address] 10/16/2024 10:10 AM EST 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 Pharmacy, [address] [place] [address] [facility] [address] [place] [address] 01/02/2025 8:00 AM EDT Office Visit Cardiology, [facility] [address] [facility] [place] [address] Letty Romo CRNP [address] [place] [address] 01/23/2025 9:20 AM EDT Office Visit Family Practice [facility] [address] [facility] [place] [address] Chiki Syed MD [address] [place] [address] Scheduled Orders Name Type Priority Associated Diagnoses Orde r Schedule EKG EKG Routine HTN, goal below 130/80 Ordered: 09/26/2024 ECHO, COMPLETE (2D), TRANS-THORACIC Echocardiology Routine HTN, goal below 130/80 Aneurysm of ascending aorta without rupture (HCC) Chronic atrial fibrillation (HCC) Expected: 09/26/2024 (Approximate), Expires: 10/27/2026 Scheduled Procedures Name Priority Associated Diagnoses Date/Ti me ESOPHAGOGASTRODUODENOSCOPY ( EGD), FLEXIBLE, TRANSORAL, ENDOSCOPIC ULTRASOUND Recall Esophageal polyp Gastric mass Scheduled Referrals Name Type Priority Associated Diagnoses Order Schedule CARDIOVASCULAR SURGERY REFERRAL OP Referral Within 10 days (routine) Aneurysm of ascending aorta without rupture (HCC) Ordered: 09/26/2024 ADULT GASTROENTEROLOGY REFERRAL OP Referral Within 10 days (routine) Dysphagia, unspecified type Ordered: 09/26/2024 Health Maintenance Due Date Last Done Comments COVID-19 Vaccine ( season) 2024 01/13/2023, 07/05/2022, 12/14/2021, Additional history exists Adult Wellness Visit 07/26/2024 07/26/2023, 09/30/19 22 Depression Screening 01/19/2025 01/20/2024 GFR 02/06/2025 02/07/2024, 2 01/2024, 07/13/2023, Additional history exists HbA1c 02/06/2025 [...] this encounter Medical Devices Implanted Type Area Non Destructive Testing Specialist Device Identifier Shelf Expiration Date Model / Serial / Lot Lens Intraoc 21.5 - [id number] - [id number] Implanted:Qty: 1 on 06/20/2018 by Bogdan Lindsay MD at OR [facility] Left: Eye [employer] 01/02/2023 [id number] / [id number] / [id number] Lens Intraoc 21.5 - [id number] - [id number] Implanted:Qty: 1 on 06/29/2018 by Bogdan Lindsay MD at OR [facility] Right: Eye [employer]OMB 02/02/2023 [id number] / [id number] / [id number] documented as of this encounter Visit Diagnoses Diagnosis Aneurysm of ascending aorta without rupture (HCC)- Primary HTN, goal below 130/80 Unspecified essential hypertension Chronic atrial fibrillation (HCC) Atrial fibrillation Dysphagia, unspecified type documented in this encounter Advance Directives * Full Code (Latest Code Status on File) Date Activated Date Inactivated Comments 06/29/2018 8:41 AM 06/29/2018 3:29 PM This orde r reflects the patients wishes and were consensually agreed upon. * Full Code Date Activated Date Inactivated Comments 06/20/2018 9:51 AM 06/20/2018 3:45 PM This order reflects the patients wishes and were consensually agreed upon. Care Teams Line Cleaner Relationship Specialty Start Date End Date Chiki Syed MD [address] [place] [address] PCP - General Family Medicine 10/20/18 documented as of this encounter
--- OUTSIDE RECORDS SUMMARY | 2024-11-11 10:35 | External Medical Summary | Summary of Care ---
Author Name Unknown Organization [facility] Address [address] [place] [address] Phone [phone] Care Team Providers Care Pocket Operator Name Role Phone Chiki Syed MD Primary Care Provider + Reason for Referral * Precert (Within 10 days (routine)) - Authorized Specialty Diagnoses / Procedures Referred By Contac t Referred To Contact Radiology Diagnoses Lung nodules Aneurysm of ascending aorta without rupture (HCC) Procedures CT CHEST WO CONTRAST Chiki Geller MD [address] [place] [address] Phone: tel: fax: Referral ID Status Reason Start Date Expiration Date V isits Requested Visits Authorized [id number] Authorized 08/12/2025 999 [id number] Encounter Details Date Type Department Care Team (Late st Contact Info) Description 09/06/2024 Documentation STAIR LUNG NODULE [address] [place] [address] Chiki Geller MD [address] [place] [address] Lung nodules*; Aneurysm of ascending aorta without rupture (HCC) Allergies Active Allergy Reactions Criticality Noted Date Comments Atorvastatin 10/15/2013 Joint pain Fenofibrate 10/15/2013 Joint pain Gemfibrozil Diarrhea 10/15/2013 Lisinopril Cough 01/25/2017 Niacin Nausea/vomiting 10/15/2013 documented as of this encounter (statuses as of 09/06/2024) Medications METAMUCIL 0.52 G PO CAPS one to two daily 4 Active [facility] FISH OIL + D3 0599-4651 MG-UNIT PO CAPS Take by mouth once [...] as of this encounter (statuses as of 09/06/2024) Active Problems Problem Noted Date Diagnosed Date [...] cancer 01/25/2017 Overview (01/25/2017): left kidney dx [facility] Prediabetes 10/05/2016 Prostate cancer 10/05/2016 Overview (10/24/2019): S/p surgery, XRT. 07/[address] Holm 08/21 PSA 0.[address] [place] [address] Romero--s/p surg, XRT 5 years later. [...] Stress echo WNL. Normal EF. Dr Mccloud [place] in past now Addison/Madan HTN, goal below 130/80 GERD (gastroesophageal reflux disease) documented as of this encounter (statuses as of 09/06/2024) Resolved Problems Problem Noted Date Diagnosed Date [...] as of this encounter (statuses as of 09/06/2024) Immunizations Name Administration Dates Next Due COVID-19 [...] as of this encounter Progress Notes * Chiki Geller MD - 09/06/2024 11:09 AM EST Lung Nodule Provider Review - Initial dating back to January 12, 2021. Clinical Summary: 83-year-old male former cigarette smoker (estimated 30 pack- year, quit 43 years ago), with no personal history of cancer, who had a chest CT scan performed in the evaluation of previously recognized lung nodules which has been discovered incidentally in the evaluation of aortic aneurysm. He has a referral for formal pulmonary evaluation to a current February with Dr. Guevara. Reviewed below Imaging Interpretation: Chest CT scan August 09, 2024, compared with a series of chest CT scans dating back to January 12, 2021 Lung nodules: multiple Location: The dominant nodule is in the central aspect of the posterior right lower lobe (image number to 32/362). This measures 10 x 11 mm, 576 mm3. This is without substantial change. A second dominant nodule is in the left lower lobe anteriorly (image number [id number] to 362) measuring7.9 by 7.1 mm, 175 mm3 in my reading, this is increased slightly in size comparison to past studies. Characteristics: Solid Co-morbidity : findings of emphysema and ILD (there was mild centrilobular emphysema in the upper zones, and mild fibrotic change posterior basis which has increased over success of studies. Pulmonary Nodule Care Plan: Follow-up Imaging ordered - details below Details:. Because of concern of mild increase in at least one of the nodules, in his increased riskof lung cancer, a follow-up chest CT scan will be ordered at a 1 year interval. Continued surveillance or evaluation of his TAA is recommende. 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 Note is made of pulmonary function test orders. 2. Non-Pulmonary Nodule Incidental Finding: aneurysm TAA, measuring 5.4 cm with progression in size. 3. Patient contacted to review recommendations and next steps: No, letter to be sent by STAIR Coordinator (CT in >=12 months, no follow-up needed, or patient sent back to [facility]) 4. Message forwarded to STAIR Pool. Time spent: 30 minutes Chiki Geller MD STAIR (System to Track Abnormalities of Importance Reliably) documented in this encounter Plan of Treatment Upcoming Encounters Date Type Department Care Team (Late st Contact Info) Description 09/12/2024 2:30 PM EST PulmDiagnostic Pulmonary Function Lab, [facility] [address] [facility] [place] [address] [place] [place] [address] 09/26/2024 10:30 AM EST Office Visit Cardiology, [facility] [address] [facility] [place], [place] [address] Fredrick Jaime, [address] [place] [address] 10/09/2024 9:00 AM EST Telemedicine Pulmonary Medicine, [facility] [address] [facility] [place] [address] Jem [facility]illiard [facility] [address] [facility] [address] 10/16/2024 10:10 AM EST 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 Pharmacy, [facility] [address] [facility] [place] [address] [facility] [address] [facility] [place] [address] 01/23/2025 9:20 AM EDT Office Visit Family Practice [facility] [address] [facility] [place] [address] Chiki Syed MD [address] [facility] [place] [address] Scheduled Orders Name Type Priority Associated Diagnoses Orde r Schedule CT CHEST WO CONTRAST Medical Imaging Routine Lung nodules Aneurysm of ascending aorta without rupture (HCC) Expected: 08/12/2025, Expires: 10/07/2025 Scheduled Procedures Name Priority Associated Diagnoses Date/Ti [...] this encounter Medical Devices Implanted Type Area Recreation Coordinator Device Identifier Shelf Expiration Date Model / Serial / Lot Lens Intraoc 21.5 - [id number] - [id number] Implanted:Qty: 1 on 06/20/2018 by Bogdan Lindsay MD at OR [facility] Left: Eye [employer]OM[employer] 01/02/2023 [id number] / [id number] / [id number] Lens Intraoc 21.5 - [id number] - [id number] Implanted:Qty: 1 on 06/29/2018 by Bogdan Lindsay MD at OR [facility] Right: Eye [employer]CH [employer]OMB 02/02/2023 [id number] / [id number] / [id number] documented as of this encounter Visit Diagnoses Diagnosis Lung nodules- Primary Other nonspecific abnormal finding of lung field Aneurysm of ascending aorta without rupture (HCC) documented in this encounter Advance Directives [...] and were consensually agreed upon. Care Teams Pocket Operator Relationship Specialty Start Date End Date Chiki Syed MD [address] [place] [address] PCP - General Family Medicine 10/20/18 documented as of this encounter
--- OUTSIDE RECORDS SUMMARY | 2024-11-11 10:35 | External Medical Summary | Summary of Care ---
Author Name Unknown Organization [facility] Address [address] [place] [address] Phone [phone] Care Team Providers Care Regional Coordinator Name Role Phone Chiki Syed MD Primary Care Provider + Reason for Visit * Reason Comments Pulmonary Function Test Spirogram with skylar green Encounter Details Date Type Department Care Team (Late st Contact Info) Description 09/12/2024 2:30 PM EST PulmDiagnostic Pulmonary Function Lab, [facility] [address] [place] [address] [place], [address] [place] [address]* Allergies Active Allergy Reactions Criticality Noted Date Comments Atorvastatin 10/15/2013 Joint pain Fenofibrate 10/15/2013 Joint pain Gemfibrozil Diarrhea 10/15/2013 Lisinopril Cough 01/25/2017 Niacin Nausea/vomiting 10/15/2013 documented as of this encounter (statuses as of 09/12/2024) Medications METAMUCIL 0.52 G PO CAPS one to two daily 4 Active [facility] FISH OIL + D3 8621-6059 MG-UNIT PO CAPS Take by mouth once [...] as of this encounter (statuses as of 09/12/2024) Active Problems Problem Noted Date Diagnosed Date [...] cell cancer 01/25/2017 Overview (01/25/2017): left kidney [facility] Prediabetes 10/05/2016 Prostate cancer 10/05/2016 Overview (10/24/2019): S/p surgery, XRT. 07/[address] Holm 08/21 PSA [address] [place] [address] Romero--s/p surg, XRT 5 years later. [...] past now Dr Patten Goes yearly to [facility]. 06/21 normal stress test w/Dr Mccloud 2009 colonoscopy WNL -consider in 2019. A-fib 01/09/2016 Overview (07/16/2024): 06/21 Lexiscan Tc99 Stress echo WNL. Normal EF. Dr Mccloud Armstrong in past now Addison/Madan HTN, goal below 130/80 GERD (gastroesophageal reflux disease) documented as of this encounter (statuses as of 09/12/2024) Resolved Problems Problem Noted Date Diagnosed Date [...] as of this encounter (statuses as of 09/12/2024) Immunizations Name Administration Dates Next Due COVID-19 mRNA, LNP-s, No Pre serve, 2-Dose Series (Moderna) 10/13/2020,09/15/2020 COVID-19, mRNA, LNP-s, PF, B ooster, 100mcg/0.5mg (Moderna) 12/14/2021,07/01/2021 Covid-19, Mrna, Lnp-s, Pf, B ivalent, 30 Mcg, IM, 12 yrs and above ([employer]) 01/13/2023,07/05/2022 Pneumococcal Conjugate Vacc, 13 Valent (Prevnar) [...] - Inhaled Oxygen Concentration - - Weight 121.6 kg (268 lb) 09/12/2024 2:34 PM EST Height 179.3 cm (5' 10.6") 09/12/2024 2:34 PM ES T Body Mass Index 37.8 09/12/2024 2:34 PM EST documented in this encounter Nursing Notes * Tab Salomon RRT - 09/12/2024 2:37 PM EST Sushant La was identified by name, Date of : (1940), and . Vitals were obtained for testing. Body mass index is 37.8 kg/m. Pt has a 1 ppd for 29.9 years smoking history and quit 33 years ago. 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 Spirometry performed before and after a slow volume nebulizer treatment of 0.5ml of albuterol in 3 ml of NSS. Administrations This Visit Albuterol Sulfate (Proventil) (2.5 MG/3ML) 0.083% inhalation solution 2.5 mg Admin Date 09/12/2024 Action Given Dose 2.5 mg Route Nebulizer Documented By Tab Salomon RRT documented in this encounter Plan of Treatment Upcoming Encounters Date Type Department Care Team (Late st Contact Info) Description 09/26/2024 10:30 AM EST Office Visit Cardiology, [facility] [address] [facility] [place] [address] Fredrick Jaime DO [address] [place] [address] 10/09/2024 9:00 AM EST Telemedicine Pulmonary Medicine, [facility] [address] [facility] [facility] [place] [address] Jem Hilliard [facility] [address] [place] [address] 10/16/2024 10:10 AM EST 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 Pharmacy, [facility] [address] [place] [address] [facility] [address] [facility] [place] [address] 01/23/2025 9:20 AM EDT Office Visit Family Practice [facility] [address] [facility] [place] [address] Chiki Syed MD [address] [facility] [place] [address] Pending Results Name Type Priority Associated Diagnoses Date /Time SPIROMETRY B/A BRONCHODILATOR Procedures Routine Abnormal chest CT 09/12/2024 2:27 PM EST Scheduled Procedures Name Priority Associated Diagnoses Date/Ti [...] this encounter Medical Devices Implanted Type Area Customs Compliance Director Device Identifier Shelf Expiration Date Model / Serial / Lot Lens Intraoc 21.5 - [id number] - [id number] Implanted:Qty: 1 on 06/20/2018 by Bogdan [place] MD at [facility] Left: Eye [employer] 01/02/2023 [id number] / [id number] / [id number] Lens Intraoc 21.5 - [id number] - [id number] Implanted:Qty: 1 on 06/29/2018 by Bogdan Lindsay MD at OR [facility] Right: Eye [employer] 02/02/2023 [id number] / [id number] / [id number] documented as of this encounter Procedures Procedure Name Priority Date/Time Associated Diagnosis Comments SPIROMETRY B/A BRONCHODILATOR Routine 09/12/2024 2:27 PM EST Abnormal chest CT documented in this encounter Visit Diagnoses Diagnosis Abnormal chest CT- Primary Nonspecific (abnormal) findings on radiological and other examination of other intrathoracic organs documented in this encounter Administered Medications Active Administered Medications - up to 3 most recent administrations Medication Order MAR Action Action Date Dose Rate Site Albuterol Sulfate (Proventil) (2.5 MG/3ML) 0.083% inhalation solution 2.5 mg 2.5 mg, Nebulizer, ONCE PRN Other, Testing, Starting on Tue08/29/24 at 1806, Until Nancy 08/29/25 at 1805, For 365 days, Only one type of albuterol product should be administered (Nebulizer or Inhaler). Please select and document on the appropriate albuterol product order.Indications:Abnormal chest CT Given 09/12/2024 2:21 PM EST 2.5 mg documented in this encounter Advance Directives * Full Code (Latest Code Status on File) Date Activated Date Inactivated Comments 06/29/2018 8:41 AM 06/29/2018 3:29 PM This order reflects the patients wishes and were consensually agreed upon. * Full Code Date Activated Date Inactivated Comments 06/20/2018 9:51 AM 06/20/2018 3:45 PM This order reflects the patients wishes and were consensually agreed upon. Care Teams Regional Coordinator Relationship Specialty Start Date End Date Chiki Syed MD [address] [facility] [place] [address] PCP - General Family Medicine 10/20/18 documented as of this encounter
[2024-11-11] MEDS: PANTOprazole 80 MG in DEXTROSE 5% 100 ML IV ONE (11:58)
[2024-11-11] MEDS: PANTOprazole 40 MG in DEXTROSE 5% MINI-B 100 ML IV SCH ×2 (12:40→21:40)
[2024-11-11 13:15] LABS: Basophils # (auto) 0.02 K/uL (0.00-0.20); Basophils % (auto) 0.3 %; Eosinophils # (auto) 0.09 K/uL (0.00-0.50); Eosinophils % (auto) 1.2 %; Hematocrit (blood only) 32.2 % (42.0-52.0); Hemoglobin 10.8 g/dl (14.0-18.0); Immature Granulocytes # (auto) 0.04 K/uL (0.01-0.20); Immature Granulocytes % (auto) 0.5 %; Lymphocytes # (auto) 0.42 K/uL (1.20-3.40); Lymphocytes % (auto) 5.7 %; Mean Corpuscular Hemoglobin 31.2 pg (25.0-34.0); Mean Corpuscular Hgb Conc 33.5 g/dL (32.0-36.0); Mean Corpuscular Volume 93.1 fL (80.0-100.0); Mean Platelet Volume 9.8 fL (9.4-12.4); Monocytes # (auto) 0.72 K/uL (0.11-0.59); Monocytes % (auto) 9.8 %; Neutrophils # (auto) 6.03 K/uL (1.40-6.50); Neutrophils % (auto) 82.5 %; Platelet Count 168 K/uL (130-400); RDW Coefficient of Variation 12.9 % (11.5-14.5); RDW Standard Deviation 43.7 fL (36.4-46.3); Red Blood Count 3.46 M/uL (4.70-6.10); White Blood Count 7.32 K/ul (4.8-10.8)
[2024-11-11] MEDS: OPTIRAY 320 125ml IV ONE (13:22)
[2024-11-11 13:28] LABS: BUN Creatinine Ratio 25.9 (10-20); Calcium 8.6 mg/dl (8.6-10.3); Creatinine Clr Calc Pharmacy 65.7 ml/min; Potassium 4.6 mmol/L (3.5-5.1)
[2024-11-11 13:35] LABS: Troponin I High Sensitivity 5.7 pg/ml (0-20)
[2024-11-11] MEDS: PANTOPRAZOLE BOLUS/DRIP IV STA (13:38)
[2024-11-11 13:43] LABS: INR 2.6 (0.9-1.1); Partial Thromboplastin Ratio 1.3; Partial Thromboplastin Time 35 Seconds (21-31); Prothrombin Time 26.1 Seconds (9.0-12.0)
--- NOTE | 2024-11-11 13:45 | CT Scan Report ---
CT angio chest PE protocol CT DOSE: 2405.86 mGy.cm HISTORY: ro PE. TECHNIQUE: Multiple CTA images of the chest were obtained after the intravenous administration of 120 ml Optiray. Coronal and sagittal MIPS were obtained from the axial data set and were submitted for review. All measurements were obtained according to NASCET criteria. A dose lowering technique was u tilized adhering to the principles of ALARA. COMPARISON STUDY: 02/23/2024 FINDINGS: There is minimal atelectasis or scarring in the lung bases. There is no pneumonia, pleural effusion, or pneumothorax. No enlarged adenopathy. No pericardial effusion. There are coronary artery and aortic calcifications. Ascending thoracic aortic aneurysm measures 4.9 cm greatest diameter and narrows smoothly to normal caliber of 3 cm at the proximal descending thoracic aorta, stable. No pulm onary embolism seen. No acute osseous findings. There are mild thoracic spine degenerative changes. IMPRESSION: No pulmonary embolism or pneumonia. ACT 112: Negative or not required by law. The above report was generated using voice recognition software. It may contain grammatical, syntax o r spelling errors. Electronically signed by: Saul Vázquez M.D. 11/11/2024 1:42 PM
--- NOTE | 2024-11-11 13:49 | CT Scan Report ---
ABDOMEN AND PELVIS CT WITH IV CONTRAST HISTORY: abd pain TECHNIQUE: Multiaxial CT images of the abdomen and pelvis were performed following the IV administrat ion of 120 cc of Optiray, A dose lowering technique was utilized adhering to the principles of ALARA . COMPARISON STUDY: 07/08/2024 FINDINGS: There are few stable tiny liver cysts. Gallbladder is surgically absent. Spleen, pancreas, and adrenal glands are unremarkable. Kidneys show no hydronephrosis or calculi. There are scattered p rostatic calcifications. Infrarenal abdominal aortic aneurysm measures 3.7 cm greatest AP dimension, stable. Pelvis: Prostate is surgically absent. Urinary bladder is nondistended. There is mild retained stool. Interval appendectomy. No bowel inflammation or obstruction. No free fluid or free air. No enlarged adenopathy. Osseous structures: No acute osseous findings. IMPRESSION: No acute findings. ACT 112: Negative or not required by law. The above report was generated using voice recognition software. It may contain grammatical, syntax o r spelling errors. Electronically signed by: Saul Vázquez M.D. 11/11/2024 1:47 PM
--- NOTE | 2024-11-11 15:51 | History & Physical Report ---
Date of Service November 11, 2024 Assessment & Plan (1) Acute blood loss anemia: Plan: -noted by Hgb of 10.8, baseline around 12 -likely upper GI bleed based on melanotic stool, does have slight tenderness in RUQ as well -did have a course of cipro when restarting warfarin, current INR of 2.6 -differential includes bleeding biopsy site, ulcerations stomach vs. duodenum (not noted on EGD on 10/25), acute gastritis, AVM, stromal cell tumor hemorrhage, less likely pancreatic hemorrhage, lower GI bleed Plan: -CBC qshift ordered -protonix 40 mg IV bid ordered -check iron studies -full liquid diet, NPO after midnight for consideration of EGD -GI consulted, appreciate recs -hold warfarin, SCDs for DVT prophylaxis -LR at 80 cc/hr until scope (2) Upper GI bleed: Plan: -likely in setting of above (3) Atrial fibrillation: Plan: -patient on warfarin, rate controlled at this time -discussed potentially switching to eliquis given less interactions with meds, similar hemorrhage risk in elderly, no need to bridge Plan: -discuss switching to eliquis at discharge -hold warfarin at this time -no vitamin K given hemodynamic stability and current Hgb level -continue metoprolol (4) IPMN (intraductal papillary mucinous neoplasm): Plan: -discussed with family will need f/u with GI (5) Hypertension: Plan: -hold BP meds until scope (6) Hypercholesterolemia: Plan: -continue rosuvastatin (7) Renal neoplasm: Plan: -s/p resection (8) Prostate cancer: Plan: -on active surveillance, s/p resection and radiation -slightly uptrending PSA -f/u with urology (9) Aortic aneurysm: Plan: -4.9 cm thoracic, 3.7 cm abdominal, per patient may be decreased in size -likely 2/2 uncontrolled HTN -follows outpatient, has f/u imaging already scheduled Plan Feeding/fluids: full liquids, NPO after midnight Analgesia: tylenol Sedation: na Thromboprophylaxis: SCDs Head up position: na Ulcer prophylaxis: protonix IV bid Glycemic control: na Spontaneous breathing trial: na Bowel care: miralax prn Indwelling catheter removal: na Deescalation of antibiotics: na I spent a total of 80 minutes in direct patient care, including [id number] time with the patient and/or family, reviewing medical records, ordering and reviewing diagnostic tests, and coordinating care with other healthcare provider s. This time includes: history taking, physical examination, medical decision making, counseling, ECG interpretation, imaging interpretation, lab interpretation, orders, and education, excluding time spent in the performance of separately billed services. 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 Of note, had EGD for consistent GERd symptoms with biopsies taken, which per patient and family came back ne gative (of note, informed patient and family that it a low grade mucinous neoplasm likely IPMN. Patient seen and examined at bedside. Patient states that he noted bleed, black stool, yesterday with watery diarrhea. Filled up the toilet. States this is never happened to him before. Does state he had an EGD about 3 weeks ago, in which they took took needle core biopsies. Has not seen any red blood in his stool. Has not had a bowel movement in a few days. No other sows symptoms associated with the black diarrhea. Discussed CODE STATUS at length. Risks and benefits of resuscitation were explained. Patient states that he would not want heroic measures, including a breathing machine or chest compressions. He would like all other interventions considered. Therefore patient is DNRDNI with blood pressure support and medications if required. Discussed with family that these things are very unlikely however we hope for the best prepare for the worst. Allergies Allergy/AdvReac Type Severity Reaction Status Date / Time atorvastatin [From Lipitor] Allergy Unknown Verified 11/11/24 14:06 fenofibrate [From Tricor] Allergy Unknown Verified 11/11/24 14:06 gemfibrozil [From Lopid] Allergy Unknown Verified 11/11/24 14:06 lisinopril Allergy Unknown Verified 11/11/24 14:06 niacin Allergy Unknown Verified 11/11/24 14:06 Home Medications Medication Instructions Recorded Confirmed Type cyanocobalamin (vitamin B-12) 500 500 mcg PO QAM 03/26/20 11/11/24 History mcg tablet (Vitamin B-12) losartan 100 mg tablet (Cozaar) 100 mg PO QAM 03/26/20 11/11/24 History warfarin 4 mg tablet 4 mg PO DAILY 03/26/20 11/11/24 History metoprolol succinate 50 mg 50 mg PO QAM 07/08/24 11/11/24 History tablet,extended release 24 hr hydrochlorothiazide 12.5 mg capsule 12.5 mg PO QAM 11/11/24 11/11/24 History omega 7-sst-hcj-fish oil 900 1 cap PO HS 11/11/24 11/11/24 History mg-1,400 mg capsule,delayed release pantoprazole 20 mg tablet,delayed 20 mg PO QAM 11/11/24 11/11/24 History release rosuvastatin 10 mg tablet 5 mg PO Q OTHER DAY 11/11/24 11/11/24 History Past Med/Surg History Problem List (Updated 11/11/24 @ 15:56 by Khari Eric MD) Aortic aneurysm Acute blood loss anemia IPMN (intraductal papillary mucinous neoplasm) Upper GI bleed On warfarin therapy (Acute) Atrial fibrillation (Acute) Heart trouble (Acute) Hemorrhoids (Acute) Hypercholesterolemia (Acute) Hypertension (Acute) Impotence, organic (Acute) Renal neoplasm (Acute) Prostate cancer Medical History Asymptomatic hypertensive urgency Acute appendicitis Abdominal pain Surgical History H/O radical prostatectomy History of kidney surgery H/O hernia repair History of cholecystectomy Family History Mother Cardiac disorder Diabetes Hypertension Father Cardiac disorder Hypertension Uncle Prostate cancer Social History Smoking Status: Never smoker Hx Alcohol Use: No Hx Substance Use: No Preferred Language: Pakistani Communication Ability: Effective 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 EYES: Patient denies any visual symptoms. EARS, NOSE, AND THROAT: No difficulties with hearing. No symptoms of rhinitis or sore throat. CARDIOVASCULAR: Patient denies chest pains, palpitations, orthopnea and paroxysmal nocturnal dyspnea. RESPIRATORY: No dyspnea on exertion, no wheezing or cough. GI: dark stool/diarrhea noted : No urinary hesitancy or dribbling. No nocturia or urinary frequency. No abnormal urethral discharge. MUSCULOSKELETAL: No myalgias or arthralgias. NEUROLOGIC: No chronic headaches, no seizures. Patient denies numbness, tingling or weakness. PSYCHIATRIC: Patient denies problems with mood disturbance. No problems with anxiety. ENDOCRINE: No excessive urination or excessive thirst. DERMATOLOGIC: Patient denies any rashes or skin changes. Physical Exam Physical Exam: Gen: A&O 3 NAD HEENT: NCAT, EOMI, not icteric. External ears normal. No rhinorrhea. Moist mucous membranes. Neck: Supple, full range of motion, no observable masses, No meningeal sign. Lungs: No Respiratory distress. CV: RRR, no edema. Abdomen: Soft, nondistended, mild tenderness to palpation in RUQ MSK: No joint swelling, no redness. Skin: No rashes, petechiae, lesions. Normal color per patient. Neuro: Normal Gait, Grossly intact. Psych: Appropriate for situation. Results & Data Results & Data Vital Signs (Past 12 Hours) Vital Signs Temp Pulse Pulse Resp BP BP Pulse Ox 11/11/24 14:30 84 20 119/75 98 11/11/24 11:40 74 17 98 11/11/24 11:37 87 22 98 11/11/24 11:37 85 22 132/95 98 11/11/24 11:30 90 11/11/24 10:51 36.2 C L 95 H 18 98/64 L 97 O2 Del Method 11/11/24 14:30 11/11/24 11:40 11/11/24 11:37 Room Air 11/11/24 11:37 Room Air 11/11/24 11:30 11/11/24 10:51 Room Air Laboratory Results -personally reviewed, Hgb drop about 1 point from baseline, BUN elevated above baseline suggestive of possible acute bleed Diagnostic Findings Abdomen/Pelvis CT 11/11/24 11:[address] WITH IV CONTRAST HISTORY: abd pain TECHNIQUE: Multiaxial CT images of the abdomen and pelvis were performed following the IV administration of 120 cc of Optiray, A dose lowering technique was utilized adhering to the principles of ALARA. COMPARISON STUDY: 07/08/2024 FINDINGS: There are few stable tiny liver cysts. Gallbladder is surgically absent. Spleen, pancreas, and adrenal glands are unremarkable. Kidneys show no hydronephrosis or calculi. There are scattered prostatic calcifications. Infrarenal abdominal aortic aneurysm measures 3.7 cm greatest AP dimension, stable. Pelvis: Prostate is surgically absent. Urinary bladder is nondistended. There is mild retained stool. Interval appendectomy. No bowel inflammation or obstruction. No free fluid or free air. No enlarged adenopathy. Osseous structures: No acute osseous findings. IMPRESSION: No acute findings. ACT 112: Negative or not required by law. The above report was generated using voice recognition software. It may contain grammatical, syntax or spelling errors. Electronically signed by: Saul Vázquez M.D. 11/11/2024 1:47 PM Chest CTA 11/11/24 11:34 CT angio chest PE protocol CT DOSE: 2405.86 mGy.cm HISTORY: ro PE. TECHNIQUE: Multiple CTA images of the chest were obtained after the intravenous administration of 120 ml Optiray. Coronal and sagittal MIPS were obtained from the axial data set and were submitted for review. All measurements were obtained according to NASCET criteria. A dose lowering technique was utilized adhering to the principles of ALARA. COMPARISON STUDY: 02/23/2024 FINDINGS: There is minimal atelectasis or scarring in the lung bases. There is no pneumonia, pleural effusion, or pneumothorax. No enlarged adenopathy. No pericardial effusion. There are coronary artery and aortic calcifications. Ascending thoracic aortic aneurysm measures 4.9 cm greatest diameter and narrows smoothly to normal caliber of 3 cm at the proximal descending thoracic aorta, stable. No pulmonary embolism seen. No acute osseous findings. There are mild thoracic spine degenerative changes. IMPRESSION: No pulmonary embolism or pneumonia. ACT 112: Negative or not required by law. The above report was generated using voice recognition software. It may contain grammatical, syntax or spelling errors. Electronically signed by: Sual Vázquez M.D. 11/11/2024 1:42 PM Code Status & VTE Plan Code Status -DNRDNI VTE Prophylaxis Plan VTE Prophylaxis will be ordered: Yes (3) Atrial fibrillation Atrial fibrillation type: unspecified Qualified Code(s): I48.91 - Unspecified atrial fibrillation (5) Hypertension Hypertension type: primary hypertension Qualified Code(s): I10 - Essential (primary) hypertension (9) Aortic aneurysm Aortic location: thoracic aorta Thoracic aorta location: ascending aorta Presence of rupture: without rupture Qualified Code(s): I71.21 - Aneurysm of the ascending aorta, without rupture
[2024-11-11 16:34] LABS: Ferritin 27.1 ng/ml (8-388)
[2024-11-11 18:08] LABS: Basophils # (auto) 0.03 K/uL (0.00-0.20); Basophils % (auto) 0.4 %; Eosinophils # (auto) 0.12 K/uL (0.00-0.50); Eosinophils % (auto) 1.6 %; Hematocrit (blood only) 32.8 % (42.0-52.0); Immature Granulocytes # (auto) 0.04 K/uL (0.01-0.20); Immature Granulocytes % (auto) 0.5 %; Lymphocytes # (auto) 0.61 K/uL (1.20-3.40); Mean Corpuscular Hemoglobin 31.3 pg (25.0-34.0); Mean Corpuscular Hgb Conc 33.5 g/dL (32.0-36.0); Mean Corpuscular Volume 93.2 fL (80.0-100.0); Monocytes # (auto) 0.84 K/uL (0.11-0.59); Neutrophils # (auto) 6.02 K/uL (1.40-6.50); Neutrophils % (auto) 78.5 %; Platelet Count 182 K/uL (130-400); RDW Coefficient of Variation 12.9 % (11.5-14.5); RDW Standard Deviation 43.5 fL (36.4-46.3); Red Blood Count 3.52 M/uL (4.70-6.10); White Blood Count 7.66 K/ul (4.8-10.8)
[2024-11-11] MEDS: LACTATED RINGER'S 1,000 ML IV SCH (18:37)
[2024-11-11] MEDS ORDERED: POLYETHYLENE (MIRALAX) 17 GM PACK PO PRN (19:22)
[2024-11-11] MEDS ORDERED: ACETAMINOPHEN 325 MG TAB PO PRN (19:22)
--- NOTE | 2024-11-11 20:54 | Emergency Department Note ---
History of Present Illness General Chief complaint: Rectal Bleed Stated complaint: BLACK STOOL Time Seen by Provider: 11/11/24 11:04 History of Present Illness Provider Complaint: + melena Onset (ago): 2 day(s) Relieved By: + none Exacerbated By: + none Context: + anticoagulant use (Coumadin) and + other (Patient had an EGD done on October 25) Associated symptoms: + other (Chest pain); no fever, no chills, no headaches or no shortness of breath Home Medications Medication Instructions Recorded Confirmed Type cyanocobalamin (vitamin B-12) 500 500 mcg PO QAM 03/26/20 11/11/24 History mcg tablet (Vitamin B-12) losartan 100 mg tablet (Cozaar) 100 mg PO QAM 03/26/20 11/11/24 History warfarin 4 mg tablet 4 mg PO DAILY 03/26/20 11/11/24 History metoprolol succinate 50 mg 50 mg PO QAM 07/08/24 11/11/24 History tablet,extended release 24 hr hydrochlorothiazide 12.5 mg capsule 12.5 mg PO QAM 11/11/24 11/11/24 History omega 5-qvq-bvw-fish oil 900 1 cap PO HS 11/11/24 11/11/24 History mg-1,400 mg capsule,delayed release pantoprazole 20 mg tablet,delayed 20 mg PO QAM 11/11/24 11/11/24 History release rosuvastatin 10 mg tablet 5 mg PO Q OTHER DAY 11/11/24 11/11/24 History Allergies Allergy/AdvReac Type Severity Reaction Status Date / Time atorvastatin [From Lipitor] Allergy Unknown Verified 11/11/24 14:06 fenofibrate [From Tricor] Allergy Unknown Verified 11/11/24 14:06 gemfibrozil [From Lopid] Allergy Unknown Verified 11/11/24 14:06 lisinopril Allergy Unknown Verified 11/11/24 14:06 niacin Allergy Unknown Verified 11/11/24 14:06 Past Med/Surg History Problem List (Updated 11/11/24 @ 20:54 by Musa Bauman MD) GIB (gastrointestinal bleeding) (Acute) Aortic aneurysm Acute blood loss anemia IPMN (intraductal papillary mucinous neoplasm) Upper GI bleed On warfarin therapy (Acute) Atrial fibrillation (Acute) Heart trouble (Acute) Hemorrhoids (Acute) Hypercholesterolemia (Acute) Hypertension (Acute) Impotence, organic (Acute) Renal neoplasm (Acute) Prostate cancer Medical History Asymptomatic hypertensive urgency Acute appendicitis Abdominal pain Surgical History H/O radical prostatectomy History of kidney surgery H/O hernia repair History of cholecystectomy Family History Mother Cardiac disorder Diabetes Hypertension Father Cardiac disorder Hypertension Uncle Prostate cancer Social History Smoking Status: Never smoker Hx Alcohol Use: No Hx Substance Use: No Preferred Language: Belarusian Communication Ability: Effective 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 Beliefs That Will Affect Care: None marital status: Current Living Situation: Spouse current occupational status: retired Feels Safe at Home: Yes Assistive Devices: None Physical Exam 2 Vital Signs: Vital Signs - 24 hr 11/11/24 10:51 11/11/24 11:30 11/11/24 11:37 Temperature 36.2 C L Temperature Source Temporal Artery Sc an Pulse Rate 95 H 90 Pulse Rate [Apical ] 85 Respiratory Rate 18 22 Respiratory Effort / Characteristics Spontaneous Respiratory Depth Normal Blood Pressure 98/64 L Blood Pressure [Ri ght Arm] 132/95 Blood Pressure Aditi n 75 Blood Pressure Aditi n [Right Arm] 107 Blood Pressure Pos ition Sitting Pulse Oximetry 97 98 Oxygen Delivery Me thod Room Air Room Air Sepsis Recent Feve r Within 48 Hours No Sepsis New/Unexpla ined Change in Men irwin Status N/A Sepsis Action Take n by Nursing No Action Required 11/11/24 11:37 11/11/24 11:40 11/11/24 14:30 Temperature Temperature Source Pulse Rate 87 74 Pulse Rate [Apical ] 84 Respiratory Rate 22 17 20 Respiratory Effort / Characteristics Respiratory Depth Blood Pressure Blood Pressure [Ri ght Arm] 119/75 Blood Pressure Aditi n Blood Pressure Aditi n [Right Arm] 89 Blood Pressure Pos ition Pulse Oximetry 98 98 98 Oxygen Delivery Me thod Room Air Sepsis Recent Feve r Within 48 Hours Sepsis New/Unexpla ined Change in Men irwin Status Sepsis Action Take n by Nursing Physical Exam: Physical Exam GENERAL: oriented to person, place, and time. appears well-developed and well- nourished. She does not appear distressed. HENT: Exam performed. -Head: Normocephalic and atraumatic. -Right Ear: External ear normal. No mastoid erythema -Left Ear: External ear normal. No mastoid erythema -Mouth/Throat: The oropharynx is clear and moist. No trismus in the jaw. No dental abscesses or uvula swelling. No oropharyngeal exudate or tonsillar abscesses. EYES: Conjunctivae and EOM are normal.Right eye exhibits no discharge. Left eye exhibits no discharge. No scleral icterus. NECK: Normal range of motion. Neck supple. No JVD present. No tracheal deviation and normal range of motion present. CV: Normal rate, irregular rhythm, normal heart sounds and intact distal pulses. There is no peripheral edema. Palpable radial pulses bue. PULM/CHEST: Effort normal and breath sounds normal. No respiratory distress. No stridor. no wheezes.no rales. -Chest Wall: no tenderness to palpation ABD: The abdomen is soft. Bowel sounds are normal. no distension. No mass is present. There is no tenderness. There is no rebound, no guarding, no Elise's sign and no tenderness at McBurney's point. Rovsig negative Rectal: Melanotic stool that is Hemoccult positive MUSC/SKEL: Normal range of motion. There is no peripheral edema, tenderness or deformity. NEURO: Motor and sensation grossly intact. SKIN: Skin is warm and dry. not diaphoretic. PSYCH: normal mood and affect. Behavior is normal. Judgment and thought content normal. Course Course 1104: The patient was evaluated in room C2. A complete history and physical exam was performed Cardiac monitoring: An order was placed for continuous cardiac monitoring. The monitor shows a rate of 80 with atrial fibrilation rhythm interpreted by me Patient be started on Protonix bolus and drip given his active GI bleeding with Hemoccult positive stools. 1400: Vital signs stable. Labs and imaging are unremarkable. [facility]. Administered Medications Lactated Ringer's (Lr) 1,000 mls @ 80 mls/hr IV .[id number] RANDI Stop: 11/12/24 15:59 Last Admin: 11/11/24 18:37 Dose: 80 mls/hr Documented By: MMG Discontinued Medications Pantoprazole Sodium 40 mg/ (Dextrose) 100 mls @ 20 mls/hr IV Q5H RANDI Stop: 12/11/24 11:59 Last Infusion: 11/11/24 19:43 Dose: Infused Documented By: Admin: 11/11/24 12:40 Dose: 8 mg/hr, 20 mls/hr Documented By: ANSELMO Pantoprazole Sodium 80 mg/ (Dextrose) 120 mls @ 480 mls/hr IV NOW ONE Stop: 11/11/24 11:48 Last Infusion: 11/11/24 12:36 Dose: Infused Documented By: Admin: 11/11/24 11:58 Dose: 480 mls/hr Documented By: ANSELMO Ioversol (Optiray 320 125ml) 119 ml IV ONCE ONE Stop: 11/11/24 13:23 Last Admin: 11/11/24 13:22 Dose: 119 ml Documented By: ELADIA Pantoprazole Sodium (Pantoprazole Bolus/Drip) 1 each IV NOW STA Stop: 11/11/24 11:35 Last Admin: 11/11/24 13:38 Dose: Not Given Documented By: ANSELMO Medical Decision Making Laboratory Data Attestation: I reviewed the patient's lab results. 11/11/24 17:34 11/11/24 12:58 Lab Results 11/11/24 11/11/24 Range/Units 11:14 12:58 WBC 7.32 (4.8-10.8) K/ul RBC 3.46 L (4.70-6.10) M/uL Hgb 10.8 L (14.0-18.0) g/dl Hct 32.2 L (42.0-52.0) % MCV 93.1 (80.0-100.0) fL MCH 31.2 (25.0-34.0) pg MCHC 33.5 (32.0-36.0) g/dL RDW Std Deviation 43.7 (36.4-46.3) fL RDW Coeff of Mary 12.9 (11.5-14.5) % Plt Count 168 (130-400) K/uL MPV 9.8 (9.4-12.4) fL Immature Gran % (Auto) 0.5 % Neut % (Auto) 82.5 % Lymph % (Auto) 5.7 % [place] % (Auto) 9.8 % Eos % (Auto) 1.2 % Baso % (Auto) 0.3 % Neut # (Auto) 6.03 (1.40-6.50) K/uL Lymph # (Auto) 0.42 L (1.20-3.40) K/uL [place] # (Auto) 0.72 H (0.11-0.59) K/uL Eos # (Auto) 0.09 (0.00-0.50) K/uL Baso # (Auto) 0.02 (0.00-0.20) K/uL Immature Gran # (Auto) 0.04 (0.01-0.20) K/uL PT 26.1 H (9.0-12.0) Seconds INR 2.6 H (0.9-1.1) APTT 35 H (21-31) Seconds PTT Ratio 1.3 Sodium 133 L (136-145) mmol/L Potassium 4.6 (3.5-5.1) mmol/L Chloride 102 (98-107) mmol/L Carbon Dioxide 29 (21-32) mmol/L Anion Gap 2 L (3-11) BUN 30 H (6-23) mg/dl Creatinine 1.16 (0.6-1.4) mg/dl Est Cr Clr Drug Dosing 65.7 ml/min eGFR 62.50 BUN/Creatinine Ratio 25.9 H (10-20) Glucose 124 H (70-99(Fasting)) mg/dl Calcium 8.6 (8.6-10.3) mg/dl Iron 72 (35-175) mcg/dl TIBC 343 (250-450) mcg/dl Transferrin 245 (200-360) mg/dl Transferrin % Sat 21 (20-50) % Ferritin 27.1 (8-388) ng/ml Troponin I High Sens 5.7 (0-20) pg/ml Vitamin B12 620 (180-914) pg/ml Blood Type A Positive Antibody Screen NEGATIVE Imaging Data Radiologist's Impression: Abdomen/Pelvis CT 11/11/24 11:[address] WITH IV CONTRAST HISTORY: abd pain TECHNIQUE: Multiaxial CT images of the abdomen and pelvis were performed following the IV administration of 120 cc of Optiray, A dose lowering technique was utilized adhering to the principles of ALARA. COMPARISON STUDY: 07/08/2024 FINDINGS: There are few stable tiny liver cysts. Gallbladder is surgically absent. Spleen, pancreas, and adrenal glands are unremarkable. Kidneys show no hydronephrosis or calculi. There are scattered prostatic calcifications. Infrarenal abdominal aortic aneurysm measures 3.7 cm greatest AP dimension, stable. Pelvis: Prostate is surgically absent. Urinary bladder is nondistended. There is mild retained stool. Interval appendectomy. No bowel inflammation or obstruction. No free fluid or free air. No enlarged adenopathy. Osseous structures: No acute osseous findings. IMPRESSION: No acute findings. ACT 112: Negative or not required by law. The above report was generated using voice recognition software. It may contain grammatical, syntax or spelling errors. Electronically signed by: Saul Vázquez M.D. 11/11/2024 1:47 PM Chest CTA 11/11/24 11:34 CT angio chest PE protocol CT DOSE: 2405.86 mGy.cm HISTORY: ro PE. TECHNIQUE: Multiple CTA images of the chest were obtained after the intravenous administration of 120 ml Optiray. Coronal and sagittal MIPS were obtained from the axial data set and were submitted for review. All measurements were obtained according to NASCET criteria. A dose lowering technique was utilized adhering to the principles of ALARA. COMPARISON STUDY: 02/23/2024 FINDINGS: There is minimal atelectasis or scarring in the lung bases. There is no pneumonia, pleural effusion, or pneumothorax. No enlarged adenopathy. No pericardial effusion. There are coronary artery and aortic calcifications. Ascending thoracic aortic aneurysm measures 4.9 cm greatest diameter and narrows smoothly to normal caliber of 3 cm at the proximal descending thoracic aorta, stable. No pulmonary embolism seen. No acute osseous findings. There are mild thoracic spine degenerative changes. IMPRESSION: No pulmonary embolism or pneumonia. ACT 112: Negative or not required by law. The above report was generated using voice recognition software. It may contain grammatical, syntax or spelling errors. Electronically signed by: Saul Vázquez M.D. 11/11/2024 1:42 PM ECG Data Attestation: I personally reviewed and interpreted this ECG as follows: Rate (beats per minute): 84 Rhythm: atrial fibrillation Findings: no ST depression, no ST elevation or no prolonged QT MDM Narrative 1104: The patient was evaluated in room C2. A complete history and physical exam was performed Cardiac monitoring: An order was placed for continuous cardiac monitoring. The monitor shows a rate of 80 with atrial fibrilation rhythm interpreted by me Patient be started on Protonix bolus and drip given his active GI bleeding with Hemoccult positive stools. 1400: Vital signs stable. Labs and imaging are unremarkable. [facility] Impression & Plan GIB (gastrointestinal bleeding) Discharge Plan Visit Data Chief Complaint: Rectal Bleed Stated Complaint: BLACK STOOL ED Provider: Musa Bauman Discharge Problem: GIB (gastrointestinal bleeding) Patient Disposition: Admitted As Inpatient Discharge Instructions Interventions: ED Discharge Assessment Last Done: 11/11/24 19:21 Discharge Problem: GIB (gastrointestinal bleeding) Qualifiers: GI bleed type/associated pathology: melena Qualified Code(s): K92.1 - Melena
--- NOTE | 2024-11-12 05:58 | Electrocardiogram Report ---
Test Reason : Blood Pressure : */* mmHG Vent. Rate : 84 BPM Atrial Rate : * BPM P-R Int : * ms QRS Dur : 90 ms QT Int : 340 ms P-R-T Axes : * 8 16 degrees QTcB Int : 401 ms Atrial fibrillation Abnormal ECG When compared with ECG of 08-Jul-2024 04:46, No significant change was found Confirmed by Jorge Carlin ([id number]) on 11/12/2024 5:58:18 AM Referred By: Confirmed By: Jorge Carlin
[2024-11-12 07:07] LABS: BUN Creatinine Ratio 18.8 (10-20); Calcium 8.7 mg/dl (8.6-10.3); Creatinine Clr Calc Pharmacy 63.9 ml/min; Magnesium 1.9 mg/dl (1.7-2.4); Potassium 4.2 mmol/L (3.5-5.1)
[2024-11-12] MEDS: METOPROLOL SUCC 50MG EXT REL TAB PO SCH (07:45)
[2024-11-12] MEDS: ROSUVASTATIN CALCIUM 5 MG TAB PO SCH (07:45)
[2024-11-12] MEDS: CYANOCOBALAMIN (B-12) 500 MCG TABLET PO SCH (07:45)
[2024-11-12 09:55] LABS: iSTAT Creatinine 1.4 mg/dl (0.6-1.3); iSTAT Hemoglobin 10.2 g/dl (14.0-18.0); iSTAT Ionized Calcium 1.17 mmol/l (1.12-1.32); iSTAT Potassium 4.6 mmol/L (3.3-5.0)
--- NOTE | 2024-11-12 11:25 | Gastrointestinal Consultation ---
Date of Consultation November 12, 2024 Assessment & Plan (1) GIB (gastrointestinal bleeding): Patient admitted with reports of melena. He had recent EGD and EUS with [facility]. hgb currently stable. Most recent INR was 2.6. Last episode of melena was yesterday. Case was discussed with Dr. Paris. - continue with Protonix 40mg IV bid. - would continue to let INR trend downwards. When at an appropriate range, will consider EGD. - okay for clears today. will make NPO at midnight. - follow hgb/hct and transfuse as needed. Supervising Physician Co-Signing Physician Notes I personally saw and examined the patient. I have reviewed the chart and agree with the documentation provided by the COAL CRUSHER OPERATOR including discussion about the assessment, treatment and plan. 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 Last black bowel movement was last evening. no nsaid use. no nausea, vomiting, reflux, dysphagia, or brbpr. He underwent an EGD/EUS at [facility] just a few weeks ago. Patient tells me he was told that EGD was benign. He has superficial gastritis and had a biopsy done. INR was elevated on arrival. While in the hospital, he has had no further bleeding and his stool started to become pryor. I suspect this is from gastritis versus erosions. Supportive care for now with PPI twice daily. If he continues to have any more bleeding we can consider an EGD tomorrow but I suspect his bleeding is stopped. Full liquid diet and can advance tomorrow as long as he is doing okay. 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 He tells me he was having several liquid, black bowel movements a day. Last black bowel movement was last evening. no nsaid use. no nausea, vomiting, reflux, dysphagia, or brbpr. He underwent an EGD/EUS at [facility] just a few weeks ago. Patient tells me he was told that EGD was benign (see below). I do not have results of EUS but patient tells me it was benign and he is planned for follow imaging with his regular GI in 1 year for pancreatic cysts. 11/11 hgb 10.8 which improved to 11. INR 2.6. Last coumadin was taken Tuesday night. EGD 10/25/24 - Submucosal nodule found in the esophagus. - Z-line regular, 41 cm from the incisors. 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 Biopsied. - Normal cardia, gastric fundus, gastric body and incisura. - Normal examined duodenum. Pathology: Stomach, mass, biopsy: Superficial gastric antral mucosa with hyperemia consistent with erosion/mild chemical gastritis. No dysplasia or malignancy such as carcinoma identified. Allergies Allergy/AdvReac Type Severity Reaction Status Date / Time atorvastatin [From Lipitor] Allergy Unknown Verified 11/11/24 14:06 fenofibrate [From Tricor] Allergy Unknown Verified 11/11/24 14:06 gemfibrozil [From Lopid] Allergy Unknown Verified 11/11/24 14:06 lisinopril Allergy Unknown Verified 11/11/24 14:06 niacin Allergy Unknown Verified 11/11/24 14:06 Home Medications Medication Instructions Recorded Confirmed Type cyanocobalamin (vitamin B-12) 500 500 mcg PO QAM 03/26/20 11/11/24 History mcg tablet (Vitamin B-12) losartan 100 mg tablet (Cozaar) 100 mg PO QAM 03/26/20 11/11/24 History warfarin 4 mg tablet 4 mg PO DAILY 03/26/20 11/11/24 History metoprolol succinate 50 mg 50 mg PO QAM 07/08/24 11/11/24 History tablet,extended release 24 hr hydrochlorothiazide 12.5 mg capsule 12.5 mg PO QAM 11/11/24 11/11/24 History omega 1-vyt-svt-fish oil 900 1 cap PO HS 11/11/24 11/11/24 History mg-1,400 mg capsule,delayed release pantoprazole 20 mg tablet,delayed 20 mg PO QAM 11/11/24 11/11/24 History release rosuvastatin 10 mg tablet 5 mg PO Q OTHER DAY 11/11/24 11/11/24 History Patient History Medical History Asymptomatic hypertensive urgency Acute appendicitis Abdominal pain Surgical History H/O radical prostatectomy History of kidney surgery H/O hernia repair History of cholecystectomy Family History Mother Cardiac disorder Diabetes Hypertension Father Cardiac disorder Hypertension Uncle Prostate cancer Social History Smoking Status: Former smoker Smoking End Date: Quit 30 yrs ago; Second Hand Exposure: No; Hx Alcohol Use: No Hx Substance Use: No Preferred Language: Vietnamese Communication Ability: Effective Platinumsmith Required: No Beliefs That Will Affect Care: None marital status: Current Living Situation: Spouse current occupational status: retired Other Information That Helps Us Care for You: No Feels Safe at Home: Yes Safety Concerns: Feels Safe At This Time Assistive Devices: None Review of Systems Review of Systems: All systems reviewed & are unremarkable except as noted in HPI & below Physical Exam Constitutional: WD/WN, vitals as above Respiratory: normal respiratory effort, lungs clear to auscultation Cardiovascular: Rate/Rhythm: regular rate and regular rhythm Gastrointestinal (Abdomen): normal bowel sounds, soft, nontender, no hepatosplenomegaly Psychiatric: Orientation: alert and oriented x 3 Affect: euthymic affect Results & Data Vital Signs (Past 12 Hours) Vital Signs Temp Pulse Pulse Resp BP Pulse Ox O2 Del Method 11/12/24 09:03 78 11/12/24 08:02 97.5 F L 75 16 151/78 H 97 Room Air 11/12/24 03:04 97.9 F 82 18 142/87 H 97 Room Air 11/11/24 23:53 74 Coding Level of Care Code 05154 INT INP/OBS CARE 2/55MIN Diagnoses GIB (gastrointestinal bleeding) K92.1 GI bleed type/associated pathology: melena (1) GIB (gastrointestinal bleeding) GI bleed type/associated pathology: melena Qualified Code(s): K92.1 - Melena
--- NOTE | 2024-11-12 13:16 | Hospitalist Progress Note ---
Date of Service November 12, 2024 Assessment & Plan (1) Acute blood loss anemia: (2) Upper GI bleed: (3) IPMN (intraductal papillary mucinous neoplasm): (4) On warfarin therapy: (5) Atrial fibrillation: (6) Renal neoplasm: Plan Patient presented with melanotic stools, hemoglobin has remained stable without transfusion at this point. GI consultation noted, continue to monitor hemoglobin, monitor INR, consider EGD if continues to have evidence of bleeding Continue PPI Clear liquid diet today Vital signs stable, okay MedSurg and hemoglobin improving, atrial fibrillation controlled Activity as tolerated. Admission and Anticipated Discharge Date Admission Date: November 11, 2024 Subjective Patient has no abdominal pain, tolerated clear liquid diet. Nurse reports brown stool today Physical Exam Physical Exam: Constitutional: Alert HEENT: Mucous membranes moist. Lungs: Clear to auscultation, decreased, no wheezes rales or rhonchi CV: S1-S2, irregular Abdomen: Soft, nontender, nondistended Extremities: No significant edema Neuro: No focal deficits Psych: Cooperative, normal mood Results & Data Results & Data Vital Signs (Past 12 Hours) Vital Signs Temp Pulse Pulse Resp BP Pulse Ox O2 Del Method 11/12/24 11:43 36.6 C 77 16 137/71 98 Room Air 11/12/24 09:03 78 11/12/24 08:02 36.4 C L 75 16 151/78 H 97 Room Air 11/12/24 03:04 36.6 C 82 18 142/87 H 97 Room Air Diagnostic Findings Reviewed imaging, laboratory and diagnostic studies. Pertinent findings as below. Hemoglobin 11.0, improved Electrolytes stable Creatinine 1.17 CTA chest negative for PE or pneumonia Reviewed outside EMR. Reviewed EGD/EUS report. Appears that hemoglobin may be around 13. (5) Atrial fibrillation Atrial fibrillation type: unspecified Qualified Code(s): I48.91 - Unspecified atrial fibrillation
[2024-11-12 16:22] LABS: Basophils # (auto) 0.03 K/uL (0.00-0.20); Basophils % (auto) 0.5 %; Eosinophils # (auto) 0.07 K/uL (0.00-0.50); Eosinophils % (auto) 1.1 %; Hematocrit (blood only) 30.7 % (42.0-52.0); Hemoglobin 10.3 g/dl (14.0-18.0); Immature Granulocytes # (auto) 0.03 K/uL (0.01-0.20); Immature Granulocytes % (auto) 0.5 %; Lymphocytes # (auto) 0.43 K/uL (1.20-3.40); Mean Corpuscular Hemoglobin 31.3 pg (25.0-34.0); Mean Corpuscular Hgb Conc 33.6 g/dL (32.0-36.0); Mean Corpuscular Volume 93.3 fL (80.0-100.0); Mean Platelet Volume 10.2 fL (9.4-12.4); Monocytes # (auto) 0.71 K/uL (0.11-0.59); Monocytes % (auto) 11.5 %; Neutrophils # (auto) 4.88 K/uL (1.40-6.50); Neutrophils % (auto) 79.4 %; Platelet Count 166 K/uL (130-400); RDW Standard Deviation 43.5 fL (36.4-46.3); Red Blood Count 3.29 M/uL (4.70-6.10); White Blood Count 6.15 K/ul (4.8-10.8)
[2024-11-12] MEDS: MELATONIN 3 MG TAB PO PRN (23:09)
[2024-11-12 23:26] VITALS: TEMP 97.5
[2024-11-13] MEDS: LOSARTAN POTASSIUM 50 MG TAB PO SCH (07:22)
[2024-11-13 07:29] LABS: Hemoglobin 10.3 g/dl (14.0-18.0); Mean Corpuscular Hemoglobin 30.9 pg (25.0-34.0); Mean Corpuscular Hgb Conc 33.2 g/dL (32.0-36.0); Mean Corpuscular Volume 93.1 fL (80.0-100.0); Mean Platelet Volume 9.9 fL (9.4-12.4); Platelet Count 161 K/uL (130-400); RDW Coefficient of Variation 12.9 % (11.5-14.5); RDW Standard Deviation 43.6 fL (36.4-46.3); Red Blood Count 3.33 M/uL (4.70-6.10); White Blood Count 7.04 K/ul (4.8-10.8)
[2024-11-13 07:56] LABS: Calcium 8.5 mg/dl (8.6-10.3); Creatinine Clr Calc Pharmacy 69.9 ml/min; INR 1.9 (0.9-1.1); Magnesium 1.9 mg/dl (1.7-2.4); Potassium 4.2 mmol/L (3.5-5.1); Prothrombin Time 19.4 Seconds (9.0-12.0)
[2024-11-13 07:59] VITALS: RESP 16
--- NOTE | 2024-11-13 10:55 | History & Physical Bridge Note ---
Date of Service November 13, 2024 History & Physical Bridge Note I have examined the patient, reviewed the History & Physical and in the interval since the performance of the History & Physical I have noted the following changes of clinical significance: Patient had a liquid black bowel movement this morning. hgb today was stable at 10.3. he denies nausea, vomiting, acid reflux, abdominal pain. he has been NPO since midnight. no chest pain/sob. - Discussed with Dr. Paris, will perform an EGD today to further evaluate. Supervising Physician Co-Signing Physician Notes I personally saw and examined the patient. I have reviewed the chart and agree with the documentation provided by the ASSISTANT DIRECTOR OF ADMISSIONS including discussion about the assessment, treatment and plan. Briefly, hemoglobin is stable but he has some persistent melena. Given his requirement for Coumadin, will proceed with an EGD today to rule out anything active or fixable. INR is 1.9. He is n.p.o.
--- NOTE | 2024-11-13 12:10 | Anesthesiology Consultation ---
Date of Service November 13, 2024 Assessment & Plan Chart Review Chart Review: Acceptable Risk for Surgery Consults Requested none History Surgery Operation Date: 11/13/24 17:00 Proposed Procedures p Esophagogastroduodenoscopy [place] - Jean Marie Paris MD Height/Weight Height: 6 ft 1 in Weight: 116.3 kg Allergies Allergy/AdvReac Type Severity Reaction Status Date / Time atorvastatin [From Lipitor] Allergy Unknown Verified 11/11/24 14:06 fenofibrate [From Tricor] Allergy Unknown Verified 11/11/24 14:06 gemfibrozil [From Lopid] Allergy Unknown Verified 11/11/24 14:06 lisinopril Allergy Unknown Verified 11/11/24 14:06 niacin Allergy Unknown Verified 11/11/24 14:06 Medications Home Medications Medication Instructions Recorded Confirmed Last Taken cyanocobalamin (vitamin B-12) 500 500 mcg PO QAM 03/26/20 11/11/24 11/11/24 mcg tablet (Vitamin B-12) losartan 100 mg tablet (Cozaar) 100 mg PO QAM 03/26/20 11/11/24 11/11/24 warfarin 4 mg tablet 4 mg PO DAILY 03/26/20 11/11/24 11/10/24 metoprolol succinate 50 mg 50 mg PO QAM 07/08/24 11/11/24 11/11/24 tablet,extended release 24 hr hydrochlorothiazide 12.5 mg capsule 12.5 mg PO QAM 11/11/24 11/11/24 11/11/24 omega 2-vmr-ryo-fish oil 900 1 cap PO HS 11/11/24 11/11/24 11/10/24 mg-1,400 mg capsule,delayed release pantoprazole 20 mg tablet,delayed 20 mg PO QAM 11/11/24 11/11/24 11/11/24 release rosuvastatin 10 mg tablet 5 mg PO Q OTHER DAY 11/11/24 11/11/24 11/11/24 Active Medications Generic Name Dose Route Start Last Admin Trade Name Freq PRN Reason Stop Dose Admin Cyanocobalamin 500 mcg 11/12/24 09:00 11/13/24 07:23 Cyanocobalamin (B-12) 500 Mcg Tablet PO 12/12/24 08:59 500 mcg QAM RANDI Administration Pantoprazole Sodium 40 mg/ 100 mls @ 100 mls/hr 11/11/24 21:00 11/13/24 10:48 Dextrose IV 12/11/24 20:59 Infused BID RANDI Infusion 40 MG/HR Losartan Potassium 100 mg 11/13/24 09:00 11/13/24 07:22 Losartan Potassium 50 Mg Tab PO 12/13/24 08:59 100 mg QAM RANDI Administration Melatonin 3 mg 11/11/24 19:22 11/12/24 23:09 Melatonin 3 Mg Tab PO 12/11/24 19:21 3 mg HS PRN Administration Insomnia Metoprolol Succinate 50 mg 11/12/24 09:00 11/13/24 07:23 Metoprolol Succ 50mg Ext Rel Tab PO 12/12/24 08:59 50 mg QAM RANDI Administration Rosuvastatin Calcium 5 mg 11/12/24 09:00 11/12/24 07:45 Rosuvastatin Calcium 5 Mg Tab PO 12/12/24 08:59 5 mg Q2D@0900 RANDI Administration NPO Date Last Intake of Fluids: 11/13/24 Time Last Intake of Fluids: 08:00 Date Last Intake of Solids: 11/12/24 Time Last Intake of Solids: 17:00 Past Medical History Medical History Asymptomatic hypertensive urgency Acute appendicitis Abdominal pain Past Family History Family History Mother Cardiac disorder Diabetes Hypertension Father Cardiac disorder Hypertension Uncle Prostate cancer Past Surgical History Surgical History H/O radical prostatectomy History of kidney surgery H/O hernia repair History of cholecystectomy Social History Smoking Status: Former smoker tobacco type: cigarettes Smoking End Date: Quit 30 yrs ago Hx Alcohol Use: No Hx Substance Use: No Physical Exam Vital Signs Last Vital Signs Temp 36.4 C L 11/13/24 11:56 Pulse 75 11/13/24 11:56 Resp 16 11/13/24 11:56 BP 127/86 11/13/24 11:56 Pulse Ox 97 11/13/24 11:56 O2 Del Method Room Air 11/13/24 11:56 Testing Laboratory Results 11/13/24 06:45 11/13/24 06:45 PT 19.4 Seconds (9.0-12.0) H 11/13/24 06:45 INR 1.9 (0.9-1.1) H 11/13/24 06:45 APTT 35 Seconds (21-31) H 11/11/24 12:58 Blood Type A Positive 11/11/24 11:14 Antibody Screen NEGATIVE 11/11/24 11:14
[2024-11-13] MEDS: SODIUM CHLORIDE 0.9% 500 ML IV SCH (12:23)
--- NOTE | 2024-11-13 13:12 | GI REPORT ---
[facility] Patient: LAURA UMAÑA : 1940 Sex at : Male Age: 83 Years Procedure: Upper GI endoscopy Date: 11/13/2024 Attending Physician: Jean Marie Paris MD Referring MD: Referred Self Indications: - Melena Medications: - Monitored Anesthesia Care Complications: - No immediate complications. Estimated Blood Loss: - Estimated blood loss: None. Procedure: - Prior to the procedure, a History and Physical was performed, and patient medications and allergies were reviewed. The patient's tolerance of previous anesthesia was also reviewed. The risks and benefits of the procedure and the sedation options and risks were discussed with the patient. All questions were answered, and informed consent was obtained. Prior Anticoagulants: The patient has taken Coumadin (warfarin), last dose was 3 days prior to procedure. ASA Grade Assessment: III - A patient with severe systemic disease. After reviewing the risks and benefits, the patient was deemed in satisfactory condition to undergo the procedure. - The EGD Scope was introduced through the mouth and advanced to the third part of the duodenum. - The upper GI endoscopy was accomplished without difficulty. - The patient tolerated the procedure well. Findings: - A small hiatal hernia was present. - One non-bleeding superficial gastric ulcer with no stigmata of bleeding was found in the gastric antrum. The lesion was 3 mm in largest dimension. - The examined duodenum was normal. Impression: - Small hiatal hernia. - Non-bleeding gastric ulcer with no stigmata of bleeding. - Normal examined duodenum. - No specimens collected. Recommendation: - Discharge patient to home (ambulatory). - Resume previous diet. - Continue present medications. - Await pathology results. - Resume Coumadin (warfarin) at prior dose tomorrow. - Return to primary care physician as previously scheduled. - Patient has a contact number available for emergencies. The signs and symptoms of potential delayed complications were discussed with the patient. Return to normal activities tomorrow. Written discharge instructions were provided to the patient. - No active bleeding noted in the stomach, clean-based ulcer in the antrum next to the submucosal lesion that was biopsied via EUS FNA. This was likely the bleeding source but this has since stopped. No clip needed. He can advance his diet as tolerated. GI will sign off please call us with any questions. Procedure Code(s): - 93187, Esophagogastroduodenoscopy, flexible, transoral; diagnostic, including collection of specimen(s) by brushing or washing, when performed (separate procedure) Diagnosis Code(s): - K92.1, Melena (includes Hematochezia) - K44.9, Diaphragmatic hernia without obstruction or gangrene - K25.9, Gastric ulcer, unspecified as acute or chronic, without hemorrhage or perforation CPT(R) - 2023 copyright [employer]. All Rights Reserved. The CPT codes, CCI edits and ICD codes generated are intended as suggestions and were generated based on input data. These codes are preliminary and upon varnish maker review may be revised to meet current compliance and payer requirements. The provider is responsible for the final determination of appropriate codes, and modifiers. Jean Marie Paris MD This document has been electronically signed. Note Initiated:11/13/2024 Note Completed:11/13/2024 1:12 PM [id number]
[2024-11-13 13:30] VITALS: O2SAT 97
--- NOTE | 2024-11-13 13:33 | Anesthesiology Progress Note ---
Date of Service November 13, 2024 Anesthesia Post Procedure Vital Signs Vital Signs: Temp Pulse Resp BP BP Pulse Ox O2 Del Method 11/13/24 13:28 75 16 100/68 97 Room Air 11/13/24 13:13 79 16 99/61 L 96 Room Air 11/13/24 11:56 36.4 C L 75 16 127/86 97 Room Air 11/13/24 07:58 36.4 C L 77 16 138/79 96 Room Air 11/12/24 23:22 36.4 C L 90 18 166/84 H 98 Room Air 11/12/24 22:37 36.7 C 75 18 133/85 97 Room Air Transfer of Care Handoff Completed per policy Notes Mental Status: alert / awake / arousable and participated in evaluation Patient Amnestic to Procedure: Yes Nausea / Vomiting: adequately controlled Pain: adequately controlled Airway Patency, RR, SpO2: stable & adequate BP & HR: stable & adequate Hydration State: stable & adequate Anesthetic Complications: no major complications apparent
[2024-11-13] MEDS: LIDOCAINE 2% 2 ML VIAL/AMP(20MG/ML) INFIL ONE ×2 (13:52→13:53)
[2024-11-13] MEDS: PROPOFOL IV EMULSION 10 MG/ML 20 ML VIAL IV ONE (13:53)
--- NOTE | 2024-11-13 15:41 | Discharge Summary ---
Discharge Summary Date of Service November 13, 2024 Principal Dx & Hospital Course #1 = Principal Diagnosis (1) Acute blood loss anemia: (2) Gastric ulcer with hemorrhage: (3) IPMN (intraductal papillary mucinous neoplasm): (4) On warfarin therapy: (5) Atrial fibrillation: (6) Renal neoplasm: (7) Hiatal hernia: Plan Patient presented to the emergency room with history of black stool. Patient had had an EGD with biopsies done a few weeks prior. In the emergency room his hemoglobin was slightly below his baseline. He was referred for further evaluation. The patient was admitted to the hospital. His hemoglobin was pamela tored and he did not have any ongoing blood loss based on his hemoglobin. His warfarin was held. He was started on IV Protonix. GI consultation was obtained. He had a's another black tarry stool while here in the hospital. He underwent EGD. EGD revealed small stomach ulceration with no evidence of active bleeding. His hemoglobin remained stable. He tolerated his diet. He was transition to oral Protonix. He can be discharged home with outpatient follow- up. To continue on twice daily Protonix. Based on GI recommendations he can restart his warfarin tomorrow. Recommend that he get his warfarin level checked on Tuesday per his usual process and follow-up with his outpatient PCP. 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 Of note, had EGD for consistent GERd symptoms with biopsies taken, which per patient and family came back negative (of note, informed patient and family that it a low grade mucinous neoplasm likely IPMN. Patient seen and examined at bedside. Patient states that he noted bleed, black stool, yesterday with watery diarrhea. Filled up the toilet. States this is never happened to him before. Does state he had an EGD about 3 weeks ago, in which they took took needle core biopsies. Has not seen any red blood in his stool. Has not had a bowel movement in a few days. No other sows symptoms associated with the black diarrhea. Discussed CODE STATUS at length. Risks and benefits of resuscitation were explained. Patient states that he would not want heroic measures, including a breathing machine or chest compressions. He would like all other interventions considered. Therefore patient is DNRDNI with blood pressure support and medications if required. Discussed with family that these things are very unlikely however we hope for the best prepare for the worst. Admission Exam Per Admitting Provider See H&P Discharge Exam Constitutional: Alert HEENT: Mucous membranes moist. Lungs: Clear to auscultation, decreased, no wheezes rales or rhonchi CV: S1-S2, regular Abdomen: Soft, nontender, nondistended Extremities: No significant edema Neuro: No focal deficits Psych: Cooperative, normal mood Updated Medication List Medication Instructions Recorded Confirmed Type cyanocobalamin (vitamin B-12) 500 500 mcg PO QAM 03/26/20 11/11/24 History mcg tablet (Vitamin B-12) losartan 100 mg tablet (Cozaar) 100 mg PO QAM 03/26/20 11/11/24 History warfarin 4 mg tablet 4 mg PO DAILY 03/26/20 11/11/24 History metoprolol succinate 50 mg 50 mg PO QAM 07/08/24 11/11/24 History tablet,extended release 24 hr hydrochlorothiazide 12.5 mg capsule 12.5 mg PO QAM 11/11/24 11/11/24 History omega 2-ezr-clu-fish oil 900 1 cap PO HS 11/11/24 11/11/24 History mg-1,400 mg capsule,delayed release pantoprazole 20 mg tablet,delayed 20 mg PO QAM 11/11/24 11/11/24 History release rosuvastatin 10 mg tablet 5 mg PO Q OTHER DAY 11/11/24 11/11/24 History pantoprazole 40 mg tablet,delayed 40 mg PO BID #60 tabs 11/13/24 Rx release Hospital Stay Data Consultations 11/11/24 13:57 ED Decision to Admit Stat 11/11/24 19:22 Consult Gastroenterology Routine Procedures Performed Operation Date: 11/13/24 17:00 Actual Procedures p Esophagogastroduodenoscopy - Jean Marie Paris MD Diagnostic Imagining Performed 11/11/24 11:34 CT abd pelvis IV con only Stat CT angio chest PE protocol Stat Reviewed imaging, laboratory and diagnostic studies. Pertinent findings as below. Hemoglobin 10.3 Electrolytes stable Creatinine 1.07 EGD showed small hiatal hernia, nonbleeding superficial gastric ulcer with no stigmata of bleeding in the gastric antrum. Pending Results Patient Have Any Pending Studies at Discharge: No Discharge Instructions Given to Patient (Per Discharging Provider) You can restart your warfarin at your usual dose tomorrow Get your warfarin level tested on Tuesday per your usual process Total Time Total Time Spent Total Time Spent (In Minutes): 32
[2024-11-13 16:19] LABS: Basophils # (auto) 0.02 K/uL (0.00-0.20); Basophils % (auto) 0.3 %; Eosinophils # (auto) 0.11 K/uL (0.00-0.50); Eosinophils % (auto) 1.4 %; Hematocrit (blood only) 32.2 % (42.0-52.0); Hemoglobin 10.7 g/dl (14.0-18.0); Immature Granulocytes # (auto) 0.03 K/uL (0.01-0.20); Immature Granulocytes % (auto) 0.4 %; Lymphocytes # (auto) 0.49 K/uL (1.20-3.40); Lymphocytes % (auto) 6.4 %; Mean Corpuscular Hemoglobin 31.9 pg (25.0-34.0); Mean Corpuscular Hgb Conc 33.2 g/dL (32.0-36.0); Mean Corpuscular Volume 96.1 fL (80.0-100.0); Mean Platelet Volume 10.1 fL (9.4-12.4); Monocytes # (auto) 0.89 K/uL (0.11-0.59); Monocytes % (auto) 11.6 %; Neutrophils % (auto) 79.9 %; Platelet Count 184 K/uL (130-400); RDW Coefficient of Variation 12.9 % (11.5-14.5); RDW Standard Deviation 44.5 fL (36.4-46.3); Red Blood Count 3.35 M/uL (4.70-6.10); White Blood Count 7.64 K/ul (4.8-10.8)
[2024-11-13 16:29] VITALS: BP 166/84; PULSE 98
[2024-11-13] MEDS ORDERED: PANTOprazole 40 MG TAB PO SCH (21:00)
== END 2024-11-13 16:29 | disposition home or self-care (01) | DRG 378 ==
LOC: ED 10:26 → SUATTDRO 15:29 → 2W 15:29 → 3N 11-12 23:20

== ENCOUNTER 2024-11-15 07:18 | Inpatient (IN) ==
--- NOTE | 2024-11-15 07:56 | Emergency Department Note ---
Impression & Plan Melena, Atrial fibrillation, custodial (current) use of anticoagulants ED Provider Note Provider: Triston Abdullahi MD CHIEF COMPLAINT: Black stool HISTORY OF PRESENT ILLNESS: Patient is a 83-year-old gentleman past medical history significant for prostate cancer, atrial fibrillation, gastric ulcer and recent admission for GI bleed 2 days ago presenting here reporting last night due to bowel movement around 8:30 PM with some black stool. Liquid in nature. No red blood. No abdominal cramping or nausea. Ate a normal diet yesterday. Called his doctor's office today and came here for further evaluation. Did restart his Coumadin just last night. Has not taken more than 1 dose. Did not take his morning meds yet today. No shortness of breath or nausea or vomiting. No use of iron or Pepto-Bismol the last several days. PAST MEDICAL HISTORY: As noted above MEDICATIONS: Reviewed home medication SOCIAL HISTORY: lives at home. PHYSICAL EXAM: GENERAL: alert and oriented in no acute distress on stretcher Head: normocephalic and atraumatic EYES: No injection, discharge or icterus. NECK: Trachea midline. ENT: Mucous membranes pink and moist. LUNGS: Airway patent. No retractions or tachypnea HEART: Regular rate and rhythm. ABDOMEN: Soft and non-tender, without guarding or rebound. No appreciable masses. SKIN: Acyanotic, warm, dry, without rashes EXTREMITIES: Without swelling, tenderness or deformity NEUROLOGICAL: No focal deficits. No aphasia. No facial droop or slurred speech. Ambulatory. EK bpm atrial fibrillation. No ST segment elevation or depression with QTc 408. CONTINUOUS CARDIAC MONITORING: was ordered and showed a heart rate of 70s-80s bpm in atrial fibrillation Patient's laboratory studies and imaging reviewed. Differential includes Diverticulosis, AVM, coagulopathy, colitis, inflammatory bowel disease, malignancy, Leticia-Cervantes tear, esophagitis, peptic ulcer disease, variceal bleed, gastritis, epistaxis, fissure, hemorrhoids, as well as other pathologies. IMPRESSION/MEDICAL DECISION MAKING: Reviewed EGD report from the and discharge summary from the 2 days ago. Patient normally on warfarin related to history of A-fib. This started back on medication and reports it was 1.6 and outpatient testing yesterday. Will repeat INR and blood counts today. Not in any distress. Doubt significant anemia at this point. No nausea vomiting or hematemesis. Patient with some black stool last night but no bowel movement yet this morning. Patient states he did have a normal brownish-yellow bowel movement early yesterday morning small in amount. Did have abdominal imaging again recent EGD and do not feel we need to repeat CT imaging at this time. Doubt diverticulitis or inflammatory findings in the colon. He did have finding of a nonbleeding ulceration of the stomach without findings of bleeding 2 days ago. Given an IV dose of Protonix here as is not yet had morning medications. Blood work here slightly improved hemoglobin 11.1 from 10.7 two days ago. INR 1.3 today. No significant thrombocytopenia. No leukocytosis. No significant elevated BUN. Normal LFTs. Did reach out discussed with GI. In discussion with Dr. Paris who saw the patient earlier this week, he will come and evaluate him here in the ER. Updated patient and her family who are agreeable with this plan. GI recommended further observation here and they will plan for colonoscopy tomorrow. Discussed with the hospitalist team. DIAGNOSIS: Melena DISPOSITION: Hospitalist will evaluate Patient was agreeable with this plan. Past Med/Surg History Problem List (Updated 11/15/24 @ 11:22 by Trisotn Abdullahi M.D.) terminal carman (current) use of anticoagulants (Acute) Melena (Acute) Gastric ulcer Hiatal hernia Gastric ulcer with hemorrhage GIB (gastrointestinal bleeding) (Acute) Aortic aneurysm Acute blood loss anemia IPMN (intraductal papillary mucinous neoplasm) Upper GI bleed On warfarin therapy (Acute) Atrial fibrillation (Acute) Heart trouble (Acute) Hemorrhoids (Acute) Hypercholesterolemia (Acute) Hypertension (Acute) Impotence, organic (Acute) Renal neoplasm (Acute) Prostate cancer Medical History Asymptomatic hypertensive urgency Acute appendicitis Abdominal pain Surgical History H/O radical prostatectomy History of kidney surgery H/O hernia repair History of cholecystectomy Family History Mother Cardiac disorder Diabetes Hypertension Father Cardiac disorder Hypertension Uncle Prostate cancer Social History Smoking Status: Former smoker Second Hand Exposure: No; Hx Alcohol Use: No Hx Substance Use: No Preferred Language: [place] Communication Ability: Effective 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 Qualified Required: No Beliefs That Will Affect Care: None marital status: Current Living Situation: Spouse current occupational status: retired Feels Safe at Home: Yes Assistive Devices: None Allergies Allergies Allergy/AdvReac Type Severity Reaction Status Date / Time atorvastatin [From Lipitor] Allergy Unknown Verified 11/11/24 14:06 fenofibrate [From Tricor] Allergy Unknown Verified 11/11/24 14:06 gemfibrozil [From Lopid] Allergy Unknown Verified 11/11/24 14:06 lisinopril Allergy Unknown Verified 11/11/24 14:06 niacin Allergy Unknown Verified 11/11/24 14:06 Home Meds Home Medications Medication Instructions Recorded Confirmed cyanocobalamin (vitamin B-12) 500 500 mcg PO QAM 03/26/20 11/15/24 mcg tablet (Vitamin B-12) losartan 100 mg tablet (Cozaar) 100 mg PO QAM 03/26/20 11/15/24 warfarin 4 mg tablet 4 mg PO DAILY 03/26/20 11/15/24 metoprolol succinate 50 mg 50 mg PO QAM 07/08/24 11/15/24 tablet,extended release 24 hr hydrochlorothiazide 12.5 mg capsule 12.5 mg PO QAM 11/11/24 11/15/24 omega 5-kjc-kfg-fish oil 900 1 cap PO HS 11/11/24 11/15/24 mg-1,400 mg capsule,delayed release rosuvastatin 10 mg tablet 5 mg PO Q OTHER DAY 11/11/24 11/15/24 Previous Rx's Medication Instructions Recorded pantoprazole 40 mg tablet,delayed 40 mg PO BID #60 tabs 11/13/24 release Results & Data (ED) Vital Signs Vital Signs - 24 hr 11/15/24 07:27 11/15/24 08:00 11/15/24 08:04 Temperature 36.5 C Temperature Source Oral Pulse Rate 101 H 83 81 Respiratory Rate 16 23 Respiratory Effort / Characteristics Non-Labored Spontaneous Respiratory Depth Normal Respiratory Pattern Regular Blood Pressure 114/77 113/81 Blood Pressure Mean 89 94 Pulse Oximetry 96 95 Oxygen Delivery Method Room Air Sepsis Recent Fever Within 48 Hours No Sepsis New/Unexplained Change in Mental Status N/A Sepsis Action Taken by Nursing No Action Required 11/15/24 08:05 11/15/24 08:30 Temperature Temperature Source Pulse Rate 76 Respiratory Rate 25 H Respiratory Effort / Characteristics Respiratory Depth Respiratory Pattern Blood Pressure 119/67 Blood Pressure Mean 71 Pulse Oximetry 98 96 Oxygen Delivery Method Room Air Room Air Sepsis Recent Fever Within 48 Hours Sepsis New/Unexplained Change in Mental Status Sepsis Action Taken by Nursing Laboratory Data 11/15/24 07:49 11/15/24 07:49 Lab Results 11/15/24 11/15/24 Range/Units 07:41 07:49 WBC 6.42 (4.8-10.8) K/ul RBC 3.54 L (4.70-6.10) M/uL Hgb 11.1 L (14.0-18.0) g/dl Hct 33.3 L (42.0-52.0) % MCV 94.1 (80.0-100.0) fL MCH 31.4 (25.0-34.0) pg MCHC 33.3 (32.0-36.0) g/dL RDW Std Deviation 44.4 (36.4-46.3) fL RDW Coeff of Mary 13.2 (11.5-14.5) % Plt Count 191 (130-400) K/uL MPV 9.9 (9.4-12.4) fL Immature Gran % (Auto) 2.0 % Neut % (Auto) 77.8 % Lymph % (Auto) 6.7 % Daniels % (Auto) 10.7 % Eos % (Auto) 2.3 % Baso % (Auto) 0.5 % Neut # (Auto) 4.99 (1.40-6.50) K/uL Lymph # (Auto) 0.43 L (1.20-3.40) K/uL Daniels # (Auto) 0.69 H (0.11-0.59) K/uL Eos # (Auto) 0.15 (0.00-0.50) K/uL Baso # (Auto) 0.03 (0.00-0.20) K/uL Immature Gran # (Auto) 0.13 (0.01-0.20) K/uL PT 14.2 H (9.0-12.0) Seconds INR 1.3 H (0.9-1.1) APTT 28 (21-31) Seconds PTT Ratio 1.0 Sodium 138 (136-145) mmol/L Potassium 4.1 (3.5-5.1) mmol/L Chloride 105 (98-107) mmol/L Carbon Dioxide 28 (21-32) mmol/L Anion Gap 5 (3-11) BUN 17 (6-23) mg/dl Creatinine 1.29 (0.6-1.4) mg/dl Est Cr Clr Drug Dosing 58.6 ml/min eGFR 55.02 BUN/Creatinine Ratio 13.2 (10-20) Glucose 113 H (70-99(Fasting)) mg/dl Calcium 8.9 (8.6-10.3) mg/dl Total Bilirubin 1.0 (0.2-1.0) mg/dl AST 18 (13-39) U/L ALT 13 (7-52) U/L Alkaline Phosphatase 71 (34-104) U/L Troponin I High Sens 9.3 (0-20) pg/ml Total Protein 6.4 (6.0-8.3) gm/dl Albumin 4.0 (3.4-5.0) gm/dl Globulin 2.4 L (2.5-4.0) gm/dl Albumin/Globulin Ratio 1.7 (0.9-2) Lipase 20 (11-82) U/L Blood Type A Positive Antibody Screen NEGATIVE Administered Medications Discontinued Medications Pantoprazole Sodium 80 mg/ (Dextrose) 120 mls @ 480 mls/hr IV ONE STA Stop: 11/15/24 07:49 Last Infusion: 11/15/24 08:56 Dose: Infused Documented By: Admin: 11/15/24 08:29 Dose: 480 mls/hr Documented By: BRETT Discharge Plan Visit Data Chief Complaint: GI Assessment Stated Complaint: BLOOD IN STOOL ED Provider: Triston Abdullahi Discharge Problem: Melena, Atrial fibrillation, terminal carman (current) use of anticoagulants Patient Disposition: Being Evaluated by Hospitalist Forms Stand Alone Forms: My [facility] Prescriptions Prescriptions: No Action losartan [Cozaar] 100 mg tablet 100 mg PO QAM cyanocobalamin (vitamin B-12) [Vitamin B-12] 500 mcg tablet 500 mcg PO QAM warfarin 4 mg tablet 4 mg PO DAILY Hold Instructions: Resume on 11/14/24. Resume your warfarin dosing as usual on 11/14/2024 Rx Instructions: Take 8mg by mouth on the evenings of Tuesday/Tuesday and 4mg all other days metoprolol succinate 50 mg tablet extended release 24 hr 50 mg PO QAM hydrochlorothiazide 12.5 mg capsule 12.5 mg PO QAM rosuvastatin 10 mg Tablet 5 mg PO Q OTHER DAY omega 7-bab-lop-fish oil 900-1,400 mg Capsule,Delayed Release(Dr/Ec) 1 cap PO HS pantoprazole 40 mg Tablet,Delayed Release (Dr/Ec) 40 mg PO BID Qty: 60 0RF Referrals Referrals: Chiki Syed MD [Primary Care Provider] -
[2024-11-15 08:16] LABS: Basophils # (auto) 0.03 K/uL (0.00-0.20); Basophils % (auto) 0.5 %; Eosinophils # (auto) 0.15 K/uL (0.00-0.50); Eosinophils % (auto) 2.3 %; Hematocrit (blood only) 33.3 % (42.0-52.0); Hemoglobin 11.1 g/dl (14.0-18.0); Immature Granulocytes # (auto) 0.13 K/uL (0.01-0.20); Lymphocytes # (auto) 0.43 K/uL (1.20-3.40); Lymphocytes % (auto) 6.7 %; Mean Corpuscular Hemoglobin 31.4 pg (25.0-34.0); Mean Corpuscular Hgb Conc 33.3 g/dL (32.0-36.0); Mean Corpuscular Volume 94.1 fL (80.0-100.0); Mean Platelet Volume 9.9 fL (9.4-12.4); Monocytes # (auto) 0.69 K/uL (0.11-0.59); Monocytes % (auto) 10.7 %; Neutrophils # (auto) 4.99 K/uL (1.40-6.50); Neutrophils % (auto) 77.8 %; Platelet Count 191 K/uL (130-400); RDW Coefficient of Variation 13.2 % (11.5-14.5); RDW Standard Deviation 44.4 fL (36.4-46.3); Red Blood Count 3.54 M/uL (4.70-6.10); White Blood Count 6.42 K/ul (4.8-10.8)
[2024-11-15] MEDS: PANTOprazole 80 MG in DEXTROSE 5% 100 ML IV STA (08:29)
[2024-11-15 08:32] LABS: Albumin Globulin Ratio 1.7 (0.9-2); BUN Creatinine Ratio 13.2 (10-20); Calcium 8.9 mg/dl (8.6-10.3); Creatinine Clr Calc Pharmacy 58.6 ml/min; Globulin 2.4 gm/dl (2.5-4.0); INR 1.3 (0.9-1.1); Partial Thromboplastin Time 28 Seconds (21-31); Potassium 4.1 mmol/L (3.5-5.1); Prothrombin Time 14.2 Seconds (9.0-12.0); Total Protein 6.4 gm/dl (6.0-8.3)
[2024-11-15 08:38] LABS: Troponin I High Sensitivity 9.3 pg/ml (0-20)
--- NOTE | 2024-11-15 09:26 | Gastrointestinal Consultation ---
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 He has remained hemodynamically stable. The question moving forward will be the safety of resuming his Coumadin. Discussed the case with Dr. Paris. Recommend admission to medicine. Clear liquids today. Golytely prep. NPO after midnight and plan for colonoscopy 11/16/24. We appreciate assistance in the management of any serological abnormality and corrections to include: hemoglobin >7, INR <2, platelets >50,000, potassium levels >3.5 but <5.3, and sodium levels within 5 points of the reference range prior to endoscopic evaluation. Thank you for allowing us to participate in the care of this patient. Please call with any acute changes, questions or concerns. Please see addendum below with additional recommendation from my supervising physician. I spent a total of 60 minutes on the date of service in review of patient's record, and previously obtained information in person and appropriate medical visit, discussion and education of plan, with patient and/or caregiver, placing orders for tests/referral/procedures as medically necessary and documentation of pertinent clinical information in patient's medical records for their visit today. Supervising Physician Co-Signing Physician Notes I personally saw and examined the patient. I have reviewed the chart and agree with the documentation provided by the FORMULATION TECHNICIAN including discussion about the assessment, treatment and plan. 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 He had an EUS with a biopsy of an antral submucosal lesion at [facility] and then presented with black stools. I did an EGD 2 days ago and it just showed a superficial ulcer at the biopsy site with no active bleeding in the stomach or duodenum. He took 1 dose of Coumadin and had recurrent bleeding. Currently his hemoglobin is stable and he has a normal BUN. He has not had a colonoscopy in a very long time. I do think we need to rule out right-sided lesions and do a colonoscopy tomorrow especially in the setting of his need for Coumadin. N.p.o. 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 Pt was seen and evaluated, chart reviewed. After discharge 11/13, he resumed his medications and diet at baseline. Had a brown/green bowel movements yesterday morning. [place] the urge to move his stools again last evening around 2029 he moves his bowels and this was a large amount of dark stool again. No BRB. No clots. He denies associated abd pain, nausea/vomiting. No fever, chills, CP, SOB. HGB 11.1 stable from 10.7 on 11/13/24 INR 1.3 BUN 17 EGD 11/15/24: Small hiatal hernia.Non-bleeding gastric ulcer with no stigmata of bleeding.Normal examined duodenum.No specimens collected. 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 Biopsied. Normal cardia, gastric fundus, gastric body and incisu ra.Normal examined duodenum. EUS 10/25/24: There was no sign of significant pathology in the ampulla.There was dilation in the common bile duct which measured up to 7 mm. There was no evidence of significant pathology in the visualized portion of the liver.There was no sign of significant pathology in the pancreatic head, pancreatic tail, pancreatic neck and main pancreatic duct.A cystic lesion was seen in the pancreatic body. Fine needle aspiration for fluid performed.An intramural (subepithelial) lesion was found in the antrum of the stomach. The lesion appeared to originate from within the submucosa (Layer 3). Tissue has not been obtained. 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 An intramural (subepithelial) lesion was found in the upper third of the esophagus. It appeared to originate from within the submucosa (Layer 3). Tissue has not been obtained. 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 Many enlarged lymph nodes were visualized in the subcarinal mediastinum (level 7). Fine needle aspiration performed. Allergies Allergy/AdvReac Type Severity Reaction Status Date / Time atorvastatin [From Lipitor] Allergy Unknown Verified 11/11/24 14:06 fenofibrate [From Tricor] Allergy Unknown Verified 11/11/24 14:06 gemfibrozil [From Lopid] Allergy Unknown Verified 11/11/24 14:06 lisinopril Allergy Unknown Verified 11/11/24 14:06 niacin Allergy Unknown Verified 11/11/24 14:06 Home Medications Medication Instructions Recorded Confirmed Type cyanocobalamin (vitamin B-12) 500 500 mcg PO QAM 03/26/20 11/15/24 History mcg tablet (Vitamin B-12) losartan 100 mg tablet (Cozaar) 100 mg PO QAM 03/26/20 11/15/24 History warfarin 4 mg tablet 4 mg PO DAILY 03/26/20 11/15/24 History metoprolol succinate 50 mg 50 mg PO QAM 07/08/24 11/15/24 History tablet,extended release 24 hr hydrochlorothiazide 12.5 mg capsule 12.5 mg PO QAM 11/11/24 11/15/24 History omega 2-wtg-mof-fish oil 900 1 cap PO HS 11/11/24 11/15/24 History mg-1,400 mg capsule,delayed release rosuvastatin 10 mg tablet 5 mg PO Q OTHER DAY 11/11/24 11/15/24 History pantoprazole 40 mg tablet,delayed 40 mg PO BID #60 tabs 11/13/24 11/15/24 Rx release Patient History Medical History Asymptomatic hypertensive urgency Acute appendicitis Abdominal pain Surgical History H/O radical prostatectomy History of kidney surgery H/O hernia repair History of cholecystectomy Family History Mother Cardiac disorder Diabetes Hypertension Father Cardiac disorder Hypertension Uncle Prostate cancer Social History Smoking Status: Former smoker Smoking End Date: >30 years ago; Second Hand Exposure: No; Tobacco Cessation Education Requested by Patient: No Hx Alcohol Use: No Hx Substance Use: No Preferred Language: Maltese Communication Ability: Effective Vp Revenue Cycle Required: No Beliefs That Will Affect Care: None marital status: Current Living Situation: Spouse current occupational status: retired Other Information That Helps Us Care for You: No Feels Safe at Home: Yes Safety Concerns: Feels Safe At This Time Assistive Devices: Denture - Upper and Hearing Aid - Bilateral Review of Systems Review of Systems: All other findings negative except as noted in HPI. Physical Exam Constitutional: WD/WN, vitals as above Respiratory: normal respiratory effort, lungs clear to auscultation Cardiovascular: RRR, no murmur, no edema Gastrointestinal (Abdomen): normal bowel sounds, soft, nontender, no hepatosplenomegaly Skin: no rashes, warm and dry Results & Data Vital Signs (Past 12 Hours) Vital Signs Temp Pulse Resp BP Pulse Ox O2 Del Method 11/15/24 08:30 76 25 H 119/67 96 Room Air 11/15/24 08:05 98 Room Air 11/15/24 08:04 81 11/15/24 08:00 83 23 113/81 95 11/15/24 07:27 97.7 F 101 H 16 114/77 96 Room Air Laboratory Results 11/15/24 11/15/24 Range/Units 07:49 07:41 WBC 6.42 (4.8-10.8) K/ul RBC 3.54 L (4.70-6.10) M/uL Hgb 11.1 L (14.0-18.0) g/dl Hct 33.3 L (42.0-52.0) % MCV 94.1 (80.0-100.0) fL MCH 31.4 (25.0-34.0) pg MCHC 33.3 (32.0-36.0) g/dL RDW Std Deviation 44.4 (36.4-46.3) fL RDW Coeff of Mary 13.2 (11.5-14.5) % Plt Count 191 (130-400) K/uL MPV 9.9 (9.4-12.4) fL Immature Gran % (Auto) 2.0 % Neut % (Auto) 77.8 % Lymph % (Auto) 6.7 % Carson % (Auto) 10.7 % Eos % (Auto) 2.3 % Baso % (Auto) 0.5 % Neut # (Auto) 4.99 (1.40-6.50) K/uL Lymph # (Auto) 0.43 L (1.20-3.40) K/uL Carson # (Auto) 0.69 H (0.11-0.59) K/uL Eos # (Auto) 0.15 (0.00-0.50) K/uL Baso # (Auto) 0.03 (0.00-0.20) K/uL Immature Gran # (Auto) 0.13 (0.01-0.20) K/uL PT 14.2 H (9.0-12.0) Seconds INR 1.3 H (0.9-1.1) APTT 28 (21-31) Seconds PTT Ratio 1.0 Sodium 138 (136-145) mmol/L Potassium 4.1 (3.5-5.1) mmol/L Chloride 105 (98-107) mmol/L Carbon Dioxide 28 (21-32) mmol/L Anion Gap 5 (3-11) BUN 17 (6-23) mg/dl Creatinine 1.29 (0.6-1.4) mg/dl Est Cr Clr Drug Dosing 58.6 ml/min eGFR 55.02 BUN/Creatinine Ratio 13.2 (10-20) Glucose 113 H (70-99(Fasting)) mg/dl Calcium 8.9 (8.6-10.3) mg/dl Total Bilirubin 1.0 (0.2-1.0) mg/dl AST 18 (13-39) U/L ALT 13 (7-52) U/L Alkaline Phosphatase 71 (34-104) U/L Troponin I High Sens 9.3 (0-20) pg/ml Total Protein 6.4 (6.0-8.3) gm/dl Albumin 4.0 (3.4-5.0) gm/dl Globulin 2.4 L (2.5-4.0) gm/dl Albumin/Globulin Ratio 1.7 (0.9-2) Lipase 20 (11-82) U/L Blood Type A Positive Antibody Screen NEGATIVE PG Care Time/CCT Total # of Minutes Spent Total Time Spent with Patient: Total time spent is greater than 50% in coordination of care (as documented) at patient's floor/unit and/or counseling patient: Coding Level of Care Code 50552 INT INP/OBS CARE 2/55MIN Diagnoses GIB (gastrointestinal bleeding) K92.1 GI bleed type/associated pathology: melena (1) GIB (gastrointestinal bleeding) GI bleed type/associated pathology: melena Qualified Code(s): K92.1 - Melena
--- OUTSIDE RECORDS SUMMARY | 2024-11-15 09:31 | External Medical Summary ---
Author Name Unknown Address Unknown Organization K0G:[facility] [address] [place] [address] Laboratory Report Ordering Provider Test Date Status AJIT VALDIVIA 11/14/2024 10:50:59 Final Therapeutic ranges for non-o perative patients:
Prophylaxsis/treatment of DVT: (Range:2.0-3.0)
Treatment of pulmonary embolism:(Range:2.0-3.0)
Prevention of systemic embolism from:
-tissue heart valves
-acute myocardial infarction
-valvular heart disease
-atrial fibrillation
(Range: 2.0-3.0)
Mechanical prosthetic valves: (Range: 2.5-3.5) Observation Date Value Abnormality Reference (Units ) Status INR in Capillary blood by Coagulation assay 11/14/2024 10:50:59 1.6 (INR) Final Performing Location [facility] [place] [facility] [place] [address]
--- OUTSIDE RECORDS SUMMARY | 2024-11-15 09:31 | External Medical Summary | Summary of Care ---
Author Name Unknown Organization [facility] [address] [facility] [address] Phone [phone] Care Team Providers Care Records Assistant Name Role Phone Chiki Syed MD Primary Care Provider + Reason for Visit * Reason Comments Dosage Adjustment In Person (Anticoag Cl inic) Encounter Details Date Type Department Care Team (Latest Contact Info) Description 11/14/2024 11:10 AM EDT 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 Pharmacy, [facility] [address] [facility] [place] [address] [facility] [address] 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 Allergies Active Allergy Reactions Criticality Noted Date Comments Atorvastatin 10/15/2013 Joint pain Fenofibrate 10/15/2013 Joint pain Gemfibrozil Diarrhea 10/15/2013 Lisinopril Cough 01/25/2017 Niacin Nausea/vomiting 10/15/2013 documented as of this encounter (statuses as of 11/14/2024) Medications [facility] FISH OIL + D3 3029-1156 MG-UNIT PO CAPS Take by mouth once [...] as of this encounter (statuses as of 11/14/2024) Active Problems Problem Noted Date Diagnosed Date [...] Jaime referred to CT surg/ TTE 02/26 [facility] PET CT 4.5cm 07/26 4.3 cm Atrial fibrillation, chronic 10/19/2018 Complex tear of lateral meni scus of right knee as current injury 04/05/2017 History of renal cell cancer 01/25/2017 Overview (01/25/2017): left kidney dx [facility] Prediabetes 10/05/2016 Prostate cancer 10/05/2016 Overview (10/24/2019): S/p surgery, XRT. 07/[address] Holm 08/21 PSA 0.[address] [place] [address] Romero--s/p surg, XRT 5 years later. Well adult exam 10/05/2016 Overview (11/06/2024): 10/30 EGD/EUS--biopsies pancreas, lymph nodes, stomach mass. PATH most likely IPMN-low grade/mucinous cyst (may become malignant). Rec yearly imaging CT/MRI 09/29 PFT done WNL! 08/28 refer STAIR., + emphysema on CT, referred pulm, 09/[address] surg For aorta. 02/26 [facility] PET-10mm lymph inguinal node with mild inc [...] Center. 06/21 normal stress test w/Dr Mccloud 2010 colonoscopy WNL -consider in 2019. A-fib 01/09/2016 Overview (07/16/2024): 06/21 Lexiscan Tc99 Stress echo WNL. Normal EF. 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 Medication Therapy Disease Management - 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 Patient: Sushant La | : 1940 Subjective Contacts Contact Date/Time Type Contact Phone/Fax 11/07/2024 08:14 AM EST Text Message (Outgoing) [phone] [facility]: Sushant, you have an upcoming visit on 11/14 at 11:10 AM. Details: [email or web address] Reply 1 to confirm or 3 to cancel. Reply STOP to opt out. 11/11/2024 08:15 AM EDT Text Message (Outgoing) [phone] [facility]: Sushant, you have an upcoming visit on 11/14 at 11:10 AM. Details: [email or web address] Reply 1 to confirm or 3 to cancel. Reply STOP to opt out. 11/13/2024 08:23 AM EDT Text Message (Outgoing) [phone] [facility]: Sushant, you have an upcoming visit on 11/14 at 11:10 AM. Details: [email or web address] Reply 1 to confirm or 3 to cancel. Reply STOP to opt out. Patient-Reported Symptoms: Patient Findings Positives: Hospital admission (patient was just discharged from [facility] after admission for GI bleed, ulcer was found) Negatives: Signs/symptoms of thrombosis, Signs/symptoms of bleeding, Change in health, Change in alcohol use, Change in activity, Upcoming invasive procedure, Missed doses, Extra doses, Change in medications, Change in diet/appetite, Bruising Objective Current Warfarin Dose As of 11/14/2024 Warfarin maintenance plan: 8 mg (4 mg x 2) every Tue, Sat; 4 mg (4 mg x 1) all other days INR Result As of 11/14/2024 INR goal: 2.0-3.0 INR used for dosin.6 (11/14/2024) Assessment & Plan Warfarin Plan As of 11/14/2024 Full warfarin instructions: 8 mg every Tue, Sat; 4 mg all other days Next INR check: 11/16/2024 Repeat PT/INR in 2 day(s) Weekly dose: not changed Additional Dosing Information: I spent a total of 10-19 minutes (exact time 10 mins) on the date of service in preparation, delivery, and documentation of the care provided to Sushant La excluding any time spent in the performance of separately billed services or time spent by another provider/QHP. Socorro Pappas [facility] Clinical Pharmacist 11/14/2024, 11:20 AM documented in this encounter Plan of Treatment Upcoming Encounters Date Type Department Care Team (Late st Contact Info) Description 11/16/2024 10:50 AM EDT 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 Pharmacy, [facility] [address] [facility] [place] [address] [facility] [address] [facility] [place] [address] 11/26/2024 9:00 AM EDT Office Visit [facility] [address] [place] [address] Chiki Syed MD [address] [place] [address] 01/02/2025 8:00 AM EDT Office Visit Cardiology, [facility] [address] [facility] [place] [address] Letty Romo CRNP [address] [place] [address] [place] [id number] 01/23/2025 9:20 AM EDT Office Visit [facility] [address] [facility] [place] [address] Chiki Syed MD [address] [place] [address] 01/24/2025 9:00 AM EDT Office Visit Gastroenterology, [facility] [address] [place] [address] Mariana Florez CRNP [address] [place] [address] 04/16/2025 11:00 AM EDT Appointment Radiology, [place] [address] [place] [address] 04/23/2025 10:45 AM EDT Office Visit Cardiothoracic Surg [facility], [place] [address], [place] [id number] See Hirsch MD [address], [place] [id number] Health Maintenance Due Date Last Done Comments [...] this encounter Medical Devices Implanted Type Area Digital Archivist Device Identifier Shelf Expiration Date Model / Serial / Lot Lens Intraoc 21.5 - [id number] - [id number] Implanted:Qty: 1 on 06/20/2018 by Bogdan Lindsay MD at OR [facility] Left: Eye [employer] 01/02/2023 [id number] / [id number] / [id number] Lens Intraoc 21.5 - [id number] - [id number] Implanted:Qty: 1 on 06/29/2018 by Bogdan Lindsay MD at OR [facility] Right: Eye [employer] 02/02/2023 [id number] / [id number] / [id number] documented as of this encounter Procedures Procedure Name Priority Date/Time Associated Diagnosis Comments INR FINGERSTICK, POINT OF CARE STAT 11/14/2024 10:50 AM EDT Longstanding persistent atrial fibrillation (HCC) 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 management encounter shelter current use of anticoagulant therapy documented in this encounter Results * INR FINGERSTICK, POINT OF CARE (11/14/2024 10:50 AM EDT) Fingerstick INR 1.6 INR 10:54 AM EDT [facility] [place] [facility] Blood 11/14/2024 10:5 0 AM EDT 11/14/2024 10:54 AM EDT Narrative [facility] [place] [facility] - 11/14/2024 10:54 AM EDT Therapeutic ranges for non-operative patients: Prophylaxsis/treatment of DVT: (Range:2.0-3.0) Treatment of pulmonary embolism:(Range:2.0-3.0) Prevention of systemic embolism from: -tissue heart valves -acute myocardial infarction -valvular heart disease -atrial fibrillation (Range: 2.0-3.0) Mechanical prosthetic valves: (Range: 2.5-3.5) Socorro Pappas [facility] LAB POINT OF C ARE TEST DOCKED DEVICE UNSOLICITED RESULTS Final Result [facility] [place] [facility] [place] [address] documented in this encounter Visit Diagnoses Diagnosis 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 management encounter- Primary Encounter for therapeutic drug monitoring Chronic atrial fibrillation (HCC) Atrial fibrillation 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 Care Teams Records Assistant Relationship Specialty Start Date End Date Chiki Syed MD [address] [place] [address] PCP - General Family Medicine 10/20/18 documented as of this encounter"
--- NOTE | 2024-11-15 11:14 | History & Physical Report ---
Date of Service November 15, 2024 Assessment & Plan (1) Acute blood loss anemia: Plan: -patient still having black stools -given recent EGD and protonix, consideration for small bowel AVMs vs. lower GI source Plan: -continue protonix 40 PO bid -trend Hgb -hold coumadin, SCDs for prophylaxis -trend creatinine given borderline for LAURIE (2) GIB (gastrointestinal bleeding): Plan: -see above (3) Atrial fibrillation: Plan: -will need risk benefit discussion potentially regarding coumadin use -consideration for switching blood thinner vs. holding off entirely -[id number] score of 3, HAS BLED score of 2, benefit likely outweighs risk given good patient functional status, discussed with patient -discuss post procedure (4) On warfarin therapy: Plan: -see above (5) Aortic aneurysm: Plan: -follows outpatient (6) Gastric ulcer: Plan: -see above (7) Hypertension: Plan: -hold BP meds (8) Renal neoplasm: Plan: -hx of, noted (9) Prostate cancer: Plan: -hx of, noted Plan Feeding/fluids: clear liquids then bowel prep Analgesia: tylenol Sedation: na Thromboprophylaxis: SCDs Head up position: na Ulcer prophylaxis: protonix Glycemic control: na Spontaneous breathing trial: na Bowel care: bowel prep Indwelling catheter removal: na Deescalation of antibiotics: na I spent a total of 80 minutes in direct patient care, including [id number] time with the patient and/or family, reviewing medical records, ordering and reviewing diagnostic tests, and coordinating care with other healthcare providers. This time includes: history taking, physical examination, medical decision making, counseling, ECG interpretation, imaging interpretation, lab interpretation, orders, and education, excluding time spent in the performance of separately billed services. 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 Had recent admission for similar symptoms, EGD revealing non bleeding gastric ulcer, discharged with protonix bid. Patient states symptoms have been occuring since yesterday, 1 black stool. He started the coumadin again yesterday, took none before, INR before starting coumadin again was 1.6. States stool was black, no redness. No other associated symptoms, no SOB, chest pain, or nauseas/vomiting. Denies tobacco use, alcohol use, drug use, DNRDNI but ok with blood pressure virk pporting medications (see my last note for advanced care planning discussion). Allergies Allergy/AdvReac Type Severity Reaction Status Date / Time atorvastatin [From Lipitor] Allergy Unknown Verified 11/11/24 14:06 fenofibrate [From Tricor] Allergy Unknown Verified 11/11/24 14:06 gemfibrozil [From Lopid] Allergy Unknown Verified 11/11/24 14:06 lisinopril Allergy Unknown Verified 11/11/24 14:06 niacin Allergy Unknown Verified 11/11/24 14:06 Home Medications Medication Instructions Recorded Confirmed Type cyanocobalamin (vitamin B-12) 500 500 mcg PO QAM 03/26/20 11/15/24 History mcg tablet (Vitamin B-12) losartan 100 mg tablet (Cozaar) 100 mg PO QAM 03/26/20 11/15/24 History warfarin 4 mg tablet 4 mg PO DAILY 03/26/20 11/15/24 History metoprolol succinate 50 mg 50 mg PO QAM 07/08/24 11/15/24 History tablet,extended release 24 hr hydrochlorothiazide 12.5 mg capsule 12.5 mg PO QAM 11/11/24 11/15/24 History omega 5-rrs-kjb-fish oil 900 1 cap PO HS 11/11/24 11/15/24 History mg-1,400 mg capsule,delayed release rosuvastatin 10 mg tablet 5 mg PO Q OTHER DAY 11/11/24 11/15/24 History pantoprazole 40 mg tablet,delayed 40 mg PO BID #60 tabs 11/13/24 11/15/24 Rx release Past Med/Surg History Problem List (Updated 11/15/24 @ 11:24 by Khari Eric MD) 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 (Acute) Melena (Acute) Gastric ulcer Hiatal hernia Gastric ulcer with hemorrhage GIB (gastrointestinal bleeding) (Acute) Aortic aneurysm Acute blood loss anemia IPMN (intraductal papillary mucinous neoplasm) Upper GI bleed On warfarin therapy (Acute) Atrial fibrillation (Acute) Heart trouble (Acute) Hemorrhoids (Acute) Hypercholesterolemia (Acute) Hypertension (Acute) Impotence, organic (Acute) Renal neoplasm (Acute) Prostate cancer Medical History Asymptomatic hypertensive urgency Acute appendicitis Abdominal pain Surgical History H/O radical prostatectomy History of kidney surgery H/O hernia repair History of cholecystectomy Family History Mother Cardiac disorder Diabetes Hypertension Father Cardiac disorder Hypertension Uncle Prostate cancer Social History Smoking Status: Former smoker Second Hand Exposure: No; Hx Alcohol Use: No Hx Substance Use: No Preferred Language: Japanese Communication Ability: Effective Construction Consultant Required: No Beliefs That Will Affect Care: None marital status: Current Living Situation: Spouse current occupational status: retired Feels Safe at Home: Yes Assistive Devices: None Review of Systems Review of Systems: CONSTITUTIONAL: Patient denies fevers, chills, sweats and weight changes. EYES: Patient denies any visual symptoms. EARS, NOSE, AND THROAT: No difficulties with hearing. No symptoms of rhinitis or sore throat. CARDIOVASCULAR: Patient denies chest pains, palpitations, orthopnea and paroxysmal nocturnal dyspnea. RESPIRATORY: No dyspnea on exertion, no wheezing or cough. GI: black stools : No urinary hesitancy or dribbling. No nocturia or urinary frequency. No abnormal urethral discharge. MUSCULOSKELETAL: No myalgias or arthralgias. NEUROLOGIC: No chronic headaches, no seizures. Patient denies numbness, tingling or weakness. PSYCHIATRIC: Patient denies problems with mood disturbance. No problems with anxiety. ENDOCRINE: No excessive urination or excessive thirst. DERMATOLOGIC: Patient denies any rashes or skin changes. Physical Exam Physical Exam: Gen: A&O 3 NAD HEENT: NCAT, EOMI, not icteric. External ears normal. No rhinorrhea. Moist mucous membranes. Neck: Supple, full range of motion, no observable masses, No meningeal sign. Lungs: No Respiratory distress. CV: RRR, no edema. Abdomen: Soft, nondistended, No rebound tenderness. MSK: No joint swelling, no redness. Skin: No rashes, petechiae, lesions. Normal color per patient. Neuro: Normal Gait, Grossly intact. Psych: Appropriate for situation. Results & Data Results & Data Vital Signs (Past 12 Hours) Vital Signs Temp Pulse Resp BP Pulse Ox O2 Del Method 11/15/24 08:30 76 25 H 119/67 96 Room Air 11/15/24 08:05 98 Room Air 11/15/24 08:04 81 11/15/24 08:00 83 23 113/81 95 11/15/24 07:27 36.5 C 101 H 16 114/77 96 Room Air Laboratory Results -personally reviewed, stable Hgb, creatinine slightly elevated from prior but not quite LAURIE range, hemodynamically stable Code Status & VTE Plan VTE Prophylaxis Plan VTE Prophylaxis will be ordered: Yes (2) GIB (gastrointestinal bleeding) GI bleed type/associated pathology: melena Qualified Code(s): K92.1 - Melena (3) Atrial fibrillation Atrial fibrillation type: unspecified Qualified Code(s): I48.91 - Unspecified atrial fibrillation (5) Aortic aneurysm Aortic location: thoracic aorta Thoracic aorta location: ascending aorta Presence of rupture: without rupture Qualified Code(s): I71.21 - Aneurysm of the ascending aorta, without rupture (6) Gastric ulcer Gastric ulcer chronicity: unspecified ulcer chronicity Gastric ulcer complication status: without hemorrhage or perforation Qualified Code(s): K25.9 - Gastric ulcer, unspecified as acute or chronic, without hemorrhage or perforation (7) Hypertension Hypertension type: primary hypertension Qualified Code(s): I10 - Essential (primary) hypertension
[2024-11-15] MEDS ORDERED: ACETAMINOPHEN 325 MG TAB PO PRN (12:30)
[2024-11-15] MEDS: ROSUVASTATIN CALCIUM 5 MG TAB PO SCH (14:16)
[2024-11-15] MEDS: PANTOprazole 40 MG TAB PO STA (15:28)
[2024-11-15] MEDS: LAVAGE SOLUTION 4000ML PO SCH (16:13)
[2024-11-15] MEDS: MELATONIN 3 MG TAB PO PRN (20:14)
[2024-11-15] MEDS: PANTOprazole 40 MG TAB PO SCH (20:15)
--- NOTE | 2024-11-16 05:38 | Electrocardiogram Report ---
Test Reason : Blood Pressure : */* mmHG Vent. Rate : 80 BPM Atrial Rate : * BPM P-R Int : * ms QRS Dur : 98 ms QT Int : 354 ms P-R-T Axes : * 61 56 degrees QTcB Int : 408 ms Atrial fibrillation Abnormal ECG When compared with ECG of 11-Nov-2024 11:11, No significant change was found Confirmed by Jorge Carlin ([id number]) on 11/16/2024 5:37:58 AM Referred By: Confirmed By: Jorge Carlin
[2024-11-16 07:40] VITALS: RESP 16
[2024-11-16 07:59] LABS: Hematocrit (blood only) 31.5 % (42.0-52.0); Hemoglobin 10.6 g/dl (14.0-18.0); Mean Corpuscular Hemoglobin 31.8 pg (25.0-34.0); Mean Corpuscular Hgb Conc 33.7 g/dL (32.0-36.0); Mean Corpuscular Volume 94.6 fL (80.0-100.0); Mean Platelet Volume 9.9 fL (9.4-12.4); Platelet Count 185 K/uL (130-400); RDW Standard Deviation 44.3 fL (36.4-46.3); Red Blood Count 3.33 M/uL (4.70-6.10); White Blood Count 7.34 K/ul (4.8-10.8)
[2024-11-16 08:15] LABS: BUN Creatinine Ratio 9.8 (10-20); Calcium 8.6 mg/dl (8.6-10.3); Creatinine Clr Calc Pharmacy 66.9 ml/min; Potassium 3.9 mmol/L (3.5-5.1)
[2024-11-16] MEDS: CYANOCOBALAMIN (B-12) 500 MCG TABLET PO SCH (08:22)
--- NOTE | 2024-11-16 09:54 | Gastroenterology Progress Note ---
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 Maintain NPO status for Colonoscopy today Tap water enema now We appreciate assistance in the management of any serological abnormality and corrections to include: hemoglobin >7, INR <2, platelets >50,000, potassium levels >3.5 but <5.3, and sodium levels within 5 points of the reference range prior to endoscopic evaluation. Thank you for allowing us to participate in the care of this patient. Please call with any acute changes, questions or concerns. Please see addendum below with additional recommendation from my supervising physician. Admission and Anticipated Discharge Date Admission Date: November 15, 2024 Supervising Physician Co-Signing Physician Notes I personally saw and examined the patient. I have reviewed the chart and agree with the documentation provided by the PILING CUTTER including discussion about the assessment, treatment and plan. Briefly, patient took the entire prep and after the enema the dark stools cleared out. His hemoglobin is stable at 10.6 plan is for a colonoscopy today. His EGD 2 days ago was negative Subjective Tolerating bowel prep. Stools are liquid but still black. No BRBPR w/ prep. Agreeable to enemas. Review of Systems Review of Systems: All other findings negative except as noted in HPI. Physical Exam Constitutional: WD/WN, vitals as above Respiratory: normal respiratory effort, lungs clear to auscultation Cardiovascular: Rate/Rhythm: regular rate and regular rhythm Gastrointestinal (Abdomen): normal bowel sounds, soft, nontender, no hepatosplenomegaly Skin: no rashes, warm and dry Results & Data Results & Data Vital Signs (Past 12 Hours) Vital Signs Temp Pulse Resp BP Pulse Ox O2 Del Method 11/16/24 08:19 154/83 H 11/16/24 07:39 97.9 F 90 16 152/101 H 97 Room Air Laboratory Results 11/16/24 Range/Units 07:30 WBC 7.34 (4.8-10.8) K/ul RBC 3.33 L (4.70-6.10) M/uL Hgb 10.6 L (14.0-18.0) g/dl Hct 31.5 L (42.0-52.0) % MCV 94.6 (80.0-100.0) fL MCH 31.8 (25.0-34.0) pg MCHC 33.7 (32.0-36.0) g/dL RDW Std Deviation 44.3 (36.4-46.3) fL RDW Coeff of Mary 13.0 (11.5-14.5) % Plt Count 185 (130-400) K/uL MPV 9.9 (9.4-12.4) fL Sodium 138 (136-145) mmol/L Potassium 3.9 (3.5-5.1) mmol/L Chloride 105 (98-107) mmol/L Carbon Dioxide 30 (21-32) mmol/L Anion Gap 3 (3-11) BUN 11 (6-23) mg/dl Creatinine 1.12 (0.6-1.4) mg/dl Est Cr Clr Drug Dosing 66.9 ml/min eGFR 65.18 BUN/Creatinine Ratio 9.8 L (10-20) Glucose 108 H (70-99(Fasting)) mg/dl Calcium 8.6 (8.6-10.3) mg/dl PG Care Time/CCT Total # of Minutes Spent Total Time Spent with Patient: Total time spent is greater than 50% in coordination of care (as documented) at patient's floor/unit and/or counseling patient: Coding Level of Care Code None Diagnoses GIB (gastrointestinal bleeding) K92.1 GI bleed type/associated pathology: melena (1) GIB (gastrointestinal bleeding) GI bleed type/associated pathology: melena Qualified Code(s): K92.1 - Melena
--- NOTE | 2024-11-16 10:46 | Hospitalist Progress Note ---
Date of Service November 16, 2024 Assessment & Plan (1) Acute blood loss anemia: (2) GIB (gastrointestinal bleeding): Plan: Presented with melena Recent EGD on 11/13/24 noted one non-bleeding gastric ulcer with no stigmata of bleeding Continue protonix 40 PO bid GI planning colonoscopy today Monitor Hb Continue to hold warfarin (3) Atrial fibrillation: (4) On warfarin therapy: Plan: [id number] score of 3, HAS BLED score of 2 Will discuss about resuming anticoagulation after procedure (5) Aortic aneurysm: Plan: -follows outpatient (6) Gastric ulcer: (7) Hypertension: Plan: Continue to hold BP meds (8) Prostate cancer: Plan: -hx of, noted Plan I spent a total of 50 minutes coordinating, documenting and providing care for this patient excluding time spent in performance of separately billed services Admission and Anticipated Discharge Date Admission Date: November 15, 2024 Subjective Patient seen and examined Reported melena prior to admission No other complaints at this time Physical Exam Constitutional: + well hydrated; no acute distress Eyes: PERRL, conjunctivae normal, anicteric sclerae ENMT: external ear and nose normal, oropharynx normal Respiratory: normal respiratory effort, lungs clear to auscultation Cardiovascular: Rate/Rhythm: regular rate and regular rhythm Gastrointestinal (Abdomen): normal bowel sounds, soft, nontender, no hepatosplenomegaly Musculoskeletal: No pedal edema Neurologic: PERRL, EOMI, accommodation nl, no face palsy, no dysarthria Psychiatric: A+Ox3, euthymic affect Results & Data Results & Data Vital Signs (Past 12 Hours) Vital Signs Temp Pulse Resp BP Pulse Ox O2 Del Method 11/16/24 08:19 154/83 H 11/16/24 07:39 36.6 C 90 16 152/101 H 97 Room Air Laboratory Results Abnormal lab results 11/16/24 Range/Units 07:30 RBC 3.33 L (4.70-6.10) M/uL Hgb 10.6 L (14.0-18.0) g/dl Hct 31.5 L (42.0-52.0) % BUN/Creatinine Ratio 9.8 L (10-20) Glucose 108 H (70-99(Fasting)) mg/dl (2) GIB (gastrointestinal bleeding) GI bleed type/associated pathology: melena Qualified Code(s): K92.1 - Melena (5) Aortic aneurysm Aortic location: thoracic aorta Thoracic aorta location: ascending aorta Presence of rupture: without rupture Qualified Code(s): I71.21 - Aneurysm of the ascending aorta, without rupture (6) Gastric ulcer Gastric ulcer chronicity: unspecified ulcer chronicity Gastric ulcer complic ation status: without hemorrhage or perforation Qualified Code(s): K25.9 - Gastric ulcer, unspecified as acute or chronic, without hemorrhage or perforation (7) Hypertension Hypertension type: primary hypertension Qualified Code(s): I10 - Essential (primary) hypertension
[2024-11-16] MEDS: SODIUM CHLORIDE 0.9% 500 ML IV SCH (13:48)
--- NOTE | 2024-11-16 13:52 | Anesthesiology Consultation ---
Date of Service November 16, 2024 Assessment & Plan ASA ASA3 Proposed Anesthesia Anesthesia Type: MAC Risk / Benefits Reviewed With: PT / POA / Parent / Guardian History Surgery Operation Date: 11/16/24 16:30 Proposed Procedures p Colonoscopy Wellington Paris MD Operation Date: 11/16/24 16:45 Proposed Procedures p Colonoscopy Wellington Paris MD Height/Weight Height: 6 ft 1 in Weight: 116.6 kg Allergies Allergy/AdvReac Type Severity Reaction Status Date / Time atorvastatin [From Lipitor] Allergy Unknown Verified 11/11/24 14:06 fenofibrate [From Tricor] Allergy Unknown Verified 11/11/24 14:06 gemfibrozil [From Lopid] Allergy Unknown Verified 11/11/24 14:06 lisinopril Allergy Unknown Verified 11/11/24 14:06 niacin Allergy Unknown Verified 11/11/24 14:06 Medications Home Medications Medication Instructions Recorded Confirmed Last Taken cyanocobalamin (vitamin B-12) 500 500 mcg PO QAM 03/26/20 11/15/24 11/11/24 mcg tablet (Vitamin B-12) losartan 100 mg tablet (Cozaar) 100 mg PO QAM 03/26/20 11/15/24 11/11/24 warfarin 4 mg tablet 4 mg PO DAILY 03/26/20 11/15/24 11/10/24 metoprolol succinate 50 mg 50 mg PO QAM 07/08/24 11/15/24 11/11/24 tablet,extended release 24 hr hydrochlorothiazide 12.5 mg capsule 12.5 mg PO QAM 11/11/24 11/15/24 11/11/24 omega 7-tfi-ecl-fish oil 900 1 cap PO HS 11/11/24 11/15/24 11/10/24 mg-1,400 mg capsule,delayed release rosuvastatin 10 mg tablet 5 mg PO Q OTHER DAY 11/11/24 11/15/24 11/11/24 pantoprazole 40 mg tablet,delayed 40 mg PO BID #60 tabs 11/13/24 11/15/24 Unknown release Active Medications Generic Name Dose Route Start Last Admin Trade Name Freq PRN Reason Stop Dose Admin Cyanocobalamin 500 mcg 11/16/24 09:00 11/16/24 08:22 Cyanocobalamin (B-12) 500 Mcg Tablet PO 12/16/24 08:59 500 mcg QAM RANDI Administration Sodium Chloride 500 mls @ 15 mls/hr 11/16/24 07:30 11/16/24 13:48 Nss IV 11/17/24 07:29 15 mls/hr .Q24H RANDI Administration Melatonin 3 mg 11/15/24 12:30 11/15/24 20:14 Melatonin 3 Mg Tab PO 12/15/24 12:29 3 mg HS PRN Administration Insomnia Pantoprazole Sodium 40 mg 11/15/24 21:00 11/16/24 08:22 Pantoprazole 40 Mg Tab PO 12/15/24 20:59 40 mg BID RANDI Administration Polyethylene Glycol/Electrolytes 16 dose 11/15/24 16:30 11/15/24 16:13 Lavage Solution 4000ml PO 11/16/24 15:00 16 dose TODAY@1630 RANDI Administration Rosuvastatin Calcium 5 mg 11/15/24 12:30 11/15/24 14:16 Rosuvastatin Calcium 5 Mg Tab PO 12/15/24 12:29 5 mg Q2D RANDI Administration NPO Date Last Intake of Fluids: 11/16/24 Time Last Intake of Fluids: 08:00 Date Last Intake of Solids: 11/14/24 Time Last Intake of Solids: 17:30 Past Medical History Medical History Asymptomatic hypertensive urgency Acute appendicitis Abdominal pain Exercise / Class Metabolic Activity II 4-5 Yardwork/Stairs/Walk up hill Past Family History Family History Mother Cardiac disorder Diabetes Hypertension Father Cardiac disorder Hypertension Uncle Prostate cancer Past Surgical History Surgical History H/O radical prostatectomy History of kidney surgery H/O hernia repair History of cholecystectomy Past Anesthesia History No Hx of Anesthesia Complications Social History Smoking Status: Former smoker tobacco type: cigarettes Smoking End Date: >30 years ago Hx Alcohol Use: No Hx Substance Use: No substance use type: does not use Physical Exam Vital Signs Last Vital Signs Temp 36.2 C L 11/16/24 13:38 Pulse 80 11/16/24 13:38 Resp 16 11/16/24 13:38 BP 171/98 H 03/14/25 13:38 Pulse Ox 99 11/16/24 13:38 O2 Del Method Room Air 11/16/24 13:38 ENMT Thyromental Distance: > or= 3.5 Finger Breadths Mallampati Class: II Respiratory normal respiratory effort Auscultation: lungs clear to auscultation bilaterally Cardiovascular Rate/Rhythm: regular rate and regular rhythm Psychiatric Orientation: alert and oriented x 3 Testing Laboratory Results 11/16/24 07:30 11/16/24 07:30 PT 14.2 Seconds (9.0-12.0) H 11/15/24 07:49 INR 1.3 (0.9-1.1) H 11/15/24 07:49 APTT 28 Seconds (21-31) 11/15/24 07:49 Blood Type A Positive 11/15/24 07:41 Antibody Screen NEGATIVE 11/15/24 07:41
--- NOTE | 2024-11-16 14:46 | Anesthesiology Progress Note ---
Date of Service November 16, 2024 Anesthesia Post Procedure Vital Signs Vital Signs: Temp Pulse Resp BP Pulse Ox O2 Del Method 11/16/24 13:38 36.2 C L 80 16 171/98 H 99 Room Air 11/16/24 08:19 154/83 H 11/16/24 07:39 36.6 C 90 16 152/101 H 97 Room Air 11/15/24 20:03 36.5 C 93 H 18 164/81 H 98 Room Air Transfer of Care Handoff Completed per policy Notes Mental Status: alert / awake / arousable and participated in evaluation Nausea / Vomiting: adequately controlled Pain: adequately controlled Airway Patency, RR, SpO2: stable & adequate BP & HR: stable & adequate Hydration State: stable & adequate Anesthetic Complications: no major complications apparent and Pt Satisfied with anesthetic care
--- NOTE | 2024-11-16 15:09 | GI REPORT ---
[facility] Patient: LAURA UMAÑA : 1940 Sex at : Male Age: 83 Years Procedure: Colonoscopy Date: 11/16/2024 Attending Physician: Jean Marie Paris MD Referring MD: Referred Self Indications: - Acute post hemorrhagic anemia - dark stools Medications: - Monitored Anesthesia Care Complications: - No immediate complications. Estimated Blood Loss: - Estimated blood loss: None. Procedure: - Prior to the procedure, a History and Physical was performed, and patient medications and allergies were reviewed. The patient's tolerance of previous anesthesia was also reviewed. The risks and benefits of the procedure and the sedation options and risks were discussed with the patient. All questions were answered, and informed consent was obtained. Prior Anticoagulants: The patient has taken no anticoagulant or antiplatelet agents. ASA Grade Assessment: III - A patient with severe systemic disease. After reviewing the risks and benefits, the patient was deemed in satisfactory condition to undergo the procedure. - The pediatric colonoscope was introduced through the anus and advanced to the terminal ileum, with identification of the appendiceal orifice and ileocecal valve. - The colonoscopy was performed without difficulty. - The patient tolerated the procedure well. - The quality of the bowel preparation was fair. - The terminal ileum, ileocecal valve, appendiceal orifice, and rectum were photographed. Findings: - The terminal ileum appeared normal. - The exam was otherwise without abnormality on direct and retroflexion views. - Multiple medium-mouthed diverticula were found in the sigmoid colon. - Internal hemorrhoids were found during retroflexion. The hemorrhoids were Grade I (internal hemorrhoids that do not prolapse) and Grade II (internal hemorrhoids that prolapse but reduce spontaneously). - Two sessile polyps were found in the cecum. The polyps were medium (7-9 mm) in size. These polyps were removed with a cold snare. Resection and retrieval were complete. Impression: - Preparation of the colon was fair. - The examined portion of the ileum was normal. - The examination was otherwise normal on direct and retroflexion views. - Diverticulosis in the sigmoid colon. - Internal hemorrhoids. - Two medium (7-9 mm) polyps in the cecum, removed with a cold snare. Resected and retrieved. Recommendation: - Discharge patient to home (ambulatory). - Resume previous diet. - Continue present medications. - Return to referring physician as previously scheduled. - Patient has a contact number available for emergencies. The signs and symptoms of potential delayed complications were discussed with the patient. Return to normal activities tomorrow. Written discharge instructions were provided to the patient. - I would hold Coumadin for 3 to 4 days. He can start a soft mechanical diet. No obvious source of bleeding noted. He did not really have a hemoglobin drop this visit. I think he deserves an outpatient capsule endoscopy. Ideally if we could keep him on baby aspirin till he gets that done that would be great. GI has no further recommendations we would sign off. Procedure Code(s): - 09958, Colonoscopy, flexible; with removal of tumor(s), polyp(s), or other lesion(s) by snare technique Diagnosis Code(s): - D62, Acute posthemorrhagic anemia - D12.0, Benign neoplasm of cecum - K64.1, Second degree hemorrhoids - K57.30, Diverticulosis of large intestine without perforation or abscess without bleeding CPT(R) - 2023 copyright [employer]. All Rights Reserved. The CPT codes, CCI edits and ICD codes generated are intended as suggestions and were generated based on input data. These codes are preliminary and upon hcc coders review may be revised to meet current compliance and payer requirements. The provider is responsible for the final determination of appropriate codes, and modifiers. Jean Marie Paris MD This document has been electronically signed. Note Initiated:11/16/2024 Note Completed:11/16/2024 3:09 PM [email or web address]\Results\[email or web address]\[id number]
--- NOTE | 2024-11-16 15:25 | Anesthesiology Progress Note ---
Date of Service November 16, 2024 Anesthesia Post Procedure Vital Signs Vital Signs: Temp Pulse Resp BP Pulse Ox O2 Del Method 11/16/24 15:16 92 H 16 142/91 H 97 Room Air 11/16/24 15:01 90 16 131/83 99 Room Air 11/16/24 13:38 36.2 C L 80 16 171/98 H 99 Room Air 11/16/24 08:19 154/83 H 11/16/24 07:39 36.6 C 90 16 152/101 H 97 Room Air 11/15/24 20:03 36.5 C 93 H 18 164/81 H 98 Room Air Transfer of Care Handoff Completed per policy Notes Mental Status: alert / awake / arousable and participated in evaluation Patient Amnestic to Procedure: Yes Nausea / Vomiting: adequately controlled Pain: adequately controlled Airway Patency, RR, SpO2: stable & adequate BP & HR: stable & adequate Hydration State: stable & adequate Anesthetic Complications: no major complications apparent and Pt Satisfied with anesthetic care
[2024-11-16] MEDS: LIDOCAINE 2% 2 ML VIAL/AMP(20MG/ML) INFIL ONE (15:53)
[2024-11-16] MEDS: PROPOFOL IV EMULSION 10 MG/ML 20 ML VIAL IV ONE (15:53)
[2024-11-16 18:18] LABS: Hematocrit (blood only) 29.7 % (42.0-52.0); Hemoglobin 9.9 g/dl (14.0-18.0)
[2024-11-16 20:01] VITALS: O2SAT 96
[2024-11-17 07:23] LABS: Hemoglobin 9.4 g/dl (14.0-18.0); Mean Corpuscular Hemoglobin 31.2 pg (25.0-34.0); Mean Corpuscular Hgb Conc 33.6 g/dL (32.0-36.0); Mean Platelet Volume 9.8 fL (9.4-12.4); Platelet Count 155 K/uL (130-400); RDW Standard Deviation 43.8 fL (36.4-46.3); Red Blood Count 3.01 M/uL (4.70-6.10); White Blood Count 5.46 K/ul (4.8-10.8)
[2024-11-17 07:39] LABS: BUN Creatinine Ratio 9.7 (10-20); Calcium 8.2 mg/dl (8.6-10.3); Creatinine Clr Calc Pharmacy 66.3 ml/min
[2024-11-17 07:54] VITALS: BP 146/89; PULSE 81; TEMP 98.1
--- NOTE | 2024-11-17 10:44 | Discharge Summary ---
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 Had recent admission for similar symptoms, EGD revealing non bleeding gastric ulcer, discharged with protonix bid. Patient states symptoms have been occuring since yesterday, 1 black stool. He started the coumadin again yesterday, took none before, INR before starting coumadin again was 1.6. States stool was black, no redness. No other associated symptoms, no SOB, chest pain, or nauseas/vomiting. Denies tobacco use, alcohol use, drug use, DNRDNI but ok with blood pressure supporting medications (see my last note for advanced care planning discussion). Admission Exam Per Admitting Provider Gen: A&O 3 NAD HEENT: NCAT, EOMI, not icteric. External ears normal. No rhinorrhea. Moist mucous membranes. Neck: Supple, full range of motion, no observable masses, No meningeal sign. Lungs: No Respiratory distress. CV: RRR, no edema. Abdomen: Soft, nondistended, No rebound tenderness. MSK: No joint swelling, no redness. Skin: No rashes, petechiae, lesions. Normal color per patient. Neuro: Normal Gait, Grossly intact. Psych: Appropriate for situation. Principal Diagnosis Gastrointestinal bleeding Discharge Exam Constitutional + well hydrated; no acute distress Eyes PERRL, conjunctivae normal, anicteric sclerae ENMT external ear and nose normal, oropharynx normal Respiratory normal respiratory effort, lungs clear to auscultation Cardiovascular Rate/Rhythm: regular rate and regular rhythm Gastrointestinal (Abdomen) normal bowel sounds, soft, nontender, no hepatosplenomegaly Musculoskeletal no cyanosis or clubbing, extremities motor strength 5/5 Neurologic PERRL, EOMI, accommodation nl, no face palsy, no dysarthria Psychiatric A+Ox3, euthymic affect Discharge Data Allergies Allergy/AdvReac Type Severity Reaction Status Date / Time atorvastatin [From Lipitor] Allergy Unknown Verified 11/11/24 14:06 fenofibrate [From Tricor] Allergy Unknown Verified 11/11/24 14:06 gemfibrozil [From Lopid] Allergy Unknown Verified 11/11/24 14:06 lisinopril Allergy Unknown Verified 11/11/24 14:06 niacin Allergy Unknown Verified 11/11/24 14:06 Consultations 11/15/24 09:18 Consult Gastroenterology Routine 11/15/24 10:14 ED Decision to Admit Stat Procedures Performed Operation Date: 11/16/24 16:45 <No data on this case meets the specified criteria> Hospital Course (1) Acute blood loss anemia: (2) GIB (gastrointestinal bleeding): Presented with melena Recent EGD on 11/13/24 noted one non-bleeding gastric ulcer with no stigmata of bleeding Continue protonix 40 PO bid Patient's warfarin was held on admission Colonoscopy on 11/16/24 noted diverticula, internal hemorrhoids, 2 sessile polyps which were removed. No active bleeding Hb remained stable 9-10s Patient discharged today Bloody BM resolved Advised to resume warfarin in 3 days per GI Needs to follow up GI outpatient for capsule endoscopy (3) Atrial fibrillation: (4) On warfarin therapy: (5) Aortic aneurysm: -follows outpatient (6) Gastric ulcer: (7) Hypertension: (8) Prostate cancer: - Total Time Total Time Spent Total Time Spent (In Minutes): 35 Total Time Includes: Examination of the Patient, Discharge Planning and Medication Reconciliation Discharge Plan Discharge Items Patient Disposition: Home - Self-Care Reason For Visit: BLACK STOOL Discharge Diagnosis: Gastrointestinal bleeding Activity: Resume your previous activity Non-emergency contact: Primary Care Provider and [employer] Call non-emergency contact if: you have any medication questions Follow-up/Referrals: Chiki Syed MD [Primary Care Provider] - Diet: Heart Healthy Addtl Attending Provider Instructions: Mr La. You had presented to the hospital due to dark stools. You were evaluated with colonoscopy. You are being discharged home. You can resume your warfarin on 11/20/24. Please ensure follow up with Gastroenterology for capsule endoscopy as discussed. It was a pleasure taking care of you. Pending Studies at Discharge: No Stand-Alone Forms: My [employer], Smoking Cessation Medications and DC Order Prescriptions: Continued losartan [Cozaar] 100 mg tablet 100 mg PO QAM cyanocobalamin (vitamin B-12) [Vitamin B-12] 500 mcg tablet 500 mcg PO QAM metoprolol succinate 50 mg tablet extended release 24 hr 50 mg PO QAM hydrochlorothiazide 12.5 mg capsule 12.5 mg PO QAM rosuvastatin 10 mg Tablet 5 mg PO Q OTHER DAY omega [id number]-jga-[id number]-fish oil 900-1,400 mg Capsule,Delayed Release(Dr/Ec) 1 cap PO HS pantoprazole 40 mg Tablet,Delayed Release (Dr/Ec) 40 mg PO BID Qty: 60 0RF Held warfarin 4 mg tablet 4 mg PO DAILY Hold Instructions: Resume on 11/14/24. Resume your warfarin dosing as usual on 11/14/2024 Rx Instructions: Take 8mg by mouth on the evenings of Tuesday/Tuesday and 4mg all other days Discharge Orders: Discharge Order (Routine); Ordered 11/17/24 Ordered By: Deepthi Muñiz Admission Data Admit Date/Time: 11/15/24 11:10 Attending Provider: Deepthi Muñiz I. Admit Provider: Khari Eric Primary Care Provider: Chiki Syed Other Providers: Jean Marie Paris; Khari Eric Other Interventions: Discharge Summary Assessment (RN) Last Done: 11/17/24 11:20
== END 2024-11-17 11:45 | disposition home or self-care (01) | DRG 378 ==
LOC: ED 07:18 → 3N 11:10 → SUATTDRO 11:10 → 3N 12:17